=== PATIENT | male | born 1945 | race Caucasian/White ===

== ENCOUNTER → 2016-04-05 | Outpatient (CLI) | payer OTHER ==
[2016-04-05 09:52] LABS: ALT/SGPT 31 U/L (12-78); AST/SGOT 12 U/L (15-37); BLOOD UREA NITROGEN 19 mg/dl (7-18); BUN/CREATININE RATIO 15.5 (10-20); CALCIUM 9.6 mg/dl (8.5-10.1); CARBON DIOXIDE 26 mmol/L (21-32); CHLORIDE 104 mmol/L (98-107); GLUCOSE 168 mg/dl (70-99); POTASSIUM 4.2 mmol/L (3.5-5.1); SODIUM 140 mmol/L (136-145)
[2016-04-05 10:03] LABS: ESTIMATED AVERAGE GLUCOSE 140 mg/dl; HA1C FLAG Normal (Normal)
== END | disposition home or self-care (01) ==
LOC: C.LAB 08:06
PROVIDERS: ATTEND Family Medicine
DX: J45.909 Unspecified asthma, uncomplicated (principal); E11.9 Type 2 diabetes mellitus without complications; E78.00 Pure hypercholesterolemia, unspecified

== ENCOUNTER → 2016-08-16 | Outpatient (CLI) | payer OTHER ==
[2016-08-16 09:46] LABS: BLOOD UREA NITROGEN 19 mg/dl (7-18); CARBON DIOXIDE 28 mmol/L (21-32); CHLORIDE 108 mmol/L (98-107); GLUCOSE 139 mg/dl (70-99); POTASSIUM 4.2 mmol/L (3.5-5.1); SODIUM 142 mmol/L (136-145)
[2016-08-16 10:01] LABS: CALCIUM 10.3 mg/dl (8.5-10.1)
[2016-08-16 10:03] LABS: ALB/GLOB RATIO 1.1 (0.9-2); ALKALINE PHOSPHATASE 67 U/L (45-117); ALT/SGPT 30 U/L (12-78); AST/SGOT 17 U/L (15-37); BUN/CREATININE RATIO 16.1 (10-20); CHOLESTEROL 152 mg/dl (0-200); CHOLESTEROL/HDL RATIO 2.8; HDL CHOLESTEROL 54 mg/dl; LDL CHOLESTEROL CALCULATED 74 mg/dl; TRIGLYCERIDES 118 mg/dl (0-150); VERY LOW DENSITY LIPOPROT CALC 24 mg/dl
[2016-08-16 10:23] LABS: ESTIMATED AVERAGE GLUCOSE 151 mg/dl; HA1C FLAG Normal (Normal)
== END | disposition home or self-care (01) ==
LOC: C.LAB 07:28
PROVIDERS: ATTEND Family Medicine
DX: E11.9 Type 2 diabetes mellitus without complications (principal); E78.00 Pure hypercholesterolemia, unspecified; I48.91 Unspecified atrial fibrillation; I10 Essential (primary) hypertension

== ENCOUNTER → 2016-12-20 | Outpatient (CLI) | payer OTHER ==
[2016-12-20 09:51] LABS: BLOOD UREA NITROGEN 17 mg/dl (7-18); BUN/CREATININE RATIO 14.1 (10-20); CALCIUM 9.5 mg/dl (8.5-10.1); CARBON DIOXIDE 28 mmol/L (21-32); CHLORIDE 109 mmol/L (98-107); GLUCOSE 133 mg/dl (70-99); POTASSIUM 4.1 mmol/L (3.5-5.1); SODIUM 142 mmol/L (136-145)
[2016-12-20 09:55] LABS: ALB/GLOB RATIO 1.2 (0.9-2); ALKALINE PHOSPHATASE 66 U/L (45-117); ALT/SGPT 30 U/L (12-78); AST/SGOT 13 U/L (15-37); CHOLESTEROL 147 mg/dl (0-200); CHOLESTEROL/HDL RATIO 2.5; HDL CHOLESTEROL 58 mg/dl; LDL CHOLESTEROL CALCULATED 64 mg/dl; TRIGLYCERIDES 124 mg/dl (0-150); VERY LOW DENSITY LIPOPROT CALC 25 mg/dl
[2016-12-20 10:04] LABS: ESTIMATED AVERAGE GLUCOSE 157 mg/dl; HA1C FLAG Normal (Normal)
== END | disposition home or self-care (01) ==
LOC: C.LAB 07:17
PROVIDERS: ATTEND Family Medicine
DX: E11.9 Type 2 diabetes mellitus without complications (principal); E78.00 Pure hypercholesterolemia, unspecified; I10 Essential (primary) hypertension

== ENCOUNTER → 2016-12-27 | Outpatient (CLI) | payer OTHER | END | disposition home or self-care (01) | LOC: C.PATHSPEC 14:18 | PROVIDERS: ATTEND Family Medicine | DX: B07.9 Viral wart, unspecified (principal) ==

== ENCOUNTER → 2017-04-21 | Outpatient (CLI) | payer OTHER ==
[2017-04-21 09:51] LABS: HEMOGLOBIN A1C 7.2 % (4.5-5.6)
[2017-04-21 10:07] LABS: ALBUMIN 3.8 gm/dl (3.4-5.0); ALT/SGPT 37 U/L (12-78); AST/SGOT 21 U/L (15-37); BLOOD UREA NITROGEN 15 mg/dl (7-18); CALCIUM 9.2 mg/dl (8.5-10.1); CARBON DIOXIDE 28 mmol/L (21-32); CHOLESTEROL 137 mg/dl (0-200); CREATININE 1.12 mg/dl (0.60-1.40); GLUCOSE 124 mg/dl (70-99); POTASSIUM 3.8 mmol/L (3.5-5.1); SODIUM 139 mmol/L (136-145)
[2017-04-21 10:10] LABS: ALKALINE PHOSPHATASE 64 U/L (45-117); LDL CHOLESTEROL CALCULATED 50 mg/dl; TOTAL PROTEIN 7.2 gm/dl (6.4-8.2)
== END | disposition home or self-care (01) ==
LOC: C.LAB 08:40
PROVIDERS: ATTEND Family Medicine
DX: E11.9 Type 2 diabetes mellitus without complications (principal); I48.91 Unspecified atrial fibrillation; I10 Essential (primary) hypertension

== ENCOUNTER 2017-10-18 02:40 | Inpatient (IN) | payer OTHER ==
[~2017-10-18] VITALS: Ht 180.3 cm; Wt 74.6 kg
[2017-10-18] VITALS (8 sets, daily range): BP systolic 101–163; BP diastolic 60–89; PULSE 68–95; TEMP 36.6; O2SAT 89–97; Ht 180.3 cm; Wt 74.6 kg
[2017-10-18] MEDS ORDERED: SODIUM CHLORIDE 0.9% 1000ML 1,000 ML IV STA (02:59)
[2017-10-18] MEDS ORDERED: OPTIRAY 320 IV PRN (03:15)
[2017-10-18 03:30] LABS: BASO % 0.3 %; BASO ABS # 0.03 K/uL (0-0.2); EOS % 4.2 %; EOS ABS # 0.49 K/uL (0-0.5); HEMATOCRIT 47.6 % (42-52); HEMOGLOBIN 17.1 g/dL (14.0-18.0); IG# 0.02 K/uL (0.00-0.02); LYMPH % 22.9 %; LYMPH ABS # 2.68 K/uL (1.2-3.4); MEAN CELL VOLUME 94.4 fL (80-100); MEAN CORPUSCULAR HEMOGLOBIN 33.9 pg (25-34); MEAN CORPUSCULAR HGB CONC 35.9 g/dl (32-36); MEAN PLATELET VOLUME 11.7 fL (7.4-10.4); MONO % 6.4 %; MONO ABS # 0.75 K/uL (0.11-0.59); NEUT ABS # 7.72 K/uL (1.4-6.5); PLATELET COUNT 147 K/uL (130-400); RED CELL DISTRIBUTION WIDTH CV 12.4 % (11.5-14.5); RED CELL DISTRIBUTION WIDTH SD 42.8 fL (36.4-46.3); WHITE BLOOD COUNT 11.69 K/uL (4.8-10.8)
--- NOTE | 2017-10-18 03:42 | EMERGENCY ROOM VISIT NOTE ---
History First contact with patient: 02:51 Chief Complaint: ABDOMINAL PAIN Stated Complaint: SEVERE PAIN IN STOMACH Nursing Triage Summary: PT presents with abd pain, to center of abd and pain to left shoulder, PT states the pain is a squeezing pain, denies N/V, denies urinary symptoms and denies diarrhea or constipation. History of Present Illness The patient is a 72 year old male who presents to the Emergency Room with complaints of pain to the epigastric region and left side of the abdomen. Patient's states this has been an ongoing issue for the last several weeks but tonight he could not lay comfortably. The pain radiates to the left shoulder. Patient admits that with a deep breath, the pain is somewhat worsened. He denies any difficulty with shortness of breath or chest pain. Patient states he ate dinner without any difficulty. He has been having bowel movements normally and has had no vomiting. He denies any blood in his bowels. The patient has not discussed the findings with his PCP. He denies any aggravating or relieving factors. His states they have attempted to use [id number] Tums and Pepcid without any relief. Review of Systems See HPI for pertinent positives & negatives. A total of 10 systems reviewed and were otherwise negative. Past Medical/Surgical History Left bundle branch block Diabetes Social History Smoking Status: Never Smoker Marital Status: Housing Status: lives with family Occupation Status: retired Current/Historical Medications Scheduled Aspirin (Aspirin 81 Low Dose), 81 MG PO 3XWK Cetirizine (Zyrtec), 10 MG PO QPM Empagliflozin (Jardiance), 25 MG PO DAILY Fexofenadine Hcl (Mirella), 180 MG PO DAILY Glimepiride (Glimepiride), 1 TAB PO BID Insulin Human NPH (Novolin N), 46 UNITS SQ HS Ipratropium [place] (Nasal) (Ipratropium [place]), 1 DROP DAILY Lisinopril (Zestril), 20 MG PO DAILY Metoprolol Tartrate (Lopressor) (Lopressor), 25 MG PO BID Mometasone Furoate-Formoterol (Dulera 200/5 Mcg), 2 PUFFS INH BID Multiple Vitamins W/ Minerals (Centrum Silver 50+Men), 1 TAB PO DAILY Nortriptyline Hcl (Pamelor), 75 MG PO QPM Omeprazole (Omeprazole), 20 MG PO DAILY Oxymetazoline Hcl (Nasal Relief), 2 SPRAYS CORBY BID Simvastatin (Zocor), 40 MG PO QPM Sitagliptin Phosphate (Januvia), 100 MG PO DAILY Scheduled PRN Albuterol Hfa (Ventolin Hfa), 2 PUFFS INH Q6H PRN for SOB/Wheezing Physical Exam Vital Signs Date Time Temp Pulse Resp B/P (MAP) Pulse Ox O2 Delivery O2 Flow Rate FiO2 10/18/17 05:47 63 17 154/89 98 Room Air 10/18/17 05:01 59 19 150/87 98 10/18/17 04:39 62 18 139/81 99 Room Air 10/18/17 04:16 69 18 153/91 96 Room Air 10/18/17 03:34 63 10/18/17 02:45 36.3 61 18 141/73 97 Room Air Physical Exam Vital signs reviewed. General: Well-appearing 72-year-old male, in no significant distress. HEENT: No scleral icterus, PERRLA, neck supple. Atraumatic. Hard of hearing Cardiovascular: Regular rate and rhythm, no extra sounds. Pulmonary: Clear to auscultation bilaterally, normal work of breathing. Abdomen: Soft, tender to palpation over the left upper and lower quadrants. Mild distention without tympany, positive bowel sounds. Musculoskeletal: Atraumatic, no peripheral edema. Neurologic: Patient awake alert and oriented x 3 Skin: Warm, dry, no rash Medical Decision & Procedures ER Provider Diagnostic Interpretation: CTA chest: Findings: No pulmonary embolus is identified. The aorta is within normal limits , no aneurysm or dissection. The cardiomediastinal structures are normal. No adenopathy or effusions. The lungs are clear. The osseous structures are unremarkable. Impression: No acute abnormality of the chest Radiologist: Kamran Pickett MD Laboratory Results 10/18/17 03:16 Red Blood Count 5.04, Mean Corpuscular Volume 94.4, Mean Corpuscular Hemoglobin 33.9, Mean Corpuscular Hemoglobin Concent 35.9, Mean Platelet Volume 11.7, Neutrophils (%) (Auto) 66.0, Lymphocytes (%) (Auto) 22.9, Monocytes (%) (Auto) 6.4, Eosinophils (%) (Auto) 4.2, Basophils (%) (Auto) 0.3, Neutrophils # (Auto) 7.72, Lymphocytes # (Auto) 2.68, Monocytes # (Auto) 0.75, Eosinophils # (Auto) 0.49, Basophils # (Auto) 0.03 10/18/17 03:16 Test 10/18/17 03:16 White Blood Count 11.69 K/uL (4.8-10.8) Red Blood Count 5.04 M/uL (4.7-6.1) Hemoglobin 17.1 g/dL (14.0-18.0) Hematocrit 47.6 % (42-52) Mean Corpuscular Volume 94.4 fL (80-100) Mean Corpuscular Hemoglobin 33.9 pg (25-34) Mean Corpuscular Hemoglobin Concent 35.9 g/dl (32-36) Platelet Count 147 K/uL (130-400) Mean Platelet Volume 11.7 fL (7.4-10.4) Neutrophils (%) (Auto) 66.0 % Lymphocytes (%) (Auto) 22.9 % Monocytes (%) (Auto) 6.4 % Eosinophils (%) (Auto) 4.2 % Basophils (%) (Auto) 0.3 % Neutrophils # (Auto) 7.72 K/uL (1.4-6.5) Lymphocytes # (Auto) 2.68 K/uL (1.2-3.4) Monocytes # (Auto) 0.75 K/uL (0.11-0.59) Eosinophils # (Auto) 0.49 K/uL (0-0.5) Basophils # (Auto) 0.03 K/uL (0-0.2) RDW Standard Deviation 42.8 fL (36.4-46.3) RDW Coefficient of Variation 12.4 % (11.5-14.5) Immature Granulocyte % (Auto) 0.2 % Immature Granulocyte # (Auto) 0.02 K/uL (0.00-0.02) Prothrombin Time 10.4 SECONDS (9.0-12.0) Prothromb Time International Ratio 1.0 (0.9-1.1) Activated Partial Thromboplast Time 27.8 SECONDS (21.0-31.0) Partial Thromboplastin Ratio 1.1 Urine Color YELLOW Urine Appearance CLEAR (CLEAR) Urine pH 6.5 (4.5-7.5) Urine Specific [place] 1.036 (1.000-1.030) Urine Protein NEG (NEG) Urine Glucose (UA) 3+ (NEG) Urine Ketones NEG (NEG) Urine Occult Blood NEG (NEG) Urine Nitrite NEG (NEG) Urine Bilirubin NEG (NEG) Urine Urobilinogen NEG (NEG) Urine Leukocyte Esterase NEG (NEG) Anion Gap 7.0 mmol/L (3-11) Est Creatinine Clear Calc Drug Dose 45.0 ml/min Estimated GFR () 66.4 Estimated GFR (Non- 57.3 BUN/Creatinine Ratio 11.0 (10-20) Calcium Level 9.2 mg/dl (8.5-10.1) Total Bilirubin 0.4 mg/dl (0.2-1) Direct Bilirubin 0.1 mg/dl (0-0.2) Aspartate Amino Transf (AST/SGOT) 81 U/L (15-37) Alanine Aminotransferase (ALT/SGPT) 33 U/L (12-78) Alkaline Phosphatase 75 U/L (45-117) Troponin I 7.550 ng/ml (0-0.045) Total Protein 7.4 gm/dl (6.4-8.2) Albumin 3.7 gm/dl (3.4-5.0) Lipase 158 U/L (73-393) Medications Administered Medications (Trade) Dose Ordered Sig/Robert Route Start Time Stop Time Status Last Admin Dose Admin Sodium Chloride 1,000 ml @ 125 mls/hr Q8H STAT IV 10/18/17 02:59 10/18/17 10:58 10/18/17 03:16 125 MLS/HR Aspirin (Aspirin Chew) 324 mg NOW STAT PO 10/18/17 03:59 10/18/17 04:00 DC 10/18/17 04:15 324 MG Morphine Sulfate (MoRPHine SULFATE INJ) 4 mg NOW STAT IV 10/18/17 04:13 10/18/17 04:15 DC 10/18/17 04:29 4 MG Ondansetron HCl (Zofran Inj) 4 mg NOW STAT IV 10/18/17 04:13 10/18/17 04:15 DC 10/18/17 04:29 4 MG Nitroglycerin (Nitroglycerin 2% Oint) 0.5 inch NOW STAT EXT 10/18/17 04:24 10/18/17 04:25 DC 10/18/17 04:32 0.5 INCH Medical Decision The differential diagnosis of this patient's presentation includes peptic ulcer , pancreatitis, diverticulitis, bowel obstruction, kidney stone, UTI/ pyelonephritis, colitis, SBO, cholecystitis, appendicitis, aortic etiology This patient was evaluated and appeared to be in no significant distress. IV access was obtained and laboratory work was drawn. Patient was placed on the surveillance system monitor and found to be in a sinus rhythm with a left bundle branch block. CT scan of the abdomen and pelvis was initially ordered due to the location of the patient's discomfort. Laboratory work however indicates a troponin of 7.5. EKG from 2014 were compared to today's and are unchanged. Patient continues to complain of an epigastric discomfort. He was given aspirin 324 mg, 1/2 inch of nitroglycerin paste and started on a heparin drip. Patient was given morphine 4 mg IV and Zofran 4 mg IV for discomfort. CT scan of the chest was performed to rule out dissection, the study is negative, CT scan abdomen pelvis was canceled. I did discuss the case with Dr. Cruz of cardiology who has recommended n.p.o. status for catheterization in several hours. Dr. Fallon of the hospitalist service. Patient was informed of the findings and plan and agrees. Medication Reconcilliation Current Medication List: was personally reviewed by me Blood Pressure Screening Patient's blood pressure: Elevated blood pressure Blood pressure disposition: Elevated BP felt to be situational, Did not require urgent referral Impression Primary Impression: ACS (acute coronary syndrome) Critical Care I have personally spent greater than 35 minutes of critical care time in the direct management of this patient. This includes bedside care, interpretation of diagnostic studies, and testing, discussion with consultants, patient, and family members, and other required patient management activities. This 35 minutes is in excess of all separately billable procedures. Departure Information Referrals Valentino Dunlap M.D. (PCP) Patient Instructions [facility]
[2017-10-18 03:55] LABS: ALBUMIN 3.7 gm/dl (3.4-5.0); CALCIUM 9.2 mg/dl (8.5-10.1); CREATININE 1.24 mg/dl (0.60-1.40); POTASSIUM 3.8 mmol/L (3.5-5.1); TOTAL PROTEIN 7.4 gm/dl (6.4-8.2)
[2017-10-18] MEDS ORDERED: ASPIRIN 81 MG CHEW PO STA (03:59)
[2017-10-18] MEDS ORDERED: OMEP20TA PO (04:00)
[2017-10-18] MEDS ORDERED: ASPI1CHW12 PO (04:01)
[2017-10-18] MEDS ORDERED: METO25TA56 PO (04:02)
[2017-10-18] MEDS ORDERED: FEXO1TAB46 PO (04:02)
[2017-10-18] MEDS ORDERED: LISI-725 PO (04:02)
[2017-10-18] MEDS ORDERED: GLIM4TAB2 PO (04:02)
[2017-10-18] MEDS ORDERED: MULT-1093 PO (04:03)
[2017-10-18] MEDS ORDERED: VNTHFA/IN INH (04:04)
[2017-10-18] MEDS ORDERED: IPRA0.06 (04:04)
[2017-10-18] MEDS ORDERED: MOME200A INH (04:04)
[2017-10-18] MEDS ORDERED: EMPA1TAB3 PO (04:05)
[2017-10-18] MEDS ORDERED: SITA100T3 PO (04:05)
[2017-10-18] MEDS ORDERED: [UNRECOGNIZED DRUG - CODE] NAE (04:05)
[2017-10-18] MEDS ORDERED: NORT75CA2 PO (04:07)
[2017-10-18] MEDS ORDERED: CETI10TA84 PO (04:07)
[2017-10-18] MEDS ORDERED: NVLNI SQ (04:07)
[2017-10-18] MEDS ORDERED: SIMV40TA2 PO (04:07)
[2017-10-18] MEDS ORDERED: MoRPHine SULFATE 4 MG/ML 1 ML CARP\\VIAL IV STA (04:13)
[2017-10-18] MEDS ORDERED: ONDANSETRON INJ 2 MG/ML 2 ML VIAL IV STA (04:13)
[2017-10-18] MEDS ORDERED: NITROGLYCERIN 2% OINTMENT 30GM TUBE EXT STA (04:24)
[2017-10-18 04:31] LABS: PTT PATIENT 27.8 SECONDS (21.0-31.0)
[2017-10-18] MEDS ORDERED: HEPARIN 25000 UNIT/500 ML D5W ONE (04:36)
[2017-10-18] MEDS ORDERED: HEPARIN SOD 5000 UNIT/0.5 ML CARP ONE (04:36)
--- NOTE | 2017-10-18 05:10 | History and Physical ---
History & Physical Date & Time of Service: Oct 18, 2017 at 05:09 Chief Complaint: Severe Pain In Stomach Primary Care Physician: Valentino Dunlap M.D. History of Present Illness Source: patient, hospital records 72 yo M with PMhx of T2DM, HLD, HTN, GERD, Asthma presenting with intermittent epigastric pain x a few weeks. Pain has been intermittent but worsening the last few days. He tried Tums, which he feels helped several days ago but later provided little relief. He denies meal association .He does report associated diaphoresis. He denies Chest pain, Sob, calf tenderness.No fevers, chills, n/v, constipation, diarrhea, sob, cough, palpitation, light headedness, or dizziness, Patient denies of Heart disease. He has a known LBBB. His brother had MD before age 50. He does have history of well controlled T2DM on insulin, He also has history of Hyperlipidemia, HTN. Primary Care doctor is Dr. Valentino Dunlap. In the ED, patient was found to be afebrile, VSS. mild leukocytosis ( WBC Ct 11.69) ,, UA unremarkable, EKG with LBBB similar to previous, no acute ST changes, Troponin of 7.55 Past Medical/Surgical History PastMedHx: T2DM HLD HTN GERD Asthma Seasonal Allergy Family History FH: CAD (coronary artery disease) Social History Smoking Status: Never Smoker Alcohol Use: none Drug Use: none Marital Status: Housing status: lives with family Occupational Status: retired Immunizations History of Influenza Vaccine: Unknown History of Tetanus Vaccine?: Unknown History of Pneumococcal: Unknown History of Hepatitis B Vaccine: Unknown Allergies Coded Allergies: Cat Dander (Verified Allergy, Unknown, congestion, 10/18/17) Dog Dander (Verified Allergy, Unknown, congestion, 10/18/17) Home Medications Scheduled Aspirin (Aspirin 81 Low Dose), 81 MG PO 3XWK Cetirizine (Zyrtec), 10 MG PO QPM Empagliflozin (Jardiance), 25 MG PO DAILY Fexofenadine Hcl (Mirella), 180 MG PO DAILY Glimepiride (Glimepiride), 1 TAB PO BID Insulin Human NPH (Novolin N), 46 UNITS SQ HS Ipratropium [place] (Nasal) (Ipratropium [place]), 1 DROP DAILY Lisinopril (Zestril), 20 MG PO DAILY Metoprolol Tartrate (Lopressor) (Lopressor), 25 MG PO BID Mometasone Furoate-Formoterol (Dulera 200/5 Mcg), 2 PUFFS INH BID Multiple Vitamins W/ Minerals (Centrum Silver 50+Men), 1 TAB PO DAILY Nortriptyline Hcl (Pamelor), 75 MG PO QPM Omeprazole (Omeprazole), 20 MG PO DAILY Oxymetazoline Hcl (Nasal Relief), 2 SPRAYS [place] BID Simvastatin (Zocor), 40 MG PO QPM Sitagliptin Phosphate (Januvia), 100 MG PO DAILY Scheduled PRN Albuterol Hfa (Ventolin Hfa), 2 PUFFS INH Q6H PRN for SOB/Wheezing Review of Systems Constitutional: No fever, No chills Respiratory: No cough, No sputum, No shortness of breath Cardiovascular: No chest pain, No edema, No palpitations Abdomen: + pain (Epigastric ), No vomiting, No diarrhea, No constipation, No GI bleeding Genitourinary - Male: No hematuria, No dysuria, No urinary frequency, No urinary urgency Integumentary: No rash, No itch Physical Exam Vital Signs Date Time Temp Pulse Resp B/P (MAP) Pulse Ox O2 Delivery O2 Flow Rate FiO2 10/18/17 04:39 62 18 139/81 99 Room Air 10/18/17 04:16 69 18 153/91 96 Room Air 10/18/17 03:34 63 10/18/17 02:45 36.3 61 18 141/73 97 Room Air GENERAL: alert, mild distress EYE EXAM: normal conjunctiva, PERRL and EOM's grossly intact OROPHARYNX: no exudate, no erythema, lips, buccal mucosa, and tongue normal and mucous membranes are moist NECK: supple, no nuchal rigidity, no adenopathy, non-tender LUNGS: Clear to auscultation. Normal chest wall mechanics HEART: no murmurs, S1 normal and S2 normal ABDOMEN: abdomen distended, non-specific tenderness worst in the epigastrium normo-active bowel sounds, no masses, no rebound or guarding. BACK: Back is symmetrical on inspection and there is no deformity SKIN: no rashes and no bruising UPPER EXTREMITIES: upper extremities are grossly normal. LOWER EXTREMITIES: No pitting edema. NEURO EXAM: Normal sensorium, cranial nerves II-XII grossly intact, normal speech, no gross weakness of arms, no gross weakness of legs. Diagnostics Laboratory Results Results Past 24 Hours Test 10/18/17 03:16 Range/Units White Blood Count 11.69 4.8-10.8 K/uL Red Blood Count 5.04 4.7-6.1 M/uL Hemoglobin 17.1 14.0-18.0 g/dL Hematocrit 47.6 42-52 % Mean Corpuscular Volume 94.4 80-100 fL Mean Corpuscular Hemoglobin 33.9 25-34 pg Mean Corpuscular Hemoglobin Concent 35.9 32-36 g/dl Platelet Count 147 130-400 K/uL Mean Platelet Volume 11.7 7.4-10.4 fL Neutrophils (%) (Auto) 66.0 % Lymphocytes (%) (Auto) 22.9 % Monocytes (%) (Auto) 6.4 % Eosinophils (%) (Auto) 4.2 % Basophils (%) (Auto) 0.3 % Neutrophils # (Auto) 7.72 1.4-6.5 K/uL Lymphocytes # (Auto) 2.68 1.2-3.4 K/uL Monocytes # (Auto) 0.75 0.11-0.59 K/uL Eosinophils # (Auto) 0.49 0-0.5 K/uL Basophils # (Auto) 0.03 0-0.2 K/uL RDW Standard Deviation 42.8 36.4-46.3 fL RDW Coefficient of Variation 12.4 11.5-14.5 % Immature Granulocyte % (Auto) 0.2 % Immature Granulocyte # (Auto) 0.02 0.00-0.02 K/uL Prothrombin Time 10.4 9.0-12.0 SECONDS Prothromb Time International Ratio 1.0 0.9-1.1 Activated Partial Thromboplast Time 27.8 21.0-31.0 SECONDS Partial Thromboplastin Ratio 1.1 Urine Color YELLOW Urine Appearance CLEAR CLEAR Urine pH 6.5 4.5-7.5 Urine Specific [place] 1.036 1.000-1.030 Urine Protein NEG NEG Urine Glucose (UA) 3+ NEG Urine Ketones NEG NEG Urine Occult Blood NEG NEG Urine Nitrite NEG NEG Urine Bilirubin NEG NEG Urine Urobilinogen NEG NEG Urine Leukocyte Esterase NEG NEG Sodium Level 140 136-145 mmol/L Potassium Level 3.8 3.5-5.1 mmol/L Chloride Level 106 98-107 mmol/L Carbon Dioxide Level 27 21-32 mmol/L Anion Gap 7.0 3-11 mmol/L Blood Urea Nitrogen 14 7-18 mg/dl Creatinine 1.24 0.60-1.40 mg/dl Est Creatinine Clear Calc Drug Dose 45.0 ml/min Estimated GFR () 66.4 Estimated GFR (Non- 57.3 BUN/Creatinine Ratio 11.0 10-20 Random Glucose 163 70-99 mg/dl Calcium Level 9.2 8.5-10.1 mg/dl Total Bilirubin 0.4 0.2-1 mg/dl Direct Bilirubin 0.1 0-0.2 mg/dl Aspartate Amino Transf (AST/SGOT) 81 15-37 U/L Alanine Aminotransferase (ALT/SGPT) 33 12-78 U/L Alkaline Phosphatase 75 45-117 U/L Troponin I 7.550 0-0.045 ng/ml Total Protein 7.4 6.4-8.2 gm/dl Albumin 3.7 3.4-5.0 gm/dl Lipase 158 73-393 U/L Diagnostic Radiology CHEST ONE VIEW PORTABLE CLINICAL HISTORY: Left-sided abdominal pain radiating to left shoulder. COMPARISON STUDY: Chest radiograph February 25, 2015. FINDINGS: Mild elevation of the left hemidiaphragm is unchanged. There is no consolidation to suggest pneumonia. Linear left lower lung opacity reflects atelectasis or scarring. Pulmonary vascularity is normal. Cardiomediastinal silhouette is normal. Appearance of the chest is unchanged. Old right seventh rib fracture is noted. IMPRESSION: No acute cardiopulmonary findings. Electronically signed by: Farhat Vidal M.D. 10/18/2017 6:31 AM Dictated Date/Time: 10/18/2017 6:29 AM CHEST CTA for AORTIC DISSECTION CT DOSE: 667.12 mGy.cm HISTORY: Left-sided chest pain. Epigastric pain. TECHNIQUE: Multiaxial CT images of the chest were performed both before and after the intravenous administration of contrast to evaluate the aorta. Maximal intensity projection images were also obtained. A dose lowering technique was utilized adhering to the principles of ALARA. COMPARISON STUDY: None. FINDINGS: Normal caliber thoracic aorta with no evidence for dissection. The main pulmonary arteries are patent. There is 1.4 cm nodule either within or posterior to the right thyroid lobe. No mediastinal or hilar lymphadenopathy. Calcified mediastinal and left hilar lymph nodes are noted. The heart is normal in size. No pleural or pericardial effusions. Multiple calcified splenic granulomas. Mild elevation of the left hemidiaphragm. No fractures within the visualized osseous structures. The central airways are patent. Small scarlike densities at the lung apices. No pneumothorax. Left basilar linear densities likely represent subsegmental atelectasis. Otherwise, no focal lung consolidations to suggest pneumonia. IMPRESSION: 1. No evidence for an aortic dissection. 2. No evidence for central pulmonary embolus. 3. Left basilar subsegmental atelectasis. No focal lung consolidations to suggest ammonia. 4. A 1.4 cm nodule either within or posterior to the right thyroid lobe. Follow-up thyroid ultrasound can be performed for further evaluation. This finding was called/faxed to the referring physician's office following dictation. Electronically signed by: Juan Nunes M.D. 10/18/2017 7:06 AM Dictated Date/Time: 10/18/2017 7:00 AM Impression Assessment and Plan 72 yo M with PMhx of T2DM, HLD, HTN, GERD, Asthma presenting with worsening epigastric pain found to have a elevated Troponin (7.55 on arrival) NSTEMI - Troponin elevated at 7.55, no notable acute ischemic EKG changes, - ACS risk factors included HTN, HLD, FHx of Early MD - CT ruled out Aortic Dissection - Trend troponin - IV Heparin started - ASA, Restart home Metoprolol - Cardiology consulted ( [facility]) - Echo ordered - NPO Abdominal pain - unclear etiology, generalized tenderness , distension on exam - possibly related to NSTEMI - no other gastrointestinal symptoms. patient does have history of GERD which may be related - CT Abdomen/pelvis no acute abnormalities, Lipase, LFT wnl - Pain control - PPI T2DM - ISS, - BSG AC HS HLD - Zocor HTN - Lisinopril, Metoprolol at home dose Asthma - stable - prn albuterol, Ipratropium Code status: Full Resuscitation Disposition: Admit to Telemetry DVT PPX; on Heparin drip Attending addendum: I have physically seen this patient, have supervised the medical residents activities, and agree with the H&P unless as otherwise noted. Assessment and Plan: NSTEMI/hypertension-- The patient will be admitted to telemetry for serial cardiac enzymes, serial EKG's, cardiac rhythm monitoring and a 2-D echocardiogram with Dopplers. Standard concentration heparin IV without bolus per protocol. Continue lisinopril and metoprolol. Consult cardiology. N.p.o. after midnight. Diabetes mellitus-- Placed on Accu-Cheks before meals and at bedtime with NovoLog coverage per scale. Check hemoglobin A1c. Hyperlipidemia-- Continue simvastatin 40 mg in evening. Check a fasting lipid panel. Remainder of orders and notes as above. Advanced Directives Existing Advance Directive: No Existing Living Will: No Existing Power of County Demonstrator: No Resuscitation Status VTE Prophylaxis Will order VTE Prophylaxis: Yes Note Total Time: Critical Care 30 - 74 minutes Resident Tracking Resident Involvement: Resident Care Provided Care Provided: Adult Hospital Medicine
[2017-10-18] MEDS ORDERED: DEXTROSE 50% 50 ML SYR IV PRN (05:15)
[2017-10-18] MEDS ORDERED: GLUCOSE 10 TABS/TUBE PO PRN (05:15)
[2017-10-18] MEDS ORDERED: POLYETHYLENE (MIRALAX) 17 GM PACK PO PRN (05:15)
[2017-10-18] MEDS ORDERED: GLUCAGON FOR INJ 1 MG VIAL SQ PRN (05:15)
[2017-10-18] MEDS ORDERED: NITROGLYCERIN 0.4 MG SL PER TAB CHARGE SL PRN (05:15)
[2017-10-18] MEDS ORDERED: ACETAMINOPHEN 325 MG TAB PO PRN ×2 (05:15→11:45)
[2017-10-18] MEDS ORDERED: CARBOHYDRATES FOR HYPOGLYCEMIA PO PRN (05:15)
[2017-10-18] MEDS ORDERED: MAGNESIUM HYDROXIDE SUSP 30 ML UDC PO PRN (05:15)
[2017-10-18] MEDS ORDERED: ALUMINUM/MAGNESIUM/SIMETH (MAALOX MAX) 30 ML UDC PO PRN (05:15)
[2017-10-18] MEDS ORDERED: MoRPHine SULFATE 2 MG/ML CARP IV PRN (05:15)
[2017-10-18] MEDS ORDERED: ONDANSETRON INJ 2 MG/ML 2 ML VIAL IV PRN ×2 (05:15→11:45)
[2017-10-18] MEDS ORDERED: GLUCOSE 40% GEL 15 GM TUBE PO PRN (05:15)
[2017-10-18] MEDS ORDERED: HEPARIN IV LOW DOSE NO BOLUS SCH (06:30)
--- NOTE | 2017-10-18 06:32 | DIAGNOSTIC IMAGING REPORT ---
CHEST ONE VIEW PORTABLE CLINICAL HISTORY: Left-sided abdominal pain radiating to left shoulder. COMPARISON STUDY: Chest radiograph February 25, 2015. FINDINGS: Mild elevation of the left hemidiaphragm is unchanged. There is no consolidation to suggest pneumonia. Linear left lower lung opacity reflects atelectasis or scarring. Pulmonary vascularity is normal. Cardiomediastinal silhouette is normal. Appearance of the chest is unchanged. Old right seventh rib fracture is noted. IMPRESSION: No acute cardiopulmonary findings. Electronically signed by: Farhat Vidal M.D. 10/18/2017 6:31 AM Dictated Date/Time: 10/18/2017 6:29 AM
[2017-10-18] MEDS ORDERED: HEPARIN SOD (PORCINE) 1000 UNIT/ML 10 ML VIAL ONE ×2 (06:43→10:20)
--- NOTE | 2017-10-18 07:07 | DIAGNOSTIC IMAGING REPORT ---
CHEST CTA for AORTIC DISSECTION CT DOSE: 667.12 mGy.cm HISTORY: Left-sided chest pain. Epigastric pain. TECHNIQUE: Multiaxial CT images of the chest were performed both before and after the intravenous administration of contrast to evaluate the aorta. Maximal intensity projection images were also obtained. A dose lowering technique was utilized adhering to the principles of ALARA. COMPARISON STUDY: None. FINDINGS: Normal caliber thoracic aorta with no evidence for dissection. The main pulmonary arteries are patent. There is 1.4 cm nodule either within or posterior to the right thyroid lobe. No mediastinal or hilar lymphadenopathy. Calcified mediastinal and left hilar lymph nodes are noted. The heart is normal in size. No pleural or pericardial effusions. Multiple calcified splenic granulomas. Mild elevation of the left hemidiaphragm. No fractures within the visualized osseous structures. The central airways are patent. Small scarlike densities at the lung apices. No pneumothorax. Left basilar linear densities likely represent subsegmental atelectasis. Otherwise, no focal lung consolidations to suggest pneumonia. IMPRESSION: 1. No evidence for an aortic dissection. 2. No evidence for central pulmonary embolus. 3. Left basilar subsegmental atelectasis. No focal lung consolidations to suggest ammonia. 4. A 1.4 cm nodule either within or posterior to the right thyroid lobe. Follow-up thyroid ultrasound can be performed for further evaluation. This finding was called/faxed to the referring physician's office following dictation. Electronically signed by: Juan Nunes M.D. 10/18/2017 7:06 AM Dictated Date/Time: 10/18/2017 7:00 AM
--- NOTE | 2017-10-18 07:26 | DIAGNOSTIC IMAGING REPORT ---
ADDENDUM There is trace fluid adjacent to the posterior inferior spleen best seen on image 138. This is indeterminate but could represent trace perisplenic hemorrhage. If the patient's left upper quadrant pain continues to persist then consider repeat examination to exclude the possibility of perisplenic hemorrhage or splenic injury. However, trace complex fluid could also have a similar appearance. These findings were discussed with Dr. Gonzalez at 7:55 AM on 10/18/2017. Electronically signed by: Juan Nunes M.D. 10/18/2017 7:55 AM Dictated Date/Time: 10/18/2017 7:50 AM ORIGINAL REPORT ABDOMEN AND PELVIS CT WITHOUT CONTRAST CT DOSE: 572.68 mGy.cm HISTORY: Left upper quadrant pain. tender abdomen TECHNIQUE: Multiaxial CT images of the abdomen and pelvis were performed without contrast. A dose lowering technique was utilized adhering to the principles of ALARA. COMPARISON STUDY: Abdomen and pelvis CT 07/06/2013. FINDINGS: There is mild elevation the left hemidiaphragm with left basilar subsegmental atelectasis. No pneumoperitoneum. No pneumatosis. Contrast within the urinary system from the recent chest CTA. No fractures within the visualized osseous structures. A 2.5 cm diverticulum at the duodenum. Small fat-containing left inguinal hernia. The unenhanced liver, gallbladder, adrenal glands, and pancreas are unremarkable. Calcified granulomas within the spleen. No hydronephrosis. A few small bladder diverticula. No bowel wall thickening or obstruction. Colonic diverticulosis. Normal appendix. A 2.5 cm left renal cyst. No hydronephrosis. IMPRESSION: 1. Mild elevation of the left hemidiaphragm. 2. No bowel wall thickening or obstruction. 3. Normal appendix. 4. Colonic diverticulosis. Electronically signed by: Juan Nunes M.D. 10/18/2017 7:25 AM Dictated Date/Time: 10/18/2017 7:18 AM
[2017-10-18] MEDS ORDERED: LISINOPRIL 20 MG TAB PO SCH (09:00)
[2017-10-18] MEDS ORDERED: FEXOFENADINE HCL 180 MG TAB PO SCH (09:00)
[2017-10-18] MEDS ORDERED: PANTOprazole SOD 40 MG TAB PO SCH (09:00)
[2017-10-18] MEDS ORDERED: METOPROLOL TARTRATE 25 MG TAB PO SCH (09:00)
--- NOTE | 2017-10-18 09:12 | Medical Consult ---
Consultation Date of Consultation: Oct 18, 2017. Attending Physician: Sergey Almonte M.D. History of Present Illness 72 y/o male with 2 days increasing mid to epigastric abdominal pain. Been having intermittently for a month but usually resolves quickly or improves with TUMS. Troponin is 7, plan was to take him to the [facility] abdomen questioned a small amount of perisplenic fluid. No previous abdominal surgery. No injury or falls in the past 2 days or past 2-3 weeks. Not on any anticoagulants other than 81 mg aspirin. Past Medical/Surgical History Medical Problems: T2DM HLD HTN GERD Asthma Seasonal Allergy Surgical history: inguinal hernia repair colonoscopy Family History FH: CAD (coronary artery disease) Social History Smoking Status: Never Smoker Alcohol Use: none Drug Use: none Marital Status: Housing Status: lives with family Occupation Status: retired Allergies Coded Allergies: Cat Dander (Verified Allergy, Unknown, congestion, 10/18/17) Dog Dander (Verified Allergy, Unknown, congestion, 10/18/17) Current Inpatient Medications Current Inpatient Medications Medications (Trade) Dose Ordered Sig/Robert Route Start Time Stop Time Status Last Admin Dose Admin Sodium Chloride 1,000 ml @ 125 mls/hr Q8H STAT IV 10/18/17 02:59 10/18/17 10:58 10/18/17 03:16 125 MLS/HR Ioversol (Optiray 320) 100 ml UD PRN IV 10/18/17 03:15 10/22/17 03:14 Acetaminophen (Tylenol Tab) 650 mg Q4H PRN PO 10/18/17 05:15 11/17/17 05:14 Al Hydrox/Mg Hydrox/Simethicone (Maalox Max Susp) 15 ml Q4H PRN PO 10/18/17 05:15 11/17/17 05:14 Magnesium Hydroxide (Milk Of Magnesia Susp) 30 ml Q12H PRN PO 10/18/17 05:15 11/17/17 05:14 Ondansetron HCl (Zofran Inj) 4 mg Q6H PRN IV 10/18/17 05:15 11/17/17 05:14 Nitroglycerin (Nitrostat Tab) 0.4 mg UD PRN SL 10/18/17 05:15 11/17/17 05:14 Morphine Sulfate (MoRPHine SULFATE INJ) 2 mg Q30M PRN IV 10/18/17 05:15 8 05:14 10/18/17 08:21 2 MG Polyethylene (Miralax Powder Packet) 17 gm DAILY PRN PO 10/18/17 05:15 11/17/17 05:14 Aspirin (Aspirin Chew) 81 mg DAILYBB PO 10/18/17 07:00 11/17/17 06:59 UNV Lisinopril (Zestril Tab) 20 mg DAILY PO 10/18/17 09:00 11/17/17 08:59 UNV Metoprolol Tartrate (Lopressor Tab) 25 mg BID PO 10/18/17 09:00 11/17/17 08:59 UNV Nortriptyline HCl (Pamelor Cap) 75 mg QPM PO 10/18/17 21:00 11/17/17 20:59 UNV Simvastatin (Zocor Tab) 40 mg QPM PO 10/18/17 21:00 11/17/17 20:59 UNV Insulin Aspart (novoLOG ASPART) SLIDING SCALE If C... ACHS SC 10/18/17 07:00 11/17/17 06:59 UNV Glucose (Glucose 40% Gel) 15-30 GRAMS 15 GRAMS... UD PRN PO 10/18/17 05:15 11/17/17 05:14 Glucose (Glucose Chew Tab) 4-8 Tablets 4 Tabl... UD PRN PO 10/18/17 05:15 11/17/17 05:14 Dextrose (Dextrose 50% 50ML Syringe) 25-50ML 25ML FOR ... UD PRN IV 10/18/17 05:15 11/17/17 05:14 Glucagon (Glucagon Inj) 1 mg UD PRN SQ 10/18/17 05:15 11/17/17 05:14 Carbohydrates (Carbohydrates For Hypoglycemia) 15-30 GRAMS 15 grams if BSG 54-69... UD PRN PO 10/18/17 05:15 11/17/17 05:14 Heparin Sodium/ Dextrose 1 ea Q15M N/A 10/18/17 06:30 11/17/17 06:29 Future Hold Cetirizine HCl (zyrTEC TAB) 10 mg QPM PO 10/18/17 21:00 11/17/17 20:59 UNV Fexofenadine HCl (Mirella Tab) 180 mg DAILY PO 10/18/17 09:00 11/17/17 08:59 UNV Non-Formulary Medication (Ipratropium [place] (Nasal) (Ipratropium [place])) 1 drop DAILY .ROUTE 10/18/17 09:00 11/17/17 08:59 UNV Non-Formulary Medication (Mometasone Furoate-Formoterol (Dulera 200/5 Mcg)) 2 puffs BID INH 10/18/17 09:00 11/17/17 08:59 UNV Pantoprazole Sodium (Protonix Tab) 40 mg QAM PO 10/18/17 09:00 11/17/17 08:59 UNV Review of Systems Abdomen: + pain, No nausea, No vomiting, No diarrhea, No constipation, No GI bleeding Physical Exam Date Time Temp Pulse Resp B/P (MAP) Pulse Ox O2 Delivery O2 Flow Rate FiO2 10/18/17 08:08 69 18 135/62 98 Room Air 10/18/17 07:18 55 10/18/17 07:00 52 18 139/79 96 Room Air 10/18/17 05:47 63 17 154/89 98 Room Air 10/18/17 05:01 59 19 150/87 98 10/18/17 04:39 62 18 139/81 99 Room Air 10/18/17 04:16 69 18 153/91 96 Room Air 10/18/17 03:34 63 10/18/17 02:45 36.3 61 18 141/73 97 Room Air General Appearance: WD/WN, no apparent distress Respiratory/Chest: lungs clear, normal breath sounds Cardiovascular: regular rate, rhythm, no edema Abdomen/GI: soft, no organomegaly, + tenderness (minimal) Laboratory Results Last 24 Hours Test 10/18/17 03:16 10/18/17 08:29 10/18/17 08:44 White Blood Count 11.69 K/uL Red Blood Count 5.04 M/uL Hemoglobin 17.1 g/dL Hematocrit 47.6 % Mean Corpuscular Volume 94.4 fL Mean Corpuscular Hemoglobin 33.9 pg Mean Corpuscular Hemoglobin Concent 35.9 g/dl Platelet Count 147 K/uL Mean Platelet Volume 11.7 fL Neutrophils (%) (Auto) 66.0 % Lymphocytes (%) (Auto) 22.9 % Monocytes (%) (Auto) 6.4 % Eosinophils (%) (Auto) 4.2 % Basophils (%) (Auto) 0.3 % Neutrophils # (Auto) 7.72 K/uL Lymphocytes # (Auto) 2.68 K/uL Monocytes # (Auto) 0.75 K/uL Eosinophils # (Auto) 0.49 K/uL Basophils # (Auto) 0.03 K/uL RDW Standard Deviation 42.8 fL RDW Coefficient of Variation 12.4 % Immature Granulocyte % (Auto) 0.2 % Immature Granulocyte # (Auto) 0.02 K/uL Prothrombin Time 10.4 SECONDS Prothromb Time International Ratio 1.0 Activated Partial Thromboplast Time 27.8 SECONDS Partial Thromboplastin Ratio 1.1 Urine Color YELLOW Urine Appearance CLEAR Urine pH 6.5 Urine Specific [place] 1.036 Urine Protein NEG Urine Glucose (UA) 3+ Urine Ketones NEG Urine Occult Blood NEG Urine Nitrite NEG Urine Bilirubin NEG Urine Urobilinogen NEG Urine Leukocyte Esterase NEG Sodium Level 140 mmol/L Potassium Level 3.8 mmol/L Chloride Level 106 mmol/L Carbon Dioxide Level 27 mmol/L Anion Gap 7.0 mmol/L Blood Urea Nitrogen 14 mg/dl Creatinine 1.24 mg/dl Est Creatinine Clear Calc Drug Dose 45.0 ml/min Estimated GFR () 66.4 Estimated GFR (Non- 57.3 BUN/Creatinine Ratio 11.0 Random Glucose 163 mg/dl Calcium Level 9.2 mg/dl Total Bilirubin 0.4 mg/dl Direct Bilirubin 0.1 mg/dl Aspartate Amino Transf (AST/SGOT) 81 U/L Alanine Aminotransferase (ALT/SGPT) 33 U/L Alkaline Phosphatase 75 U/L Troponin I 7.550 ng/ml Total Protein 7.4 gm/dl Albumin 3.7 gm/dl Lipase 158 U/L ADDENDUM There is trace fluid adjacent to the posterior inferior spleen best seen on image 138. This is indeterminate but could represent trace perisplenic hemorrhage. If the patient's left upper quadrant pain continues to persist then consider repeat examination to exclude the possibility of perisplenic hemorrhage or splenic injury. However, trace complex fluid could also have a similar appearance. These findings were discussed with Dr. Lisa at 7:55 AM on 10/18/2017. Electronically signed by: Juan Nunes M.D. 10/18/2017 7:55 AM Dictated Date/Time: 10/18/2017 7:50 AM ORIGINAL REPORT ABDOMEN AND PELVIS CT WITHOUT CONTRAST CT DOSE: 572.68 mGy.cm HISTORY: Left upper quadrant pain. tender abdomen TECHNIQUE: Multiaxial CT images of the abdomen and pelvis were performed without contrast. A dose lowering technique was utilized adhering to the principles of ALARA. COMPARISON STUDY: Abdomen and pelvis CT 07/06/2013. FINDINGS: There is mild elevation the left hemidiaphragm with left basilar subsegmental atelectasis. No pneumoperitoneum. No pneumatosis. Contrast within the urinary system from the recent chest CTA. No fractures within the visualized osseous structures. A 2.5 cm diverticulum at the duodenum. Small fat-containing left inguinal hernia. The unenhanced liver, gallbladder, adrenal glands, and pancreas are unremarkable. Calcified granulomas within the spleen. No hydronephrosis. A few small bladder diverticula. No bowel wall thickening or obstruction. Colonic diverticulosis. Normal appendix. A 2.5 cm left renal cyst. No hydronephrosis. IMPRESSION: 1. Mild elevation of the left hemidiaphragm. 2. No bowel wall thickening or obstruction. 3. Normal appendix. 4. Colonic diverticulosis. Electronically signed by: Juan Nunes M.D. 10/18/2017 7:25 AM Dictated Date/Time: 10/18/2017 7:18 AM Assessment & Plan 72 y/o diabetic male with ACS and likely incidental finding of perisplenic fluid on CT Imaging reviewed with radiology and by Dr. Crain Discussed with Dr. Cruz, would proceed with catheterization and we will continue to monitor
[2017-10-18 09:13] LABS: HEMATOCRIT 43.5 % (42-52); HEMOGLOBIN 15.2 g/dL (14.0-18.0); MEAN CELL VOLUME 93.1 fL (80-100); MEAN CORPUSCULAR HEMOGLOBIN 32.5 pg (25-34); MEAN PLATELET VOLUME 12.4 fL (7.4-10.4); PLATELET COUNT 136 K/uL (130-400); RED CELL DISTRIBUTION WIDTH CV 12.5 % (11.5-14.5); RED CELL DISTRIBUTION WIDTH SD 42.2 fL (36.4-46.3); WHITE BLOOD COUNT 10.83 K/uL (4.8-10.8)
--- NOTE | 2017-10-18 09:17 | Cardiology Consultation ---
Cardiology Consultation Date of Consultation: Oct 18, 2017 History of Present Illness Sarita Hatfield is a 72 year old male seen in cardiology consultation per the request of Dr Perez and Dr Raya for the evaluation of left upper quadrant abdominal discomfort and elevation of troponin consistent with myocardial infarction. The patient's primary care provider is Dr. Dunlap. His primary power distributor is Dr. Zach Lance of our practice whom the patient had recently seen on 09/22/17. At that time the patient describes stable cardiac signs and symptoms and no medication changes were made. The patient has a long- standing history of left bundle branch block that is been present since 2010 with associated mild left ventricular systolic dysfunction. Prior echocardiogram performed as an outpatient at [facility] in 2014 revealed a septal and apical wall motion abnormality consistent with underlying left bundle branch block and a qualitative ejection fraction in the range of 40- 45% at that time. More recently he underwent a pharmacologic nuclear stress test in October 2016 that revealed a fixed perfusion defect and ejection fraction 47%. His other history is notable for long-standing type 2 diabetes mellitus requiring insulin, hypertension and dyslipidemia. The patient presented to the emergency room overnight last night having described several weeks of waxing and waning abdominal discomfort. He states that this is not associated with meals or with exertion and it seems to come and go without warning. He had the discomfort for 2 days prior to presentation. He ultimately came to the hospital with first set of vital signs recorded 2:45 AM on 10/18/17 due to abdominal discomfort that had increased to a 10 out of 10 intensity. During my assessment of the patient in the emergency department his discomfort was graded as a 6 out of 10 intensity while on a heparin infusion and having received a dose of morphine at 8:21 AM. Patient has no past history of cardiac catheterization. He denies any recent blood with bowel movements. He denies any recent trauma to his abdomen. He denies any keny chest discomfort. He has no upcoming planned elective surgeries. History Past Medical History: 1. Chronic left bundle branch block 2. Hypertension 3. Dyslipidemia 4. Type 2 diabetes mellitus requiring insulin Past Surgical History: He describes a remote hernia surgery in approximately 1979 Social History: He is accompanied by his spouse at the bedside. He is a non-smoker. 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 Family History: The patient has a sister who he believes has had a cardiac stent. He has a brother who is alive in his mid 70s having had coronary artery bypass grafting 4 in his 50s. Review Of Systems A 10 point review systems is reviewed and is negative with exception of that noted above. Allergies Coded Allergies: Cat Dander (Verified Allergy, Unknown, congestion, 10/18/17) Dog Dander (Verified Allergy, Unknown, congestion, 10/18/17) Medications Reported Home Medications Medications Dose Route/Sig Max Daily Dose Days Date Category Dose Instructions Novolin N (Insulin Human NPH) 100 Units/Ml Susp 46 Units SQ HS 10/18/17 Reported Pamelor (Nortriptyline HCl) 75 Mg Cap 75 Mg PO QPM 10/18/17 Reported Zyrtec (Cetirizine HCl) 10 Mg Tab 10 Mg PO QPM 10/18/17 Reported Zocor (Simvastatin) 40 Mg Tab 40 Mg PO QPM 10/18/17 Reported Jardiance (Empagliflozin) 25 Mg Tab 25 Mg PO DAILY 10/18/17 Reported Januvia (Sitagliptin Phosphate) 100 Mg Tab 100 Mg PO DAILY 10/18/17 Reported Nasal Relief (Oxymetazoline Hcl) 0.05 % Spr 2 Sprays CORBY BID 10/18/17 Reported Ipratropium [place] (Ipratropium [place] (Nasal)) 0.06 % Spr 1 Drop DAILY 10/18/17 Reported Ventolin Hfa (Albuterol) 200 Puffs/64095 Mcg Aers 2 Puffs INH Q6H PRN 10/18/17 Reported Dulera 200/5 Mcg (Mometasone Furoate-Formoterol) 1 Aer Aer 2 Puffs INH BID 10/18/17 Reported Centrum Silver 50+Men (Multiple Vitamins W/ Minerals) 1 Tab Tab 1 Tab PO DAILY 10/18/17 Reported Lopressor (Metoprolol Tartrate) 25 Mg Tab 25 Mg PO BID 10/18/17 Reported Zestril (Lisinopril) 20 Mg Tab 20 Mg PO DAILY 10/18/17 Reported Glimepiride 4 Mg Tab 1 Tab PO BID 10/18/17 Reported Mirella (Fexofenadine Hcl) 180 Mg Tab 180 Mg PO DAILY 10/18/17 Reported Aspirin 81 Low Dose (Aspirin) 81 Mg Chw 81 Mg PO 3XWK 10/18/17 Reported mon/tue/tue Omeprazole 20 Mg Tab 20 Mg PO DAILY 10/18/17 Reported Physical Exam Vital Signs (Last 8hrs): Last 8 Hrs Date Time Temp Pulse Resp B/P (MAP) Pulse Ox O2 Delivery O2 Flow Rate FiO2 10/18/17 07:18 55 10/18/17 07:00 52 18 139/79 96 Room Air 10/18/17 05:47 63 17 154/89 98 Room Air 10/18/17 05:01 59 19 150/87 98 10/18/17 04:39 62 18 139/81 99 Room Air 10/18/17 04:16 69 18 153/91 96 Room Air 10/18/17 03:34 63 10/18/17 02:45 36.3 61 18 141/73 97 Room Air General Appearance: Alert and Oriented x3. NAD. Head: Normocephalic Atraumatic. Eyes: PERRLA, EOMI, conjunctiva and sclera clear Neck: Supple. No carotid bruits noted. No JVD. No HJD. Respiratory: Breath sounds clear to auscultation bilaterally. No w/r/r. Cardiovascular: Reg rate and rhythm. S1 and S2 noted. No murmurs, rubs, gallops. PMI non displace. Abdomen: Normal bowel sounds, soft nontender. no abdominal bruits. Extremities: No edema, no clubbing or cyanosis. distal pulses 2/4 bilaterally. Neuro: No focal deficits. Psychiatric: Normal affect. Data Last Resulted 10/18/17 03:16 Red Blood Count 5.04, Mean Corpuscular Volume 94.4, Mean Corpuscular Hemoglobin 33.9, Mean Corpuscular Hemoglobin Concent 35.9, Mean Platelet Volume 11.7, Neutrophils (%) (Auto) 66.0, Lymphocytes (%) (Auto) 22.9, Monocytes (%) (Auto) 6.4, Eosinophils (%) (Auto) 4.2, Basophils (%) (Auto) 0.3, Neutrophils # (Auto) 7.72, Lymphocytes # (Auto) 2.68, Monocytes # (Auto) 0.75, Eosinophils # (Auto) 0.49, Basophils # (Auto) 0.03 Last Resulted 10/18/17 03:16 Past 24 Hours Test 10/18/17 03:16 Range/Units Prothromb Time International Ratio 1.0 0.9-1.1 Prothrombin Time 10.4 9.0-12.0 SECONDS Troponin I 7.550 *H 0-0.045 ng/ml EKG performed on arrival to the emergency room revealed sinus rhythm at 67 bpm with left bundle branch block, QRS duration 160 ms. Compared to the prior EKG performed as an outpatient on 09/22/17 there is a mild change in the axis limited to lead III, otherwise it is unchanged with repolarization abnormalities consistent with left bundle branch block. Summary of transthoracic echocardiogram performed 10/18/17 at the bedside in the emergency room and reviewed independently by the undersigned: The study was technically adequate for the referral indication. There is a large sized apical, septal, anteroseptal, inferior, and posterior wall motion abnormality with hypokinesis to akinesis of the segments. The anterior wall , and anterolateral wall motion are normal. Left ventricular systolic function is mildly reduced. The calculated left ventricualar ejection fraction =47% There is mild mitral regurgitation. Aortic valve sclerosis mild, without significant aortic valvular stenosis. Grade I diastolic dysfunction, (abnormal relaxation pattern). Images of the present study were reviewed in direct comparison to the images performed as an outpatient at [facility] on 09/04/2014. The septal and anteroseptal wall motion abnormality present on the current study is unchanged compared to 2015 and is consistent with underlying history of left bundle branch block. There is a new wall motion abnormality encompassing the inferior and inferolateral (posterior) myocardial humphries not present in 2015 and consistent with ischemia / infarction in this territory. Summary of radiology report of CTA, dissection study: 1. No evidence for an aortic dissection. 2. No evidence for central pulmonary embolus. 3. Left basilar subsegmental atelectasis. No focal lung consolidations to suggest ammonia. 4. A 1.4 cm nodule either within or posterior to the right thyroid lobe. Follow-up thyroid ultrasound can be performed for further evaluation. This finding was called/faxed to the referring physician's office following dictation. CT abd and pelvis: -summary of radiology report: COMPARISON STUDY: Abdomen and pelvis CT 07/06/2013. FINDINGS: There is mild elevation the left hemidiaphragm with left basilar subsegmental atelectasis. No pneumoperitoneum. No pneumatosis. Contrast within the urinary system from the recent chest CTA. No fractures within the visualized osseous structures. A 2.5 cm diverticulum at the duodenum. Small fat-containing left inguinal hernia. The unenhanced liver, gallbladder, adrenal glands, and pancreas are unremarkable. Calcified granulomas within the spleen. No hydronephrosis. A few small bladder diverticula. No bowel wall thickening or obstruction. Colonic diverticulosis. Normal appendix. A 2.5 cm left renal cyst. No hydronephrosis. IMPRESSION: 1. Mild elevation of the left hemidiaphragm. 2. No bowel wall thickening or obstruction. 3. Normal appendix. 4. Colonic diverticulosis. Addendum: There is trace fluid adjacent to the posterior inferior spleen best seen on image 138. This is indeterminate but could represent trace perisplenic hemorrhage. If the patient's left upper quadrant pain continues to persist then consider repeat examination to exclude the possibility of perisplenic hemorrhage or splenic injury. However, trace complex fluid could also have a similar appearance. These findings were discussed with Dr. Gonzalez at 7:55 AM on 10/18/2017. Assessment & Plan Impression: 72-year-old male 1. Left upper quadrant discomfort, in setting of chronic left bundle branch block, and elevated troponin I of 7.5 NG per mL, consistent with non-ST segment elevation myocardial infarction. 2. Perhaps incidental finding of trace fluid adjacent to the posterior inferior aspect of the spleen noted on CT of the abdomen and pelvis without contrast. Discussion/recommendations: The patient still describes residual abdominal pain of a 6 out of 10 intensity although he is very comfortable. His EKG is somewhat unhelpful. It does not have changes suggestive of ST elevation, and it has findings consistent with left bundle branch block with a mild change in the axis limited to lead III only. The patient had initially had a CT angiogram with contrast performed to exclude thoracic and abdominal aortic dissection and this was negative for dissection. He then returned to the CT scanner and had a repeat CT of the abdomen and pelvis performed without contrast due to the nature of his abdominal discomfort which is partially reproducible on deep palpation. The study initially was negative with the exception of a finding of colon diverticulosis and a small fat -containing left inguinal hernia. Radiology however had placed an addendum on the chart early this morning with concerns of a fluid collection adjacent to the spleen. After the patient was seen by the undersigned in consultation in the emergency room he was therefore seen in consultation by surgery and I have had a discussion with the general surgery team who had reviewed his CT scan. The patient has no history of any trauma to his abdomen. Given the patient's clinical presentation and cardiac risk factors and findings of his echocardiogram with new inferior, inferolateral wall motion abnormality, this sounds as though the patient's presentation is due to ischemia perhaps in the right coronary artery territory, and that the splenic findings are incidental and unrelated, and perhaps not pathologic or suggestive of bleeding. The patient's heparin infusion and transiently placed on hold but we have reinitiated it at this point. A stat CBC will be reassessed his lungs hemoglobin is stable, we plan to proceed with diagnostic cardiac catheterization later this morning. The case was discussed with multiple providers, initially Dr. Perez in the emergency room and then Dr. Gonzalez. Case was also discussed with Dr. Pickett of critical care and John Paul RUBI of general surgery. The patient has received aspirin, metoprolol is to be initiated as well as his home dose of lisinopril and simvastatin. Further recommendations be forthcoming.
--- NOTE | 2017-10-18 09:22 | ECHOCARDIOGRAM REPORT ---
*NOTICE TO RECEIVING LIBERTARIAN AGENCY This information is strictly Confidential and protected under [place] law. [place] law prohibits you from making any further disclosure of this information unless further disclosure is expressly permitted by the written consent of the person to whom it pertains or is authorized by law. A general authorization for the release of medical or other information is not sufficient for this purpose. Hospital accepts no responsibility if the information is made available to any other person, INCLUDING THE PATIENT. Interpretation Summary * Name: ARIEL THOMAS Study Date: 10/18/2017 07:40 AM BP: 135/60 mmHg * Patient Location: [facility] HR: 68 * : 1945 (M/d/yyyy) Gender: Male Height: 71 in * Age: 72 yrs Ethnicity: CA Weight: 132 lb * Ordering Physician: Gautam Cruz * Referring Physician: Self, Referred * Performed By: Alana Bean RCS * * Reason For Study: [place] * BSA: 1.8 m2 * -- Conclusions -- * The study was technically adequate for the referral indication. * There is a large sized apical, septal, anteroseptal, inferior, and posterior wall motion abnormality with hypokinesis to akinesis of the segments. * The anterior wall, and anterolateral wall motion are normal. * Left ventricular systolic function is mildly reduced. * The calculated left ventricular ejection fraction =47% * There is mild mitral regurgitation. * Aortic valve sclerosis mild, without significant aortic valvular stenosis. * Grade I diastolic dysfunction, (abnormal relaxation pattern). * Images of the present study were reviewed in direct comparison to the images performed as an outpatient at [facility] on 09/04/2014. * The septal and anteroseptal wall motion abnormality present on the current study is unchanged compared to 2015 and is consistent with underlying history of left bundle branch block. * There is a new wall motion abnormality encompassing the inferior and inferolateral (posterior) myocardial humphries not present in 2015 and consistent with ischemia / infarction in this territory. Procedure Details * A complete two-dimensional transthoracic echocardiogram was performed (2D, M-mode, Doppler and color flow Doppler). Left Ventricle * The left ventricle is normal in size. * There is normal left ventricular wall thickness. * Left ventricular systolic function is mildly reduced. * The calculated left ventricualar ejection fraction =47% * There is a large sized apical, septal, anteroseptal, inferior, and posterior wall motion abnormality with hypokinesis to akinesis of the segments. The anterior wall , and anterolateral wall motion are normal. Right Ventricle * The right ventricle is normal size. * The right ventricular systolic function is normal as assessed by tricuspid annular plane systolic excursion (TAPSE) (normal >1.5 cm). Atria * The left atrial size is normal. * Right atrial size is normal. * There is no evidence of atrial septal defect, but resolution does not allow assessment for a patent foramen ovale. Mitral Valve * The mitral valve is normal. * There is no mitral valve stenosis. * There is mild mitral regurgitation. Tricuspid Valve * The tricuspid valve is normal. * There is no tricuspid stenosis. * Significant tricuspid regurgitation is absent. * Doppler findings do not suggest pulmonary hypertension. Aortic Valve * The aortic valve is trileaflet. * Aortic valve sclerosis mild, without significant aortic valvular stenosis. * Aortic stenosis is absent. * There is no significant aortic regurgitation. Pulmonic Valve * The pulmonary valve is not well seen, but the Doppler examination is normal without significant regurgitation or stenosis. Great Vessels * The aortic root and proximal ascending aorta are normal sized. Pericardium/Pleural * There is no pericardial effusion. Great Vessels * Normal inferior vena cava diameter and respiratory variation suggests normal central venous pressure. * Normal inferior vena cava size and collapsability with sniff indicates a normal right atrial pressure of 3 mmHg Left Ventricular Diastolic Function * Grade I diastolic dysfunction, (abnormal relaxation pattern). MMode 2D Measurements and Calculations IVSd 0.87 cm IVSs 1.3 cm LVIDd 4.2 cm LVIDs 3.3 cm LVPWd 0.95 cm LVPWs 1.4 cm IVS/LVPW 0.92 FS 20.7 % EDV(Teich) 78.0 ml ESV(Teich) 44.8 ml EF(Teich) 42.6 % EDV(cubed) 73.4 ml ESV(cubed) 36.6 ml EF(cubed) 50.1 % % IVS thick 45.3 % % LVPW thick 42.6 % LV mass(C)d 119.7 grams LV mass(C)dI 67.7 grams/m\S\2 LV mass(C)s 144.2 grams LV mass(C)sI 81.6 grams/m\S\2 SV(Teich) 33.2 ml SI(Teich) 18.8 ml/m\S\2 SV(cubed) 36.8 ml SI(cubed) 20.8 ml/m\S\2 Ao root diam 3.6 cm Ao root area 10.1 cm\S\2 ACS 1.5 cm LA dimension 4.0 cm asc Aorta Diam 2.8 cm LA/Ao 1.1 EDV(MOD-sp4) 118.0 ml ESV(MOD-sp4) 62.0 ml EF(MOD-sp4) 47.5 % EDV(MOD-sp2) 124.0 ml ESV(MOD-sp2) 67.0 ml EF(MOD-sp2) 46.0 % SV(MOD-sp4) 56.0 ml SI(MOD-sp4) 31.7 ml/m\S\2 SV(MOD-sp2) 57.0 ml SI(MOD-sp2) 32.2 ml/m\S\2 Doppler Measurements and Calculations MV E max salbador 71.0 cm/sec MV A max salbador 132.3 cm/sec MV E/A 0.54 MV P1/2t max salbador 86.7 cm/sec MV P1/2t 70.2 msec MVA(P1/2t) 3.1 cm\S\2 MV dec slope 361.8 cm/sec\S\2 MV dec time 0.18 sec Ao V2 max 127.5 cm/sec Ao max PG 6.5 mmHg Ao max PG (full) 2.4 mmHg LV V1 max PG 4.1 mmHg LV V1 max 100.8 cm/sec PA V2 max 116.0 cm/sec PA max PG 5.4 mmHg TR max salbador 238.4 cm/sec
[2017-10-18] MEDS ORDERED: INSULIN ASPART 100 UNITS/ML 3 ML PEN SC SCH (09:30)
--- NOTE | 2017-10-18 09:31 | Family Medicine Progress Note ---
Progress Note Date of Service Oct 18, 2017. Subjective Pt evaluation today including: conversation w/ patient, conversation w/ family , physical exam Pain: Epigastric pain Voiding: no voiding problems, no incontinence Patient states that he has been having the epigastric pain over the last 4 months intermittently, but over the last 3 days became more constant, progressive, and severe. Yesterday the pain was 10/10, sharp, non-radiating, constant throughout the day. The patient has been also have left sided abdominal pain lateral to the umbilicus. CT abdomen revealed some possible fluid around the spleen, although the patient denies any recent trauma, fever, chills, sweats, nausea, vomiting, or bowel changes. The patient does appreciate left shoulder pain but this has been ongoing for year. Constitutional: No fever, No chills, No sweats, No fatigue Eyes: No worsening of vision, No diplopia Respiratory: No cough, No sputum, No wheezing, No shortness of breath, No dyspnea on exertion, No dyspnea at rest Cardiovascular: No chest pain, No edema, No palpitations Abdomen: + pain (Epigastric and left sided pain), No nausea, No vomiting, No diarrhea, No constipation, No GI bleeding Musculoskeletal: + muscle pain, No joint pain Male : No dysuria, No incontinence Psychiatric: No anxiety Endo: No fatigue, No excessive thirst Medications Current Inpatient Medications Medications (Trade) Dose Ordered Sig/Robert Route Start Time Stop Time Status Last Admin Dose Admin Sodium Chloride 1,000 ml @ 125 mls/hr Q8H STAT IV 10/18/17 02:59 10/18/17 10:58 10/18/17 03:16 125 MLS/HR Ioversol (Optiray 320) 100 ml UD PRN IV 10/18/17 03:15 10/22/17 03:14 Acetaminophen (Tylenol Tab) 650 mg Q4H PRN PO 10/18/17 05:15 11/17/17 05:14 Al Hydrox/Mg Hydrox/Simethicone (Maalox Max Susp) 15 ml Q4H PRN PO 10/18/17 05:15 11/17/17 05:14 Magnesium Hydroxide (Milk Of Magnesia Susp) 30 ml Q12H PRN PO 10/18/17 05:15 11/17/17 05:14 Ondansetron HCl (Zofran Inj) 4 mg Q6H PRN IV 10/18/17 05:15 11/17/17 05:14 Nitroglycerin (Nitrostat Tab) 0.4 mg UD PRN SL 10/18/17 05:15 11/17/17 05:14 Morphine Sulfate (MoRPHine SULFATE INJ) 2 mg Q30M PRN IV 10/18/17 05:15 8 05:14 10/18/17 08:21 2 MG Polyethylene (Miralax Powder Packet) 17 gm DAILY PRN PO 10/18/17 05:15 11/17/17 05:14 Aspirin (Aspirin Chew) 81 mg DAILYBB PO 10/18/17 07:00 11/17/17 06:59 UNV Lisinopril (Zestril Tab) 20 mg DAILY PO 10/18/17 09:00 11/17/17 08:59 UNV Metoprolol Tartrate (Lopressor Tab) 25 mg BID PO 10/18/17 09:00 11/17/17 08:59 UNV Nortriptyline HCl (Pamelor Cap) 75 mg QPM PO 10/18/17 21:00 11/17/17 20:59 UNV Simvastatin (Zocor Tab) 40 mg QPM PO 10/18/17 21:00 11/17/17 20:59 UNV Insulin Aspart (novoLOG ASPART) SLIDING SCALE If C... ACHS SC 10/18/17 07:00 11/17/17 06:59 UNV Glucose (Glucose 40% Gel) 15-30 GRAMS 15 GRAMS... UD PRN PO 10/18/17 05:15 11/17/17 05:14 Glucose (Glucose Chew Tab) 4-8 Tablets 4 Tabl... UD PRN PO 10/18/17 05:15 11/17/17 05:14 Dextrose (Dextrose 50% 50ML Syringe) 25-50ML 25ML FOR ... UD PRN IV 10/18/17 05:15 11/17/17 05:14 Glucagon (Glucagon Inj) 1 mg UD PRN SQ 10/18/17 05:15 11/17/17 05:14 Carbohydrates (Carbohydrates For Hypoglycemia) 15-30 GRAMS 15 grams if BSG 54-69... UD PRN PO 10/18/17 05:15 11/17/17 05:14 Heparin Sodium/ Dextrose 1 ea Q15M N/A 10/18/17 06:30 11/17/17 06:29 Future hold Cetirizine HCl (zyrTEC TAB) 10 mg QPM PO 10/18/17 21:00 11/17/17 20:59 UNV Fexofenadine HCl (Mirella Tab) 180 mg DAILY PO 10/18/17 09:00 11/17/17 08:59 UNV Non-Formulary Medication (Ipratropium [place] (Nasal) (Ipratropium [place])) 1 drop DAILY .ROUTE 10/18/17 09:00 11/17/17 08:59 UNV Non-Formulary Medication (Mometasone Furoate-Formoterol (Dulera 200/5 Mcg)) 2 puffs BID INH 10/18/17 09:00 11/17/17 08:59 UNV Pantoprazole Sodium (Protonix Tab) 40 mg QAM PO 10/18/17 09:00 11/17/17 08:59 UNV Objective Vital Signs Date Time Temp Pulse Resp B/P (MAP) Pulse Ox O2 Delivery O2 Flow Rate FiO2 10/18/17 08:48 36.6 68 24 135/60 97 Room Air 10/18/17 08:08 69 18 135/62 98 Room Air 10/18/17 07:18 55 10/18/17 07:00 52 18 139/79 96 Room Air 10/18/17 05:47 63 17 154/89 98 Room Air 10/18/17 05:01 59 19 150/87 98 10/18/17 04:39 62 18 139/81 99 Room Air 10/18/17 04:16 69 18 153/91 96 Room Air 10/18/17 03:34 63 10/18/17 02:45 36.3 61 18 141/73 97 Room Air Physical Exam General Appearance: WD/WN, no apparent distress Eyes: normal inspection, sclerae normal Neck: supple, no carotid bruits Respiratory/Chest: chest non-tender, lungs clear, normal breath sounds Cardiovascular: regular rate, rhythm, no edema, no gallop Abdomen: normal bowel sounds, soft, no pulsatile mass, + tenderness ( Epigastric and Left Sided) Extremities: no pedal edema, no calf tenderness Neurologic/Psychiatric: alert, normal mood/affect, oriented x 3 Laboratory Results Results Past 24 Hours Test 10/18/17 03:16 10/18/17 08:51 Range/Units White Blood Count 11.69 10.83 4.8-10.8 K/uL Red Blood Count 5.04 4.67 4.7-6.1 M/uL Hemoglobin 17.1 15.2 14.0-18.0 g/dL Hematocrit 47.6 43.5 42-52 % Mean Corpuscular Volume 94.4 93.1 80-100 fL Mean Corpuscular Hemoglobin 33.9 32.5 25-34 pg Mean Corpuscular Hemoglobin Concent 35.9 32-36 g/dl Platelet Count 147 136 130-400 K/uL Mean Platelet Volume 11.7 12.4 7.4-10.4 fL Neutrophils (%) (Auto) 66.0 % Lymphocytes (%) (Auto) 22.9 % Monocytes (%) (Auto) 6.4 % Eosinophils (%) (Auto) 4.2 % Basophils (%) (Auto) 0.3 % Neutrophils # (Auto) 7.72 1.4-6.5 K/uL Lymphocytes # (Auto) 2.68 1.2-3.4 K/uL Monocytes # (Auto) 0.75 0.11-0.59 K/uL Eosinophils # (Auto) 0.49 0-0.5 K/uL Basophils # (Auto) 0.03 0-0.2 K/uL RDW Standard Deviation 42.8 42.2 36.4-46.3 fL RDW Coefficient of Variation 12.4 12.5 11.5-14.5 % Immature Granulocyte % (Auto) 0.2 % Immature Granulocyte # (Auto) 0.02 0.00-0.02 K/uL Prothrombin Time 10.4 9.0-12.0 SECONDS Prothromb Time International Ratio 1.0 0.9-1.1 Activated Partial Thromboplast Time 27.8 21.0-31.0 SECONDS Partial Thromboplastin Ratio 1.1 Urine Color YELLOW Urine Appearance CLEAR CLEAR Urine pH 6.5 4.5-7.5 Urine Specific [place] 1.036 1.000-1.030 Urine Protein NEG NEG Urine Glucose (UA) 3+ NEG Urine Ketones NEG NEG Urine Occult Blood NEG NEG Urine Nitrite NEG NEG Urine Bilirubin NEG NEG Urine Urobilinogen NEG NEG Urine Leukocyte Esterase NEG NEG Sodium Level 140 136-145 mmol/L Potassium Level 3.8 3.5-5.1 mmol/L Chloride Level 106 98-107 mmol/L Carbon Dioxide Level 27 21-32 mmol/L Anion Gap 7.0 3-11 mmol/L Blood Urea Nitrogen 14 7-18 mg/dl Creatinine 1.24 0.60-1.40 mg/dl Est Creatinine Clear Calc Drug Dose 45.0 ml/min Estimated GFR () 66.4 Estimated GFR (Non- 57.3 BUN/Creatinine Ratio 11.0 10-20 Random Glucose 163 70-99 mg/dl Calcium Level 9.2 8.5-10.1 mg/dl Total Bilirubin 0.4 0.2-1 mg/dl Direct Bilirubin 0.1 0-0.2 mg/dl Aspartate Amino Transf (AST/SGOT) 81 15-37 U/L Alanine Aminotransferase (ALT/SGPT) 33 12-78 U/L Alkaline Phosphatase 75 45-117 U/L Troponin I 7.550 0-0.045 ng/ml Total Protein 7.4 6.4-8.2 gm/dl Albumin 3.7 3.4-5.0 gm/dl Lipase 158 73-393 U/L Microbiology Results 10/18/17 MRSA DNA Surveillance Screen, Received Pending Assessment and Plan The patient is a 72 year old male with past medical history of T2DM, HLD, HTN, GERD, Asthma presenting with progressive epigastric pain x 4 weeks The patient was admitted early this morning with concern over an NSTEMI due to an elevated troponin and epigastric tenderness with multiple cardiac risk factors. The patient was started on Heparin and a Cardiac ECHO was performed. CT Abdomen and Pelvis was performed without contrast due to previous CTA performed in the ED. The CT abdomen revealed fluid surrounding the spleen, therefore due to concern for bleed the patients Heparin was held and he was admitting to the ICU. Echo this morning revealed wall motion abnormalities over the RCA supplied area. Heparin was restarted and the patient will be taken for a cardiac catheterization. case d/w dr vickers, dr corona -- taken to cathead worker, then after cath determined to need CABG, arranged by dr corona, pt flown to [facility] [address] otherwise as above
[2017-10-18 09:42] LABS: MEAN CORPUSCULAR HGB CONC 34.9 g/dl (32-36)
[2017-10-18] MEDS ORDERED: HEPARIN 25,000 UNIT/500ML D5W 500 ML IV SCH (09:45)
[2017-10-18] MEDS ORDERED: NSS + 20MEQ KCL 1000ML 1,000 ML IV SCH (09:45)
[2017-10-18] MEDS ORDERED: POTASSIUM CHLORIDE 20 MEQ TABCR PO SCH (10:00)
[2017-10-18] MEDS ORDERED: MIDAZOLAM HCL 1 MG/ML 2ML VIAL ONE (10:20)
[2017-10-18] MEDS ORDERED: FENTANYL CITRATE INJ 50 MCG/1 ML 2 ML VIAL ONE (10:20)
[2017-10-18] MEDS ORDERED: NiCARDipine HCL INJ 2.5 MG/ML 10 ML AMP ONE (10:20)
[2017-10-18] MEDS ORDERED: NITROGLYCERIN/D5W 100MCG/ML 20ML SYR ONE (10:20)
[2017-10-18] MEDS ORDERED: ONDANSETRON INJ 2 MG/ML 2 ML VIAL ONE (11:40)
--- NOTE | 2017-10-18 11:43 | Critical Care Consultation ---
Critical Care Consultation Date of Consultation: Oct 18, 2017. Attending Physician: Elmer Miranda D.O. Reason for Consultation: NSTEMI. Hemodynamic monitoring while receiving heparin in the setting of suspected splenic hematoma. History of Present Illness Patient is being transferred from the ED with a NSTEMI. The patient c/o 3 weeks of epigastric pain and was found in the ED to have a troponin of 7.55. He was also found to have some fluid surrounding the spleen, suspicious for hematoma. The patient was subsequently transferred to the ICU for hemodynamic monitoring while being heparinized in the setting of suspected splenic hematoma. 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 Past Medical/Surgical History HTN, HLD, DM II, Depression, Asthma, Seasonal allergies Family History FH: CAD (coronary artery disease) Social History Smoking Status: Never Smoker Alcohol Use: none Drug Use: none Marital Status: Housing Status: lives with family Occupation Status: retired Allergies Coded Allergies: Cat Dander (Verified Allergy, Unknown, congestion, 10/18/17) Dog Dander (Verified Allergy, Unknown, congestion, 10/18/17) Home Medications Scheduled Aspirin (Aspirin 81 Low Dose), 81 MG PO 3XWK Cetirizine (Zyrtec), 10 MG PO QPM Empagliflozin (Jardiance), 25 MG PO DAILY Fexofenadine Hcl (Mirella), 180 MG PO DAILY Glimepiride (Glimepiride), 1 TAB PO BID Insulin Human NPH (Novolin N), 46 UNITS SQ HS Ipratropium [place] (Nasal) (Ipratropium [place]), 1 DROP DAILY Lisinopril (Zestril), 20 MG PO DAILY Metoprolol Tartrate (Lopressor) (Lopressor), 25 MG PO BID Mometasone Furoate-Formoterol (Dulera 200/5 Mcg), 2 PUFFS INH BID Multiple Vitamins W/ Minerals (Centrum Silver 50+Men), 1 TAB PO DAILY Nortriptyline Hcl (Pamelor), 75 MG PO QPM Omeprazole (Omeprazole), 20 MG PO DAILY Oxymetazoline Hcl (Nasal Relief), 2 SPRAYS CORBY BID Simvastatin (Zocor), 40 MG PO QPM Sitagliptin Phosphate (Januvia), 100 MG PO DAILY Scheduled PRN Albuterol Hfa (Ventolin Hfa), 2 PUFFS INH Q6H PRN for SOB/Wheezing Current Inpatient Medications Current Inpatient Medications Medications (Trade) Dose Ordered Sig/Robert Route Start Time Stop Time Status Last Admin Dose Admin Ioversol (Optiray 320) 100 ml UD PRN IV 10/18/17 03:15 10/22/17 03:14 Acetaminophen (Tylenol Tab) 650 mg Q4H PRN PO 10/18/17 05:15 11/17/17 05:14 Al Hydrox/Mg Hydrox/Simethicone (Maalox Max Susp) 15 ml Q4H PRN PO 10/18/17 05:15 11/17/17 05:14 Magnesium Hydroxide (Milk Of Magnesia Susp) 30 ml Q12H PRN PO 10/18/17 05:15 11/17/17 05:14 Ondansetron HCl (Zofran Inj) 4 mg Q6H PRN IV 10/18/17 05:15 11/17/17 05:14 Nitroglycerin (Nitrostat Tab) 0.4 mg UD PRN SL 10/18/17 05:15 11/17/17 05:14 Morphine Sulfate (MoRPHine SULFATE INJ) 2 mg Q30M PRN IV 10/18/17 05:15 11/01/17 05:14 10/18/17 08:21 2 MG Polyethylene (Miralax Powder Packet) 17 gm DAILY PRN PO 10/18/17 05:15 11/17/17 05:14 Aspirin (Aspirin Chew) 81 mg DAILYBB PO 10/19/17 06:00 11/18/17 05:59 Lisinopril (Zestril Tab) 20 mg DAILY PO 10/18/17 09:00 11/17/17 08:59 Metoprolol Tartrate (Lopressor Tab) 25 mg BID PO 10/18/17 09:00 11/17/17 08:59 Nortriptyline HCl (Pamelor Cap) 75 mg QPM PO 10/18/17 21:00 11/17/17 20:59 Simvastatin (Zocor Tab) 40 mg QPM PO 10/18/17 21:00 11/17/17 20:59 Insulin Aspart (novoLOG ASPART) SLIDING SCALE If C... ACHS SC 10/18/17 09:30 11/17/17 09:29 Glucose (Glucose 40% Gel) 15-30 GRAMS 15 GRAMS... UD PRN PO 10/18/17 05:15 11/17/17 05:14 Glucose (Glucose Chew Tab) 4-8 Tablets 4 Tabl... UD PRN PO 10/18/17 05:15 11/17/17 05:14 Dextrose (Dextrose 50% 50ML Syringe) 25-50ML 25ML FOR ... UD PRN IV 10/18/17 05:15 11/17/17 05:14 Glucagon (Glucagon Inj) 1 mg UD PRN SQ 10/18/17 05:15 11/17/17 05:14 Carbohydrates (Carbohydrates For Hypoglycemia) 15-30 GRAMS 15 grams if BSG 54-69... UD PRN PO 10/18/17 05:15 11/17/17 05:14 Cetirizine HCl (zyrTEC TAB) 10 mg QPM PO 10/18/17 21:00 11/17/17 20:59 Fexofenadine HCl (Mirella Tab) 180 mg DAILY PO 10/18/17 09:00 11/17/17 08:59 Miscellaneous Information (Order Awaiting Action) 1 ea QS N/A 10/18/17 16:00 11/17/17 15:59 Miscellaneous Information (Order Awaiting Action) 1 ea QS N/A 10/18/17 16:00 11/17/17 15:59 Pantoprazole Sodium (Protonix Tab) 40 mg QAM PO 10/18/17 09:00 11/17/17 08:59 Potassium Chloride/Sodium Chloride 1,000 ml @ 100 mls/hr Q10H IV 10/18/17 09:45 11/17/17 09:44 Potassium Chloride (Klor-Con Tab) 40 meq TODAY@1000 PO 10/18/17 10:00 10/18/17 23:59 Heparin Sodium/ Dextrose 500 ml @ 14 mls/hr Q24H IV 10/18/17 09:45 11/17/17 09:44 10/18/17 09:55 14 MLS/HR Review of Systems Unable to obtain ROS, 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, will check back in the afternoon Physical Exam Date Time Temp Pulse Resp B/P (MAP) Pulse Ox O2 Delivery O2 Flow Rate FiO2 10/18/17 10:02 71 19 101/64 (76) 96 Room Air 10/18/17 08:48 36.6 68 24 135/60 97 Room Air 10/18/17 08:08 69 18 135/62 98 Room Air 10/18/17 07:18 55 10/18/17 07:00 52 18 139/79 96 Room Air 10/18/17 05:47 63 17 154/89 98 Room Air 10/18/17 05:01 59 19 150/87 98 10/18/17 04:39 62 18 139/81 99 Room Air 10/18/17 04:16 69 18 153/91 96 Room Air 10/18/17 03:34 63 10/18/17 02:45 36.3 61 18 141/73 97 Room Air Unable to obtain physical exam, 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 nontoxic. Skin: Warm, dry, Head: Atraumatic Ears, nose, mouth and throat: airway patent Cardiovascular: Normal peripheral perfusion Respiratory: no respiratory distress Gastrointestinal: Non distended Musculoskeletal: No deformity, right radial TR band remains in place Laboratory Results Last 24 Hours Test 10/18/17 03:16 10/18/17 08:51 10/18/17 09:08 10/18/17 10:01 White Blood Count 11.69 K/uL 10.83 K/uL Red Blood Count 5.04 M/uL 4.67 M/uL Hemoglobin 17.1 g/dL 15.2 g/dL Hematocrit 47.6 % 43.5 % Mean Corpuscular Volume 94.4 fL 93.1 fL Mean Corpuscular Hemoglobin 33.9 pg 32.5 pg Mean Corpuscular Hemoglobin Concent 35.9 g/dl 34.9 g/dl Platelet Count 147 K/uL 136 K/uL Mean Platelet Volume 11.7 fL 12.4 fL Neutrophils (%) (Auto) 66.0 % Lymphocytes (%) (Auto) 22.9 % Monocytes (%) (Auto) 6.4 % Eosinophils (%) (Auto) 4.2 % Basophils (%) (Auto) 0.3 % Neutrophils # (Auto) 7.72 K/uL Lymphocytes # (Auto) 2.68 K/uL Monocytes # (Auto) 0.75 K/uL Eosinophils # (Auto) 0.49 K/uL Basophils # (Auto) 0.03 K/uL RDW Standard Deviation 42.8 fL 42.2 fL RDW Coefficient of Variation 12.4 % 12.5 % Immature Granulocyte % (Auto) 0.2 % Immature Granulocyte # (Auto) 0.02 K/uL Prothrombin Time 10.4 SECONDS Prothromb Time International Ratio 1.0 Activated Partial Thromboplast Time 27.8 SECONDS Partial Thromboplastin Ratio 1.1 Urine Color YELLOW Urine Appearance CLEAR Urine pH 6.5 Urine Specific [place] 1.036 Urine Protein NEG Urine Glucose (UA) 3+ Urine Ketones NEG Urine Occult Blood NEG Urine Nitrite NEG Urine Bilirubin NEG Urine Urobilinogen NEG Urine Leukocyte Esterase NEG Sodium Level 140 mmol/L Potassium Level 3.8 mmol/L Chloride Level 106 mmol/L Carbon Dioxide Level 27 mmol/L Anion Gap 7.0 mmol/L Blood Urea Nitrogen 14 mg/dl Creatinine 1.24 mg/dl Est Creatinine Clear Calc Drug Dose 45.0 ml/min Estimated GFR () 66.4 Estimated GFR (Non- 57.3 BUN/Creatinine Ratio 11.0 Random Glucose 163 mg/dl Calcium Level 9.2 mg/dl Total Bilirubin 0.4 mg/dl Direct Bilirubin 0.1 mg/dl Aspartate Amino Transf (AST/SGOT) 81 U/L Alanine Aminotransferase (ALT/SGPT) 33 U/L Alkaline Phosphatase 75 U/L Troponin I 7.550 ng/ml 14.700 ng/ml Total Protein 7.4 gm/dl Albumin 3.7 gm/dl Lipase 158 U/L Bedside Glucose 88 mg/dl Monoscreen NEG Assessment & Plan 72 yo male present to [facility] and found to have a NSTEMI and was subsequently transferred to the ICU for hemodynamic monitoring while receiving heparin in the setting of suspected splenic hematoma. Neuro - Depression-- continue Nortriptyline 75mg Cardiology - History of HTN, HLD, LBBB. Significant family history of IN - NSTEMI in the setting of LBBB- found to have a trop of 7.55, increased to 14.70 - ECHO was evaluated this am and showed wall motion abnormalities - IV heparin initiated and the patient was taken to the labourers for PCI - Continue ASA 81 mg, Zocor 40 mg, Lisinopril 20 mg, Metoprolol 25mg BID Respiratory - Asthma, seasonal allergies - Continue home inhalers, albuterol, ipratropium - Continue home allergy meds; Zyrtec, Mirella GI - GERD - Concern for splenic hematoma - Monospot, reflex EBV - UA negative - No concern for infection ENDO - History of diabetes mellitus - BSG AC/HS, insulin per sliding scale Renal - K 3.8, replete in the setting of cardiovascular disease Heme - On therapeutic heparin, concern for splenic hematoma - H/H q 6 hours for the next 24 hours - Type and screen patient - Check Monospot with reflex EBV ID - No signs or concerns for infections DVT - IV heparin Code - Full Resident Physician Supervision Note: Dr. Kent was resident physician during care of patient. I separately evaluated patient and did history and exam. I discussed the case with the resident and generally agree with the findings and plan. Patient's case was discussed with radiology as well as Dr. Gallardo of cardiology. A independently reviewed the CT scan images. Patient was placed on heparin given new echocardiogram findings and wall motion abnormalities, there is concern for possible fluid around the spleen, there is no obvious rupture, we will trend his H&H serially. 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 Patient critically ill due to active myocardial ischemia and possible intra- abdominal hemorrhage I have personally spent 35 minutes of critical care time in the direct management of this patient. This is a life/limb threatening event. This includes time spent evaluating patient, direct bedside care, chart review, placing orders, interpretation of diagnostic studies, discussion with consultants, patient, and/or family members regarding treatment decisions, as well as other required patient management activities. This time is exclusive of all separately billable procedures, and teaching time and separate from and in addition to any other critical care service time. Documented By: Todd Terry DO
[2017-10-18] MEDS ORDERED: ATROPINE SULFATE 0.1 MG/ML 5ML SYR IV PRN (11:45)
[2017-10-18] MEDS ORDERED: SODIUM CHLORIDE 0.9% 1000ML 250 ML IV PRN (11:45)
[2017-10-18] MEDS ORDERED: SODIUM CHLORIDE 0.9% 1000ML 1,000 ML IV SCH (11:45)
--- NOTE | 2017-10-18 11:57 | Procedure Note ---
Cardiac Cath Report Procedure: 1. Coronary angiography History: This is a 72-year-old male patient who was admitted with a non-STEMI. Procedure summary: After informed consent was obtained patient was taken to the cardiac catheterization lab where he was prepped and draped in the usual manner for right transradial approach. Preformed 5 Urdu diagnostic catheters were utilized for the coronary angiograms. Following the procedure the patient was returned to his room in stable condition.. Coronary angiography: Selective injections of the left coronary artery revealed the left main trunk to be patent. There is a large first septal evaporator repairer from the LAD small first diagonal and then a large second diagonal at the bifurcation of the second diagonal there is a hazy high-grade stenosis of the LAD as well as the proximal portion of the diagonal. 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 The right coronary artery is occluded proximally. There is also haziness at the proximal circumflex artery which may indicate a stenosis. There are rich collaterals from the left coronary system to the distal right coronary artery. 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 The right coronary artery appears to be chronically occluded in its proximal segment with rich collaterals from the left coronary system. The LAD has a large first septal evaporator repairer, a small diagonal and then bifurcates into 2 equally large diagonal and LAD arteries. At this bifurcation there is a high- grade stenosis of the LAD as well as proximal diagonal branch. The left circumflex also has mid stenosis as well as a distal stenosis which are of concern. Recommendations: The patient is a diabetic with three-vessel coronary artery disease. Will have the case as well as the catheterization films reviewed by cardiothoracic surgery.
--- NOTE | 2017-10-18 12:00 | Cardiac Catheterization ---
Procedure Note Procedure Date Oct 18, 2017. Pre-Procedure Diagnosis Non STEMI AUC Score 9 Post-Procedure Diagnosis Severe CAD Procedure(s) Performed Coronary Angiography Rn Hematology Dr. Diop Wax Ball Molder(s) None Estimated Blood Loss None Medication(s) Versed, Lidocaine 1% Summary of Findings See dictated report Hemodynamics Rest Ao: 127/73 Final Ao: 133/75 LV: Valve not crossed Recommendations CABG Specimens None Radiation Exposure (mGy) 1083 Contrast (mls) 63 Procedural Complication(s) None Disposition PCU ACC Data Cardiac Status Clinical evaluation leading to the procedure CAD Presntation: Non STEMI Anginal Classification: CCS III Heart Failure: No Cardiogenic Shock w/in 24Hrs: No Cardiac Arrest w/in 24Hrs: No Imaging studies past 6 months: Yes Stress studies past 6 months: No Coronary Anatomy Dominant: Right (Anomalous circumflex from the right coronary artery) Left Main (% Stenosis): Normal LAD (% Stenosis): Mid (80%) D1 (% Stenosis): Proximal (80%) Circumflex (% Stenosis): Mid (60%), Distal (80%) RCA (% Stenosis): Proximal (100%) Diagnostic Status: Urgent Closure Device Percutaneous Entry Location: Radial Closure Device: Radial Band Recommendations: CABG
--- NOTE | 2017-10-18 12:40 | Cardiology Progress Note ---
Cardiology Progress Note Date of Service Oct 18, 2017. Cardiology Progress Note Cardiac catheterization films reviewed with Dr Diop and Dr Freeman in the control room. Pt with chronic total RCA occlusion with collaterals. Has high grade bifurcating lesion of the LAD / diagonal2 , and high grade OM stenosis. LAD appears to be the acute culprit. Treatment options discussed, given DM, CABG of LAD, diag, and OM likely offers most long lasting durable and complete revascularization. I discussed case with Dr Gerber of cardiology at [facility] who accepts pt in transfer. Planning to transfer by air if available, at present with current weather conditions air support available , bed availability is pending. Pt's heparin is on hold given right radial artery access, recommend holding heparin until radial band removed. Reassess 4 hours post Radial access was discontinued and if hemostasis present can start heparin infusion without bolus at 16:10 on 10/18/17. Keep pt NPO except medications. Spouse updated.
[2017-10-18] MEDS ORDERED: NORTRIPTYLINE HCL 25 MG CAP PO SCH (21:00)
[2017-10-18] MEDS ORDERED: CETIRIZINE HCL 10 MG TAB PO SCH (21:00)
[2017-10-18] MEDS ORDERED: SIMVASTATIN 40 MG TAB PO SCH (21:00)
[2017-10-19] MEDS ORDERED: ASPIRIN 81 MG CHEW PO SCH (06:00)
[2017-10-19 12:42] LABS: EBV EARLY ANTIGEN AB < 9.00 U/ML
--- NOTE | 2017-10-19 14:52 | Discharge Summary ---
Discharge Summary Date of Service Oct 19, 2017. Discharge Summary Admission Date: Oct 18, 2017 at 06:47 Discharge Date: Oct 18, 2017 Discharge Disposition: Acute care facility Principal Diagnosis: Myocardial Infraction Discharge Exam ROS Constitutional: No fever, No chills, No sweats, No fatigue Eyes: No worsening of vision, No diplopia Respiratory: No cough, No sputum, No wheezing, No shortness of breath, No dyspnea on exertion, No dyspnea at rest Cardiovascular: No chest pain, No edema, No palpitations Abdomen: + pain (Epigastric and left sided pain), No nausea, No vomiting, No diarrhea, No constipation, No GI bleeding Musculoskeletal: + muscle pain, No joint pain Male : No dysuria, No incontinence Psychiatric: No anxiety Endo: No fatigue, No excessive thirst Physical Exam General Appearance: WD/WN, no apparent distress Eyes: normal inspection, sclerae normal Neck: supple, no carotid bruits Respiratory/Chest: chest non-tender, lungs clear, normal breath sounds Cardiovascular: regular rate, rhythm, no edema, no gallop Abdomen: normal bowel sounds, soft, no pulsatile mass, + tenderness ( Epigastric and Left Sided) Extremities: no pedal edema, no calf tenderness Neurologic/Psychiatric: alert, normal mood/affect, oriented x 3 Hospital Course The patient is a 72 year old male with past medical history of T2DM, HLD, HTN, GERD, Asthma presenting with progressive epigastric pain x 4 weeks The patient was admitted early this morning with concern over an NSTEMI due to an elevated troponin and epigastric tenderness with multiple cardiac risk factors. The patient was started on Heparin and a Cardiac ECHO was performed. CT Abdomen and Pelvis was performed without contrast due to previous CTA performed in the ED. The CT abdomen revealed fluid surrounding the spleen, therefore due to concern for bleed the patients Heparin was held and he was admitting to the ICU. Echo this morning revealed wall motion abnormalities over the RCA supplied area. Heparin was restarted and the patient will be taken for a cardiac catheterization. Cardiac Evaluation After Cath: Found to have chronic total RCA occlusion with collaterals. Cath revealed high grade bifurcating lesion of the LAD / diagonal , and high grade OM stenosis. Patient subsequently transferred to [facility] for CAGB Total Time Spent: Greater than 30 minutes This includes examination of the patient, discharge planning, medication reconciliation, and communication with other providers. Discharge Instructions Please refer to the electronic Patient Visit Report (Discharge Instructions) for additional information. Additional Copies To Zach Lance M.D.
== END 2017-10-18 13:15 | disposition short-term general hospital (02) | DRG 281 ==
LOC: C.EDB 02:42 → C.MSICU 06:47 → ENRESERV 07:50
PROVIDERS: ADMIT Hospitalist; ATTEND Family Medicine
PROC: B2111ZZ Fluoroscopy of Multiple Coronary Arteries using Low Osmolar Contrast (ICD-10-PCS; principal; 2017-10-18 11:17)
DX: I21.4 Non-ST elevation (NSTEMI) myocardial infarction (principal); Q24.5 Malformation of coronary vessels; I25.10 Atherosclerotic heart disease of native coronary artery without angina pectoris; E11.9 Type 2 diabetes mellitus without complications; Z79.4 Long term (current) use of insulin; K27.9 Peptic ulcer, site unspecified, unspecified as acute or chronic, without hemorrhage or perforation; Z87.442 Personal history of urinary calculi; J45.909 Unspecified asthma, uncomplicated; I44.7 Left bundle-branch block, unspecified; Z79.82 Long term (current) use of aspirin; E78.5 Hyperlipidemia, unspecified; K21.9 Gastro-esophageal reflux disease without esophagitis; J30.2 Other seasonal allergic rhinitis

== ENCOUNTER → 2017-11-04 | Outpatient (CLI) | payer OTHER ==
[~2017-11-04] MED LIST: ASPI1CHW12 PO; CETI10TA84 PO; EMPA1TAB3 PO; FEXO1TAB46 PO; GLIM4TAB2 PO; IPRA0.06; LISI-725 PO; METO25TA56 PO; MOME200A INH; MULT-1093 PO; NORT75CA2 PO; NVLNI SQ; OMEP20TA PO; SIMV40TA2 PO; SITA100T3 PO; VNTHFA/IN INH; [UNRECOGNIZED DRUG - CODE] NAE
[2017-11-04 17:55] LABS: BASO % 0.4 %; BASO ABS # 0.05 K/uL (0-0.2); EOS % 5.3 %; HEMATOCRIT 37.5 % (42-52); HEMOGLOBIN 12.6 g/dL (14.0-18.0); IG# 0.18 K/uL (0.00-0.02); LYMPH ABS # 3.28 K/uL (1.2-3.4); MEAN CELL VOLUME 95.9 fL (80-100); MEAN CORPUSCULAR HEMOGLOBIN 32.2 pg (25-34); MEAN CORPUSCULAR HGB CONC 33.6 g/dl (32-36); MEAN PLATELET VOLUME 10.5 fL (7.4-10.4); MONO % 7.3 %; MONO ABS # 0.96 K/uL (0.11-0.59); NEUT % 60.6 %; NEUT ABS # 7.94 K/uL (1.4-6.5); PLATELET COUNT 477 K/uL (130-400); RED CELL DISTRIBUTION WIDTH CV 14.2 % (11.5-14.5); WHITE BLOOD COUNT 13.11 K/uL (4.8-10.8)
[2017-11-04 18:21] LABS: BLOOD UREA NITROGEN 18 mg/dl (7-18); CALCIUM 9.3 mg/dl (8.5-10.1); CARBON DIOXIDE 25 mmol/L (21-32); CREATININE 1.17 mg/dl (0.60-1.40); GLUCOSE 147 mg/dl (70-99); POTASSIUM 4.1 mmol/L (3.5-5.1); SODIUM 134 mmol/L (136-145)
== END | disposition home or self-care (01) ==
LOC: C.LABMFLN 16:32
PROVIDERS: ATTEND Family Medicine
DX: I48.91 Unspecified atrial fibrillation (principal); I25.10 Atherosclerotic heart disease of native coronary artery without angina pectoris

== ENCOUNTER 2019-04-24 12:13 | Observation (INO) ==
[2019-04-24] MEDS ORDERED: ONDANSETRON INJ 2 MG/ML 2 ML VIAL IV STA ×2 (12:58→13:54)
[2019-04-24] MEDS ORDERED: SODIUM CHLORIDE 0.9% 500 ML IV STA (12:58)
[2019-04-24 13:40] LABS: Albumin Level 3.7 gm/dl (3.4-5.0); BUN Creatinine Ratio 14.8 (10-20); Bilirubin,Total 1.8 mg/dl (0.2-1); Calcium 9.6 mg/dl (8.5-10.1); Creatinine Clr Calc Pharmacy 69.4 ml/min; Est GFR (African American) 87.1; Est GFR (Non-African American) 75.1; Globulin 3.7 gm/dl (2.5-4.0); Total Protein 7.4 gm/dl (6.4-8.2)
[2019-04-24 13:50] LABS: Basophils # (auto) 0.01 K/uL (0-0.2); Basophils % (auto) 0.1 %; Eosinophils # (auto) 0.29 K/uL (0-0.5); Eosinophils % (auto) 2.4 %; Giant Platelets 1+; Hematocrit (blood only) 46.9 % (42-52); Hemoglobin 16.7 g/dL (14.0-18.0); Immature Granulocytes # (auto) 0.02 K/uL (0.00-0.02); Immature Granulocytes % (auto) 0.2 %; Lymphocytes # (auto) 0.45 K/uL (1.2-3.4); Lymphocytes % (auto) 3.8 %; Mean Corpuscular Hemoglobin 32.7 pg (25-34); Mean Corpuscular Hgb Conc 35.6 g/dL (32-36); Mean Corpuscular Volume 91.8 fL (80-100); Mean Platelet Volume 12.7 fL (7.4-10.4); Monocytes # (auto) 0.61 K/uL (0.11-0.59); Monocytes % (auto) 5.1 %; Neutrophils # (auto) 10.57 K/uL (1.4-6.5); Neutrophils % (auto) 88.4 %; Platelet Count 121 K/uL (130-400); Platelet Estimate Decreased (Normal); RDW Coefficient of Variation 12.6 % (11.5-14.5); Red Blood Count 5.11 M/uL (4.7-6.1); White Blood Count 11.95 K/uL (4.8-10.8)
[2019-04-24] MEDS ORDERED: ONDANSETRON INJ 2 MG/ML 2 ML VIAL IV PRN (13:57)
[2019-04-24] MEDS ORDERED: SODIUM CHLORIDE 0.9% 500 ML IV SCH (14:00)
[2019-04-24] MEDS ORDERED: SODIUM CHLORIDE 0.9% 1000ML 1,000 ML IV SCH (14:00)
[2019-04-24 14:17] LABS: Potassium 4.1 mmol/L (3.5-5.1)
--- NOTE | 2019-04-24 14:22 | XRay Report ---
XR chest 2V PA/lateral HISTORY: 74 years-old Male shortness of breath acute shortness of breath COMPARISON: Chest radiograph 04/16/2019 TECHNIQUE: PA and lateral views of the chest FINDINGS: Cardiac silhouette is enlarged, unchanged. Prior median sternotomy. Linear left basilar opacities sug gest atelectasis/scarring. There is no pneumothorax, pleural effusion, overt pulmonary edema or airsp jer consolidation typical for pneumonia. Degenerative changes of the shoulders and spine. IMPRESSION: 1. Cardiomegaly without acute process. 2. Mild linear scarring/atelectasis of the left lung base. ACT 112: Negative or not required by law. The above report was generated using voice recognition software. It may contain grammatical, syntax o r spelling errors. Electronically signed by: David Gonzalez M.D. 04/24/2019 2:21 PM
[2019-04-24 14:27] LABS: Aspartate Aminotransferase 19 U/L (15-37); Magnesium 1.7 mg/dl (1.8-2.4); Troponin I < 0.015 ng/ml (0-0.045)
[2019-04-24 14:31] LABS: Appearance Urine Clear (Clear); Bilirubin Urine Negative (Negative); Blood Urine Negative (Negative); Color Urine Yellow; Glucose Urine UA 3+ (Negative); Leukocyte Esterase Urine Negative (Negative); Nitrite Urine Negative (Negative); Protein Urine Negative (Negative); Specific Gravity Urine 1.023 (1.000-1.030); Urobilinogen Urine Negative (Negative)
[2019-04-24 14:36] LABS: Ketones Urine 3+ (Negative)
[2019-04-24] MEDS ORDERED: IOVERSOL 100ml IV PRN (15:59)
[2019-04-24 16:05] LABS: Influenza A virus by PCR Neg for Influ A (Neg); Influenza B virus by PCR Neg for Influ B (Neg)
--- NOTE | 2019-04-24 16:15 | CT Scan Report ---
CT abd pelvis IV con only CLINICAL HISTORY: Generalized abdominal pain COMPARISON STUDY: 06/20/2018 TECHNIQUE: The patient was scanned in a dynamic helical fashion during intravenous administration of 92 cc of Optiray 320. A dose lowering technique was utilized adhering to the principles of ALARA. CT DOSE: 438.90 mGy.cm FINDINGS: Lower chest: There are coronary artery calcifications. There are dependent atelectatic changes. There are no pleural effusions. Liver: The contrast-enhanced liver is normal in size, contour, and attenuation. There is no intrahepa tic biliary ductal dilatation. The hepatic veins and portal veins are patent. Gallbladder: Unremarkable. Spleen: Normal in size and attenuation. Pancreas: Unremarkable. Adrenal glands: Unremarkable. Kidneys: There is a 3 cm left renal cyst. There is no hydronephrosis. Additional subcentimeter renal hypodensities likely represent additional cysts. Bowel: There are no transition zones indicate bowel obstruction. There are fluid-filled loops of larg e and small bowel. This a nonspecific finding but could be related to an enteritis. There is no evide nce of acute diverticulitis. The appendix appears normal. Peritoneum: There is no intraperitoneal free air or abdominal ascites. There is a tiny fat-containing left inguinal hernia. There is a tiny fat-containing umbilical hernia. Vasculature: The abdominal aorta is normal in course and caliber. Adenopathy: None. Pelvic viscera: There is a tiny right posterior bladder diverticulum. Skeletal structures: No destructive osseous lesions are seen. IMPRESSION: 1. No evidence of bowel obstruction. No evidence of free air 2. Normal appendix. No evidence of acute diverticulitis 3. Fluid-filled small bowel and colonic bowel loops. This is a nonspecific finding which can be seen in an enteritis. ACT 112: Negative or not required by law. Electronically signed by: Gonsalo Adorno M.D. 04/24/2019 4:14 PM
--- NOTE | 2019-04-24 16:47 | Emergency Department Note ---
ED Visit Note I saw and examined this patient and discussed with Dr. Bedolla who evaluated him separately. Please see her note for all medical decision making. . Resident Activity Tracking Resident Involvement: Resident Care Provided Care Provided: Adult ED
[2019-04-24] MEDS ORDERED: MAGNESIUM SULFATE / D5W 1 GM/100 ML BAG IV ONE ×2 (17:01→20:56)
[2019-04-24] MEDS ORDERED: METOCLOPRAMIDE HCL INJ 5 MG/ML 2 ML VIAL IV STA (18:28)
[2019-04-24] MEDS ORDERED: GLUCOSE 40% GEL 15 GM TUBE PO PRN (20:56)
[2019-04-24] MEDS ORDERED: LORazepam 0.5 MG/1 ML VIAL IV PRN (20:56)
[2019-04-24] MEDS ORDERED: GLUCOSE 10 TABS/TUBE PO PRN (20:56)
[2019-04-24] MEDS ORDERED: DEXTROSE 50% 50 ML SYRINGE IV PRN (20:56)
[2019-04-24] MEDS ORDERED: GLUCAGON FOR INJ 1 MG VIAL SQ PRN (20:56)
[2019-04-24] MEDS ORDERED: ACETAMINOPHEN 325 MG TAB PO PRN (20:56)
[2019-04-24] MEDS ORDERED: CARBOHYDRATES FOR HYPOGLYCEMIA PO PRN (20:56)
[2019-04-24] MEDS ORDERED: ALBUT/IPRATROP 3MG/0.5MG NEB 3 ML VIAL NEB PRN (20:56)
[2019-04-24] MEDS ORDERED: TAMSULOSIN HCL 0.4 MG CAP PO SCH (21:00)
[2019-04-24] MEDS ORDERED: FINASTERIDE 5 MG TAB PO SCH (21:00)
[2019-04-24] MEDS ORDERED: CETIRIZINE HCL 10 MG TABLET PO SCH (21:00)
[2019-04-24] MEDS ORDERED: HydrALAZINE HCL 20 MG/ML VIAL IV PRN (21:29)
--- NOTE | 2019-04-24 21:41 | History & Physical Report ---
Date of Service April 24, 2019 Assessment & Plan (1) Nausea & vomiting: Viral gastroenteritis Obs tele PRN IV Zofran IVF. (2) Hypomagnesemia: Replace with 1gram IV re-check in am (3) Allergic rhinitis: Continue cetirizine (4) Coronary artery disease: Continue carvedilol, Plavix and aspirin. (5) GERD (gastroesophageal reflux disease): Continue Omeprazole. I added Pepcid IV in event patient cannot keep po down for now. (6) Hypercholesterolemia: Continue atorvastatin. (7) Moderate persistent asthma without complication: Prn duo nebs. Continue Symbicort. (8) Diabetes mellitus, type 2: Accu checks Continue Onglyza, glimepiride, and NPH Sliding scale coverage if needed for highs. (9) Hypertension: I held Lasix due to fluid losses from viral gastroenteritis. History of Present Illness 74 y/o male presented to the ED with persistent N/V since 0600. No F/C, cough, SOB, chest pain. His was admitted to the hospital the previous night with the same symptoms. He had diarrheal stool x2 since being in the ED. Patient is insulin requiring Type II diabetic. Primary Care Provider: Valentino Dunlap MD Allergies Allergy/AdvReac Type Severity Reaction Status Date / Time cat dander Allergy U congestion Verified 04/24/19 14:00 dog dander Allergy U congestion Verified 04/24/19 14:00 No Known Drug Allergies Allergy Verified 04/24/19 14:00 Home Medications Home Medications Medication Instructions Recorded Confirmed Type blood sugar diagnostic See Rx Instructions .ROUTE 09/17/18 04/18/19 Rx .COMPLEX #150 strip albuterol sulfate 90 mcg/actuation 2 puff INHALATION Q6H PRN #18 gm 10/24/18 04/24/19 Rx aerosol inhaler blood-glucose meter #1 ea 10/24/18 04/18/19 Rx cetirizine 10 mg capsule 10 mg PO HS #90 cap 10/24/18 04/24/19 Rx clopidogrel 75 mg tablet 75 mg PO QAM #90 tab 10/24/18 04/24/19 Rx fexofenadine 180 mg tablet 180 mg PO QAM #90 tab 10/24/18 04/24/19 Rx finasteride 5 mg tablet 5 mg PO .COMPLEX #90 tab 10/24/18 04/24/19 Rx furosemide 20 mg tablet 20 mg PO .COMPLEX #36 tab 10/24/18 04/24/19 Rx ipratropium bromide 42 mcg (0.06 1 spray INTRANASAL QAM #15 ml 10/24/18 04/24/19 Rx %) nasal spray njcnfmkg-gjc-zkjnh acid 300 1 tab PO QAM #90 tab 10/24/18 04/24/19 Rx mcg-lycopene 600 mcg-lutein 300 mcg tablet sildenafil (pulm.hypertension) 20 20 mg PO .COMPLEX #30 tab 10/24/18 04/24/19 Rx mg tablet tamsulosin 0.4 mg capsule 0.4 mg PO HS #90 cap 10/24/18 04/24/19 Rx carvedilol 3.125 mg tablet 3.125 mg PO BIDM #180 tab 01/09/19 04/24/19 Rx lancets #200 ea 02/21/19 04/18/19 Rx mometasone-formoterol HFA 200 2 puff INHALATION QAM #1 ea 04/03/19 04/24/19 Rx mcg-5 mcg/actuation aerosol inhaler aspirin 81 mg PO MOWEFR@0800 04/16/19 04/24/19 History atorvastatin 80 mg PO QDD 04/16/19 04/24/19 History glimepiride 4 mg PO BIDM 04/16/19 04/24/19 History lisinopril 10 mg PO QAM 04/16/19 04/24/19 History omeprazole 40 mg PO QAM 04/16/19 04/24/19 History potassium chloride 10 meq PO QAM 04/16/19 04/24/19 History saxagliptin [Onglyza] 5 mg PO QDD 04/16/19 04/24/19 History trazodone See Rx Instructions PO HS 04/16/19 04/24/19 History insulin NPH isoph U-100 human 40 units SUBCUT HS 04/24/19 04/24/19 History [Novolin N NPH U-100 Insulin] Past Med/Surg History Medical History Asthma Concussion without loss of consciousness Diabetes mellitus, type 2 GERD (gastroesophageal reflux disease) Hyperlipidemia Hypertension Surgical History History of cataract surgery History of colonoscopy History of hernia repair Hx of CABG Family History Mother Colorectal cancer Sister Breast cancer Brother Hx of CABG Diabetes Son Legg-Perthes disease Other Myocardial infarction Social History Preferred Language: Macanese Communication Ability: Effective Visual Impairment: Limited Hearing Ability: Normal Mounter Flutes And Piccolos Required: No Beliefs That Will Affect Care: None marital status: Current Living Situation: Spouse current occupational status: retired Other Information That Helps Us Care for You: No Feels Safe at Home: Yes Safety Concerns: Feels Safe At This Time Smoking Status: Never smoker Second Hand Exposure: No ; Hx Alcohol Use: No Hx Substance Use: No Childhood Exposure to Second-Hand Smoke: No Diet Comment: heart healthy caffeine: Yes Dental Care, Regularly: Yes Physical Activity Frequency: Daily Seatbelt Use: always Sunscreen Use: No (Does wear hat and long sleeves) Do you think of yourself as: straight/heterosexual Review of Systems Review of Systems: Constitutional- no fever; no weight loss Eyes- no acute visual changes ENT- no sinus drainage; no pharyngitis Pulmonary- no cough, no wheezing, no shortness of breath Cardiac- no chest pain, no palpitations, no orthopnea, no dependent edema GI- As in HPI - no dysuria, no hematuria Musculoskeletal- no arthralgias, no myalgias Derm- no rashes, no new skin lesions. Hematologic- no unusual bruising, no unusual bleeding Lymphatics- no adenopathy Endocrine- no polyuria or polydipsia; no heat or cold intolerance Neuro- + Mild headache. no focal neurologic symptoms Psych- no anxiety, no depression Physical Exam Physical Exam: General- adult male, NAD. Head- atraumatic Eyes- PERRL, EOMI, anicteric ENT- oropharynx clear Neck- supple, no JVD, no adenopathy, no thyromegaly. Lungs- CTA b/l no R/R/W. Heart- regular rhythm; no murmur, no gallop, no rub appreciated Abdomen- normal bowel sounds, soft, nontender. 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 Skin- warm & dry Results & Data Vital Signs (Past 12 Hours) Vital Signs Temp Pulse Pulse Resp BP BP BP 04/24/19 21:04 36.5 C 89 20 165/76 H 04/24/19 20:14 87 21 146/84 H 04/24/19 18:00 98 H 18 171/80 H 04/24/19 16:00 92 H 15 163/86 H 04/24/19 14:15 103 H 20 167/88 H 04/24/19 13:37 04/24/19 12:15 36.5 C 101 H 22 177/96 H Pulse Ox 04/24/19 21:04 97 04/24/19 20:14 96 04/24/19 18:00 98 04/24/19 16:00 98 04/24/19 14:15 99 04/24/19 13:37 97 04/24/19 12:15 99 Laboratory Results Laboratory Results WBC 11.95 K/uL (4.8-10.8) H 04/24/19 12:39 RBC 5.11 M/uL (4.7-6.1) 04/24/19 12:39 Hgb 16.7 g/dL (14.0-18.0) 04/24/19 12:39 Hct 46.9 % (42-52) 04/24/19 12:39 MCV 91.8 fL (80-100) 04/24/19 12:39 MCH 32.7 pg (25-34) 04/24/19 12:39 MCHC 35.6 g/dL (32-36) 04/24/19 12:39 RDW Std Deviation 42.0 fL (36.4-46.3) 04/24/19 12:39 RDW Coeff of Emir 12.6 % (11.5-14.5) 04/24/19 12:39 Plt Count 121 K/uL (130-400) L 04/24/19 12:39 MPV 12.7 fL (7.4-10.4) H 04/24/19 12:39 Immature Gran % (Auto) 0.2 % 04/24/19 12:39 Neut % (Auto) 88.4 % 04/24/19 12:39 Lymph % (Auto) 3.8 % 04/24/19 12:39 [place] % (Auto) 5.1 % 04/24/19 12:39 Eos % (Auto) 2.4 % 04/24/19 12:39 Baso % (Auto) 0.1 % 04/24/19 12:39 Immature Gran # (Auto) 0.02 K/uL (0.00-0.02) 04/24/19 12:39 Neut # (Auto) 10.57 K/uL (1.4-6.5) H 04/24/19 12:39 Lymph # (Auto) 0.45 K/uL (1.2-3.4) L 04/24/19 12:39 [place] # (Auto) 0.61 K/uL (0.11-0.59) H 04/24/19 12:39 Eos # (Auto) 0.29 K/uL (0-0.5) 04/24/19 12:39 Baso # (Auto) 0.01 K/uL (0-0.2) 04/24/19 12:39 Platelet Estimate Decreased (Normal) L 04/24/19 12:39 Giant Platelets 1+ 04/24/19 12:39 Sodium 137 mmol/L (136-145) 04/24/19 12:39 Potassium 4.1 mmol/L (3.5-5.1) 04/24/19 13:46 Chloride 110 mmol/L (98-107) H 04/24/19 12:39 Carbon Dioxide 18 mmol/L (21-32) L 04/24/19 12:39 Anion Gap 9.0 (3-11) 04/24/19 12:39 BUN 15 mg/dl (7-18) 04/24/19 12:39 Creatinine 0.98 mg/dl (0.6-1.4) 04/24/19 12:39 Est Cr Clr Drug Dosing 69.4 ml/min 04/24/19 12:39 Est GFR ( Amer) 87.1 04/24/19 12:39 Est GFR (Non-Af Amer) 75.1 04/24/19 12:39 BUN/Creatinine Ratio 14.8 (10-20) 04/24/19 12:39 Glucose 215 mg/dl (70-99) H 04/24/19 12:39 POC Glucose 152 mg/dl (70-99) H 04/24/19 21:03 Lactate 1.9 mmol/L (0.4-2.0) 04/24/19 17:19 Calcium 9.6 mg/dl (8.5-10.1) 04/24/19 12:39 Magnesium 1.7 mg/dl (1.8-2.4) L 04/24/19 13:46 Total Bilirubin 1.8 mg/dl (0.2-1) H 04/24/19 12:39 AST 19 U/L (15-37) 04/24/19 13:46 ALT 36 U/L (12-78) 04/24/19 12:39 Alkaline Phosphatase 77 U/L (45-117) 04/24/19 12:39 Troponin I < 0.015 ng/ml (0-0.045) 04/24/19 13:46 Total Protein 7.4 gm/dl (6.4-8.2) 04/24/19 12:39 Albumin 3.7 gm/dl (3.4-5.0) 04/24/19 12:39 Globulin 3.7 gm/dl (2.5-4.0) 04/24/19 12:39 Albumin/Globulin Ratio 1.0 (0.9-2) 04/24/19 12:39 Lipase 84 U/L (73-393) 04/24/19 12:39 Procalcitonin 0.19 ng/ml (0-0.5) 04/24/19 13:49 Urine Color Yellow 04/24/19 13:58 Urine Appearance Clear (Clear) 04/24/19 13:58 Urine pH 5.0 (4.5-7.5) 04/24/19 13:58 Ur Specific [place] 1.023 (1.000-1.030) 04/24/19 13:58 Urine Protein Negative (Negative) 04/24/19 13:58 Urine Glucose (UA) 3+ (Negative) H 04/24/19 13:58 Urine Ketones 3+ (Negative) H 04/24/19 13:58 Urine Blood Negative (Negative) 04/24/19 13:58 Urine Nitrite Negative (Negative) 04/24/19 13:58 Urine Bilirubin Negative (Negative) 04/24/19 13:58 Urine Urobilinogen Negative (Negative) 04/24/19 13:58 Ur Leukocyte Esterase Negative (Negative) 04/24/19 13:58 Influenza Type A (PCR) Neg for Influ A (Neg) 04/24/19 15:20 Influenza Type B (PCR) Neg for Influ B (Neg) 04/24/19 15:20 Diagnostic Findings [place], [place] [phone] CT Scan Report Patient: ARIEL THOMAS Date: 04/24/19 MR#: [id number]: [address] Acct ID:[id number]: [facility] [place] [place] [address] Age: 74Location: ED Sex: M Room/Bed: Att Phy:Diagnosis: nausea/vomit Cyndi Phy: Valentino Dunlap MDService Date: 04/24/19 Fam Phy:Interpreting Phy: Gonsalo Adorno MD Admit Phy: Ordering Phy: Mariajose Robles DO cc: ~ CT abd pelvis IV con only CLINICAL HISTORY: Generalized abdominal pain COMPARISON STUDY: 06/20/2018 TECHNIQUE: The patient was scanned in a dynamic helical fashion during intravenous administration of 92 cc of Optiray 320. A dose lowering technique was utilized adhering to the principles of ALARA. CT DOSE: 438.90 mGy.cm FINDINGS: Lower chest: There are coronary artery calcifications. There are dependent atelectatic changes. There are no pleural effusions. Liver: The contrast-enhanced liver is normal in size, contour, and attenuation. There is no intrahepatic biliary ductal dilatation. The hepatic veins and portal veins are patent. Gallbladder: Unremarkable. Spleen: Normal in size and attenuation. Pancreas: Unremarkable. Adrenal glands: Unremarkable. Kidneys: There is a 3 cm left renal cyst. There is no hydronephrosis. Additional subcentimeter renal hypodensities likely represent additional cysts. Bowel: There are no transition zones indicate bowel obstruction. There are fluid-filled loops of large and small bowel. This a nonspecific finding but could be related to an enteritis. There is no evidence of acute diverticulitis. The appendix appears normal. Peritoneum: There is no intraperitoneal free air or abdominal ascites. There is a tiny fat-containing left inguinal hernia. There is a tiny fat-containing umbilical hernia. Vasculature: The abdominal aorta is normal in course and caliber. Adenopathy: None. Pelvic viscera: There is a tiny right posterior bladder diverticulum. Skeletal structures: No destructive osseous lesions are seen. IMPRESSION: 1. No evidence of bowel obstruction. No evidence of free air 2. Normal appendix. No evidence of acute diverticulitis 3. Fluid-filled small bowel and colonic bowel loops. This is a nonspecific finding which can be seen in an enteritis. ACT 112: Negative or not required by law. Electronically signed by: Gonsalo Adorno M.D. 04/24/2019 4:14 PM Dictated: 04/24/19 1607 Transcribed: 04/24/19 1613 [place], [place] [phone] XRay Report Patient: ARIEL THOMAS Date: 04/24/19 MR#: [id number]: [address] Acct ID:[id number]: [facility] Zip[facility] [place] [address] Age: 74Location: ED Sex: M Room/Bed: Att Phy:Diagnosis: nausea/vomit Cyndi Phy: Valentino Dunlap MDService Date: 04/24/19 Fam Phy:Interpreting Phy: Gavin Gonzalez Admit Phy: Ordering Phy: Mariajose Robles DO cc: ~ XR chest 2V PA/lateral HISTORY: 74 years-old Male shortness of breath acute shortness of breath COMPARISON: Chest radiograph 04/16/2019 TECHNIQUE: PA and lateral views of the chest FINDINGS: Cardiac silhouette is enlarged, unchanged. Prior median sternotomy. Linear left basilar opacities suggest atelectasis/scarring. There is no pneumothorax, pleural effusion, overt pulmonary edema or airspace consolidation typical for pneumonia. Degenerative changes of the shoulders and spine. IMPRESSION: 1. Cardiomegaly without acute process. 2. Mild linear scarring/atelectasis of the left lung base. ACT 112: Negative or not required by law. The above report was generated using voice recognition software. It may contain grammatical, syntax or spelling errors. Electronically signed by: David Gonzalez M.D. 04/24/2019 2:21 PM Dictated: 04/24/19 1420 Transcribed: 04/24/19 142 Code Status & VTE Plan VTE Prophylaxis Plan VTE Prophylaxis will be ordered: Yes PG Care Time/CCT Total # of Minutes Spent Total Time Spent: 55 Total Time Spent with Patient: Total time spent is greater than 50% in coordination of care (as documented) at patient's floor/unit and/or counseling patient: Coding Level of Care Code 12960 OBS Care - Level 3 Diagnoses Nausea & vomiting R11.2 Vomiting Intractability: unspecified Vomiting type: unspecified Hypomagnesemia E83.42 Allergic rhinitis J30.9 Coronary artery disease I25.10 GERD (gastroesophageal reflux disease) K21.9 Hypercholesterolemia E78.00 Moderate persistent asthma without complication J45.40 Diabetes mellitus, type 2 E11.9 Hypertension I10 (1) Nausea & vomiting Vomiting Intractability: unspecified Vomiting type: unspecified Qualified Code(s): R11.2 - Nausea with vomiting, unspecified
[2019-04-24] MEDS: FAMOTIDINE 20 MG in SYRINGE 3 ML IV SCH (21:57)
[2019-04-24] MEDS ORDERED: INSULIN HUMAN NPH SQ SCH (22:30)
[2019-04-24] MEDS: LACTATED RINGER'S 1,000 ML IV SCH (22:49)
[2019-04-24] MEDS ORDERED: ENOXAPARIN INJ 40 MG/0.4 ML SYR SQ SCH (23:00)
[2019-04-24] MEDS: INSULIN ASPART 100 UNITS/ML 3 ML PEN SC SCH (23:28)
[2019-04-25 06:24] LABS: Hematocrit (blood only) 43.2 % (42-52); Hemoglobin 15.1 g/dL (14.0-18.0); Mean Corpuscular Hemoglobin 32.5 pg (25-34); Mean Corpuscular Volume 92.9 fL (80-100); Mean Platelet Volume 11.8 fL (7.4-10.4); Platelet Count 116 K/uL (130-400); RDW Coefficient of Variation 12.9 % (11.5-14.5); RDW Standard Deviation 43.6 fL (36.4-46.3); Red Blood Count 4.65 M/uL (4.7-6.1); White Blood Count 7.48 K/uL (4.8-10.8)
[2019-04-25] MEDS: LACTATED RINGER'S 1,000 ML IV SCH ×2 (06:29→12:48)
[2019-04-25 06:55] LABS: BUN Creatinine Ratio 10.5 (10-20); Calcium 9.1 mg/dl (8.5-10.1); Creatinine Clr Calc Pharmacy 70.3 ml/min; Est GFR (African American) 90.4; Magnesium 2.1 mg/dl (1.8-2.4); Potassium 3.7 mmol/L (3.5-5.1)
[2019-04-25] MEDS ORDERED: ASPIRIN 81 MG ECTAB PO SCH (08:00)
[2019-04-25] MEDS ORDERED: carvediloL 3.125 MG TAB PO SCH (08:00)
[2019-04-25] MEDS ORDERED: GLIMEPIRIDE 2 MG TAB PO SCH (08:00)
[2019-04-25] MEDS: INSULIN ASPART 100 UNITS/ML 3 ML PEN SC SCH ×2 (08:21→12:49)
[2019-04-25] MEDS: FAMOTIDINE 20 MG in SYRINGE 3 ML IV SCH (08:23)
[2019-04-25 08:42] LABS: Bilirubin Direct 0.2 mg/dl (0-0.2); Bilirubin,Total 1.3 mg/dl (0.2-1); Total Protein 6.3 gm/dl (6.4-8.2)
[2019-04-25] MEDS ORDERED: PANTOprazole 40 MG TAB PO SCH (09:00)
[2019-04-25] MEDS ORDERED: FEXOFENADINE HCL 180 MG TAB PO SCH (09:00)
[2019-04-25] MEDS ORDERED: CLOPIDOGREL BISULFATE 75 MG TAB PO SCH (09:00)
[2019-04-25] MEDS ORDERED: lisinopriL 10 MG TAB PO SCH (09:00)
[2019-04-25] MEDS ORDERED: CEROVITE ADV FORMULA TAB PO SCH (09:00)
--- NOTE | 2019-04-25 10:41 | Emergency Department Note ---
Entered by Alessia Harrington acting as a scribe for Vivian Bedolla DO History of Present Illness General Chief complaint: Vomiting Stated complaint: nausea/vomit Time Seen by Provider: 04/24/19 13:26 Source: patient History of Present Illness Provider complaint: Vomiting Onset (ago): hour(s) 8 Location: abdomen Maximum Pain Intensity: 5 Relieved By: + none Exacerbated By: + none Associated symptoms: + chest pain, + shortness of breath and + other (Abdominal pain) The patient is a 74 year old male who presents to the Emergency Room with complaints of vomiting that began this morning around 6am. The patient states that his symptoms are not relieved nor exacerbated by anything specific. The patient reports experiencing chest tightness, shortness of breath, and abdominal pain. The patient notes that his only sick contact is his who is in our ICU or possible similar symptoms and he denies any recent travel. The patient also mentioned that he got his flu shot and does have a history of asthma. Denies any recent dietary changes or medication changes. Home Medications Home Medications Medication Instructions Recorded Confirmed Type blood sugar diagnostic See Rx Instructions .ROUTE 09/17/18 04/18/19 Rx .COMPLEX #150 strip albuterol sulfate 90 mcg/actuation 2 puff INHALATION Q6H PRN #18 gm 10/24/18 04/24/19 Rx aerosol inhaler blood-glucose meter #1 ea 10/24/18 04/18/19 Rx cetirizine 10 mg capsule 10 mg PO HS #90 cap 10/24/18 04/24/19 Rx clopidogrel 75 mg tablet 75 mg PO QAM #90 tab 10/24/18 04/24/19 Rx fexofenadine 180 mg tablet 180 mg PO QAM #90 tab 10/24/18 04/24/19 Rx finasteride 5 mg tablet 5 mg PO .COMPLEX #90 tab 10/24/18 04/24/19 Rx furosemide 20 mg tablet 20 mg PO .COMPLEX #36 tab 10/24/18 04/24/19 Rx ipratropium bromide 42 mcg (0.06 1 spray INTRANASAL QAM #15 ml 10/24/18 04/24/19 Rx %) nasal spray [id number]-[id number] acid 300 1 tab PO QAM #90 tab 10/24/18 04/24/19 Rx mcg-lycopene 600 mcg-lutein 300 mcg tablet sildenafil (pulm.hypertension) 20 20 mg PO .COMPLEX #30 tab 10/24/18 04/24/19 Rx mg tablet tamsulosin 0.4 mg capsule 0.4 mg PO HS #90 cap 10/24/18 04/24/19 Rx carvedilol 3.125 mg tablet 3.125 mg PO BIDM #180 tab 01/09/19 04/24/19 Rx lancets #200 ea 02/21/19 04/18/19 Rx mometasone-formoterol HFA 200 2 puff INHALATION QAM #1 ea 04/03/19 04/24/19 Rx mcg-5 mcg/actuation aerosol inhaler aspirin 81 mg PO MOWEFR@0800 04/16/19 04/24/19 History atorvastatin 80 mg PO QDD 04/16/19 04/24/19 History glimepiride 4 mg PO BIDM 04/16/19 04/24/19 History lisinopril 10 mg PO QAM 04/16/19 04/24/19 History omeprazole 40 mg PO QAM 04/16/19 04/24/19 History potassium chloride 10 meq PO QAM 04/16/19 04/24/19 History saxagliptin [Onglyza] 5 mg PO QDD 04/16/19 04/24/19 History trazodone See Rx Instructions PO HS 04/16/19 04/24/19 History insulin NPH isoph U-100 human 40 units SUBCUT HS 04/24/19 04/24/19 History [Novolin N NPH U-100 Insulin] Allergies Allergy/AdvReac Type Severity Reaction Status Date / Time cat dander Allergy U congestion Verified 04/24/19 14:00 dog dander Allergy U congestion Verified 04/24/19 14:00 No Known Drug Allergies Allergy Verified 04/24/19 14:00 Past Med/Surg History Medical History Asthma Concussion without loss of consciousness Diabetes mellitus, type 2 GERD (gastroesophageal reflux disease) Hyperlipidemia Hypertension Surgical History History of cataract surgery History of colonoscopy History of hernia repair Hx of CABG Family History Mother Colorectal cancer Sister Breast cancer Brother Hx of CABG Diabetes Son Legg-Perthes disease Other Myocardial infarction Social History Preferred Language: Japanese Communication Ability: Effective Visual Impairment: Limited Hearing Ability: Normal Business Info Consultant Required: No Beliefs That Will Affect Care: None marital status: Current Living Situation: Spouse current occupational status: retired Other Information That Helps Us Care for You: No Feels Safe at Home: Yes Safety Concerns: Feels Safe At This Time Smoking Status: Never smoker Second Hand Exposure: No ; Hx Alcohol Use: No Hx Substance Use: No Childhood Exposure to Second-Hand Smoke: No Diet Comment: heart healthy caffeine: Yes Dental Care, Regularly: Yes Physical Activity Frequency: Daily Seatbelt Use: always Sunscreen Use: No (Does wear hat and long sleeves) Do you think of yourself as: straight/heterosexual Review of Systems See HPI for pertinent positives & negatives. and A total of 10 systems reviewed and were otherwise negative Physical Exam Vital Signs Vital Signs - 24 hr 04/24/19 12:15 04/24/19 13:37 04/24/19 14:15 Temperature 36.5 C Temperature Source Oral Pulse Rate 101 H Pulse Rate [Apical] 103 H Pulse Rhythm Regular Pulse Rhythm [Apical] Pulse Strength Normal Pulse Strength [Apical] Respiratory Rate 22 20 Respiratory Effort / Characteristics Non-Labored Spontaneous Non-Labored Spontaneous Respiratory Depth Normal Normal Respiratory Pattern Regular Regular Blood Pressure 177/96 H Blood Pressure [Right Arm] 167/88 H Blood Pressure Mean 123 Blood Pressure Mean [Right Arm] 114 Blood Pressure Position Lying Blood Pressure Position [Right Arm] Pulse Oximetry 99 97 99 Oxygen Delivery Method Room Air Room Air Room Air Sepsis Recent Fever Within 48 Hours No Sepsis New/Unexplained Change in Mental Status No Sepsis Action Taken by Nursing No Action Required 04/24/19 16:00 04/24/19 18:00 Temperature Temperature Source Pulse Rate Pulse Rate [Apical] 92 H 98 H Pulse Rhythm Pulse Rhythm [Apical] Regular Regular Pulse Strength Pulse Strength [Apical] Normal Normal Respiratory Rate 15 18 Respiratory Effort / Characteristics Non-Labored Spontaneous Non-Labored Spontaneous Respiratory Depth Normal Normal Respiratory Pattern Regular Regular Blood Pressure Blood Pressure [Right Arm] 163/86 H 171/80 H Blood Pressure Mean Blood Pressure Mean [Right Arm] 111 110 Blood Pressure Position Blood Pressure Position [Right Arm] Lying Pulse Oximetry 98 98 Oxygen Delivery Method Room Air Room Air Sepsis Recent Fever Within 48 Hours Sepsis New/Unexplained Change in Mental Status Sepsis Action Taken by Nursing GENERAL: alert, ill-appearing, well nourished, no distress, non-toxic EYE EXAM: normal conjunctiva, PERRL and EOM's grossly intact OROPHARYNX: no exudate, no erythema, lips, buccal mucosa, and tongue normal and mucous membranes are moist NECK: supple, no nuchal rigidity, no adenopathy, non-tender LUNGS: Clear to auscultation. Normal chest wall mechanics, no w/r/r HEART: no murmurs, S1 normal and S2 normal ABDOMEN: abdomen soft, non-tender, normo-active bowel sounds, no masses, no rebound or guarding. Mild abdominal distension. Generalized abdominal discomfort. Dull to percussion. BACK: Back is symmetrical on inspection and there is no deformity, no midline tenderness, no CVA tenderness. SKIN: no rashes and no bruising UPPER EXTREMITIES: upper extremities are grossly normal. FROM, nml pulses b/l. LOWER EXTREMITIES: No pitting edema. FROM, nml pulses b/l. NEURO EXAM: Normal sensorium, cranial nerves II-XII grossly intact, normal speech, no gross weakness of arms, no gross weakness of legs. Course Course 1331: Past medical records reviewed. The patient was seen and evaluated by the Resident Physician in room C07 at this time. History and physical were discussed with me. 1710: Physical exam performed by me. Pt states zofran helped for a short time but then nausea returns. 1903: I spoke with Dr. Lilibeth Cartwright- Hospitalist about the patient's case and she will accept the patient for further evaluation. Administered Medications Aspirin (Ecotrin Ectab) 81 mg PO MOWEFR@0800 [facility] Stop: 05/25/19 07:59 Last Admin: 04/25/19 08:19 Dose: 81 mg Documented by: [id number] Carvedilol (Coreg) 3.125 mg PO BIDM [facility] Stop: 05/25/19 07:59 Last Admin: 04/25/19 08:18 Dose: 3.125 mg Documented by: [id number] Cetirizine HCl (Zyrtec) 10 mg PO HS [facility] Stop: 05/24/19 20:59 Last Admin: 04/24/19 21:58 Dose: 10 mg Documented by: [id number] Clopidogrel Bisulfate (Plavix) 75 mg PO QAM [facility] Stop: 05/25/19 08:59 Last Admin: 04/25/19 08:19 Dose: 75 mg Documented by: [id number] Enoxaparin Sodium (Lovenox) 40 mg SQ Q24H [facility] Stop: 05/24/19 22:59 Last Admin: 04/24/19 23:29 Dose: 40 mg Documented by: [id number] Fexofenadine HCl (Mirella) 180 mg PO QAM [facility] Stop: 05/25/19 08:59 Last Admin: 04/25/19 08:18 Dose: 180 mg Documented by: [id number] Finasteride (Proscar) 5 mg PO [facility] Stop: 05/24/19 20:59 Last Admin: 04/24/19 21:58 Dose: 5 mg Documented by: [id number] Famotidine 20 mg/ Syringe 5 mls @ 2.5 mls/min IV BID [facility] Stop: 05/24/19 20:59 Last Admin: 04/25/19 08:23 Dose: 2.5 mls/min Documented by: [id number] Admin: 04/24/19 21:57 Dose: 2.5 mls/min Documented by: [id number] Lactated Ringer's (Lr) 1,000 mls @ 125 mls/hr IV .Q8H [facility] Stop: 05/24/19 21:59 Last Admin: 04/25/19 06:29 Dose: 125 mls/hr Documented by: [id number] Infusion: 04/25/19 06:29 Dose: 125 mls/hr Documented by: [id number] Admin: 04/24/19 22:49 Dose: 125 mls/hr Documented by: [id number] Insulin Aspart (Novolog Flexpen) 0 units SC ACHS [facility] Stop: 05/24/19 20:59 Last Admin: 04/25/19 08:21 Dose: Not Given Documented by: [id number] Cosigned by: [id number] Admin: 04/24/19 23:28 Dose: 3 units Documented by: [id number] Cosigned by: [id number] Insulin Human NPH (Novolin N Nph) 40 units SQ HS [facility] Stop: 05/24/19 22:29 Last Admin: 04/24/19 23:31 Dose: 40 units Documented by: [id number] Cosigned by: [id number] [facility] Stop: 05/25/19 08:59 Last Admin: 04/25/19 08:18 Dose: 10 mg Documented by: [id number] Miscellaneous (Order Awaiting Action) 1 ea N/A QS [facility] Stop: 05/25/19 07:59 Last Admin: 04/25/19 08:19 Dose: Not Given Documented by: [id number] Multivitamins/Minerals (Multivitamin W/ Minerals Tab) [facility] Stop: 05/25/19 08:59 Last Admin: 04/25/19 08:18 Dose: 1 tab Documented by: [id number] Ondansetron HCl (Zofran) 4 mg IV Q4H PRN PRN Reason: Nausea And Vomiting Stop: 05/24/19 13:56 Last Admin: 04/24/19 17:15 Dose: 4 mg Documented by: [id number] Pantoprazole Sodium (Protonix) 40 mg PO [facility] Stop: 05/25/19 08:59 Last Admin: 04/25/19 08:18 Dose: 40 mg Documented by: [id number] Tamsulosin HCl (Flomax) 0.4 mg PO [facility] Stop: 05/24/19 20:59 Last Admin: 04/24/19 23:30 Dose: 0.4 mg Documented by: [id number] Discontinued Medications Sodium Chloride (Nss) 500 mls @ 999 mls/hr IV .Q31M [facility] Stop: 04/24/19 13:28 Last Infusion: 04/24/19 13:46 Dose: 0 mls/hr Documented by: [id number] Admin: 04/24/19 13:00 Dose: 999 mls/hr Documented by: [id number] Sodium Chloride (Nss 1000ml) 1,000 mls @ 150 mls/hr IV .Q6H40M [facility] Stop: 04/24/19 20:39 Last Infusion: 04/24/19 18:20 Dose: 0 mls/hr Documented by: [id number] Admin: 04/24/19 14:05 Dose: 150 mls/hr Documented by: [id number] Magnesium Sulfate/Dextrose (Magnesium Sulfate / D5w) 1 gm in 100 mls @ 100 mls/hr IV ONE ONE Stop: 04/24/19 18:00 Last Infusion: 04/24/19 18:20 Dose: 0 mls/hr Documented by: [id number] Admin: 04/24/19 17:15 Dose: 100 mls/hr Documented by: [id number] Magnesium Sulfate/Dextrose (Magnesium Sulfate / D5w) 1 gm in 100 mls @ 100 mls/hr IV ONE ONE Stop: 04/24/19 21:55 Last Infusion: 04/24/19 23:09 Dose: 0 mls/hr Documented by: [id number] Admin: 04/24/19 21:57 Dose: 100 mls/hr Documented by: [id number] Metoclopramide HCl (Reglan) 5 mg IV NOW STA Stop: 04/24/19 18:29 Last Admin: 04/24/19 18:51 Dose: 5 mg Documented by: [id number] Ondansetron HCl (Zofran) 4 mg IV NOW STA Stop: 04/24/19 12:59 Last Admin: 04/24/19 13:02 Dose: 4 mg Documented by: [id number] Ondansetron HCl (Zofran) 4 mg IV NOW STA Stop: 04/24/19 13:55 Last Admin: 04/24/19 14:04 Dose: Not Given Documented by: [id number] Medical Decision Making Differential Diagnosis Differential diagnosis: Etiologies such as gastroenteritis, food borne illness, infections, appendicitis, diverticulitis, inflammatory bowel disease, obstruction, GI bleed, biliary pathology, cardiac process, intracranial process, as well as others were entertained. Medical Records Attestation: I reviewed the patient's medical records. Home Medications Current Medication List: was personally reviewed by me Laboratory Data Attestation: I reviewed the patient's lab results. Result diagrams: 04/25/19 06:06 04/25/19 06:06 Lab Results 04/24/19 04/24/19 04/24/19 Range/Units 12:39 12:39 13:46 WBC 11.95 H (4.8-10.8) K/uL RBC 5.11 (4.7-6.1) M/uL Hgb 16.7 (14.0-18.0) g/dL Hct 46.9 (42-52) % MCV 91.8 (80-100) fL MCH 32.7 (25-34) pg MCHC 35.6 (32-36) g/dL RDW Std Deviation 42.0 (36.4-46.3) fL RDW Coeff of Emir 12.6 (11.5-14.5) % Plt Count 121 L (130-400) K/uL MPV 12.7 H (7.4-10.4) fL Immature Gran % (Auto) 0.2 % Neut % (Auto) 88.4 % Lymph % (Auto) 3.8 % [place] % (Auto) 5.1 % Eos % (Auto) 2.4 % Baso % (Auto) 0.1 % Immature Gran # (Auto) 0.02 (0.00-0.02) K/uL Neut # (Auto) 10.57 H (1.4-6.5) K/uL Lymph # (Auto) 0.45 L (1.2-3.4) K/uL [place] # (Auto) 0.61 H (0.11-0.59) K/uL Eos # (Auto) 0.29 (0-0.5) K/uL Baso # (Auto) 0.01 (0-0.2) K/uL Platelet Estimate Decreased L (Normal) Giant Platelets 1+ Sodium 137 (136-145) mmol/L Potassium 4.1 (3.5-5.1) mmol/L Chloride 110 H (98-107) mmol/L Carbon Dioxide 18 L (21-32) mmol/L Anion Gap 9.0 (3-11) BUN 15 (7-18) mg/dl Creatinine 0.98 (0.6-1.4) mg/dl Est Cr Clr Drug Dosing 69.4 ml/min Est GFR ( Amer) 87.1 Est GFR (Non-Af Amer) 75.1 BUN/Creatinine Ratio 14.8 (10-20) Glucose 215 H (70-99) mg/dl Lactate (0.4-2.0) mmol/L Calcium 9.6 (8.5-10.1) mg/dl Magnesium 1.7 L (1.8-2.4) mg/dl Total Bilirubin 1.8 H (0.2-1) mg/dl AST 19 (15-37) U/L ALT 36 (12-78) U/L Alkaline Phosphatase 77 (45-117) U/L Troponin I < 0.015 (0-0.045) ng/ml Total Protein 7.4 (6.4-8.2) gm/dl Albumin 3.7 (3.4-5.0) gm/dl Globulin 3.7 (2.5-4.0) gm/dl Albumin/Globulin Ratio 1.0 (0.9-2) Lipase 84 (73-393) U/L Procalcitonin (0-0.5) ng/ml Urine Color Urine Appearance (Clear) Urine pH (4.5-7.5) Ur Specific [place] (1.000-1.030) Urine Protein (Negative) Urine Glucose (UA) (Negative) Urine Ketones (Negative) Urine Blood (Negative) Urine Nitrite (Negative) Urine Bilirubin (Negative) Urine Urobilinogen (Negative) Ur Leukocyte Esterase (Negative) Influenza Type A (PCR) (Neg) Influenza Type B (PCR) (Neg) 04/24/19 04/24/19 04/24/19 Range/Units 13:49 13:58 14:45 WBC (4.8-10.8) K/uL RBC (4.7-6.1) M/uL Hgb (14.0-18.0) g/dL Hct (42-52) % MCV (80-100) fL MCH (25-34) pg MCHC (32-36) g/dL RDW Std Deviation (36.4-46.3) fL RDW Coeff of Emir (11.5-14.5) % Plt Count (130-400) K/uL MPV (7.4-10.4) fL Immature Gran % (Auto) % Neut % (Auto) % Lymph % (Auto) % [place] % (Auto) % Eos % (Auto) % Baso % (Auto) % Immature Gran # (Auto) (0.00-0.02) K/uL Neut # (Auto) (1.4-6.5) K/uL Lymph # (Auto) (1.2-3.4) K/uL [place]ades # (Auto) (0.11-0.59) K/uL Eos # (Auto) (0-0.5) K/uL Baso # (Auto) (0-0.2) K/uL Platelet Estimate (Normal) Giant Platelets Sodium (136-145) mmol/L Potassium (3.5-5.1) mmol/L Chloride (98-107) mmol/L Carbon Dioxide (21-32) mmol/L Anion Gap (3-11) BUN (7-18) mg/dl Creatinine (0.6-1.4) mg/dl Est Cr Clr Drug Dosing ml/min Est GFR ( Amer) Est GFR (Non-Af Amer) BUN/Creatinine Ratio (10-20) Glucose (70-99) mg/dl Lactate 2.2 H* (0.4-2.0) mmol/L Calcium (8.5-10.1) mg/dl Magnesium (1.8-2.4) mg/dl Total Bilirubin (0.2-1) mg/dl AST (15-37) U/L ALT (12-78) U/L Alkaline Phosphatase (45-117) U/L Troponin I (0-0.045) ng/ml Total Protein (6.4-8.2) gm/dl Albumin (3.4-5.0) gm/dl Globulin (2.5-4.0) gm/dl Albumin/Globulin Ratio (0.9-2) Lipase (73-393) U/L Procalcitonin 0.19 (0-0.5) ng/ml Urine Color Yellow Urine Appearance Clear (Clear) Urine pH 5.0 (4.5-7.5) Ur Specific [place] 1.023 (1.000-1.030) Urine Protein Negative (Negative) Urine Glucose (UA) 3+ H (Negative) Urine Ketones 3+ H (Negative) Urine Blood Negative (Negative) Urine Nitrite Negative (Negative) Urine Bilirubin Negative (Negative) Urine Urobilinogen Negative (Negative) Ur Leukocyte Esterase Negative (Negative) Influenza Type A (PCR) (Neg) Influenza Type B (PCR) (Neg) 04/24/19 04/24/19 Range/Units 15:20 17:19 WBC (4.8-10.8) K/uL RBC (4.7-6.1) M/uL Hgb (14.0-18.0) g/dL Hct (42-52) % MCV (80-100) fL MCH (25-34) pg MCHC (32-36) g/dL RDW Std Deviation (36.4-46.3) fL RDW Coeff of Emir (11.5-14.5) % Plt Count (130-400) K/uL MPV (7.4-10.4) fL Immature Gran % (Auto) % Neut % (Auto) % Lymph % (Auto) % [place] % (Auto) % Eos % (Auto) % Baso % (Auto) % Immature Gran # (Auto) (0.00-0.02) K/uL Neut # (Auto) (1.4-6.5) K/uL Lymph # (Auto) (1.2-3.4) K/uL [place] # (Auto) (0.11-0.59) K/uL Eos # (Auto) (0-0.5) K/uL Baso # (Auto) (0-0.2) K/uL Platelet Estimate (Normal) Giant Platelets Sodium (136-145) mmol/L Potassium (3.5-5.1) mmol/L Chloride (98-107) mmol/L Carbon Dioxide (21-32) mmol/L Anion Gap (3-11) BUN (7-18) mg/dl Creatinine (0.6-1.4) mg/dl Est Cr Clr Drug Dosing ml/min Est GFR ( Amer) Est GFR (Non-Af Amer) BUN/Creatinine Ratio (10-20) Glucose (70-99) mg/dl Lactate 1.9 (0.4-2.0) mmol/L Calcium (8.5-10.1) mg/dl Magnesium (1.8-2.4) mg/dl Total Bilirubin (0.2-1) mg/dl AST (15-37) U/L ALT (12-78) U/L Alkaline Phosphatase (45-117) U/L Troponin I (0-0.045) ng/ml Total Protein (6.4-8.2) gm/dl Albumin (3.4-5.0) gm/dl Globulin (2.5-4.0) gm/dl Albumin/Globulin Ratio (0.9-2) Lipase (73-393) U/L Procalcitonin (0-0.5) ng/ml Urine Color Urine Appearance (Clear) Urine pH (4.5-7.5) Ur Specific [place] (1.000-1.030) Urine Protein (Negative) Urine Glucose (UA) (Negative) Urine Ketones (Negative) Urine Blood (Negative) Urine Nitrite (Negative) Urine Bilirubin (Negative) Urine Urobilinogen (Negative) Ur Leukocyte Esterase (Negative) Influenza Type A (PCR) Neg for Influ A (Neg) Influenza Type B (PCR) Neg for Influ B (Neg) Imaging Data Radiologist's Impression: Radiology results as stated below per my review and the radiologist's interpretation: XR chest 2V PA/lateral HISTORY: 74 years-old Male shortness of breath acute shortness of breath COMPARISON: Chest radiograph 04/16/2019 TECHNIQUE: PA and lateral views of the chest FINDINGS: Cardiac silhouette is enlarged, unchanged. Prior median sternotomy. Linear left basilar opacities suggest atelectasis/scarring. There is no pneumothorax, pleural effusion, overt pulmonary edema or airspace consolidation typical for pneumonia. Degenerative changes of the shoulders and spine. IMPRESSION: 1. Cardiomegaly without acute process. 2. Mild linear scarring/atelectasis of the left lung base. ACT 112: Negative or not required by law. The above report was generated using voice recognition software. It may contain grammatical, syntax or spelling errors. Electronically signed by: David Gonzalez M.D. 04/24/2019 2:[address] abd pelvis IV con only CLINICAL HISTORY: Generalized abdominal pain COMPARISON STUDY: 06/20/2018 TECHNIQUE: The patient was scanned in a dynamic helical fashion during intravenous administration of 92 cc of Optiray 320. A dose lowering technique was utilized adhering to the principles of ALARA. CT DOSE: 438.90 mGy.cm FINDINGS: Lower chest: There are coronary artery calcifications. There are dependent atelectatic changes. There are no pleural effusions. Liver: The contrast-enhanced liver is normal in size, contour, and attenuation. There is no intrahepatic biliary ductal dilatation. The hepatic veins and portal veins are patent. Gallbladder: Unremarkable. Spleen: Normal in size and attenuation. Pancreas: Unremarkable. Adrenal glands: Unremarkable. Kidneys: There is a 3 cm left renal cyst. There is no hydronephrosis. Additional subcentimeter renal hypodensities likely represent additional cysts. Bowel: There are no transition zones indicate bowel obstruction. There are fluid-filled loops of large and small bowel. This a nonspecific finding but could be related to an enteritis. There is no evidence of acute diverticulitis. The appendix appears normal. Peritoneum: There is no intraperitoneal free air or abdominal ascites. There is a tiny fat-containing left inguinal hernia. There is a tiny fat-containing umbil ical hernia. Vasculature: The abdominal aorta is normal in course and caliber. Adenopathy: None. Pelvic viscera: There is a tiny right posterior bladder diverticulum. Skeletal structures: No destructive osseous lesions are seen. IMPRESSION: 1. No evidence of bowel obstruction. No evidence of free air 2. Normal appendix. No evidence of acute diverticulitis 3. Fluid-filled small bowel and colonic bowel loops. This is a nonspecific finding which can be seen in an enteritis. ACT 112: Negative or not required by law. Electronically signed by: Gonsalo Adorno M.D. 04/24/2019 4:14 PM ECG Data Indication: + vomiting Rate (beats per minute): 100 Rhythm: + sinus rhythm ECG Intervals/blocks: + Left bundle branch block ECG Findings: + Other (Normal axis, no ischemia); no PACs and no PVCs Blood Pressure Blood Pressure Findings: Elevated blood pressure Blood Pressure Disposition: further management by hospitalist MDM Narrative Pt here with predominantly GI symptoms and recent ill with similar symptoms. Ct suggestive of enteritis. No other acute pathology. Labs reassuring. Mild dehydration, IVF cautiously given due to age and cardiac hx. Pt given several doses of zofran and then reglan. Pt still with nausea on po challenge and uncomfortable going home. Case discussed with hospitalist for additional mgmt and treatment. Impression & Plan Abdominal pain, Nausea & vomiting, Acute dehydration, Hypomagnesemia Discharge Plan Visit Data *Final* Discharge Date/Time: 04/24/19 20:14 Chief Complaint: Vomiting Stated Complaint: nausea/vomit ED Provider: Vivian Bedolla ED Midlevel Provider: Mariajose Robles Discharge Problem: Abdominal pain, Nausea & vomiting, Acute dehydration, Hypomagnesemia Patient Disposition: Admitted As Inpatient Discharge Instructions Interventions: ED Discharge Assessment Last Done: 04/24/19 20:14 Discharge Problem: Abdominal pain Qualifiers: Abdominal location: unspecified location Qualified Code(s): R10.9 - Unspecified abdominal pain Nausea & vomiting Qualifiers: Vomiting type: unspecified Vomiting Intractability: unspecified Qualified Code(s): R11.2 - Nausea with vomiting, unspecified The scribe's documentation has been prepared under my direction and personally reviewed by me in its entirety. I confirm that the note above accurately reflects all work, treatment, procedures, and medical decision making performed by me.
--- NOTE | 2019-04-25 12:57 | Discharge Summary ---
Date of Service April 25, 2019 Admission HPI Per Admitting Provider 74 y/o male presented to the ED with persistent N/V since 0600. No F/C, cough, SOB, chest pain. His was admitted to the hospital the previous night with the same symptoms. He had diarrheal stool x2 since being in the ED. Patient is insulin requiring Type II diabetic. Primary Care Provider: Valentino Dunlap MD Admission Exam Per Admitting Provider General- adult male, NAD. Head- atraumatic Eyes- PERRL, EOMI, anicteric ENT- oropharynx clear Neck- supple, no JVD, no adenopathy, no thyromegaly. Lungs- CTA b/l no R/R/W. Heart- regular rhythm; no murmur, no gallop, no rub appreciated Abdomen- normal bowel sounds, soft, nontender. 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 Skin- warm & dry Principal Diagnosis Viral Gastroenteritis Discharge Exam Constitutional WD/WN, vitals as above no acute distress Eyes + anicteric sclerae and PERRL ENMT Ears: no hearing impairment Nose: no external nose abnormality Neck trachea midline, no thyromegaly Respiratory normal respiratory effort, lungs clear to auscultation Cardiovascular RRR, no murmur, no edema Gastrointestinal (Abdomen) normal bowel sounds, soft, nontender, no hepatosplenomegaly Musculoskeletal no cyanosis or clubbing, extremities motor strength 5/5 Skin no rashes, warm and dry Neurologic PERRL, EOMI, accommodation nl, no face palsy, no dysarthria Psychiatric A+Ox3, euthymic affect Lymphatic no cervical or axillary lymphadenopathy Discharge Data Allergies Allergy/AdvReac Type Severity Reaction Status Date / Time cat dander Allergy U congestion Verified 04/30/19 14:45 dog dander Allergy U congestion Verified 04/30/19 14:45 No Known Drug Allergies Allergy Verified 04/30/19 14:45 Consultations 04/24/19 19:03 ED Decision to Admit Stat Ordered Studies 04/24/19 13:56 CT abd pelvis IV con only Stat CXR Hospital Course (1) Nausea & vomiting: * Viral gastroenteritis. Supportive treatment with IVF, prn zofran. IV mag given for mag 1.7 with improvement to 2.1 on repeat. Negative for flu. * Diarrhea decreased in frequency. No n/v. No fever, white count. Elevation in WBC on admission likely secondary to acute illness/dehydration. * Telemetry without abnormality * completely resolved and tolerating po on day of discharge (2) Hypomagnesemia: * Replaced with 1gram IV for mag 1.7. 2.1 on recheck (3) Allergic rhinitis: * Continued cetirizine (4) Coronary artery disease: * No acute issues while here * Continued carvedilol, Plavix and aspirin. (5) GERD (gastroesophageal reflux disease): * Continued Omeprazole. (6) Hypercholesterolemia: * Continued atorvastatin (7) Moderate persistent asthma without complication: * Prn duo nebs. * Continued Symbicort. (8) Diabetes mellitus, type 2: * Accu checks, SSI while inpatient * Continued Onglyza, glimepiride, and NPH upon discharge (9) Hypertension: * Held Lasix due to fluid losses from viral gastroenteritis -- resumed at discharge (10) Inguinal hernia: * on left side, small, fat containing, seen on CT abd/pel, not incarcerated * monitor as outpt (11) Umbilical hernia: * small, fat-containing, noted on CT abd/pel, not incarcerated, asymptomatic * monitor clinically as outpt (12) Thrombocytopenia: * Seems to occur when patient acutely ill. Last drop when patient hospitalized for pyelonephritis and then rebounds when patient better. * ?underlying ITP. Platelets 116 -- given order slip for repeat CBC within the next week * Follow up with PCP as outpatient * Of note, patient with elevated tbili to 1.8 which had trended down, 1.3 prior to d/c. Likely secondary to acute illness/dehydration. Patient denied abdominal pain. No RUQ tenderness to palpation. CT A/p with unremarkable GB Discharged home with Total Time Total Time Spent Total Time Spent (In Minutes): 45 Discharge Plan Discharge Items Patient Disposition: Home - Self-Care Reason For Visit: INTRACTABLE VOMITING,HYPOMAG Discharge Diagnosis: Intractable Vomiting, Viral Gastroenteritis Condition on Discharge: Good Goals: You have been hospitalized for an acute medical problem. During your stay at [facility], we have made an effort to correct the problem that brought you to the hospital while keeping you as comfortable as possible. Medications were used to bring your condition under control and your discharge instructions will include directions for any medications you should take after leaving the hospital. Please make sure you see your Primary Care Provider as part of your follow up plan. Activity: Resume your previous activity Non-emergency contact: Primary Care Provider Call non-emergency contact if: you have any medication questions and your symptoms worsen Follow-up/Referrals: Valentino Dunlap MD [Primary Care Provider] - 04/30/19 2:30 pm (Please, follow up with Dr. Dunlap on TuesdayApril 30 at 2:30 pm. *If you need to change this appointment, call the office at [phone].) Diet: Carb Consistent or DM2 and Heart Healthy Ambulatory Orders: Complete Blood Count with Diff (Timed) Timeframe: 1 Week Location: Determined by Patient Ordered By: Kailyn Hart Attending Provider Instructions: You have been hospitalized for uncontrolled vomiting and diarrhea. You were rehydrated and your electrolytes were replaced. It is determined that you have a viral GI bug. During this time, antibiotics are not warranted, as it is likely viral in nature. Over the next several days it will be important to stay well hydrated and drink plenty of water. You may want to stick to a bland diet over the next several days and increase as tolerated. You have also been sent a short prescription of ondesetron (zofran) for nausea. These are disintegrating tablets that dissolve under your tongue. You may take these as needed. You have been given an order to get repeat blood count within the next week. Your platelets were found to be low. Follow up with your primary care provider. If you develop worsening/more frequent diarrhea, bloody diarrhea, or inability to keep fluids/food down, please return to the emergency department. Please follow up with your primary care provider in the next 3-5 days. It has been a pleasure being a part of the care team providing for you while you have been hospitalized. Take care! Pending Studies at Discharge: No Stand-Alone Forms: My [facility] Medications and DC Order Prescriptions: New ondansetron 4 mg tablet,disintegrating 4 mg PO DAILY Qty: 7 RF: 0 Continued blood sugar diagnostic [OneTouch Ultra Blue Test Strip] strip See Rx Instructions .ROUTE .COMPLEX Qty: 150 RF: 3 carvedilol [Coreg] 3.125 mg tablet 3.125 mg PO BIDM Qty: 180 RF: 3 (DME) lancets [OneTouch UltraSoft Lancets] mis See Dose Instructions .ROUTE .MEDSUPPLY Qty: 200 RF: 3 Dulera 200-5 mcg/actuation HFA aerosol inhaler 2 puff INHALATION QAM Qty: 1 RF: 5 albuterol sulfate [Ventolin HFA] 90 mcg/actuation HFA aerosol inhaler 2 puff INHALATION Q6H PRN (Reason: Shortness Of Breath Or Wheezing) Qty: 18 RF: 3 (DME) blood-glucose meter [HiptypeTouch Ultra2 Meter] [facility] [place] See Dose Instructions .ROUTE .MEDSUPPLY Qty: 1 RF: 3 cetirizine 10 mg capsule 10 mg PO HS Qty: 90 RF: 3 clopidogrel [Plavix] 75 mg tablet 75 mg PO QAM Qty: 90 RF: 3 fexofenadine 180 mg tablet 180 mg PO QAM Qty: 90 RF: 3 finasteride 5 mg tablet 5 mg PO .COMPLEX Qty: 90 RF: 3 furosemide 20 mg tablet 20 mg PO .COMPLEX Qty: 36 RF: 3 ipratropium bromide 42 mcg (0.06 %) spray,non-aerosol 1 spray INTRANASAL QAM Qty: 15 RF: 3 Centrum Silver Men 300-600-300 mcg tablet 1 tab PO QAM Qty: 90 RF: 3 sildenafil (pulm.hypertension) 20 mg tablet 20 mg PO .COMPLEX Qty: 30 RF: 0 tamsulosin [Flomax] 0.4 mg capsule 0.4 mg PO HS Qty: 90 RF: 3 Novolin N NPH U-100 Insulin 100 unit/mL suspension 40 units SUBCUT HS RF: 0 potassium chloride 10 mEq tablet extended release 10 meq PO QAM RF: 0 omeprazole 40 mg capsule,delayed release(DR/EC) 40 mg PO QAM RF: 0 aspirin 81 mg tablet,delayed release (DR/EC) 81 mg PO MOWEFR@0800 RF: 0 lisinopril 10 mg tablet 10 mg PO QAM RF: 0 glimepiride 4 mg tablet 4 mg PO BIDM RF: 0 Onglyza 5 mg tablet 5 mg PO QDD RF: 0 No Action atorvastatin 80 mg tablet 80 mg PO QDD Qty: 90 RF: 3 trazodone 50 mg tablet See Rx Instructions PO HS Qty: 90 RF: 5 Discharge Orders: Discharge Order (Routine); Ordered 04/25/19 Ordered By: Luann Hernandez Admission Data Admit Date/Time: 04/24/19 19:42 Attending Provider: Luann Hernandez Admit Provider: August Phelps Primary Care Provider: Valentino Dunlap Other Providers: Michaela Cartwright Other Interventions: Discharge Summary Assessment (RN) Last Done: 04/25/19 17:11 DC Date/Time DO NOT enter until pt leaves facility: 04/25/19 17:54 Supervising Physician Co-Signing Physician Notes PA Supervision Note: I personally saw and examined the patient. I verified all abarca points and agree with LAW Kent with the following exceptions and/or additions: Pt feeling very well, eating regular food, no further N/V/D. No abd pain, no CP or SOB. Ready to go home VSS NAD, AAOx3 RRR no mgr CTAB no wcr Abd +BS soft NT ND Ext no edema, no calf tenderness 74 yo male here with acute VGE, dehydration, now resolved with supportive care Stable for dc to home Coding Level of Care Code D/C Day Management >30 mins Diagnoses Nausea & vomiting R11.2 Vomiting Intractability: unspecified Vomiting type: unspecified Hypomagnesemia E83.42 Allergic rhinitis J30.9 Coronary artery disease I25.10 GERD (gastroesophageal reflux disease) K21.9 Hypercholesterolemia E78.00 Moderate persistent asthma without complication J45.40 Diabetes mellitus, type 2 E11.9 Hypertension I10 Inguinal hernia K40.90 Umbilical hernia K42.9 Thrombocytopenia D69.6
[2019-04-25] MEDS ORDERED: ATORVASTATIN 40 MG TAB PO SCH (16:30)
[2019-04-25] MEDS ORDERED: SAXAGLIPTIN 5 MG PO SCH (16:30)
--- NOTE | 2019-04-25 17:38 | Electrocardiogram Report ---
Test Reason : Blood Pressure : / mmHG Vent. Rate : 100 BPM Atrial Rate : 100 BPM P-R Int : 174 ms QRS Dur : 138 ms QT Int : 378 ms P-R-T Axes : 019 035 221 degrees QTc Int : 487 ms Normal sinus rhythm Left bundle branch block Abnormal ECG When compared with ECG of 16-APR-2019 11:20, Vent. rate has increased BY 33 BPM Confirmed by Isiah Dixon ([id number]) on 04/25/2019 5:37:39 PM Referred By: REFERRED SELF Confirmed By:Larry Dixon
== END 2019-04-25 17:54 | disposition home or self-care (01) ==
LOC: 2W 12:13 → ED 12:13 → SUATTDRO 19:42 → 2W 20:14

== ENCOUNTER 2020-02-21 23:04 | Inpatient (IN) ==
[2020-02-21] MEDS ORDERED: DEXTROSE 10% 1,000 ML BAG IV ONE (23:11)
[2020-02-21] MEDS ORDERED: ONDANSETRON INJ 2 MG/ML 2 ML VIAL ONE (23:17)
[2020-02-21 23:47] LABS: Basophils # (auto) 0.03 K/uL (0-0.2); Basophils % (auto) 0.3 %; Eosinophils # (auto) 0.42 K/uL (0-0.5); Eosinophils % (auto) 4.4 %; Hematocrit (blood only) 44.4 % (42-52); Hemoglobin 15.5 g/dL (14.0-18.0); Immature Granulocytes # (auto) 0.02 K/uL (0.00-0.02); Immature Granulocytes % (auto) 0.2 %; Lymphocytes # (auto) 2.91 K/uL (1.2-3.4); Lymphocytes % (auto) 30.3 %; Mean Corpuscular Hgb Conc 34.9 g/dL (32-36); Mean Corpuscular Volume 91.7 fL (80-100); Monocytes # (auto) 1.24 K/uL (0.11-0.59); Monocytes % (auto) 12.9 %; Neutrophils # (auto) 4.97 K/uL (1.4-6.5); Neutrophils % (auto) 51.9 %; Platelet Count 152 K/uL (130-400); RDW Coefficient of Variation 12.4 % (11.5-14.5); Red Blood Count 4.84 M/uL (4.7-6.1); White Blood Count 9.59 K/uL (4.8-10.8)
[2020-02-21] MEDS ORDERED: ONDANSETRON INJ 2 MG/ML 2 ML VIAL IV STA (23:55)
[2020-02-21 23:58] LABS: INR 1.1 (0.9-1.1); Partial Thromboplastin Ratio 0.9; Partial Thromboplastin Time 24.9 Seconds (21.0-31.0); Prothrombin Time 11.1 Seconds (9.0-12.0)
[2020-02-22] LABS: Alanine Aminotransferase 36 U/L (12-78); Albumin Level 3.5 gm/dl (3.4-5.0); Alkaline Phosphatase 89 U/L (45-117); Aspartate Aminotransferase 24 U/L (15-37); BUN Creatinine Ratio 12.7 (10-20); Bilirubin,Total 0.9 mg/dl (0.2-1); Blood Urea Nitrogen 13 mg/dl (7-18); Calcium 9.2 mg/dl (8.5-10.1); Carbon Dioxide 25 mmol/L (21-32); Chloride 112 mmol/L (98-107); Creatinine Clr Calc Pharmacy 66.6 ml/min; Est GFR (Non-African American) 74.2; Globulin 3.5 gm/dl (2.5-4.0); Glucose 27 mg/dl (70-99); Lipase 211 U/L (73-393); Potassium 3.1 mmol/L (3.5-5.1); Sodium 141 mmol/L (136-145)
[2020-02-22 00:01] LABS: Troponin I < 0.015 ng/ml (0-0.045)
[2020-02-22] MEDS ORDERED: POTASSIUM CHLORIDE CRTAB 20 MEQ TABCR PO STA (01:12)
[2020-02-22 01:30] LABS: Magnesium 1.9 mg/dl (1.8-2.4)
--- NOTE | 2020-02-22 01:40 | History & Physical Report ---
Date of Service February 22, 2020 Assessment & Plan (1) Hypoglycemia associated with type 2 diabetes mellitus: Hold glimepiride 4 mg p.o. twice daily, insulin NPH 40 units subcu at bedtime, and saxagliptin [address] on Accu-Cheks with NovoLog coverage per scale, allowing range 150-200. Continue D5 normal saline with KCl 20 mEq 150 mils per hour for now. May need to continue D10 boluses of as given in the ED if persistent hypoglycemia. No signs of infection. Patient and report that his medications were taken as directed. Present on Admission?: Yes (2) Hypokalemia: Potassium 3.1 upon admission, was likely was exacerbated further by the necessary addition of glucose IV. Give KCl 40 mEq p.o. x1 now, then 210 mEq K riders. Placed on maintenance potassium 20 mEq p.o. twice daily, and check serially in the a.m. Present on Admission?: Yes (3) Coronary artery disease: CAD/hypertension continue aspirin 81 mg daily, carvedilol 3.125 mg p.o. twice daily, clopidogrel 75 mg p.o. daily. Hold lisinopril and furosemide Present on Admission?: Yes (4) Hypertension: See above Present on Admission?: Yes (5) Hypercholesterolemia: Continue atorvastatin 80 mg daily Present on Admission?: Yes (6) BPH (benign prostatic hyperplasia): Continue tamsulosin 0.4 mg p.o. at bedtime and finasteride 5 mg p.o. at bedtime. Present on Admission?: Yes History of Present Illness Chief Complaint: The patient presented to the emergency department with an episode of hypoglycemia Primary Care Provider: Valentino Dunlap MD The patient is a 74-year-old male with a past medical history including diabetes mellitus, thrombocytopenia, hypertension, diabetes mellitus type 2, hypomagnes emia, concussion without loss of consciousness, CAD, depression, diabetic peripheral neuropathy, GERD, generalized anxiety disorder, hypercholesterolemia, asthma, BPH, pyelonephritis, sepsis and non-STEMI. Upon arrival to the emergency department his glucose was found to be 27. He did receive several treatments of D10, and glucose continued to remain in the mid 60s to low 70s. Patient reports his taking his medications with no different than usual, and that he did have a normal sized Thanksgiving meal today. In general he otherwise has not had any symptoms of illness or infection. He did complain of leg muscle cramps while in the ED, which was thought secondary to his hypokalemia Allergies Allergy/AdvReac Type Severity Reaction Status Date / Time cat dander Allergy Mild congestion Verified 02/22/20 00:38 dog dander Allergy Mild congestion Verified 02/22/20 00:38 Home Medications Medication Instructions Recorded Confirmed Type blood-glucose meter #1 ea 10/24/18 10/24/19 Rx cetirizine 10 mg capsule 10 mg PO HS #90 cap 10/24/18 02/22/20 Rx clopidogrel 75 mg tablet 75 mg PO QAM #90 tab 10/24/18 02/22/20 Rx fexofenadine 180 mg tablet 180 mg PO QAM #90 tab 10/24/18 02/22/20 Rx vduwpydu-gym-xvkrn acid 300 1 tab PO QAM #90 tab 10/24/18 02/22/20 Rx mcg-lycopene 600 mcg-lutein 300 mcg tablet lancets #200 ea 02/21/19 10/24/19 Rx aspirin 81 mg PO 3XWK 04/16/19 02/22/20 History lisinopril 10 mg PO QAM 04/16/19 02/22/20 History atorvastatin 80 mg tablet 80 mg PO QDD #90 tab 04/30/19 02/22/20 Rx albuterol sulfate 90 mcg/actuation 2 puff INHALATION Q6H PRN #18 gm 08/06/19 02/22/20 Rx aerosol inhaler potassium chloride 10 mEq 10 meq PO QAM #90 tab 10/22/19 02/22/20 Rx tablet,extended release glimepiride 4 mg tablet 4 mg PO BIDM #180 tab 10/29/19 02/22/20 Rx mometasone-formoterol HFA 200 2 puff INHALATION QAM #1 ea 12/24/19 02/22/20 Rx mcg-5 mcg/actuation aerosol inhaler carvedilol 3.125 mg tablet 3.125 mg PO BIDM #180 tab 12/31/19 02/22/20 Rx tamsulosin 0.4 mg capsule 0.4 mg PO HS #90 cap 01/16/20 02/22/20 Rx finasteride 5 mg PO HS 02/22/20 02/22/20 History furosemide 20 mg PO 3XWK 02/22/20 02/22/20 History insulin NPH isoph U-100 human 40 unit SUBCUT HS 02/22/20 02/22/20 History [Novolin N NPH U-100 Insulin] ipratropium bromide 1 spray INTRANASAL AMHS 02/22/20 02/22/20 History omeprazole 40 mg PO DAILYBB 02/22/20 02/22/20 History saxagliptin [Onglyza] 5 mg PO QDD 02/22/20 02/22/20 History trazodone 50 mg PO HS 02/22/20 02/22/20 History triamcinolone acetonide [Nasacort] 1 spray INTRANASAL QAM 02/22/20 02/22/20 History Past Med/Surg History Medical History (Updated 02/22/20 @ 03:29 by Sergey Almonte MD) Asthma Concussion without loss of consciousness Diabetes mellitus, type 2 GERD (gastroesophageal reflux disease) Hyperlipidemia Hypertension Inguinal hernia Thrombocytopenia Thrombocytopenia Trigger finger (acquired) Umbilical hernia Surgical History History of cataract surgery History of colonoscopy History of hernia repair Hx of CABG Family History Mother Colorectal cancer Sister Breast cancer Brother Hx of CABG Diabetes Son Legg-Perthes disease Other Myocardial infarction Denies family history of Ovarian cancer Prostate cancer Social History Smoking Status: Never smoker Second Hand Exposure: No; Hx Alcohol Use: No Hx Substance Use: No Preferred Language: Khmer Communication Ability: Effective Visual Impairment: Limited Hearing Ability: Normal Physics Tutor Required: No Beliefs That Will Affect Care: None marital status: Current Living Situation: Spouse current occupational status: retired Feels Safe at Home: Yes Childhood Exposure to Second-Hand Smoke: No Diet Comment: heart healthy caffeine: Yes Dental Care, Regularly: Yes Physical Activity Frequency: Daily Seatbelt Use: always Sunscreen Use: No (Does wear hat and long sleeves) Do you think of yourself as: straight/heterosexual Assistive Devices: Glasses and Hearing Aid - Bilateral Review of Systems Review of Systems: The patient denies chest pain, palpitations, shortness of breath, dyspnea on exertion, cough, lower extremity swelling, sore throat, fevers, chills, sweats, weight change, fatigue, vomiting, diarrhea , constipation, abdominal pain, pelvic pain, blood in urine or stool, dysuria, urinary frequency or urgency, lightheadedness, dizziness, headache, memory loss, loss of consciousness, rash, abnormal bruising or bleeding, imbalance, focal or generalized weakness, numbness or tingling in arms or legs, generalized arthralgias or myalgias, back or neck pain, or night sweats. The review of systems is otherwise negative other than for that already noted above, and at least 10 systems have been reviewed. Physical Exam Physical Exam: The patient is awake, alert and oriented 3, well developed and well nourished, normocephalic and atraumatic, lying in bed and in no acute distress. HEENT--PERRL, EOMI, mucous membranes and oropharynx dry. Neck--supple. No JVD. No bruits. Thyroid normal, trachea midline, no adenopathy. Heart--normal S1 and S2. No murmurs, rubs or gallops. Lungs--clear bilaterally, no respiratory distress, no accessory muscle use. Abdomen--normal bowel sounds and soft. Nontender. Nondistended, no hernias or masses, no organomegaly. Extremities--no cyanosis or clubbing. No edema. There are good distal pulses b/l. Dermatologic--normal skin turgor, normal color, no abnormal lymph nodes, no rash. Neurologic--cranial nerves II through XII grossly intact. Rheumatologic--normal range of motion. Psychiatric--normal affect. Results & Data Results & Data ([facility]) Vital Signs (Past 12 Hours) Vital Signs Temp Pulse Resp BP Pulse Ox 02/21/20 23:14 97.0 F L 56 L 18 186/77 H 98 Laboratory Results Laboratory Results WBC 9.59 K/uL (4.8-10.8) 02/21/20 23:16 RBC 4.84 M/uL (4.7-6.1) 02/21/20 23:16 Hgb 15.5 g/dL (14.0-18.0) 02/21/20 23:16 Hct 44.4 % (42-52) 02/21/20 23:16 MCV 91.7 fL (80-100) 02/21/20 23:16 MCH 32.0 pg (25-34) 02/21/20 23:16 MCHC 34.9 g/dL (32-36) 02/21/20 23:16 RDW Std Deviation 42.0 fL (36.4-46.3) 02/21/20 23:16 RDW Coeff of Emir 12.4 % (11.5-14.5) 02/21/20 23:16 Plt Count 152 K/uL (130-400) 02/21/20 23:16 MPV 12.0 fL (7.4-10.4) H 02/21/20 23:16 Immature Gran % (Auto) 0.2 % 02/21/20 23:16 Neut % (Auto) 51.9 % 02/21/20 23:16 Lymph % (Auto) 30.3 % 02/21/20 23:16 [place] % (Auto) 12.9 % 02/21/20 23:16 Eos % (Auto) 4.4 % 02/21/20 23:16 Baso % (Auto) 0.3 % 02/21/20 23:16 Neut # (Auto) 4.97 K/uL (1.4-6.5) 02/21/20 23:16 Lymph # (Auto) 2.91 K/uL (1.2-3.4) 02/21/20 23:16 [place] # (Auto) 1.24 K/uL (0.11-0.59) H 02/21/20 23:16 Eos # (Auto) 0.42 K/uL (0-0.5) 02/21/20 23:16 Baso # (Auto) 0.03 K/uL (0-0.2) 02/21/20 23:16 Immature Gran # (Auto) 0.02 K/uL (0.00-0.02) 02/21/20 23:16 PT 11.1 Seconds (9.0-12.0) 02/21/20 23:16 INR 1.1 (0.9-1.1) 02/21/20 23:16 APTT 24.9 Seconds (21.0-31.0) 02/21/20 23:16 PTT Ratio 0.9 02/21/20 23:16 Sodium 141 mmol/L (136-145) 02/21/20 23:16 Potassium 3.1 mmol/L (3.5-5.1) L 02/21/20 23:16 Chloride 112 mmol/L (98-107) H 02/21/20 23:16 Carbon Dioxide 25 mmol/L (21-32) 02/21/20 23:16 Anion Gap 4.0 (3-11) 02/21/20 23:16 BUN 13 mg/dl (7-18) 02/21/20 23:16 Creatinine 0.99 mg/dl (0.6-1.4) 02/21/20 23:16 Est Cr Clr Drug Dosing 66.6 ml/min 02/21/20 23:16 Est GFR ( Amer) 86.0 02/21/20 23:16 Est GFR (Non-Af Amer) 74.2 02/21/20 23:16 BUN/Creatinine Ratio 12.7 (10-20) 02/21/20 23:16 Glucose 27 mg/dl (70-99) L* 02/21/20 23:16 POC Glucose 115 mg/dl (70-99) H 02/22/20 03:07 Calcium 9.2 mg/dl (8.5-10.1) 02/21/20 23:16 Magnesium 1.9 mg/dl (1.8-2.4) 02/21/20 23:16 Total Bilirubin 0.9 mg/dl (0.2-1) 02/21/20 23:16 AST 24 U/L (15-37) 02/21/20 23:16 ALT 36 U/L (12-78) 02/21/20 23:16 Alkaline Phosphatase 89 U/L (45-117) 02/21/20 23:16 Troponin I < 0.015 ng/ml (0-0.045) 02/21/20 23:16 Total Protein 7.0 gm/dl (6.4-8.2) 02/21/20 23:16 Albumin 3.5 gm/dl (3.4-5.0) 02/21/20 23:16 Globulin 3.5 gm/dl (2.5-4.0) 02/21/20 23:16 Albumin/Globulin Ratio 1.0 (0.9-2) 02/21/20 23:16 Lipase 211 U/L (73-393) 02/21/20 23:16 Code Status & VTE Plan Code Status Full code VTE Prophylaxis Plan VTE Prophylaxis will be ordered: Yes PG Care Time/CCT Total # of Minutes Spent Total Time Spent with Patient: Total time spent is greater than 50% in coordination of care (as documented) at patient's floor/unit and/or counseling patient: Coding Level of Care Code 35948 Initial Inpt Care Lvl 3 Diagnoses Hypoglycemia associated with type 2 diabetes mellitus E11.649 Hypokalemia E87.6 Coronary artery disease I25.10 Hypertension I10 Hypercholesterolemia E78.00 BPH (benign prostatic hyperplasia) N40.0
[2020-02-22] MEDS: POTASSIUM CHLORIDE / WTR 10 MEQ/100 ML PLCT IV SCH ×2 (02:02→03:10)
[2020-02-22] MEDS ORDERED: D5NSS + 20MEQ KCL 20 MEQ/1,000 ML BAG IV SCH (03:49)
[2020-02-22] MEDS ORDERED: DEXTROSE 50% 50 ML SYRINGE IV PRN (03:49)
[2020-02-22] MEDS ORDERED: ACETAMINOPHEN 325 MG TAB PO PRN (03:49)
[2020-02-22] MEDS ORDERED: GLUCOSE 10 TABS/TUBE PO PRN (03:49)
[2020-02-22] MEDS ORDERED: CARBOHYDRATES FOR HYPOGLYCEMIA PO PRN (03:49)
[2020-02-22] MEDS ORDERED: ONDANSETRON INJ 2 MG/ML 2 ML VIAL IV PRN (03:49)
[2020-02-22] MEDS ORDERED: GLUCOSE 40% GEL 15 GM TUBE PO PRN (03:49)
[2020-02-22] MEDS ORDERED: GLUCAGON FOR INJ 1 MG VIAL SQ PRN (03:49)
--- NOTE | 2020-02-22 05:47 | Emergency Department Note ---
Impression & Plan Hypoglycemia associated with diabetes ED Provider Note NAME: ARIEL THOMAS AGE: 74 SEX: M ARRIVES VIA: Ambulance INFORMANT: Patient EMS ED PROVIDER(S): Phyllis Casas DO CHIEF COMPLAINT: Hypoglycemia PLAN: Disposition: Admitted to the [facility] Condition: Fair MEDICAL DECISION MAKING: This is a 74-year-old male patient who presents to the emergency department with recurrent hypoglycemia. According to the patient's who told EMS that the patient ate a fairly large amount of food today secondary to Thanksgiving and took his oral diabetic medications and insulin as usual because she administers it to him. Patient was noted to have an altered mental status and found to have a blood sugar of 60 when EMS arrived. Triage Nursing notes reviewed and agree them. Additional history obtained from EMS Prior medical records reviewed Vital Signs: reviewed and unremarkable Differential diagnosis: Medication mistake; medication noncompliance; dehydration, electrolyte abnormality ER treatment provided: IV D10 Diagnostics interpreted by me: ECG: Sinus bradycardia at a rate of 56 with a first-degree AV block and a left bundle branch block. This is unchanged from an EKG of March 2019. Cardiac Monitoring: Normal sinus rhythm at a rate of 70 Laboratory studies: See below HPI: 74/M arrives for evaluation of hypoglycemia. The patient's notes that the patient had received his usual doses of oral antihyperglycemic's, insulin and ate a large amount of food today. However, she found the patient wi th an altered mental status and the low blood sugar. EMS arrived on scene to find the patient unresponsive and a blood sugar of 60. They administered approximately 225 cc of D10 and a repeat blood sugar was 283. In route to the hospital, the patient's mental status started to decline again and they rechecked the BSG and found to be 88. Upon arrival here in the emergency department, the patient was somewhat lethargic and complaining was specifically of epigastric abdominal pain and back pain. ROS: See above HPI for pertinent positives & negatives. A total of 10 systems reviewed and were otherwise negative. PAST MEDICAL HISTORY:See Below PAST SURGICAL HISTORY:See Below FAMILY HISTORY:See Below SOCIAL HISTORY:See Below HOME MEDICATIONS:See list ALLERGIES:See list VITALS:See Below PHYSICAL EXAMINATION: HEENT: Head - normocephalic and atraumatic. Pupils are equal, round, and reactive to light. Extraocular eye muscles are intact, and sclera are anic teric. Nose - moist nasal mucosa without discharge. Mouth - moist buccal mucosa. Oropharynx is nonerythematous and there is no tonsillar exudate or edema noted. Neck: Supple; no JVD, nuchal rigidity, cervical lymphadenopathy, or auscultated bruits. Heart: Bradycardic rate and rhythm. There is a normal S1 and S2 with no murmurs, clicks, or gallops appreciated. Lungs: Clear to auscultation bilaterally with no wheezes, rales, or rhonchi. Abdomen: Soft, mild tenderness to palpation in the epigastrium, nondistended, with good bowel sounds. There are no palpable pulsatile masses or hepatosplen omegaly. There is no guarding, rigidity, or rebound noted. Extremities: No evidence of cyanosis, clubbing, or edema. There are easily palpable peripheral pulses. Skin: warm, pale and diaphoretic with good turgor and no rashes. ED COURSE: Times/Reassessments: The patient was evaluated in room C3. A complete history and physical was performed. Previous electronic medical records were reviewed. I discussed the case with EMS at the bedside. An order was placed for continuous cardiac monitoring. The patient was in a sinus bradycardia at a rate of 56. The patient's blood sugar was back down to 82. I ordered a bolus of D10-250 cc. A twelve-lead EKG was obtained. It was compared to previous EKG. The patient is now resting comfortably. Nursing staff is checking BSG's every 30 minutes. Despite receiving another bolus of D10, his blood sugar dropped again. He received a third 250 cc bolus of D10. Patient's abdominal pain has subsided at this time and he is feeling much more lucid and awake and has no complaints. I have discussed the case with the [facility] hospitalist and they will evaluate for further management. Phyllis Casas DO Past Med/Surg History Medical History (Updated 02/23/20 @ 06:22 by Phyllis Casas DO) Asthma Concussion without loss of consciousness Diabetes mellitus, type 2 GERD (gastroesophageal reflux disease) Hyperlipidemia Hypertension Inguinal hernia Thrombocytopenia Thrombocytopenia Trigger finger (acquired) Umbilical hernia Surgical History History of cataract surgery History of colonoscopy History of hernia repair Hx of CABG Family History Mother Colorectal cancer Sister Breast cancer Brother Hx of CABG Diabetes Son Legg-Perthes disease Other Myocardial infarction Denies family history of Ovarian cancer Prostate cancer Social History Smoking Status: Never smoker Second Hand Exposure: No; Hx Alcohol Use: No Hx Substance Use: No Preferred Language: [place] Communication Ability: Effective Visual Impairment: Limited Hearing Ability: Normal Carbonizer Tester Required: No Beliefs That Will Affect Care: None marital status: Current Living Situation: Spouse current occupational status: retired Feels Safe at Home: Yes Childhood Exposure to Second-Hand Smoke: No Diet Comment: heart healthy caffeine: Yes Dental Care, Regularly: Yes Physical Activity Frequency: Daily Seatbelt Use: always Sunscreen Use: No (Does wear hat and long sleeves) Do you think of yourself as: straight/heterosexual Assistive Devices: Glasses Allergies Allergies Allergy/AdvReac Type Severity Reaction Status Date / Time cat dander Allergy Mild congestion Verified 02/22/20 00:38 dog dander Allergy Mild congestion Verified 02/22/20 00:38 Home Meds Home Medications Medication Instructions Recorded Confirmed aspirin 81 mg PO 3XWK 04/16/19 02/22/20 lisinopril 10 mg PO QAM 04/16/19 02/22/20 Novolin N NPH U-100 Insulin 40 unit SUBCUT HS 02/22/20 02/22/20 Onglyza 5 mg PO QDD 02/22/20 02/22/20 finasteride 5 mg PO HS 02/22/20 02/22/20 furosemide 20 mg PO 3XWK 02/22/20 02/22/20 ipratropium bromide 1 spray INTRANASAL AMHS 02/22/20 02/22/20 omeprazole 40 mg PO DAILYBB 02/22/20 02/22/20 trazodone 50 mg PO HS 02/22/20 02/22/20 triamcinolone acetonide [Nasacort] 1 spray INTRANASAL QAM 02/22/20 02/22/20 Previous Rx's Medication Instructions Recorded blood-glucose meter #1 ea 10/24/18 cetirizine 10 mg capsule 10 mg PO HS #90 cap 10/24/18 clopidogrel 75 mg tablet 75 mg PO QAM #90 tab 10/24/18 fexofenadine 180 mg tablet 180 mg PO QAM #90 tab 10/24/18 tpcoqzhb-yvt-kxtbn acid 300 1 tab PO QAM #90 tab 10/24/18 mcg-lycopene 600 mcg-lutein 300 mcg tablet lancets #200 ea 02/21/19 atorvastatin 80 mg tablet 80 mg PO QDD #90 tab 04/30/19 albuterol sulfate 90 mcg/actuation 2 puff INHALATION Q6H PRN #18 gm 08/06/19 aerosol inhaler potassium chloride 10 mEq 10 meq PO QAM #90 tab 10/22/19 tablet,extended release glimepiride 4 mg tablet 4 mg PO BIDM #180 tab 10/29/19 mometasone-formoterol HFA 200 2 puff INHALATION QAM #1 ea 12/24/19 mcg-5 mcg/actuation aerosol inhaler carvedilol 3.125 mg tablet 3.125 mg PO BIDM #180 tab 12/31/19 tamsulosin 0.4 mg capsule 0.4 mg PO HS #90 cap 01/16/20 Results & Data (ED) Vital Signs Vital Signs - 24 hr 02/21/20 23:09 02/21/20 23:11 02/21/20 23:14 Temperature 36.1 C L Temperature Source Oral Pulse Rate 64 56 L 56 L Pulse Rate from SpO2 Sensor Pulse Rhythm Regular Pulse Strength Normal Respiratory Rate 15 16 18 Respiratory Effort / Characteristics Non-Labored Respiratory Depth Normal Respiratory Pattern Regular Blood Pressure 186/77 H 186/77 H Blood Pressure Mean 126 113 Blood Pressure Position Lying Pulse Oximetry 98 Oxygen Delivery Method Room Air Sepsis Recent Fever Within 48 Hours No Sepsis New/Unexplained Change in Mental Status Yes Sepsis Action Taken by Nursing No Action Required 02/21/20 23:30 02/21/20 23:31 02/21/20 23:43 Temperature Temperature Source Pulse Rate 61 59 L Pulse Rate from SpO2 Sensor 60 57 L Pulse Rhythm Pulse Strength Respiratory Rate 17 9 L Respiratory Effort / Characteristics Respiratory Depth Respiratory Pattern Blood Pressure 147/68 H Blood Pressure Mean 106 Blood Pressure Position Pulse Oximetry 97 96 Oxygen Delivery Method Room Air Sepsis Recent Fever Within 48 Hours Sepsis New/Unexplained Change in Mental Status Sepsis Action Taken by Nursing 02/21/20 23:45 02/22/20 00:00 02/22/20 00:01 Temperature Temperature Source Pulse Rate 56 L 56 L 55 L Pulse Rate from SpO2 Sensor 55 L 57 L 55 L Pulse Rhythm Pulse Strength Respiratory Rate 22 20 19 Respiratory Effort / Characteristics Respiratory Depth Respiratory Pattern Blood Pressure 162/70 H 143/67 H Blood Pressure Mean 93 83 Blood Pressure Position Pulse Oximetry 92 92 92 Oxygen Delivery Method Sepsis Recent Fever Within 48 Hours Sepsis New/Unexplained Change in Mental Status Sepsis Action Taken by Nursing 02/22/20 00:15 02/22/20 00:30 02/22/20 00:31 Temperature Temperature Source Pulse Rate 59 L 59 L 53 L Pulse Rate from SpO2 Sensor 58 L 56 L 56 L Pulse Rhythm Pulse Strength Respiratory Rate 19 19 21 Respiratory Effort / Characteristics Respiratory Depth Respiratory Pattern Blood Pressure 150/67 H 156/74 H Blood Pressure Mean 91 92 Blood Pressure Position Pulse Oximetry 94 97 98 Oxygen Delivery Method Sepsis Recent Fever Within 48 Hours Sepsis New/Unexplained Change in Mental Status Sepsis Action Taken by Nursing 02/22/20 00:45 02/22/20 01:00 02/22/20 01:01 Temperature Temperature Source Pulse Rate 56 L 64 65 Pulse Rate from SpO2 Sensor 56 L 65 62 Pulse Rhythm Pulse Strength Respiratory Rate 19 18 23 Respiratory Effort / Characteristics Respiratory Depth Respiratory Pattern Blood Pressure 155/72 H 151/86 H Blood Pressure Mean 95 128 Blood Pressure Position Pulse Oximetry 96 95 98 Oxygen Delivery Method Sepsis Recent Fever Within 48 Hours Sepsis New/Unexplained Change in Mental Status Sepsis Action Taken by Nursing 02/22/20 01:15 02/22/20 01:30 02/22/20 01:31 Temperature Temperature Source Pulse Rate 64 65 66 Pulse Rate from SpO2 Sensor 64 64 65 Pulse Rhythm Pulse Strength Respiratory Rate 20 19 19 Respiratory Effort / Characteristics Respiratory Depth Respiratory Pattern Blood Pressure 155/74 H 143/65 H Blood Pressure Mean 109 88 Blood Pressure Position Pulse Oximetry 97 94 94 Oxygen Delivery Method Sepsis Recent Fever Within 48 Hours Sepsis New/Unexplained Change in Mental Status Sepsis Action Taken by Nursing Laboratory Data Result diagrams: 02/21/20 23:16 02/22/20 08:34 Lab Results 02/21/20 02/21/20 02/21/20 Range/Units 23:08 23:14 23:16 WBC 9.59 (4.8-10.8) K/uL RBC 4.84 (4.7-6.1) M/uL Hgb 15.5 (14.0-18.0) g/dL Hct 44.4 (42-52) % MCV 91.7 (80-100) fL MCH 32.0 (25-34) pg MCHC 34.9 (32-36) g/dL RDW Std Deviation 42.0 (36.4-46.3) fL RDW Coeff of Emir 12.4 (11.5-14.5) % Plt Count 152 (130-400) K/uL MPV 12.0 H (7.4-10.4) fL Immature Gran % (Auto) 0.2 % Neut % (Auto) 51.9 % Lymph % (Auto) 30.3 % Calvert % (Auto) 12.9 % Eos % (Auto) 4.4 % Baso % (Auto) 0.3 % Neut # (Auto) 4.97 (1.4-6.5) K/uL Lymph # (Auto) 2.91 (1.2-3.4) K/uL Calvert # (Auto) 1.24 H (0.11-0.59) K/uL Eos # (Auto) 0.42 (0-0.5) K/uL Baso # (Auto) 0.03 (0-0.2) K/uL Immature Gran # (Auto) 0.02 (0.00-0.02) K/uL PT (9.0-12.0) Seconds INR (0.9-1.1) APTT (21.0-31.0) Seconds PTT Ratio Sodium (136-145) mmol/L Potassium (3.5-5.1) mmol/L Chloride (98-107) mmol/L Carbon Dioxide (21-32) mmol/L Anion Gap (3-11) BUN (7-18) mg/dl Creatinine (0.6-1.4) mg/dl Est Cr Clr Drug Dosing ml/min Est GFR ( Amer) Est GFR (Non-Af Amer) BUN/Creatinine Ratio (10-20) Glucose (70-99) mg/dl POC Glucose 37 L* 122 H (70-99) mg/dl Calcium (8.5-10.1) mg/dl Magnesium (1.8-2.4) mg/dl Total Bilirubin (0.2-1) mg/dl AST (15-37) U/L ALT (12-78) U/L Alkaline Phosphatase (45-117) U/L Troponin I (0-0.045) ng/ml Total Protein (6.4-8.2) gm/dl Albumin (3.4-5.0) gm/dl Globulin (2.5-4.0) gm/dl Albumin/Globulin Ratio (0.9-2) Lipase (73-393) U/L 02/21/20 02/21/20 02/21/20 Range/Units 23:16 23:16 23:52 WBC (4.8-10.8) K/uL RBC (4.7-6.1) M/uL Hgb (14.0-18.0) g/dL Hct (42-52) % MCV (80-100) fL MCH (25-34) pg MCHC (32-36) g/dL RDW Std Deviation (36.4-46.3) fL RDW Coeff of Emir (11.5-14.5) % Plt Count (130-400) K/uL MPV (7.4-10.4) fL Immature Gran % (Auto) % Neut % (Auto) % Lymph % (Auto) % Calvert % (Auto) % Eos % (Auto) % Baso % (Auto) % Neut # (Auto) (1.4-6.5) K/uL Lymph # (Auto) (1.2-3.4) K/uL Calvert # (Auto) (0.11-0.59) K/uL Eos # (Auto) (0-0.5) K/uL Baso # (Auto) (0-0.2) K/uL Immature Gran # (Auto) (0.00-0.02) K/uL PT 11.1 (9.0-12.0) Seconds INR 1.1 (0.9-1.1) APTT 24.9 (21.0-31.0) Seconds PTT Ratio 0.9 Sodium 141 (136-145) mmol/L Potassium 3.1 L (3.5-5.1) mmol/L Chloride 112 H (98-107) mmol/L Carbon Dioxide 25 (21-32) mmol/L Anion Gap 4.0 (3-11) BUN 13 (7-18) mg/dl Creatinine 0.99 (0.6-1.4) mg/dl Est Cr Clr Drug Dosing 66.6 ml/min Est GFR ( Amer) 86.0 Est GFR (Non-Af Amer) 74.2 BUN/Creatinine Ratio 12.7 (10-20) Glucose 27 L* (70-99) mg/dl POC Glucose 94 (70-99) mg/dl Calcium 9.2 (8.5-10.1) mg/dl Magnesium 1.9 (1.8-2.4) mg/dl Total Bilirubin 0.9 (0.2-1) mg/dl AST 24 (15-37) U/L ALT 36 (12-78) U/L Alkaline Phosphatase 89 (45-117) U/L Troponin I < 0.015 (0-0.045) ng/ml Total Protein 7.0 (6.4-8.2) gm/dl Albumin 3.5 (3.4-5.0) gm/dl Globulin 3.5 (2.5-4.0) gm/dl Albumin/Globulin Ratio 1.0 (0.9-2) Lipase 211 (73-393) U/L 02/22/20 02/22/20 Range/Units 00:37 00:38 WBC (4.8-10.8) K/uL RBC (4.7-6.1) M/uL Hgb (14.0-18.0) g/dL Hct (42-52) % MCV (80-100) fL MCH (25-34) pg MCHC (32-36) g/dL RDW Std Deviation (36.4-46.3) fL RDW Coeff of Emir (11.5-14.5) % Plt Count (130-400) K/uL MPV (7.4-10.4) fL Immature Gran % (Auto) % Neut % (Auto) % Lymph % (Auto) % Calvert % (Auto) % Eos % (Auto) % Baso % (Auto) % Neut # (Auto) (1.4-6.5) K/uL Lymph # (Auto) (1.2-3.4) K/uL Calvert # (Auto) (0.11-0.59) K/uL Eos # (Auto) (0-0.5) K/uL Baso # (Auto) (0-0.2) K/uL Immature Gran # (Auto) (0.00-0.02) K/uL PT (9.0-12.0) Seconds INR (0.9-1.1) APTT (21.0-31.0) Seconds PTT Ratio Sodium (136-145) mmol/L Potassium (3.5-5.1) mmol/L Chloride (98-107) mmol/L Carbon Dioxide (21-32) mmol/L Anion Gap (3-11) BUN (7-18) mg/dl Creatinine (0.6-1.4) mg/dl Est Cr Clr Drug Dosing ml/min Est GFR ( Amer) Est GFR (Non-Af Amer) BUN/Creatinine Ratio (10-20) Glucose (70-99) mg/dl POC Glucose 68 L* 66 L* (70-99) mg/dl Calcium (8.5-10.1) mg/dl Magnesium (1.8-2.4) mg/dl Total Bilirubin (0.2-1) mg/dl AST (15-37) U/L ALT (12-78) U/L Alkaline Phosphatase (45-117) U/L Troponin I (0-0.045) ng/ml Total Protein (6.4-8.2) gm/dl Albumin (3.4-5.0) gm/dl Globulin (2.5-4.0) gm/dl Albumin/Globulin Ratio (0.9-2) Lipase (73-393) U/L Administered Medications Discontinued Medications Acetaminophen (Acetaminophen 325 Mg Tab) 650 mg PO Q4H PRN PRN Reason: Pain or Fever Stop: 03/23/20 03:48 Last Admin: 02/22/20 04:12 Dose: 650 mg Documented by: [id number] Aspirin (Aspirin 81 Mg Ectab) 81 mg PO [id number] [facility] Stop: 03/23/20 08:59 Last Admin: 02/22/20 08:15 Dose: 81 mg Documented by: [id number] Carvedilol (Carvedilol 3.125 Mg Tab) 3.125 mg PO BIDM [facility] Stop: 03/23/20 07:59 Last Admin: 02/22/20 08:15 Dose: 3.125 mg Documented by: [id number] Clopidogrel Bisulfate (Clopidogrel Bisulfate 75 Mg Tab) 75 mg PO QAM [facility] Stop: 03/23/20 08:59 Last Admin: 02/22/20 08:15 Dose: 75 mg Documented by: [id number] Dextrose (Dextrose 10% 1,000 Ml Bag) Confirm Administered Dose 1,000 ml IV .STK- MED ONE Stop: 02/21/20 23:12 Last Admin: 02/21/20 23:20 Dose: 250 ml Documented by: [id number] Enoxaparin Sodium (Enoxaparin Inj 40 Mg/0.4 Ml Syr) 40 mg SQ Q24H [facility] Stop: 03/23/20 08:59 Last Admin: 02/22/20 08:15 Dose: 40 mg Documented by: [id number] Fexofenadine HCl (Fexofenadine Hcl 180 Mg Tab) 180 mg PO QAM [facility] Stop: 03/23/20 08:59 Last Admin: 02/22/20 08:15 Dose: 180 mg Documented by: [id number] Fluticasone/Vilanterol (Fluticasone/Vilanterol 100/25mcg 14 Puffs/Inhaler) 1 puffs INH DAILY [facility] Stop: 03/23/20 08:59 Last Admin: 02/22/20 08:16 Dose: 1 puffs Documented by: [id number] Potassium Chloride (K Brandon / Wtr) 10 meq in 100 mls @ 100 mls/hr IV Q1H [facility] Stop: 02/22/20 03:11 Last Infusion: 02/22/20 04:20 Dose: 0 mls/hr Documented by: [id number] Admin: 02/22/20 03:10 Dose: 100 mls/hr Documented by: [id number] Infusion: 02/22/20 03:02 Dose: 100 mls/hr Documented by: [id number] Admin: 02/22/20 02:02 Dose: 100 mls/hr Documented by: [id number] Potassium Chloride/Dextrose/Sod Cl (D5nss + 20meq Kcl) 20 meq in 1,000 mls @ 150 mls/hr IV .[id number] [facility] Stop: 03/23/20 03:48 Last Infusion: 02/22/20 08:55 Dose: 0 mls/hr Documented by: [id number] Admin: 02/22/20 04:05 Dose: 150 mls/hr Documented by: [id number] Insulin Aspart (Insulin Aspart 100 Units/Ml 3 Ml Pen) 0 units SC ACHS [facility] Stop: 03/23/20 07:29 Last Admin: 02/22/20 08:16 Dose: 5 units Documented by: [id number] Cosigned by: [id number] Multivitamins/Minerals (Cerovite Adv Formula Tab) 1 tab PO QAM [facility] Stop: 03/23/20 08:59 Last Admin: 02/22/20 08:15 Dose: 1 tab Documented by: [id number] Ondansetron HCl (Ondansetron Inj 2 Mg/Ml 2 Ml Vial) Confirm Administered Dose 4 mg .ROUTE .STK-MED ONE Stop: 02/21/20 23:18 Last Admin: 02/22/20 00:08 Dose: Not Given Documented by: [id number] Ondansetron HCl (Ondansetron Inj 2 Mg/Ml 2 Ml Vial) 4 mg IV NOW STA Stop: 02/21/20 23:56 Last Admin: 02/21/20 23:23 Dose: 4 mg Documented by: [id number] Pantoprazole Sodium (Pantoprazole 40 Mg Tab) 40 mg PO DAILYBB [facility] Stop: 03/23/20 06:29 Last Admin: 02/22/20 05:45 Dose: 40 mg Documented by: [id number] Potassium Chloride (Potassium Chloride Crtab 20 Meq Tabcr) 40 meq PO NOW STA Stop: 02/22/20 01:13 Last Admin: 02/22/20 02:02 Dose: 40 meq Documented by: [id number] Potassium Chloride (Potassium Chloride Crtab 20 Meq Tabcr) 20 meq PO BID [facility] Stop: 03/23/20 08:59 Last Admin: 02/22/20 08:15 Dose: 20 meq Documented by: [id number] Discharge Plan Visit Data Chief Complaint: Hypoglycemia Stated Complaint: DIABETIC ED Provider: Phyllis Casas Discharge Problem: Hypoglycemia associated with diabetes Patient Disposition: Admitted As Inpatient Discharge Instructions Interventions: ED Discharge Assessment Last Done: 02/22/20 03:14
[2020-02-22] MEDS ORDERED: PANTOprazole 40 MG TAB PO SCH (06:30)
[2020-02-22] MEDS ORDERED: INSULIN ASPART 100 UNITS/ML 3 ML PEN SC SCH (07:30)
[2020-02-22] MEDS ORDERED: carvediloL 3.125 MG TAB PO SCH (08:00)
--- NOTE | 2020-02-22 08:43 | XRay Report ---
XR chest 1V portable HISTORY: Atypical Chest Pain COMPARISON: Chest 04/24/2019. FINDINGS: Mild right apical pleural thickening, unchanged. No pneumothorax. No pleural effusions. Mil d elevation left hemidiaphragm with left basilar linear densities suggesting subsegmental atelectasis . The heart remains mildly enlarged. Old, healed right-sided rib fractures. No evidence for pulmonary edema. There are poststernotomy changes. IMPRESSION: No significant change compared to the prior study. No acute process. ACT 112: Negative or not required by law. Electronically signed by: Juan Nunes M.D. 02/22/2020 8:42 AM
[2020-02-22] MEDS ORDERED: ASPIRIN 81 MG ECTAB PO SCH (09:00)
[2020-02-22] MEDS ORDERED: POTASSIUM CHLORIDE CRTAB 20 MEQ TABCR PO SCH (09:00)
[2020-02-22] MEDS ORDERED: CLOPIDOGREL BISULFATE 75 MG TAB PO SCH (09:00)
[2020-02-22] MEDS ORDERED: FLUTICASONE/VILANTEROL 100/25MCG 14 PUFFS/INHALER INH SCH (09:00)
[2020-02-22] MEDS ORDERED: ENOXAPARIN INJ 40 MG/0.4 ML SYR SQ SCH (09:00)
[2020-02-22] MEDS ORDERED: FEXOFENADINE HCL 180 MG TAB PO SCH (09:00)
[2020-02-22] MEDS ORDERED: CEROVITE ADV FORMULA TAB PO SCH (09:00)
[2020-02-22 09:07] LABS: INR 1.1 (0.9-1.1); Prothrombin Time 11.3 Seconds (9.0-12.0)
[2020-02-22 09:24] LABS: Estimated Average Glucose 151 mg/dl; Hemoglobin A1C 6.9 % (4.5-5.6)
[2020-02-22 10:00] LABS: Albumin Level 3.1 gm/dl (3.4-5.0); BUN Creatinine Ratio 8.5 (10-20); Bilirubin,Total 0.9 mg/dl (0.2-1); Calcium 8.6 mg/dl (8.5-10.1); Creatinine Clr Calc Pharmacy 66.6 ml/min; Est GFR (Non-African American) 74.2; Globulin 3.2 gm/dl (2.5-4.0); Phosphorus 1.6 mg/dl (2.5-4.9); Potassium 4.8 mmol/L (3.5-5.1); Total Protein 6.3 gm/dl (6.4-8.2)
--- NOTE | 2020-02-22 13:52 | Discharge Summary ---
Date of Service February 22, 2020 Admission HPI Per Admitting Provider The patient is a 74-year-old male with a past medical history including diabetes mellitus, thrombocytopenia, hypertension, diabetes mellitus type 2, hypomagnesemia, concussion without loss of consciousness, CAD, depression, diabetic peripheral neuropathy, GERD, generalized anxiety disorder, hypercholesterolemia, asthma, BPH, pyelonephritis, sepsis and non-STEMI. Upon arrival to the emergency department his glucose was found to be 27. He did receive several treatments of D10, and glucose continued to remain in the mid 60s to low 70s. Patient reports his taking his medications with no different than usual, and that he did have a normal sized Thanksgiving meal today. In general he otherwise has not had any symptoms of illness or infection. He did complain of leg muscle cramps while in the ED, which was thought secondary to his hypokalemia Principal Diagnosis Pt is feeling quite well. No further muscle cramping. Denies lightheadedness, dizziness, vision changes. He has been tolerating PO without issue. Pt denies fever, SOB, chest pain, abd pain, n/v/c/d, LE pain or swelling. Pt states he took his medications closer together than usual due to holiday changes in schedule yesterday. He does not generally have low BS, he generally runs around 115 in the AM pre-PO/meds. He has not lost weight recently or changed his diet or medications. Discharge Exam Constitutional WD/WN, vitals as above Eyes normal visual gambino by confrontation and + anicteric sclerae Neck normal visual inspection and trachea midline Respiratory normal respiratory effort, lungs clear to auscultation Cardiovascular Rate/Rhythm: regular rate and regular rhythm Gastrointestinal (Abdomen) Inspection/Auscultation: abdomen not distended Percussion/Palpation: abdomen soft; abdomen nontender Musculoskeletal Head/Neck/Chest: normocephalic and head atraumatic Skin no rashes, warm and dry Neurologic awake; not confused Speech / Cognition: normal speech Psychiatric A+Ox3, euthymic affect Discharge Data Allergies Allergy/AdvReac Type Severity Reaction Status Date / Time cat dander Allergy Mild congestion Verified 02/22/20 00:38 dog dander Allergy Mild congestion Verified 02/22/20 00:38 Consultations 02/22/20 00:43 ED Decision to Admit Stat 02/22/20 03:49 Consult Case Management - Discharge Planning Routine Hospital Course (1) Hypoglycemia associated with type 2 diabetes mellitus: Hold glimepiride 4 mg p.o. twice daily, insulin NPH 40 units subcu at bedtime, and saxagliptin 5 mg p.o. daily on admission Placed on Accu-Cheks with NovoLog coverage per scale, allowing range 150-200. BS was quite elevated this AM with ongoing dextrose IVF Maintaining BS with d/c IVF A1c 6.9 Advised meds as noted below in d/c instructions (2) Hypokalemia: Potassium 3.1 upon admission, was likely was exacerbated further by the necessary addition of glucose IV. Replaced and now 4.8 (3) Coronary artery disease: CAD/hypertension continue aspirin 81 mg daily, carvedilol 3.125 mg p.o. twice daily, clopidogrel 75 mg p.o. daily. Resume all other home meds on d/c (4) Hypertension: See above (5) Hypercholesterolemia: Continue atorvastatin 80 mg daily (6) BPH (benign prostatic hyperplasia): Continue tamsulosin 0.4 mg p.o. at bedtime and finasteride 5 mg p.o. at bedtime. Total Time Total Time Spent Total Time Spent (In Minutes): >30 Total Time Includes: Examination of the Patient, Discharge Planning, Medication Reconciliation, Communication With Other Providers and Other Discharge Plan Discharge Items Patient Disposition: Home - Self-Care Reason For Visit: HYPOGLYCEMIA Discharge Diagnosis: hypoglycemia Activity: Resume your previous activity Non-emergency contact: Primary Care Provider Call non-emergency contact if: you have any medication questions and your symptoms worsen Follow-up/Referrals: Valentino Dunlap MD [Primary Care Provider] - 02/28/20 11:30 am (A hospital follow up appt. has been made for you on Feb.27 at 11:30am.) Diet: Carb Consistent or DM2 Addtl Attending Provider Instructions: You can hold your glimepiride and saxagliptin dosing tonight. You should check your blood sugar before bed tonight. If it is under 100, you should not take your NPH insulin. If it is 120-160, you should take 23 units, which is half of your usual dose. If it is over 160, then take your usual 46 units NPH. If your morning blood sugar is in your usual range of 115 or higher, you can resume taking your medications as you were prior. If it is less than 90, you should hold your morning diabetic medicines and then recheck before you take your evening medicines/insulin. Use the same plan as above if this is the case. You should monitor your blood sugars closely for the next few days. If you continue to have lower than usual blood sugars, you might want to discuss changing your diabetic regimen with your PCP. You should take your readings with your to your next appts. You should be seen by your PCP early next week. Pending Studies at Discharge: No Stand-Alone Forms: [facility] Sm[facility] Cess[facility] Medications and DC Order Prescriptions: Continued (DME) lancets [OneTouch UltraSoft Lancets] [facility] [place] See Dose Instructions .ROUTE .MEDSUPPLY Qty: 200 RF: 3 atorvastatin 80 mg tablet 80 mg PO QDD Qty: 90 RF: 3 albuterol sulfate [Ventolin HFA] 90 mcg/actuation HFA aerosol inhaler 2 puff INHALATION Q6H PRN (Reason: Shortness Of Breath Or Wheezing) Qty: 18 RF: 3 potassium chloride 10 mEq tablet extended release 10 meq PO QAM Qty: 90 RF: 3 glimepiride 4 mg tablet 4 mg PO BIDM Qty: 180 RF: 1 Dulera 200-5 mcg/actuation HFA aerosol inhaler 2 puff INHALATION QAM Qty: 1 RF: 5 carvedilol [Coreg] 3.125 mg tablet 3.125 mg PO BIDM Qty: 180 RF: 3 tamsulosin [Flomax] 0.4 mg capsule 0.4 mg PO HS Qty: 90 RF: 3 (DME) blood-glucose meter [OneTouch Ultra2 Meter] [facility] [place] See Dose Instructions .ROUTE .MEDSUPPLY Qty: 1 RF: 3 cetirizine 10 mg capsule 10 mg PO HS Qty: 90 RF: 3 clopidogrel [Plavix] 75 mg tablet 75 mg PO QAM Qty: 90 RF: 3 fexofenadine 180 mg tablet 180 mg PO QAM Qty: 90 RF: 3 Centrum Silver Men 300-600-300 mcg tablet 1 tab PO QAM Qty: 90 RF: 3 aspirin 81 mg tablet,delayed release (DR/EC) 81 mg PO 3XWK RF: 0 lisinopril 10 mg tablet 10 mg PO QAM RF: 0 triamcinolone acetonide [Nasacort] 55 mcg Aerosol,[place] 1 spray INTRANASAL QAM RF: 0 trazodone 50 mg tablet 50 mg PO HS RF: 0 omeprazole 40 mg capsule,delayed release(DR/EC) 40 mg PO DAILYBB RF: 0 Novolin N NPH U-100 Insulin 100 unit/mL suspension 40 unit SUBCUT HS RF: 0 furosemide 20 mg tablet 20 mg PO 3XWK RF: 0 ipratropium bromide 42 mcg (0.06 %) spray,non-aerosol 1 spray INTRANASAL AMHS RF: 0 finasteride 5 mg tablet 5 mg PO HS RF: 0 Onglyza 5 mg tablet 5 mg PO QDD RF: 0 Discharge Orders: Discharge Order (Routine); Ordered 02/22/20 Ordered By: Roro Lebron Admission Data Admit Date/Time: 02/22/20 01:40 Attending Provider: Roro Lebron Admit Provider: Sergey Almonte Primary Care Provider: Valentino Dunlap Other Providers: Sergey Almonte Coding Level of Care Code D/C Day Management >30 mins Diagnoses Hypoglycemia associated with type 2 diabetes mellitus E11.649 Hypokalemia E87.6 Coronary artery disease I25.10 Hypertension I10 Hypercholesterolemia E78.00 BPH (benign prostatic hyperplasia) N40.0
[2020-02-22] MEDS ORDERED: ATORVASTATIN 40 MG TAB PO SCH (16:30)
[2020-02-22] MEDS ORDERED: CETIRIZINE HCL 10 MG TABLET PO SCH (21:00)
[2020-02-22] MEDS ORDERED: traZODone HCL 50 MG TAB PO SCH (21:00)
[2020-02-22] MEDS ORDERED: TAMSULOSIN HCL 0.4 MG CAP PO SCH (21:00)
[2020-02-22] MEDS ORDERED: FINASTERIDE 5 MG TAB PO SCH (21:00)
--- NOTE | 2020-02-22 22:59 | Electrocardiogram Report ---
Test Reason : Blood Pressure : / mmHG Vent. Rate : 056 BPM Atrial Rate : 056 BPM P-R Int : 226 ms QRS Dur : 166 ms QT Int : 492 ms P-R-T Axes : 051 057 249 degrees QTc Int : 474 ms Sinus bradycardia with 1st degree A-V block Possible Left atrial enlargement Left bundle branch block Abnormal ECG When compared with ECG of 24-APR-2019 12:20, CO interval has increased Vent. rate has decreased BY 44 BPM QRS duration has increased T wave inversion no longer evident in Lateral leads Confirmed by Dale Doyle ([id number]) on 02/22/2020 10:59:02 PM Referred By: REFERRED SELF Confirmed By:Dale Doyle
== END 2020-02-22 16:27 | disposition home or self-care (01) | DRG 639 ==
LOC: ED 23:04 → SUATTDRO 02-22 01:40 → 2N 02-22 01:40

== ENCOUNTER 2022-07-11 00:15 | Inpatient (IN) ==
[2022-07-11] MEDS ORDERED: ONDANSETRON INJ 2 MG/ML 2 ML VIAL IV STA (00:48)
[2022-07-11] MEDS ORDERED: MoRPHine SULFATE 4 MG/ML 1 ML CARP\\VIAL IV STA (00:48)
[2022-07-11] MEDS ORDERED: SODIUM CHLORIDE 0.9% 1000ML 1,000 ML IV STA (00:49)
[2022-07-11 00:58] LABS: Basophils # (auto) 0.04 K/uL (0-0.2); Basophils % (auto) 0.4 %; Eosinophils # (auto) 0.44 K/uL (0-0.50); Eosinophils % (auto) 4.6 %; Hematocrit (blood only) 45.7 % (42.0-52.0); Hemoglobin 16.2 g/dl (14.0-18.0); Immature Granulocytes # (auto) 0.02 K/uL (0.01-0.20); Immature Granulocytes % (auto) 0.2 %; Lymphocytes # (auto) 3.17 K/uL (1.2-3.4); Mean Corpuscular Hgb Conc 35.4 g/dL (32.0-36.0); Mean Corpuscular Volume 90.1 fL (80.0-100.0); Mean Platelet Volume 12.4 fL (9.4-12.4); Monocytes # (auto) 0.78 K/uL (0.11-0.59); Monocytes % (auto) 8.1 %; Neutrophils # (auto) 5.16 K/uL (1.40-6.50); Neutrophils % (auto) 53.7 %; Platelet Count 144 K/uL (130-400); RDW Coefficient of Variation 12.2 % (11.5-14.5); RDW Standard Deviation 39.8 fL (36.4-46.3); Red Blood Count 5.07 M/uL (4.70-6.10); White Blood Count 9.61 K/ul (4.8-10.8)
[2022-07-11 01:13] LABS: Albumin Globulin Ratio 1.4 (0.9-2); BUN Creatinine Ratio 14.4 (10-20); Bilirubin,Total 0.8 mg/dl (0.2-1.0); Calcium 9.8 mg/dl (8.6-10.3); Creatinine Clr Calc Pharmacy 64.3 ml/min; Est GFR (African American) 79.3 ml/min; Est GFR (Non-African American) 68.4 ml/min; Globulin 2.9 gm/dl (2.5-4.0); Potassium 3.8 mmol/L (3.5-5.1); Total Protein 6.9 gm/dl (6.0-8.3)
[2022-07-11 01:20] LABS: Troponin I High Sensitivity 12.3 pg/ml (0-20)
--- NOTE | 2022-07-11 03:54 | Ultrasound Report ---
Exam(s): US GALLBLADDER EXAM: US Abdomen Limited, Gallbladder CLINICAL HISTORY: RUQ abd pain. TECHNIQUE: Real-time ultrasound of the right upper quadrant with image documentation. COMPARISON: No relevant prior studies available. FINDINGS: Liver: The liver is hyperechoic measuring 13.1 cm. Gallbladder: Gallstones are noted posteriorly near the neck of the gallbladder which are nonmobile with decubitus position. The gallbladder wall measures only 1.7 mm. No pericholecystic fluid. The sonographic Agudelo sign is indeterminate secondary to medication status. Common bile duct: The common bile duct measures 5 mm. No stones. No dilation. Pancreas: Visualized portions of the pancreas are unremarkable. Right kidney: The right kidney measures 10.3 cm. No nephrolithiasis or hydronephrosis. Free fluid: No free fluid. IMPRESSION: 1. Gallstones are noted posteriorly near the neck of the gallbladder which are nonmobile with decubitus position. No gallbladder wall thickening or pericholecystic fluid identified. The sonographic Agudelo sign is indeterminate secondary to medication status. 2. The common bile duct is within normal limits. 3. The liver is hyperechoic suggesting hepatic steatosis or intrinsic liver disease. Electronically signed by: Eliud Hernandez MD 07/11/22 03:53 AM
--- NOTE | 2022-07-11 04:23 | Emergency Department Note ---
Impression & Plan Symptomatic cholelithiasis, Acute epigastric pain ED Provider Note CHIEF COMPLAINT: Epigastric pain/chest pain HISTORY OF PRESENT ILLNESS: This 77-year-old male patient with a history of coronary artery disease, myocardial infarction, GERD, hypertension, diabetes type 2 presents to the emergency department with sudden onset epigastric abdominal pain that reminds him of his prior heart attack. Patient states the pain does wrap around to the right side. He was dry heaving but did not vomit. He admits to eating a hotdog before bed tonight. He denies any history of gallbladder difficulties. REVIEW OF SYSTEMS: A review of systems was performed with positives and pertinent negatives listed in the history of present illness. 10 systems were reviewed and are otherwise negative. ALLERGIES: see below MEDICATIONS: see below PMH: see below SOCIAL HISTORY: see below DDx: Biliary etiology, GERD, gastritis, esophageal spasm, food intolerance, esophageal obstruction, ACS as well as other pathologies. PHYSICAL EXAM: Vital signs reviewed. General: Well-appearing 77-year-old male, in no significant distress. HEENT: No scleral icterus, PERRLA, neck supple. Atraumatic. Cardiovascular: Regular rate and rhythm, no extra sounds. Pulmonary: Clear to auscultation bilaterally, normal work of breathing. Abdomen: Soft, nontender, nondistended, positive bowel sounds. Musculoskeletal: Atraumatic, no peripheral edema. Neurologic: Patient awake alert and oriented x 3, speech is clear Skin: Warm, dry, no rash EMERGENCY DEPARTMENT COURSE/MDM: This patient was evaluated and appeared to be in no significant distress. IV access was obtained and laboratory work was drawn. The patient was placed on the property assessment monitor noted to be in a sinus bradycardia with a left bundle branch block. Laboratory work reveals a negative troponin and normal LFTs. A second troponin is within normal limits but slightly trending upward. Ultrasound the right upper quadrant reveals evidence of a nonmobile stone in the gallbladder neck. There is no gallbladder wall thickening or fluid identified. Patient did receive IV morphine prior to the images. He was hydrated with normal saline solution. Patient's case was discussed with general surgery and the hospitalist service who will evaluate the patient for further management. MONITORING: An order for cardiac monitoring was placed and the patient is noted to be in a normal sinus rhythm at 64 beats per minute. RADIOLOGY: Chest x-ray to my interpretation reveals postsurgical change, no focal lung consolidation or failure. Ultrasound the right upper quadrant per radiology IMPRESSION: 1. Gallstones are noted posteriorly near the neck of the gallbladder which are nonmobile with decubitus position. No gallbladder wall thickening or pericholecystic fluid identified. The sonographic Agudelo sign is indeterminate secondary to medication status. 2. The common bile duct is within normal limits. 3. The liver is hyperechoic suggesting hepatic steatosis or intrinsic liver disease. Electronically signed by: Eliud Hernandez MD 07/11/22 03:53 AM EKG: To my interpretation sinus bradycardia at 54 bpm. Left bundle branch block, QTc of 451. No PVC, no PAC. When compared to previous dated February 21, 2020, nonspecific T wave abnormality has replaced T wave inversion in the inferior leads. DISPOSITION: Admission Past Med/Surg History Medical History Asthma LAST USED RESCUE INHALER>LAST MONTH Bruising Chronic reflux esophagitis Cough Early satiety GERD (gastroesophageal reflux disease) Hearing deficit History of anxiety History of COVID-19 02/28/20>TERRIBLE COUGH/FATIGUE *RESOLVED History of Mohs micrographic surgery for skin cancer RT/LEFT SIDE OF FACE/CHEEK AREA History of skin cancer Hyperlipidemia Medicare annual wellness visit, subsequent Myocardial Infarction 2018 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 HUGHES S/P trigger finger release Family History Mother Colorectal cancer Sister Diabetes Breast cancer Brother Diabetes Hx of CABG Son Legg-Perthes disease Father Colorectal cancer Other Myocardial infarction No family history of adverse response to anesthesia Denies family history of Ovarian cancer Prostate cancer Social History Smoking Status: Never smoker Second Hand Exposure: Yes (IN THE PAST); Hx Alcohol Use: No Hx Substance Use: No Preferred Language: Luxembourgish Communication Ability: Effective Visual Impairment: Limited Hearing Ability: Normal Floor Specialist Required: No Beliefs That Will Affect Care: None marital status: Current Living Situation: Spouse current occupational status: retired Other Information That Helps Us Care for You: No Feels Safe at Home: Yes Childhood Exposure to Second-Hand Smoke: No Diet Comment: heart healthy caffeine: Yes Dental Care, Regularly: Yes Physical Activity Frequency: Daily Seatbelt Use: always Sunscreen Use: No (Does wear hat and long sleeves) Do you think of yourself as: straight/heterosexual Assistive Devices: Glasses Allergies Allergies Allergy/AdvReac Type Severity Reaction Status Date / Time pollen extracts Allergy Intermediate ITCHY Verified 07/11/22 01:44 EYES, SNEEZING, CONGESTION cat dander Allergy Mild congestion Verified 07/11/22 01:44 dog dander Allergy Mild congestion Verified 07/11/22 01:44 Home Meds Home Medications Medication Instructions Recorded Confirmed aspirin 81 mg tablet,delayed 81 mg PO 3XWK 04/16/19 07/11/22 release lisinopril 10 mg tablet 10 mg PO QAM 04/16/19 07/11/22 furosemide 20 mg tablet 20 mg PO 3XWK 02/22/20 07/11/22 ipratropium bromide 42 mcg (0.06 1 spray intranasal AMHS 02/22/20 07/11/22 %) nasal spray triamcinolone acetonide 55 mcg 1 spray intranasal QA 02/22/20 07/11/22 nasal spray aerosol (Nasacort) insulin NPH isoph U-100 human 100 42 unit subcut HS 07/11/22 07/11/22 unit/mL subcutaneous suspension (Novolin N NPH U-100 Insulin isophane) tamsulosin 0.4 mg capsule (Flomax) 0.4 mg PO HS 07/11/22 07/11/22 Previous Rx's Medication Instructions Recorded blood-glucose meter (OneTouch #1 ea 10/24/18 Ultra2 Meter) cetirizine 10 mg capsule 10 mg PO HS #90 caps 10/24/18 clopidogrel 75 mg tablet (Plavix) 75 mg PO QAM #90 tabs 10/24/18 fexofenadine 180 mg tablet 180 mg PO QAM #90 tabs 10/24/18 njrkrufu-czc-dchyh acid 300 1 tab PO QAM #90 tabs 10/24/18 mcg-lycopene 600 mcg-lutein 300 mcg tablet (Centrum Silver Men) glucagon 1 mg/0.2 mL subcutaneous 1 mg (0.2 mL) subcut ONCE PRN 02/28/20 auto-injector severe low sugar #0.2 mL lancets (OneTouch UltraSoft #200 ea 06/04/21 Lancets) potassium chloride 10 mEq 10 meq PO QAM #90 tabs 10/05/21 tablet,extended release pantoprazole 40 mg tablet,delayed 40 mg PO BID #180 tabs 10/13/21 release isosorbide mononitrate 30 mg 30 mg PO QAM #90 tabs 10/14/21 tablet,extended release 24 hr carvedilol 3.125 mg tablet (Coreg) 3.125 mg PO BIDM #180 tabs 12/07/21 saxagliptin 5 mg tablet (Onglyza) 5 mg PO QPM #90 tabs 12/14/21 albuterol sulfate 90 mcg/actuation 2 puff inhalation Q6H PRN 01/26/22 aerosol inhaler (Ventolin HFA) Shortness Of Breath Or Wheezing #18 grams fluticasone fur. 200 mcg-umeclid 1 inh inhalation DAILY #60 ea 02/22/22 62.5 mcg-vilant 25 mcg inhalat.powder (Trelegy Ellipta) glimepiride 1 mg tablet See Rx Instructions PO BID #450 02/22/22 tabs atorvastatin 80 mg tablet 80 mg PO QDD #90 tabs 05/17/22 Results & Data (ED) Vital Signs Vital Signs - 24 hr 07/11/22 00:26 07/11/22 00:23 07/11/22 01:57 Temperature 36.6 C Temperature Source Oral Pulse Rate 54 L 52 L 59 L Pulse Rate [Apical] Pulse Rhythm Regular Pulse Rhythm [Apical] Pulse Strength [Apical] Respiratory Rate 16 18 Respiratory Effort / Characteristics Non-Labored Spontaneous Respiratory Depth Normal Respiratory Pattern Regular Blood Pressure 193/83 H Blood Pressure [Right Arm] Blood Pressure Mean 119 Blood Pressure Mean [Right Arm] Blood Pressure Position [Right Arm] Pulse Oximetry 96 97 Oxygen Delivery Method Room Air Room Air Sepsis Recent Fever Within 48 Hours No Sepsis New/Unexplained Change in Mental Status N/A Sepsis Action Taken by Nursing No Action Required 07/11/22 03:42 Temperature Temperature Source Pulse Rate Pulse Rate [Apical] 76 Pulse Rhythm Pulse Rhythm [Apical] Regular Pulse Strength [Apical] Normal Respiratory Rate 18 Respiratory Effort / Characteristics Non-Labored Spontaneous Respiratory Depth Normal Respiratory Pattern Regular Blood Pressure Blood Pressure [Right Arm] 148/67 H Blood Pressure Mean Blood Pressure Mean [Right Arm] 94 Blood Pressure Position [Right Arm] Semi-fowlers Pulse Oximetry 95 Oxygen Delivery Method Room Air Sepsis Recent Fever Within 48 Hours Sepsis New/Unexplained Change in Mental Status Sepsis Action Taken by Custodial Medications Current Medication List: was personally reviewed by me Laboratory Data Attestation: I reviewed the patient's lab results. 07/11/22 00:24 07/11/22 00:24 Lab Results 07/11/22 07/11/22 07/11/22 Range/Units 00:24 00:24 00:24 WBC 9.61 (4.8-10.8) K/ul RBC 5.07 (4.70-6.10) M/uL Hgb 16.2 (14.0-18.0) g/dl Hct 45.7 (42.0-52.0) % MCV 90.1 (80.0-100.0) fL MCH 32.0 (25.0-34.0) pg MCHC 35.4 (32.0-36.0) g/dL RDW Std Deviation 39.8 (36.4-46.3) fL RDW Coeff of Emir 12.2 (11.5-14.5) % Plt Count 144 (130-400) K/uL MPV 12.4 (9.4-12.4) fL Immature Gran % (Auto) 0.2 % Neut % (Auto) 53.7 % Lymph % (Auto) 33.0 % [place] % (Auto) 8.1 % Eos % (Auto) 4.6 % Baso % (Auto) 0.4 % Neut # (Auto) 5.16 (1.40-6.50) K/uL Lymph # (Auto) 3.17 (1.2-3.4) K/uL [place] # (Auto) 0.78 H (0.11-0.59) K/uL Eos # (Auto) 0.44 (0-0.50) K/uL Baso # (Auto) 0.04 (0-0.2) K/uL Immature Gran # (Auto) 0.02 (0.01-0.20) K/uL Sodium 136 (136-145) mmol/L Potassium 3.8 (3.5-5.1) mmol/L Chloride 108 H (98-107) mmol/L Carbon Dioxide 21 (21-32) mmol/L Anion Gap 7 (3-11) BUN 15 (6-23) mg/dl Creatinine 1.04 (0.6-1.4) mg/dl Est Cr Clr Drug Dosing 64.3 ml/min Est GFR ( Amer) 79.3 ml/min Est GFR (Non-Af Amer) 68.4 ml/min BUN/Creatinine Ratio 14.4 (10-20) Glucose 183 H (70-99(Fasting)) mg/dl Calcium 9.8 (8.6-10.3) mg/dl Total Bilirubin 0.8 (0.2-1.0) mg/dl AST 27 (13-39) U/L ALT 29 (7-52) U/L Alkaline Phosphatase 85 (34-104) U/L Troponin I High Sens 12.3 (0-20) pg/ml Total Protein 6.9 (6.0-8.3) gm/dl Albumin 4.0 (3.4-5.0) gm/dl Globulin 2.9 (2.5-4.0) gm/dl Albumin/Globulin Ratio 1.4 (0.9-2) Lipase 63 (11-82) U/L SARS-CoV-2, RNA, NAAT NEGATIVE (NEGATIVE) 07/11/22 Range/Units 02:48 WBC (4.8-10.8) K/ul RBC (4.70-6.10) M/uL Hgb (14.0-18.0) g/dl Hct (42.0-52.0) % MCV (80.0-100.0) fL MCH (25.0-34.0) pg MCHC (32.0-36.0) g/dL RDW Std Deviation (36.4-46.3) fL RDW Coeff of Emir (11.5-14.5) % Plt Count (130-400) K/uL MPV (9.4-12.4) fL Immature Gran % (Auto) % Neut % (Auto) % Lymph % (Auto) % [place] % (Auto) % Eos % (Auto) % Baso % (Auto) % Neut # (Auto) (1.40-6.50) K/uL Lymph # (Auto) (1.2-3.4) K/uL [place] # (Auto) (0.11-0.59) K/uL Eos # (Auto) (0-0.50) K/uL Baso # (Auto) (0-0.2) K/uL Immature Gran # (Auto) (0.01-0.20) K/uL Sodium (136-145) mmol/L Potassium (3.5-5.1) mmol/L Chloride (98-107) mmol/L Carbon Dioxide (21-32) mmol/L Anion Gap (3-11) BUN (6-23) mg/dl Creatinine (0.6-1.4) mg/dl Est Cr Clr Drug Dosing ml/min Est GFR ( Amer) ml/min Est GFR (Non-Af Amer) ml/min BUN/Creatinine Ratio (10-20) Glucose (70-99(Fasting)) mg/dl Calcium (8.6-10.3) mg/dl Total Bilirubin (0.2-1.0) mg/dl AST (13-39) U/L ALT (7-52) U/L Alkaline Phosphatase (34-104) U/L Troponin I High Sens 17.0 D (0-20) pg/ml Total Protein (6.0-8.3) gm/dl Albumin (3.4-5.0) gm/dl Globulin (2.5-4.0) gm/dl Albumin/Globulin Ratio (0.9-2) Lipase (11-82) U/L SARS-CoV-2, RNA, NAAT (NEGATIVE) Administered Medications Aspirin (Aspirin 81 Mg Ectab) 81 mg PO [facility] Stop: 08/10/22 15:59 Last Admin: 07/14/22 08:34 Dose: 81 mg Documented By: Admin: 07/13/22 07:47 Dose: 81 mg Documented By: Admin: 07/12/22 09:40 Dose: 81 mg Documented By: Admin: 07/11/22 17:25 Dose: 81 mg Documented By: BALTAZAR Atorvastatin Calcium (Atorvastatin 40 Mg Tab) 80 mg PO QAM [facility] Stop: 08/10/22 15:59 Last Admin: 07/14/22 08:34 Dose: 80 mg Documented By: Admin: 07/13/22 07:47 Dose: 80 mg Documented By: Admin: 07/12/22 09:40 Dose: 80 mg Documented By: Admin: 07/11/22 17:25 Dose: 80 mg Documented By: BALTAZAR Benzonatate (Benzonatate 100 Mg Capsule) 100 mg PO TID PRN PRN Reason: Cough Stop: 08/11/22 16:21 Last Admin: 07/13/22 20:11 Dose: 100 mg Documented By: Admin: 07/12/22 21:04 Dose: 100 mg Documented By: Admin: 07/12/22 17:16 Dose: 100 mg Documented By: BALTAZAR Carvedilol (Carvedilol 3.125 Mg Tab) 3.125 mg PO BIDM [facility] Stop: 08/10/22 08:19 Last Admin: 07/14/22 08:33 Dose: 3.125 mg Documented By: Admin: 07/13/22 17:19 Dose: 3.125 mg Documented By: Admin: 07/13/22 07:47 Dose: 3.125 mg Documented By: Admin: 07/12/22 17:16 Dose: 3.125 mg Documented By: Admin: 07/12/22 09:40 Dose: 3.125 mg Documented By: Admin: 07/11/22 17:26 Dose: Not Given Documented By: Admin: 07/11/22 09:02 Dose: 3.125 mg Documented By: BALTAZAR Fluticasone/Vilanterol (Fluticasone/Vilanterol 200/25mcg 14 Puffs/Inhaler) 1 p uffs INH DAILY [facility] Stop: 08/10/22 08:59 Last Admin: 07/14/22 08:34 Dose: 1 puffs Documented By: Admin: 07/13/22 07:50 Dose: 1 puffs Documented By: Admin: 07/12/22 09:42 Dose: 1 puffs Documented By: Admin: 07/11/22 11:42 Dose: 1 puffs Documented By: BALTAZAR Pantoprazole Sodium 40 mg/ (Syringe) 10 mls @ 5 mls/min IV DAILY@1100 [facility] Stop: 08/10/22 10:59 Last Admin: 07/14/22 10:41 Dose: 5 mls/min Documented By: Admin: 07/14/22 07:11 Dose: Not Given Documented By: Admin: 07/12/22 09:40 Dose: 5 mls/min Documented By: Admin: 07/11/22 11:46 Dose: 5 mls/min Documented By: BALTAZAR Ceftriaxone Sodium 2,000 mg/ (Dextrose) 50 mls @ 100 mls/hr IV Q24H [facility]; Protocol Stop: 07/21/22 09:29 Last Infusion: 07/14/22 10:24 Dose: 0 mls/hr Documented By: Admin: 07/14/22 08:34 Dose: 100 mls/hr Documented By: Infusion: 07/13/22 08:45 Dose: 0 mls/hr Documented By: Admin: 07/13/22 07:54 Dose: 100 mls/hr Documented By: BALTAZAR Metronidazole (Flagyl) 500 mg in 100 mls @ 100 mls/hr IV Q8H [facility] Stop: 07/22/22 07:59 Last Admin: 07/14/22 10:40 Dose: 100 mls/hr Documented By: Infusion: 07/14/22 02:24 Dose: 0 mls/hr Documented By: Admin: 07/14/22 01:28 Dose: 100 mls/hr Documented By: Infusion: 07/13/22 18:11 Dose: 0 mls/hr Documented By: Admin: 07/13/22 17:20 Dose: 100 mls/hr Documented By: Infusion: 07/13/22 11:12 Dose: 100 mls/hr Documented By: Admin: 07/13/22 10:12 Dose: 100 mls/hr Documented By: [id number] Infusion: 07/13/22 02:39 Dose: 0 mls/hr Documented By: Admin: 07/13/22 01:32 Dose: 100 mls/hr Documented By: Infusion: 07/12/22 19:10 Dose: 0 mls/hr Documented By: Admin: 07/12/22 17:48 Dose: 100 mls/hr Documented By: Infusion: 07/12/22 10:34 Dose: 0 mls/hr Documented By: Admin: 07/12/22 09:41 Dose: 100 mls/hr Documented By: BALTAZAR Insulin Aspart (Insulin Aspart Per Unit Charge) 0 units SC ACHS [facility] Stop: 08/10/22 08:19 Last Admin: 07/14/22 08:41 Dose: 5 units Documented By: TYREE Co-signed By: JESSIE Admin: 07/13/22 20:21 Dose: 3 units Documented By: LUCINDA Co-signed By: JESSY Admin: 07/13/22 17:20 Dose: 7 units Documented By: BALTAZAR Co-signed By: NEMESIO Admin: 07/13/22 17:20 Dose: Not Given Documented By: Admin: 07/13/22 07:46 Dose: Not Given Documented By: Admin: 07/12/22 20:56 Dose: Not Given Documented By: Admin: 07/12/22 17:16 Dose: 5 units Documented By: BALTAZAR Co-signed By: ALEXANDRIA Admin: 07/12/22 12:17 Dose: Not Given Documented By: Admin: 07/12/22 07:40 Dose: 1 units Documented By: BALTAZAR Co-signed By: NEMESIO Admin: 07/11/22 22:31 Dose: 1 units Documented By: NAREN Co-signed By: JUANI Admin: 07/11/22 17:25 Dose: 3 units Documented By: BALTAZAR Co-signed By: MELVINA Admin: 07/11/22 12:12 Dose: Not Given Documented By: Admin: 07/11/22 09:03 Dose: 1 units Documented By: BALTAZAR Co-signed By: BRENDA Insulin Glargine (Lantus Per Unit Charge) 10 units SQ BID [facility] Stop: 08/13/22 08:59 Last Admin: 07/14/22 08:43 Dose: 10 units Documented By: TYREE Co-signed By: JESSIE Ipratropium [place] (Ipratropium [place] Nasal [place] 0.06% 15ml) 1 sprays CORBY AMHS [facility] Stop: 08/10/22 08:59 Last Admin: 07/14/22 08:35 Dose: 1 sprays Documented By: Admin: 07/13/22 20:11 Dose: 1 sprays Documented By: Admin: 07/13/22 07:50 Dose: 1 sprays Documented By: Admin: 07/12/22 21:05 Dose: 1 sprays Documented By: Admin: 07/12/22 09:42 Dose: 1 sprays Documented By: Admin: 07/11/22 20:49 Dose: 1 sprays Documented By: Admin: 07/11/22 09:03 Dose: 1 sprays Documented By: BALTAZAR Isosorbide Mononitrate (Isosorbide [place] Extended Rel 30 Mg Tabcr) 30 mg PO QAM [facility] Stop: 08/10/22 08:59 Last Admin: 07/14/22 08:36 Dose: 30 mg Documented By: Admin: 07/13/22 07:47 Dose: 30 mg Documented By: Admin: 07/12/22 09:39 Dose: 30 mg Documented By: Admin: 07/11/22 09:02 Dose: 30 mg Documented By: BALTAZAR Menthol (Cough Drop (Sugar Free) Alexsander 24 Alexsander/1 Box) 1 alexsander BUCCAL QID PRN PRN Reason: Sore Throat Stop: 08/12/22 18:37 Last Admin: 07/13/22 20:10 Dose: 1 alexsander Documented By: LUCINDA Morphine Sulfate (Morphine Sulfate 4 Mg/Ml 1 Ml Carp\Vial) 4 mg IV Q2H PRN PRN Reason: severe Pain Stop: 07/27/22 12:50 Last Admin: 07/14/22 03:48 Dose: 4 mg Documented By: Admin: 07/13/22 20:11 Dose: 4 mg Documented By: Admin: 07/13/22 17:19 Dose: 4 mg Documented By: Admin: 07/13/22 14:21 Dose: 4 mg Documented By: BALTAZAR Ondansetron HCl (Ondansetron Inj 2 Mg/Ml 2 Ml Vial) 4 mg IV Q6H PRN PRN Reason: Nausea Stop: 08/10/22 08:19 Last Admin: 07/13/22 14:21 Dose: 4 mg Documented By: Admin: 07/13/22 06:39 Dose: 4 mg Documented By: Admin: 07/12/22 07:40 Dose: 4 mg Documented By: BALTAZAR Umeclidinium [place] (Umeclidinium [place] 62.5mcg/Blister 7 Puffs/Inhaler) 1 puffs INH DAILY [facility] Stop: 08/10/22 08:59 Last Admin: 07/14/22 08:36 Dose: 1 puffs Documented By: Admin: 07/13/22 07:50 Dose: 1 puffs Documented By: Admin: 07/12/22 09:41 Dose: 1 puffs Documented By: Admin: 07/11/22 11:42 Dose: 1 puffs Documented By: BALTAZAR Discontinued Medications Bupivacaine HCl/Epinephrine Bitart (Bupivacaine/Epinephrine 0.25% 1:200,000 30 Ml Vial) Confirm Administered Dose 30 ml .ROUTE .STK-MED ONE Stop: 07/13/22 09:50 Last Admin: 07/13/22 11:09 Dose: 30 ml Documented By: [id number] Enoxaparin Sodium (Enoxaparin Inj 40 Mg/0.4 Ml Syr) 40 mg SQ QAM [facility] Stop: 08/11/22 08:59 Last Admin: 07/13/22 07:51 Dose: Not Given Documented By: Admin: 07/12/22 09:43 Dose: 40 mg Documented By: BALTAZAR Fentanyl Citrate (Fentanyl Citrate Pf 100 Mcg/2 Ml Vial) 50 mcg IV Q5M PRN PRN Reason: PACU Use Only-Pain Stop: 07/13/22 17:39 Last Admin: 07/13/22 12:03 Dose: 50 mcg Documented By: Admin: 07/13/22 11:57 Dose: 50 mcg Documented By: BOYD Sodium Chloride (Nss 1000ml) 1,000 mls @ 125 mls/hr IV .Q8H STA Stop: 07/11/22 08:48 Last Infusion: 07/11/22 14:23 Dose: 0 mls/hr Documented By: Admin: 07/11/22 00:55 Dose: 125 mls/hr Documented By: CASSIUS Ceftriaxone Sodium 1,000 mg/ (Dextrose) 50 mls @ 100 mls/hr IV Q24H [facility]; Protocol Stop: 07/21/22 05:59 Last Infusion: 07/12/22 06:11 Dose: 0 mls/hr Documented By: Admin: 07/12/22 05:41 Dose: 100 mls/hr Documented By: Infusion: 07/11/22 07:06 Dose: 0 mls/hr Documented By: Admin: 07/11/22 06:36 Dose: 100 mls/hr Documented By: KULDIP Potassium Chloride/Sodium Chloride (Normal Saline W/20 Meq Kcl) 20 meq in 1,000 mls @ 80 mls/hr IV .[id number] [facility] Stop: 08/10/22 08:19 Last Admin: 07/14/22 10:40 Dose: Not Given Documented By: Infusion: 07/14/22 02:24 Dose: 80 mls/hr Documented By: Infusion: 07/14/22 01:53 Dose: 0 mls/hr Documented By: Admin: 07/13/22 20:11 Dose: 80 mls/hr Documented By: Infusion: 07/13/22 17:00 Dose: 80 mls/hr Documented By: Admin: 07/13/22 04:30 Dose: 80 mls/hr Documented By: Infusion: 07/13/22 04:30 Dose: 80 mls/hr Documented By: Admin: 07/12/22 17:16 Dose: 80 mls/hr Documented By: Infusion: 07/12/22 16:26 Dose: 80 mls/hr Documented By: Admin: 07/12/22 03:56 Dose: 80 mls/hr Documented By: Infusion: 07/12/22 00:10 Dose: 80 mls/hr Documented By: Admin: 07/11/22 11:40 Dose: 80 mls/hr Documented By: BALTAZAR Ceftriaxone Sodium 1,000 mg/ (Dextrose) 50 mls @ 100 mls/hr IV NOW ONE Stop: 07/12/22 08:59 Last Infusion: 07/12/22 10:34 Dose: 0 mls/hr Documented By: Admin: 07/12/22 09:41 Dose: 100 mls/hr Documented By: BALTAZAR Sincalide 1.6 mcg/ Sodium (Chloride) 101.6 mls @ 200 mls/hr IV TODAY@0900 [facility] Stop: 07/12/22 23:59 Last Admin: 07/14/22 07:10 Dose: Not Given Documented By: RRR Insulin Glargine (Lantus Per Unit Charge) 5 units SQ BID [facility] Stop: 08/12/22 20:59 Last Admin: 07/13/22 20:21 Dose: 5 units Documented By: LUCINDA Co-signed By: JESSY Metoprolol Tartrate (Metoprolol Tartrate 1 Mg/Ml Vial) 5 mg IV Q4 [facility] Stop: 08/10/22 07:59 Last Admin: 07/11/22 11:01 Dose: Not Given Documented By: MELVINA Miscellaneous ( Floseal Hemostatic Matrix 10ml) 10 ml TOP ONCE ONE Stop: 07/13/22 10:56 Last Admin: 07/13/22 11:10 Dose: 10 ml Documented By: [id number] Morphine Sulfate (Morphine Sulfate 4 Mg/Ml 1 Ml Carp\Vial) 4 mg IV NOW STA Stop: 07/11/22 00:49 Last Admin: 07/11/22 00:58 Dose: 4 mg Documented By: CASSIUS Morphine Sulfate (Morphine Sulfate 4 Mg/Ml 1 Ml Carp\Vial) 4 mg IV Q3H PRN PRN Reason: Mod-Sev Pain (Scale 4-10) Stop: 07/25/22 08:19 Last Admin: 07/12/22 07:40 Dose: 4 mg Documented By: BALTAZAR Ondansetron HCl (Ondansetron Inj 2 Mg/Ml 2 Ml Vial) 4 mg IV NOW STA Stop: 07/11/22 00:49 Last Admin: 07/11/22 00:57 Dose: 4 mg Documented By: CASSIUS Imaging Data Radiologist's Impression: Gallbladder Ultrasound 07/11/22 00:48 Exam(s): US GALLBLADDER EXAM: US Abdomen Limited, Gallbladder CLINICAL HISTORY: RUQ abd pain. TECHNIQUE: Real-time ultrasound of the right upper quadrant with image documentation. COMPARISON: No relevant prior studies available. FINDINGS: Liver: The liver is hyperechoic measuring 13.1 cm. Gallbladder: Gallstones are noted posteriorly near the neck of the gallbladder which are nonmobile with decubitus position. The gallbladder wall measures only 1.7 mm. No pericholecystic fluid. The sonographic Agudelo sign is indeterminate secondary to medication status. Common bile duct: The common bile duct measures 5 mm. No stones. No dilation. Pancreas: Visualized portions of the pancreas are unremarkable. Right kidney: The right kidney measures 10.3 cm. No nephrolithiasis or hydronephrosis. Free fluid: No free fluid. IMPRESSION: 1. Gallstones are noted posteriorly near the neck of the gallbladder which are nonmobile with decubitus position. No gallbladder wall thickening or pericholecystic fluid identified. The sonographic Agudelo sign is indeterminate secondary to medication status. 2. The common bile duct is within normal limits. 3. The liver is hyperechoic suggesting hepatic steatosis or intrinsic liver disease. Electronically signed by: Eliud Hernandez MD 07/11/22 03:53 AM Discharge Plan Visit Data Chief Complaint: Abdominal Pain Stated Complaint: ABDOMINAL PAIN/BREATHING DIFFICULTY ED Provider: Lucy Perez Discharge Problem: Symptomatic cholelithiasis, Acute epigastric pain Patient Disposition: Admitted As Inpatient Discharge Instructions Interventions: ED Discharge Assessment Last Done: 07/11/22 07:41
--- NOTE | 2022-07-11 05:26 | History & Physical Report ---
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 Ultrasound shows gallstones posteriorly near the neck neck of the gallbladder Order MRCP Order HIDA scan NPO Ceftriaxone 1 g IV every 24 hours Zofran 4 mg IV every 6 hours as needed Pantoprazole 40 mg IV daily Acetaminophen 1 g IV every 8 hours as needed mild pain or fever Morphine sulfate 4 mg IV every 3 hours as needed moderate to severe pain NSS + KCl 20 mEq at 80 mils per hour Consult general surgery Consult gastroenterology if ERCP is needed prior to surgery and after the above testing is performed CAD/hypertension/history of [place]/status post CABG on 10/26/2017/ischemic cardiomyopathy- Examination and laboratories not consistent with cardiac issues We will admit to [facility] telemetry so that IV Lopressor can be used to control blood pressure and heart rate Hold aspirin, clopidogrel and lisinopril Continue isosorbide mononitrate If no procedures performed on patient today, would place on Lovenox subcu and stop 12 hours before any potential surgery Diabetes mellitus- Hold glimepiride, Novolin and and saxagliptin Placed on Accu-Cheks with NovoLog SSI Asthma- Continue Trelegy Ellipta Continue albuterol HFA as needed BPH- Hold tamsulosin for now, monitor urine output Hyperlipidemia- Hold atorvastatin Allergy symptoms- Hold fexofenadine and cetirizine History of Present Illness Chief Complaint: The patient presents to the emergency department with complaint of acute severe epigastric pain that began as he went to bed and had just eaten a hot dog. The symptoms are accompanied by nausea without vomiting Primary Care Provider: Valentino Dunlap MD The patient is a 77-year-old male with a past medical history including CAD, hypertension, NSTEMI, pyelonephritis, BPH, asthma, hypercholesterolemia, general ized anxiety disorder, GERD, depression, chronic reflux esophagitis, chronic left bundle branch block, ischemic cardiomyopathy with ejection fraction of 40%, peripheral neuropathy, and status post CABG x4 on 10/26/2017. The patient presents to the emergency department with a cute onset of severe epigastric and periumbilical pain after having had a hot dog right before going to bed. The symptoms were accompanied by nausea without vomiting. Due to the severity of the pain, and his concern regarding possible heart issues with his previous history of heart disease, he came to the emergency department for assessment. Allergies Allergy/AdvReac Type Severity Reaction Status Date / Time pollen extracts Allergy Intermediate ITCHY Verified 07/11/22 01:44 EYES, SNEEZING, CONGESTION cat dander Allergy Mild congestion Verified 07/11/22 01:44 dog dander Allergy Mild congestion Verified 07/11/22 01:44 Home Medications Medication Instructions Recorded Confirmed Type blood-glucose meter (OneTouch #1 ea 10/24/18 04/26/22 Rx Ultra2 Meter) cetirizine 10 mg capsule 10 mg PO HS #90 caps 10/24/18 07/11/22 Rx clopidogrel 75 mg tablet (Plavix) 75 mg PO QAM #90 tabs 10/24/18 07/11/22 Rx fexofenadine 180 mg tablet 180 mg PO QAM #90 tabs 10/24/18 07/11/22 Rx eyaepkgr-iyr-bhpca acid 300 1 tab PO QAM #90 tabs 10/24/18 07/11/22 Rx mcg-lycopene 600 mcg-lutein 300 mcg tablet (Centrum Silver Men) aspirin 81 mg tablet,delayed 81 mg PO 3XWK 04/16/19 07/11/22 History release lisinopril 10 mg tablet 10 mg PO QAM 04/16/19 07/11/22 History furosemide 20 mg tablet 20 mg PO 3XWK 02/22/20 07/11/22 History ipratropium bromide 42 mcg (0.06 1 spray intranasal AMHS 02/22/20 07/11/22 History %) nasal spray triamcinolone acetonide 55 mcg 1 spray intranasal QAM 02/22/20 07/11/22 History nasal spray aerosol (Nasacort) glucagon 1 mg/0.2 mL subcutaneous 1 mg (0.2 mL) subcut ONCE PRN 02/28/20 07/11/22 Rx auto-injector severe low sugar #0.2 mL lancets (OneTouch UltraSoft #200 ea 06/04/21 05/12/22 Rx Lancets) potassium chloride 10 mEq 10 meq PO QAM #90 tabs 10/05/21 07/11/22 Rx tablet,extended release pantoprazole 40 mg tablet,delayed 40 mg PO BID #180 tabs 10/13/21 07/11/22 Rx release isosorbide mononitrate 30 mg 30 mg PO QAM #90 tabs 10/14/21 07/11/22 Rx tablet,extended release 24 hr carvedilol 3.125 mg tablet (Coreg) 3.125 mg PO BIDM #180 tabs 12/07/21 07/11/22 Rx saxagliptin 5 mg tablet (Onglyza) 5 mg PO QPM #90 tabs 12/14/21 07/11/22 Rx albuterol sulfate 90 mcg/actuation 2 puff inhalation Q6H PRN 01/26/22 07/11/22 Rx aerosol inhaler (Ventolin HFA) Shortness Of Breath Or Wheezing #18 grams fluticasone fur. 200 mcg-umeclid 1 inh inhalation DAILY #60 ea 02/22/22 07/11/22 Rx 62.5 mcg-vilant 25 mcg inhalat.powder (Trelegy Ellipta) glimepiride 1 mg tablet See Rx Instructions PO BID #450 02/22/22 07/11/22 Rx tabs atorvastatin 80 mg tablet 80 mg PO QDD #90 tabs 05/17/22 07/11/22 Rx insulin NPH isoph U-100 human 100 42 unit subcut HS 07/11/22 07/11/22 History unit/mL subcutaneous suspension (Novolin N NPH U-100 Insulin isophane) tamsulosin 0.4 mg capsule (Flomax) 0.4 mg PO HS 07/11/22 07/11/22 History Past Med/Surg History Medical History Asthma LAST USED RESCUE INHALER>LAST MONTH Bruising Chronic reflux esophagitis Cough Early satiety GERD (gastroesophageal reflux disease) Hearing deficit History of anxiety History of COVID-19 02/28/20>TERRIBLE COUGH/FATIGUE *RESOLVED History of Mohs micrographic surgery for skin cancer RT/LEFT SIDE OF FACE/CHEEK AREA History of skin cancer Hyperlipidemia Medicare annual wellness visit, subsequent Myocardial Infarction 2018 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 Haney 06/25/2020 History of cardiac cath NO STENTS History of cataract surgery RT/LEFT History of colonoscopy History of hernia repair ABDOMINAL HERNIA REPAIR History of tooth extraction Hx of CABG 4 [facility]>2018 AT [facility] *FOLLOWED BY DR. HUGHES S/P trigger finger release Family History Mother Colorectal cancer Sister Diabetes Breast cancer Brother Diabetes Hx of CABG Son Legg-Perthes disease Father Colorectal cancer Other Myocardial infarction No family history of adverse response to anesthesia Denies family history of Ovarian cancer Prostate cancer Social History Smoking Status: Never smoker Second Hand Exposure: Yes (IN THE PAST); Hx Alcohol Use: No Hx Substance Use: No Preferred Language: Welsh Communication Ability: Effective Visual Impairment: Limited Hearing Ability: Normal Civil Drafter Required: No Beliefs That Will Affect Care: None marital status: Current Living Situation: Spouse current occupational status: retired Feels Safe at Home: Yes Childhood Exposure to Second-Hand Smoke: No Diet Comment: heart healthy caffeine: Yes Dental Care, Regularly: Yes Physical Activity Frequency: Daily Seatbelt Use: always Sunscreen Use: No (Does wear hat and long sleeves) Do you think of yourself as: straight/heterosexual Assistive Devices: Glasses and Hearing Aid - Bilateral Review of Systems Review of Systems: The patient denies chest pain, palpitations, shortness of breath, dyspnea on exertion, cough, lower extremity swelling, sore throat, fevers, chills, sweats, vomiting, diarrhea , constipation, pelvic pain, blood in urine or stool, dysuria, urinary frequency or urgency, lightheadedness, dizziness, headache, memory loss, loss of consciousness, rash, abnormal bruising or bleeding, imbalance, focal or generalized weakness, numbness or tingling in arms or legs, generalized arthralgias or myalgias, back or neck pain, or night sweats. The review of systems is otherwise negative other than for that already noted above, and at least 10 systems have been reviewed. Physical Exam Physical Exam: The patient is awake, alert and oriented 3, well developed and well nourished, normocephalic and atraumatic, lying in bed and in no acute distress. HEENT--PERRL, EOMI, mucous membranes and oropharynx dry. Neck--supple. No JVD. No bruits. Thyroid normal, trachea midline, no adenopathy. Heart--normal S1 and S2. No murmurs, rubs or gallops. Lungs--clear bilaterally, no respiratory distress, no accessory muscle use. Abdomen--normal bowel sounds and soft. Significant tenderness in epigastric area and right upper quadrant, mild tenderness and fullness right side of abdomen Extremities--no cyanosis or clubbing. No edema. Dermatologic--normal skin turgor, normal color, no abnormal lymph nodes, no rash. Neurologic--cranial nerves II through XII grossly intact. Rheumatologic--normal range of motion. Psychiatric--normal affect. Results & Data Results & Data Vital Signs (Past 12 Hours) Vital Signs Temp Pulse Pulse Resp BP BP Pulse Ox 07/11/22 05:00 67 17 142/63 H 98 07/11/22 04:24 72 07/11/22 03:42 76 18 148/67 H 95 07/11/22 01:57 59 L 18 97 07/11/22 00:23 52 L 07/11/22 00:26 36.6 C 54 L 16 193/83 H 96 O2 Del Method 07/11/22 05:00 Room Air 07/11/22 04:24 07/11/22 03:42 Room Air 07/11/22 01:57 Room Air 07/11/22 00:23 07/11/22 00:26 Room Air Laboratory Results Laboratory Results WBC 9.61 K/ul (4.8-10.8) 07/11/22 00:24 RBC 5.07 M/uL (4.70-6.10) 07/11/22 00:24 Hgb 16.2 g/dl (14.0-18.0) 07/11/22 00:24 Hct 45.7 % (42.0-52.0) 07/11/22 00:24 MCV 90.1 fL (80.0-100.0) 07/11/22 00:24 MCH 32.0 pg (25.0-34.0) 07/11/22: MCHC 35.4 g/dL (32.0-36.0) 07/11/22: RDW Std Deviation 39.8 fL (36.4-46.3) 07/11/22: RDW Coeff of Emir 12.2 % (11.5-14.5) 07/11/22: Plt Count 144 K/uL (130-400) 07/11/22: MPV 12.4 fL (9.4-12.4) 07/11/22: Immature Gran % (Auto) 0.2 % 07/11/22: Neut % (Auto) 53.7 % 07/11/22: Lymph % (Auto) 33.0 % 07/11/22: [place] % (Auto) 8.1 % 07/11/22: Eos % (Auto) 4.6 % 07/11/22: Baso % (Auto) 0.4 % 07/11/22:24 Neut # (Auto) 5.16 K/uL (1.40-6.50) 07/11/22:24 Lymph # (Auto) 3.17 K/uL (1.2-3.4) 07/11/22 00:24 [place] # (Auto) 0.78 K/uL (0.11-0.59) H 07/11/22:24 Eos # (Auto) 0.44 K/uL (0-0.50) 07/11/22 00:24 Baso # (Auto) 0.04 K/uL (0-0.2) 07/11/22 00:24 Immature Gran # (Auto) 0.02 K/uL (0.01-0.20) 07/11/22:24 Sodium 136 mmol/L (136-145) 07/11/22:24 Potassium 3.8 mmol/L (3.5-5.1) 07/11/22:24 Chloride 108 mmol/L (98-107) H 07/11/22 00:24 Carbon Dioxide 21 mmol/L (21-32) 07/11/22 00:24 Anion Gap 7 (3-11) 07/11/22 00:24 BUN 15 mg/dl (6-23) 07/11/22 00:24 Creatinine 1.04 mg/dl (0.6-1.4) 07/11/22 00:24 Est Cr Clr Drug Dosing 64.3 ml/min 07/11/22 00:24 Est GFR ( Amer) 79.3 ml/min 07/11/22 00:24 Est GFR (Non-Af Amer) 68.4 ml/min 07/11/22 00:24 BUN/Creatinine Ratio 14.4 (10-20) 07/11/22 00:24 Glucose 183 mg/dl (70-99(Fasting)) H 07/11/22 00:24 Calcium 9.8 mg/dl (8.6-10.3) 07/11/22 00:24 Total Bilirubin 0.8 mg/dl (0.2-1.0) 07/11/22 00:24 AST 27 U/L (13-39) 07/11/22 00:24 ALT 29 U/L (7-52) 07/11/22 00:24 Alkaline Phosphatase 85 U/L (34-104) 07/11/22 00:24 Troponin I High Sens 17.0 pg/ml (0-20) D 07/11/22 02:48 Total Protein 6.9 gm/dl (6.0-8.3) 07/11/22 00:24 Albumin 4.0 gm/dl (3.4-5.0) 07/11/22 00:24 Globulin 2.9 gm/dl (2.5-4.0) 07/11/22 00:24 Albumin/Globulin Ratio 1.4 (0.9-2) 07/11/22 00:24 Lipase 63 U/L (11-82) 07/11/22 00:24 SARS-CoV-2, RNA, NAAT NEGATIVE (NEGATIVE) 07/11/22 00:24 Impressions Gallbladder Ultrasound 07/11/22 00:48 Exam(s): US GALLBLADDER EXAM: US Abdomen Limited, Gallbladder CLINICAL HISTORY: RUQ abd pain. TECHNIQUE: Real-time ultrasound of the right upper quadrant with image documentation. COMPARISON: No relevant prior studies available. FINDINGS: Liver: The liver is hyperechoic measuring 13.1 cm. Gallbladder: Gallstones are noted posteriorly near the neck of the gallbladder which are nonmobile with decubitus position. The gallbladder wall measures only 1.7 mm. No pericholecystic fluid. The sonographic Agudelo sign is indeterminate secondary to medication status. Common bile duct: The common bile duct measures 5 mm. No stones. No dilation. Pancreas: Visualized portions of the pancreas are unremarkable. Right kidney: The right kidney measures 10.3 cm. No nephrolithiasis or hydronephrosis. Free fluid: No free fluid. IMPRESSION: 1. Gallstones are noted posteriorly near the neck of the gallbladder which are nonmobile with decubitus position. No gallbladder wall thickening or pericholecystic fluid identified. The sonographic Agudelo sign is indeterminate secondary to medication status. 2. The common bile duct is within normal limits. 3. The liver is hyperechoic suggesting hepatic steatosis or intrinsic liver disease. 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
--- NOTE | 2022-07-11 05:42 | Surgery Consultation ---
Date of Consultation July 11, 2022 Assessment & Plan (1) Cholelithiasis: The patient is being admitted on the hospitalist service. I was contacted by the service regarding the patient's symptomatology. We recommend the following: Provide analgesics Provide antiemetics The treating hospitalist notes that he is concerned that patient's underlying gallstones may be causing his presenting symptoms. As there is no evidence of cholecystitis on gallbladder ultrasound he is ordering a HIDA scan as well as an MRCP to help ascertain if his symptoms are definitively biliary in nature. We will follow along for the results of these tests with recommendations to follow If the patient would require surgery it may be beneficial to obtain cardiology clearance as patient does take Plavix secondary to his underlying history of coronary disease and I will be preferable to hold this medication for several days prior to surgery. Additional recommendations to be forthcoming based on his clinical course as it unfolds and pending tests as noted above Supervising Physician Co-Signing Physician Notes I personally saw and evaluated the patient with Anjel Toribio PA-C and agree with the assessment and plan. 77-year-old male with likely acute cholecystitis versus cholelithiasis, symptomatic Ultrasound images and results were personally viewed by myself, he does have cholelithiasis and tenderness on exam He does take Plavix which ideally would like to be held prior any discussion about cholecystectomy Cardiology clearance would also be prudent due to his CAD He does have a HIDA scan ordered which I think is reasonable to get an order to ensure that cholecystectomy in this high risk patient would be necessary No plans for surgical intervention today Continue IV antibiotics We will follow History of Present Illness Reason for Consultation: Cholelithiasis History of Present Illness This is a 77-year-old male who presented to the emergency department secondary to abdominal pain that began approximate 10:00 PM on 07/10/2022. He notes that the pain occurred approximately 10:00 PM. He is unsure if it is related to meals but notes that he did eat a hot dog several hours prior to eating this. Over the past several weeks to months he denies any postprandial abdominal pain. He notes his only abdominal surgery was an inguinal hernia in the . With his current episode of pain he did have some nausea and vomiting but denied any fevers, shakes, or chills. He does note that the pain was located primarily in the epigastric area without radiation. He did not note any palliative or provocative factors and notes that the pain resolved on its own. Since arrival to the emergency department the patient has had labs and imaging which I independently reviewed a chest x-ray did not show any evidence of pneumonia or pleural effusions. A gallbladder ultrasound showed the patient had gallstones noted near the neck of the gallbladder. There is no gallbladder wall thickening or pericholecystic fluid. There is no dilatation of the common bile duct. Labs include a CBC were white blood cell count, hemoglobin, hematocrit, and platelet count were normal. Chemistry profile showed sodium, potassium, BUN, and creatinine are normal. There is no significant elevation of patient's LFTs or lipase. Cardiac enzymes were checked and a troponin was nonelevated. A COVID test is negative. An EKG showed normal sinus rhythm with a left bundle branch block. It is noteworthy to mention that the patient reports he had a history of CABG in 2018. He follows locally with Dr. Zach Lance of [facility] cardiology. Patient notes that prior to his heart surgery he was experiencing dyspnea on exertion and he notes that this is markedly improved since his surgery. Since his surgery he notes that he does not get chest pain or shortness of breath with activity. 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 He notes he has not had a stress test since his heart surgery. Most recent cardiology note available for my review was from March 2021 and noted that patient's most recent documented ejection fraction was 35%. This notation also revealed the patient has a chronic left bundle branch block. At the time of my interview the patient was resting comfortably in bed he was in no distress. Allergies Allergy/AdvReac Type Severity Reaction Status Date / Time pollen extracts Allergy Intermediate ITCHY Verified 07/11/22 01:44 EYES, SNEEZING, CONGESTION cat dander Allergy Mild congestion Verified 07/11/22 01:44 dog dander Allergy Mild congestion Verified 07/11/22 01:44 Home Medications Medication Instructions Recorded Confirmed Type blood-glucose meter (OneTouch #1 ea 10/24/18 04/26/22 Rx Ultra2 Meter) cetirizine 10 mg capsule 10 mg PO HS #90 caps 10/24/18 07/11/22 Rx clopidogrel 75 mg tablet (Plavix) 75 mg PO QAM #90 tabs 10/24/18 07/11/22 Rx fexofenadine 180 mg tablet 180 mg PO QAM #90 tabs 10/24/18 07/11/22 Rx rifulzgl-viz-bjmeq acid 300 1 tab PO QAM #90 tabs 10/24/18 07/11/22 Rx mcg-lycopene 600 mcg-lutein 300 mcg tablet (Centrum Silver Men) aspirin 81 mg tablet,delayed 81 mg PO 3XWK 04/16/19 07/11/22 History release lisinopril 10 mg tablet 10 mg PO QAM 04/16/19 07/11/22 History furosemide 20 mg tablet 20 mg PO 3XWK 02/22/20 07/11/22 History ipratropium bromide 42 mcg (0.06 1 spray intranasal AMHS 02/22/20 07/11/22 History %) nasal spray triamcinolone acetonide 55 mcg 1 spray intranasal QAM 02/22/20 07/11/22 History nasal spray aerosol (Nasacort) glucagon 1 mg/0.2 mL subcutaneous 1 mg (0.2 mL) subcut ONCE PRN 02/28/20 07/11/22 Rx auto-injector severe low sugar #0.2 mL lancets (OneTouch UltraSoft #200 ea 06/04/21 05/12/22 Rx Lancets) potassium chloride 10 mEq 10 meq PO QAM #90 tabs 10/05/21 07/11/22 Rx tablet,extended release pantoprazole 40 mg tablet,delayed 40 mg PO BID #180 tabs 10/13/21 07/11/22 Rx release isosorbide mononitrate 30 mg 30 mg PO QAM #90 tabs 10/14/21 07/11/22 Rx tablet,extended release 24 hr carvedilol 3.125 mg tablet (Coreg) 3.125 mg PO BIDM #180 tabs 12/07/21 07/11/22 Rx saxagliptin 5 mg tablet (Onglyza) 5 mg PO QPM #90 tabs 12/14/21 07/11/22 Rx albuterol sulfate 90 mcg/actuation 2 puff inhalation Q6H PRN 01/26/22 07/11/22 Rx aerosol inhaler (Ventolin HFA) Shortness Of Breath Or Wheezing #18 grams fluticasone fur. 200 mcg-umeclid 1 inh inhalation DAILY #60 ea 02/22/22 07/11/22 Rx 62.5 mcg-vilant 25 mcg inhalat.powder (Trelegy Ellipta) glimepiride 1 mg tablet See Rx Instructions PO BID #450 02/22/22 07/11/22 Rx tabs atorvastatin 80 mg tablet 80 mg PO QDD #90 tabs 05/17/22 07/11/22 Rx insulin NPH isoph U-100 human 100 42 unit subcut HS 07/11/22 07/11/22 History unit/mL subcutaneous suspension (Novolin N NPH U-100 Insulin isophane) tamsulosin 0.4 mg capsule (Flomax) 0.4 mg PO HS 07/11/22 07/11/22 History Patient History Medical History Asthma LAST USED RESCUE INHALER>LAST MONTH Bruising Chronic reflux esophagitis Cough Early satiety GERD (gastroesophageal reflux disease) Hearing deficit History of anxiety History of COVID-19 02/28/20>TERRIBLE COUGH/FATIGUE *RESOLVED History of Mohs micrographic surgery for skin cancer RT/LEFT SIDE OF FACE/CHEEK AREA History of skin cancer Hyperlipidemia Medicare annual wellness visit, subsequent Myocardial Infarction 2018 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 Haney 06/25/2020 History of cardiac cath NO STENTS History of cataract surgery RT/LEFT History of colonoscopy History of hernia repair ABDOMINAL HERNIA REPAIR History of tooth extraction Hx of CABG 4 VESSELS>2018 AT [facility] *FOLLOWED BY DR. 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 Beliefs That Will Affect Care: None marital status: Current Living Situation: Spouse current occupational status: retired Feels Safe at Home: Yes Childhood Exposure to Second-Hand Smoke: No Diet Comment: heart healthy caffeine: Yes Dental Care, Regularly: Yes Physical Activity Frequency: Daily Seatbelt Use: always Sunscreen Use: No (Does wear hat and long sleeves) Do you think of yourself as: straight/heterosexual Assistive Devices: Glasses and Hearing Aid - Bilateral Review of Systems Constitutional: no fever and no chills Eyes: + corrective lenses Ear, Nose, Mouth, Throat: no ear pain Respiratory: no cough and no dyspnea Cardiovascular: no chest pain Gastrointestinal: as per Subjective / HPI Genitourinary: no dysuria Musculoskeletal: no back pain Integumentary: no rash Neurologic: no localized weakness Physical Exam Constitutional: WD/WN, vitals as above Eyes: + anicteric sclerae ENMT: Ears: no hearing impairment and no external ear abnormality Mouth: no oropharynx abnormality Neck: trachea midline Respiratory: normal respiratory effort, lungs clear to auscultation Cardiovascular: Rate/Rhythm: regular rate and regular rhythm Gastrointestinal (Abdomen): Abdomen is soft with minimal distention. There is no rebound tenderness or guarding. Bowel sounds are hypoactive. Pain was elicited with palpation in the epigastric area and to a lesser degree the right upper quadrant. Musculoskeletal: No calf tenderness Skin: no rashes and no jaundice Neurologic: moves all extremities Psychiatric: A+Ox3, euthymic affect Results & Data Vital Signs (Past 12 Hours) Vital Signs Temp Pulse Pulse Resp BP BP Pulse Ox 07/11/22 05:00 67 17 142/63 H 98 07/11/22 04:24 72 07/11/22 03:42 76 18 148/67 H 95 07/11/22 01:57 59 L 18 97 07/11/22 00:23 52 L 07/11/22 00:26 36.6 C 54 L 16 193/83 H 96 O2 Del Method 07/11/22 05:00 Room Air 07/11/22 04:24 07/11/22 03:42 Room Air 07/11/22 01:57 Room Air 07/11/22 00:23 07/11/22 00:26 Room Air PG Care Time/CCT Total # of Minutes Spent Total Time Spent with Patient: Total time spent is greater than 50% in coordination of care (as documented) at patient's floor/unit and/or counseling patient: Coding Level of Care Code 55760 INT INP/OBS CARE Diagnoses Cholelithiasis K80.20
[2022-07-11] MEDS: cefTRIAXone SODIUM 1,000 MG in DEXTROSE 5% AD-VAN 50 ML IV SCH (06:36)
--- NOTE | 2022-07-11 06:58 | XRay Report ---
SINGLE VIEW CHEST CLINICAL HISTORY: Atypical chest pain. FINDINGS: An AP, portable, upright chest radiograph is compared to study dated 09/30/2021. The patient is status post midline sternotomy. The heart is enlarged. The pulmonary vasculature is noncongested. Chronic interstitial thickening is similar to previous. There is mild elevation of the left hemidiaph ragm with bibasilar scarring/atelectasis. No airspace consolidation or large pleural effusion is iden tified. No pneumothorax is seen. The skeletal structures are osteopenic. There is a chronic/healed ri ght posterior rib fracture. IMPRESSION: Cardiomegaly with no acute cardiopulmonary abnormality. ACT 112: Negative or not required by law. Electronically signed by: Valentino Gamez M.D. 07/11/2022 6:57 AM
--- NOTE | 2022-07-11 07:19 | Electrocardiogram Report ---
Test Reason : Blood Pressure : / mmHG Vent. Rate : 054 BPM Atrial Rate : 054 BPM P-R Int : 174 ms QRS Dur : 156 ms QT Int : 476 ms P-R-T Axes : 026 021 188 degrees QTc Int : 451 ms Sinus bradycardia Left bundle branch block Abnormal ECG When compared with ECG of 21-FEB-2020 23:14, OK interval has decreased Nonspecific T wave abnormality has replaced inverted T waves in Inferior leads Confirmed by Isiah Dixon ([id number]) on 07/11/2022 7:18:44 AM Referred By: REFERRED SELF Confirmed By:Larry Dixon
[2022-07-11] MEDS ORDERED: METOPROLOL TARTRATE 1 MG/ML VIAL IV SCH (08:00)
[2022-07-11] MEDS ORDERED: ALBUTEROL HFA 8 GM INHALER INH PRN (08:20)
[2022-07-11] MEDS ORDERED: ACETAMINOPHEN 1,000 MG/100 ML VIAL IV PRN (08:20)
[2022-07-11] MEDS ORDERED: GLUCOSE 10 TAB/TUBE PO PRN (08:20)
[2022-07-11] MEDS ORDERED: CARBOHYDRATES FOR HYPOGLYCEMIA PO PRN (08:20)
[2022-07-11] MEDS ORDERED: GLUCOSE 40% GEL 15 GM TUBE PO PRN (08:20)
[2022-07-11] MEDS ORDERED: MoRPHine SULFATE 4 MG/ML 1 ML CARP\\VIAL IV PRN (08:20)
[2022-07-11] MEDS ORDERED: DEXTROSE 50% 50 ML SYRINGE IV PRN (08:20)
[2022-07-11] MEDS ORDERED: GLUCAGON FOR INJ 1 MG VIAL SQ PRN (08:20)
[2022-07-11] MEDS ORDERED: NON-FORMULARY MEDICATION (Fluticasone-Umeclidin-Vilanter [Trelegy Ellipta] 200-62.5-25 mcg INH SCH (09:00)
[2022-07-11] MEDS ORDERED: TRIAMCINOLONE ACET NASAL SPRAY 10.8ML BTL NAE SCH (09:00)
[2022-07-11] MEDS: ISOSORBIDE MONO EXTENDED REL 30 MG TABCR PO SCH (09:02)
[2022-07-11] MEDS: carvediloL 3.125 MG TAB PO SCH ×2 (09:02→17:26)
[2022-07-11] MEDS: INSULIN ASPART PER UNIT CHARGE SC SCH ×4 (09:03→22:31)
[2022-07-11] MEDS: IPRATROPIUM BROMIDE NASAL SPRAY 0.06% 15ML NAE SCH ×2 (09:03→20:49)
--- NOTE | 2022-07-11 09:04 | Hospitalist Progress Note ---
Date of Service July 11, 2022 Assessment & Plan (1) Cholelithiasis: Plan: 77 year old who presented with acute upper abdominal pain and U/S revealed gallstones posteriorly near the neck neck of the gallbladder CBD was normal at 5mm LFTs are normal MRCP with no ductal dilation, no evidence of any choledocholithiasis. Noted cholelithiasis with cholecystitis Ceftriaxone 1 g IV every 24 hours Zofran 4 mg IV every 6 hours as needed Pantoprazole 40 mg IV daily Acetaminophen 1 g IV every 8 hours as needed mild pain or fever Morphine sulfate 4 mg IV every 3 hours as needed moderate to severe pain Diet - clear liquids (carb consistent) NPO after midnight for HIDA in AM Lovenox 40mg started along with SCDs while in bed No need for GI consult Placed a cardiology consult with [facility] cardiology for cardiac clearance (patient follows with Dr Lance) for possible CCY Tuesday (2) Acute epigastric pain: Plan: Acute and currently improved See above (3) Coronary artery disease: Plan: Chronic/stable CAD/hypertension/history of LA/status post CABG on 10/26/2017/ischemic cardiomyopathy Examination and laboratories not consistent with cardiac issues Patient was admitted to med/surg Tele Heart rate 60-70 Held clopidogrel and lisinopril Continue isosorbide mononitrate 30mg and Carvedilol 3.125 BID Plavix on hold Started SCDs while in bed, Lovenox 40mg SQ Consult placed for cardiac clearance for possible CCY Tuesday - pending HIDA results Cardiology recommended to restart ASA, and Atorvastatin (normal LFTS), ok to hold Plavix and also ordered an echo (4) 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: Plan: Chronic/stable Hold glimepiride, Novolin and and saxagliptin On Accu-Cheks with NovoLog SSI Last HgbA1C was 8.3 04/20/22 (5) Asthma: Plan: Chronic/stable Continue Trelegy Ellipta, prn Ventolin Saturating 94% on RA (6) Benign essential hypertension: Plan: Chronic/stable Lisinopril held Continue Coreg and Imdur (7) Hypercholesterolemia: Plan: Chronic/stable - Atorvastatin 80mg at home Will resume if no surgery planned (8) GERD (gastroesophageal reflux disease): Plan: Chronic/stable Continue Protonix 40mg daily (currently IV, if no surgery and advance diet will change to PO ) Plan clr liquid diet and NPO at midnight Await HIDA results Surgery following (possible Tuesday pending HIDA) Continue to monitor closely on tele Repeat AM labs [facility] cardiology consulted for surgical clearance Admission and Anticipated Discharge Date Admission Date: July 11, 2022 Subjective Patient was seen this afternoon. He was awake laying in bed visiting with family. He denies any further abdominal pain. Review of Systems Review of Systems: The patient admits to some nausea and dry heaves last evening but none since. The patient denies chest pain, palpitations, shortness of breath, dyspnea, lower extremity swelling, cough, fevers, chills, sweats, diarrhea , constipation, pelvic pain, blood in urine or stool, dysuria, urinary frequency or urgency, lightheadedness, dizziness, headache, memory loss, loss of consciousness, rash, abnormal bruising or bleeding, imbalance, focal or generalized weakness, numbness or tingling in arms or legs, generalized arthralgias or myalgias, back or neck pain, or night sweats. The review of systems is otherwise negative other than for that already noted above, and at least 10 systems have been reviewed. Physical Exam Constitutional: WD/WN, vitals as above Neck: trachea midline, no thyromegaly Respiratory: normal respiratory effort, lungs clear to auscultation Cardiovascular: RRR, no murmur, no edema Gastrointestinal (Abdomen): normal bowel sounds, soft, nontender, no hepatosplenomegaly Psychiatric: A+Ox3, euthymic affect Results & Data Results & Data Vital Signs (Past 12 Hours) Vital Signs Temp Pulse Pulse Resp BP BP Pulse Ox 07/11/22 07:30 69 15 07/11/22 07:30 117/96 07/11/22 07:00 69 19 07/11/22 07:00 151/60 H 07/11/22 06:30 75 21 07/11/22 06:30 131/64 07/11/22 06:00 71 23 07/11/22 06:00 156/68 H 07/11/22 05:30 63 15 07/11/22 05:30 140/77 07/11/22 05:00 64 12 94 07/11/22 05:00 140/61 07/11/22 04:30 81 25 H 96 07/11/22 04:30 145/72 H 07/11/22 04:00 76 19 92 07/11/22 04:00 147/62 H 07/11/22 03:30 83 19 92 07/11/22 03:30 148/67 H 07/11/22 03:00 66 15 95 07/11/22 03:00 161/79 H 07/11/22 02:30 62 20 96 07/11/22 02:30 151/77 H 07/11/22 02:00 54 L 13 96 07/11/22 02:00 171/75 H 07/11/22 01:52 97 07/11/22 01:52 150/103 H 07/11/22 01:00 58 L 24 98 07/11/22 01:00 193/93 H 07/11/22 00:30 54 L 25 H 98 07/11/22 00:30 177/73 H 07/11/22 00:25 49 L 20 98 07/11/22 05:00 67 17 142/63 H 98 07/11/22 04:24 72 07/11/22 03:42 76 18 148/67 H 95 07/11/22 01:57 59 L 18 97 07/11/22 00:23 52 L 07/11/22 00:26 36.6 C 54 L 16 193/83 H 96 O2 Del Method 07/11/22 07:30 07/11/22 07:30 07/11/22 07:00 07/11/22 07:00 07/11/22 06:30 07/11/22 06:30 07/11/22 06:00 07/11/22 06:00 07/11/22 05:30 07/11/22 05:30 07/11/22 05:00 07/11/22 05:00 07/11/22 04:30 07/11/22 04:30 07/11/22 04:00 07/11/22 04:00 07/11/22 03:30 07/11/22 03:30 07/11/22 03:00 07/11/22 03:00 07/11/22 02:30 07/11/22 02:30 07/11/22 02:00 07/11/22 02:00 07/11/22 01:52 07/11/22 01:52 07/11/22 01:00 07/11/22 01:00 07/11/22 00:30 07/11/22 00:30 07/11/22 00:25 07/11/22 05:00 Room Air 07/11/22 04:24 07/11/22 03:42 Room Air 07/11/22 01:57 Room Air 07/11/22 00:23 07/11/22 00:26 Room Air Laboratory Results Abnormal lab results 07/11/22 07/11/22 07/11/22 Range/Units 00:24 00:24 08:57 [place] # (Auto) 0.78 H (0.11-0.59) K/uL Chloride 108 H (98-107) mmol/L Glucose 183 H (70-99(Fasting)) mg/dl POC Glucose 155 H (70-99) mg/dl 07/11/22 Range/Units 11:57 [place] # (Auto) (0.11-0.59) K/uL Chloride (98-107) mmol/L Glucose (70-99(Fasting)) mg/dl POC Glucose 128 H (70-99) mg/dl PG Care Time/CCT Total # of Minutes Spent Total Time Spent with Patient: Total time spent is greater than 50% in coordination of care (as documented) at patient's floor/unit and/or counseling patient: Coding Level of Care Code None Diagnoses Cholelithiasis K80.20 Acute epigastric pain R10.13 Coronary artery disease I25.10 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 E11.42 Asthma J45.909 Benign essential hypertension I10 Hypercholesterolemia E78.00 GERD (gastroesophageal reflux disease) K21.9
--- NOTE | 2022-07-11 10:53 | Magnetic Resonance Report ---
MRCP CLINICAL HISTORY: Right upper quadrant abdominal pain. Cholelithiasis. COMPARISON STUDY: Abdominal ultrasound dated 07/11/2022. TECHNIQUE: Abdominal MRCP is performed utilizing various T2-weighted sequences in the axial and coron al planes. IV contrast was not administered for this examination. 3-D reformats are created and asses sed. FINDINGS: The gallbladder is distended, with gallstones in the region of the gallbladder neck. The gallbladder wall is thickened and edematous with surrounding inflammation and fluid. Findings are consistent with acute cholecystitis. There is no intra or extrahepatic biliary ductal dilatation. The common bile du ct measures up to 5.5 mm in diameter. No intraluminal filling defects are seen to indicate choledocho lithiasis. The pancreatic duct is normal in caliber. The unenhanced liver, spleen, adrenal glands, and pancreas are grossly unremarkable. The kidneys are normal in size and without hydronephrosis. A 3.8 cm cyst is noted on the left. The abdominal aorta is normal in caliber. There is trace perihepatic ascites. Trace pleural effusions are noted. Midline st ernotomy wires are in place. Imaged portions of the bowel show no evidence of obstruction. There is a large duodenal diverticulum. There is no evidence of destructive bony lesion. IMPRESSION: 1. Cholelithiasis with acute cholecystitis. Surgical assessment is advised. 2. There is no intra or extrahepatic biliary ductal dilatation. No choledocholithiasis is seen. 3. Trace perihepatic ascites. 4. Trace pleural effusions. Electronically signed by: Valentino Gamez M.D. 07/11/2022 10:51 AM
[2022-07-11] MEDS: NSS + 20MEQ KCL 20 MEQ/1,000 ML BAG IV SCH (11:40)
[2022-07-11] MEDS: UMECLIDINIUM BROMIDE 62.5MCG/BLISTER 7 PUFFS/INHALER INH SCH (11:42)
[2022-07-11] MEDS: FLUTICASONE/VILANTEROL 200/25MCG 14 PUFFS/INHALER INH SCH (11:42)
[2022-07-11] MEDS: PANTOprazole 40 MG in SYRINGE 0 ML IV SCH (11:46)
--- NOTE | 2022-07-11 15:47 | Cardiology Consultation ---
Date of Consultation July 11, 2022 Assessment & Plan (1) Acute epigastric pain: (2) Coronary artery disease: (3) Preoperative cardiovascular examination: Mr Del Real is a 77-year-old britney who presents with epigastric and right upper quadrant abdominal discomfort onset last evening 10 PM. He has a l ongstanding history of left bundle branch block which dates back to at least 2010. In 2018, he presented with acute abdominal discomfort, and was seen by the undersigned in consultation, and diagnosed with a non-ST segment elevation myocardial infarction at that time and cardiac catheterization revealed multivessel coronary heart disease for which he underwent subsequent CABG x4. Most recent ejection fraction as measured by echocardiogram a year ago April, was stable at 41%. Although some of the characteristics of the patient's discomfort reminiscent of his angina, he states he feels like it is different, and there is definitely reproducible portion of discomfort on palpation of his right upper quadrant. Laboratory studies including liver function tests within normal limits and HS troponin negative x2. For completeness sake, I recommend obtaining a third troponin level based on the MRCP and the patient's clinical presentation, I think this likely is related to acute cholecystitis. Cardiology consulted for preoperative evaluation showed surgery be indicated. He is on aspirin plus clopidogrel on a chronic basis. Recommend ongoing aspirin without interruption, and holding his clopidogrel. Remaining cardiac medications including carvedilol, isosorbide mononitrate, and atorvastatin will be continued with sips of water. I have requested an echocardiogram which will be performed tomorrow, for reassessment of his ejection fraction, which will provide helpful information with regards to perioperative management. At present, his volume status is stable, telemetry is stable findings of sinus rhythm in the 50s to 60s with occasional PVCs. Questions answered to the patient/spouse's satisfaction. Case reviewed with Tessy Jacinto PA-C. History of Present Illness Attending Physician: Jose Cunningham MD History of Present Illness Mr Del Real is a 77-year-old male seen in cardiology consultation per the request of Gisella Jacinto PA-C of the general surgery service for preoperative assessment prior to consideration of cholecystectomy. Patient is accompanied by his spouse at the bedside. He notes that last night at 10 PM he had onset of generalized epigastric and right upper quadrant abdominal discomfort. He states that he had abdominal discomfort at the time of his myocardial infarction in 2018, but that this pain was actually worse and had persisted for several hours prompting him to come to the emergency department. High-sensitivity troponin levels were drawn at 12:24 AM and 2:48 AM with measurements of 2.3 and 17 PG per mL respectively. EKG revealed sinus bradycardia 54 bpm with left bundle branch block, QRS duration 156 ms. Compared to the previous tracing dating back to 2019, the left bundle branch block is a chronic finding. Patient has been kept n.p.o. in the meantime, and is on IV antibiotics. At present he is comfortable, but has reproducible abdominal discomfort on palpation. He is not in distress at present. Cardiology History: 1. Presentation with non-ST segment elevation myocardial infarction 10/14/2017 with subsequent cardiac catheterization demonstrating multivessel coronary heart disease including 80% mid LAD, 80% diagonal 1, 60% mid circumflex, 60% distal circumflex, 100% proximal RCA. Patient underwent CABG x4 on 10/26/2017 at [facility] receiving VELEZ to LAD, SVG to diagonal 2, SVG to OM1, SVG to the PDA. 2. Chronic left bundle branch block 3. Ischemic cardiomyopathy, most recent echocardiogram performed 05/11/2021 at [facility], revealing abnormal septal motion consistent with left bundle branch block, the inferior and inferoseptal humphries were hypokinetic with normal contractility otherwise, calculated left ventricular ejection fraction 41% by three-dimensional volume method (mildly reduced). Mild mitral regurgitation also noted on that echocardiogram 4. Type 2 diabetes mellitus 5. Hypertension 6. Dyslipidemia 7. Persistent asthma with past suspicion of possible interstitial lung disease Allergies Allergy/AdvReac Type Severity Reaction Status Date / Time pollen extracts Allergy Intermediate ITCHY Verified 07/11/22 01:44 EYES, SNEEZING, CONGESTION cat dander Allergy Mild congestion Verified 07/11/22 01:44 dog dander Allergy Mild congestion Verified 07/11/22 01:44 Home Medications Medication Instructions Recorded Confirmed Type blood-glucose meter (AriagoraTouch #1 ea 10/24/18 04/26/22 Rx Ultra2 Meter) cetirizine 10 mg capsule 10 mg PO HS #90 caps 10/24/18 07/11/22 Rx clopidogrel 75 mg tablet (Plavix) 75 mg PO QAM #90 tabs 10/24/18 07/11/22 Rx fexofenadine 180 mg tablet 180 mg PO QAM #90 tabs 10/24/18 07/11/22 Rx vxjogwrh-gop-jdnbc acid 300 1 tab PO QAM #90 tabs 10/24/18 07/11/22 Rx mcg-lycopene 600 mcg-lutein 300 mcg tablet (Centrum Silver Men) aspirin 81 mg tablet,delayed 81 mg PO 3XWK 04/16/19 07/11/22 History release lisinopril 10 mg tablet 10 mg PO QAM 04/16/19 07/11/22 History furosemide 20 mg tablet 20 mg PO 3XWK 02/22/20 07/11/22 History ipratropium bromide 42 mcg (0.06 1 spray intranasal AMHS 02/22/20 07/11/22 History %) nasal spray triamcinolone acetonide 55 mcg 1 spray intranasal QAM 02/22/20 07/11/22 History nasal spray aerosol (Nasacort) glucagon 1 mg/0.2 mL subcutaneous 1 mg (0.2 mL) subcut ONCE PRN 02/28/20 07/11/22 Rx auto-injector severe low sugar #0.2 mL lancets (OneTouch UltraSoft #200 ea 06/04/21 05/12/22 Rx Lancets) potassium chloride 10 mEq 10 meq PO QAM #90 tabs 10/05/21 07/11/22 Rx tablet,extended release pantoprazole 40 mg tablet,delayed 40 mg PO BID #180 tabs 10/13/21 07/11/22 Rx release isosorbide mononitrate 30 mg 30 mg PO QAM #90 tabs 10/14/21 07/11/22 Rx tablet,extended release 24 hr carvedilol 3.125 mg tablet (Coreg) 3.125 mg PO BIDM #180 tabs 12/07/21 07/11/22 Rx saxagliptin 5 mg tablet (Onglyza) 5 mg PO QPM #90 tabs 12/14/21 07/11/22 Rx albuterol sulfate 90 mcg/actuation 2 puff inhalation Q6H PRN 01/26/22 07/11/22 Rx aerosol inhaler (Ventolin HFA) Shortness Of Breath Or Wheezing #18 grams fluticasone fur. 200 mcg-umeclid 1 inh inhalation DAILY #60 ea 02/22/22 07/11/22 Rx 62.5 mcg-vilant 25 mcg inhalat.powder (Trelegy Ellipta) glimepiride 1 mg tablet See Rx Instructions PO BID #450 02/22/22 07/11/22 Rx tabs atorvastatin 80 mg tablet 80 mg PO QDD #90 tabs 05/17/22 07/11/22 Rx insulin NPH isoph U-100 human 100 42 unit subcut HS 07/11/22 07/11/22 History unit/mL subcutaneous suspension (Novolin N NPH U-100 Insulin isophane) tamsulosin 0.4 mg capsule (Flomax) 0.4 mg PO HS 07/11/22 07/11/22 History Patient History Medical History Asthma LAST USED RESCUE INHALER>LAST MONTH Bruising Chronic reflux esophagitis Cough Early satiety GERD (gastroesophageal reflux disease) Hearing deficit History of anxiety History of COVID-19 02/28/20>TERRIBLE COUGH/FATIGUE *RESOLVED History of Mohs micrographic surgery for skin cancer RT/LEFT SIDE OF FACE/CHEEK AREA History of skin cancer Hyperlipidemia Medicare annual wellness visit, subsequent Myocardial Infarction 2018 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 Haney 06/25/2020 History of cardiac cath NO STENTS History of cataract surgery RT/LEFT History of colonoscopy History of hernia repair ABDOMINAL HERNIA REPAIR History of tooth extraction Hx of CABG 4 VESSELS>2018 AT [facility] *FOLLOWED BY DR. HUGHES S/P trigger finger release Family History Mother Colorectal cancer Sister Diabetes Breast cancer Brother Diabetes Hx of CABG Son Legg-Perthes disease Father Colorectal cancer Other Myocardial infarction No family history of adverse response to anesthesia Denies family history of Ovarian cancer Prostate cancer Social History Smoking Status: Never smoker Second Hand Exposure: Yes (IN THE PAST); Hx Alcohol Use: No Hx Substance Use: No Preferred Language: Uzbek Communication Ability: Effective Visual Impairment: Limited Hearing Ability: Normal Time Cycle Operator Required: No Beliefs That Will Affect Care: None marital status: Current Living Situation: Spouse current occupational status: retired Feels Safe at Home: Yes Childhood Exposure to Second-Hand Smoke: No Diet Comment: heart healthy caffeine: Yes Dental Care, Regularly: Yes Physical Activity Frequency: Daily Seatbelt Use: always Sunscreen Use: No (Does wear hat and long sleeves) Do you think of yourself as: straight/heterosexual Assistive Devices: Glasses and Hearing Aid - Bilateral Review of Systems Review of Systems: All systems reviewed & are unremarkable except as noted in HPI & below Physical Exam Physical Exam: Temp Pulse Resp BP Pulse Ox O2 Del Method 36.6 C 66 18 152/76 H 96 Room Air 07/11/22 15:04 07/11/22 15:04 07/11/22 15:04 07/11/22 15:04 07/11/22 15:04 07/11/22 15:04 Constitutional: WD/WN, vitals as above Respiratory: normal respiratory effort, lungs clear to auscultation Cardiovascular: RRR, no murmur, no edema Rate/Rhythm: regular rate and regular rhythm Heart Sounds: no murmur Vessels: no JVD Extremities: no edema Gastrointestinal (Abdomen): Inspection/Auscultation: abdomen normal to inspection Percussion/Palpation: + abdomen tender (Right upper quadrant tenderness) and abdomen soft; no pulsatile mass Neurologic: PERRL, EOMI, accommodation nl, no face palsy, no dysarthria Results & Data Laboratory Results Cardiac Enzymes 07/11/22 07/11/22 Range/Units 00:24 02:48 AST 27 (13-39) U/L Troponin I High Sens 12.3 17.0 D (0-20) pg/ml CBC 07/11/22 Range/Units 00:24 WBC 9.61 (4.8-10.8) K/ul RBC 5.07 (4.70-6.10) M/uL Hgb 16.2 (14.0-18.0) g/dl Hct 45.7 (42.0-52.0) % Plt Count 144 (130-400) K/uL Neut # (Auto) 5.16 (1.40-6.50) K/uL Lymph # (Auto) 3.17 (1.2-3.4) K/uL [place] # (Auto) 0.78 H (0.11-0.59) K/uL Eos # (Auto) 0.44 (0-0.50) K/uL Baso # (Auto) 0.04 (0-0.2) K/uL Comprehensive Metabolic Panel 07/11/22 Range/Units 00:24 Sodium 136 (136-145) mmol/L Potassium 3.8 (3.5-5.1) mmol/L Chloride 108 H (98-107) mmol/L Carbon Dioxide 21 (21-32) mmol/L BUN 15 (6-23) mg/dl Creatinine 1.04 (0.6-1.4) mg/dl Glucose 183 H (70-99(Fasting)) mg/dl Calcium 9.8 (8.6-10.3) mg/dl AST 27 (13-39) U/L ALT 29 (7-52) U/L Alkaline Phosphatase 85 (34-104) U/L Total Protein 6.9 (6.0-8.3) gm/dl Albumin 4.0 (3.4-5.0) gm/dl Diagnostic Findings Radiology report of ultrasound of gallbladder reviewed: Gallstones noted posteriorly near the neck of the gallbladder the sonographic Agudelo sign is indeterminate secondary to patient having received medication. Common bile duct within normal limits. Liver is hyperechoic suggestive of hepatic steatosis. Summary of MRCP radiology report, cholelithiasis with acute cholecystitis trace perihepatic ascites, trace pleural effusions
[2022-07-11] MEDS: ASPIRIN 81 MG ECTAB PO SCH (17:25)
[2022-07-11] MEDS: ATORVASTATIN 40 MG TAB PO SCH (17:25)
--- NOTE | 2022-07-11 19:03 | Communication Note ---
Date of Service: July 11, 2022 Follow up troponin is negative .
[2022-07-12] MEDS: NSS + 20MEQ KCL 20 MEQ/1,000 ML BAG IV SCH ×2 (03:56→17:16)
[2022-07-12] MEDS ORDERED: Nursing to Pharmacy Communication SCH (05:00)
[2022-07-12] MEDS: cefTRIAXone SODIUM 1,000 MG in DEXTROSE 5% AD-VAN 50 ML IV SCH (05:41)
[2022-07-12 07:31] LABS: Basophils # (auto) 0.04 K/uL (0-0.2); Basophils % (auto) 0.4 %; Eosinophils # (auto) 0.35 K/uL (0-0.50); Eosinophils % (auto) 3.9 %; Hematocrit (blood only) 41.1 % (42.0-52.0); Hemoglobin 14.2 g/dl (14.0-18.0); Immature Granulocytes # (auto) 0.03 K/uL (0.01-0.20); Immature Granulocytes % (auto) 0.3 %; Lymphocytes # (auto) 2.17 K/uL (1.2-3.4); Lymphocytes % (auto) 24.2 %; Mean Corpuscular Hemoglobin 32.1 pg (25.0-34.0); Mean Corpuscular Hgb Conc 34.5 g/dL (32.0-36.0); Mean Corpuscular Volume 92.8 fL (80.0-100.0); Mean Platelet Volume 12.6 fL (9.4-12.4); Monocytes # (auto) 0.84 K/uL (0.11-0.59); Monocytes % (auto) 9.4 %; Neutrophils # (auto) 5.55 K/uL (1.40-6.50); Neutrophils % (auto) 61.8 %; Platelet Count 121 K/uL (130-400); RDW Coefficient of Variation 12.6 % (11.5-14.5); RDW Standard Deviation 43.2 fL (36.4-46.3); Red Blood Count 4.43 M/uL (4.70-6.10); White Blood Count 8.98 K/ul (4.8-10.8)
[2022-07-12] MEDS: ONDANSETRON INJ 2 MG/ML 2 ML VIAL IV PRN (07:40)
[2022-07-12] MEDS: INSULIN ASPART PER UNIT CHARGE SC SCH ×4 (07:40→20:56)
--- NOTE | 2022-07-12 07:48 | Hospitalist Progress Note ---
Date of Service July 12, 2022 Assessment & Plan (1) Cholelithiasis: Plan: acute cholecystitis, high risk MRCP with Noted cholelithiasis with acute cholecystitis, HIDA with normal GB EF , total bili slightly up, transaminases normal ceftriaxone and flagyl Zofran 4 mg IV every 6 hours as needed Pantoprazole 40 mg IV daily Acetaminophen 1 g IV every 8 hours as needed mild pain or fever Morphine sulfate 4 mg IV every 3 hours as needed moderate to severe pain Diet - clear liquids (carb consistent) Lovenox 40mg started along with SCDs while in bed Pre op ising cardiology consult for risk optinization, Dr Garcia recommneds hold plavix but continue asprin, pending echo continue carvedilol, isosorbide and atorvastatin (2) Coronary artery disease: Plan: Chronic/stable CAD/hypertension/history of LA/status post CABG on 10/26/2017/ischemic cardiomyopathy Examination and laboratories not consistent with cardiac issues Patient was admitted to med/surg Tele Held clopidogrel and lisinopril Continue isosorbide mononitrate 30mg and Carvedilol 3.125 BID Started SCDs while in bed, Lovenox 40mg SQ (3) 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: Plan: Chronic/stable Hold glimepiride, Novolin and and saxagliptin On Accu-Cheks with NovoLog SSI Last HgbA1C was 8.3 04/20/22 receck 8.8 (4) Asthma: Plan: Chronic/stable Continue Trelegy Ellipta, prn Ventolin Saturating 94% on RA (5) Benign essential hypertension: Plan: Chronic/stable Lisinopril held Continue Coreg and Imdur (6) GERD (gastroesophageal reflux disease): Plan: Chronic/stable Continue Protonix 40mg daily (currently IV, if no surgery and advance diet will change to PO ) Admission and Anticipated Discharge Date Admission Date: July 11, 2022 Subjective Pt is awake and alert, still with RUQ discompfort, on antibioitcs, no chest pain or shortness of breath MRCP suggest cholecystitis, HIDA shows good gall bladder function Physical Exam Physical Exam: awake and alert car is regular lungs are clear abd with hyperactive BS, soft, Ruq tender to deep palp, no organomegally Results & Data Results & Data Vital Signs (Past 12 Hours) Vital Signs Temp Pulse Pulse Resp BP BP Pulse Ox 07/12/22 07:00 97.9 F 62 14 160/71 H 96 07/12/22 03:30 98.6 F 72 18 149/66 H 94 07/12/22 00:14 98.4 F 80 20 139/61 92 07/11/22 22:01 76 07/11/22 19:47 99.7 F H 77 20 148/63 H 94 O2 Del Method 07/12/22 07:00 Room Air 07/12/22 03:30 Room Air 07/12/22 00:14 Room Air 07/11/22 22:01 07/11/22 19:47 Room Air Laboratory Results reveiwed CBC, PRP, LFT, A1C PG Care Time/CCT Total # of Minutes Spent Total Time Spent with Patient: Total time spent is greater than 50% in coordination of care (as documented) at patient's floor/unit and/or counseling patient: Coding Level of Care Code 99202 SUB INP/OBS CARE 235MIN Diagnoses Cholelithiasis K80.20 Coronary artery disease I25.10 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
[2022-07-12] MEDS ORDERED: cefTRIAXone SODIUM 1,000 MG in DEXTROSE 5% 50 ML IV ONE (08:30)
[2022-07-12 08:36] LABS: Estimated Average Glucose 206 mg/dl; Hemoglobin A1C 8.8 % (4.5-5.6)
[2022-07-12] MEDS ORDERED: SINCALIDE 1.6 MCG in 0.9 % SODIUM CHLORIDE 100 ML IV SCH (09:00)
[2022-07-12] MEDS: ISOSORBIDE MONO EXTENDED REL 30 MG TABCR PO SCH (09:39)
[2022-07-12] MEDS: ASPIRIN 81 MG ECTAB PO SCH (09:40)
[2022-07-12] MEDS: carvediloL 3.125 MG TAB PO SCH ×2 (09:40→17:16)
[2022-07-12] MEDS: PANTOprazole 40 MG in SYRINGE 0 ML IV SCH (09:40)
[2022-07-12] MEDS: ATORVASTATIN 40 MG TAB PO SCH (09:40)
[2022-07-12] MEDS: UMECLIDINIUM BROMIDE 62.5MCG/BLISTER 7 PUFFS/INHALER INH SCH (09:41)
[2022-07-12] MEDS: metroNIDAZOLE 500 MG/100 ML BAG IV SCH ×2 (09:41→17:48)
[2022-07-12] MEDS: IPRATROPIUM BROMIDE NASAL SPRAY 0.06% 15ML NAE SCH ×2 (09:42→21:05)
[2022-07-12] MEDS: FLUTICASONE/VILANTEROL 200/25MCG 14 PUFFS/INHALER INH SCH (09:42)
[2022-07-12] MEDS: ENOXAPARIN INJ 40 MG/0.4 ML SYR SQ SCH (09:43)
[2022-07-12 09:59] LABS: Albumin Globulin Ratio 1.3 (0.9-2); Albumin Level 3.2 gm/dl (3.4-5.0); BUN Creatinine Ratio 8.4 (10-20); Bilirubin Direct 0.2 mg/dl (0-0.2); Bilirubin,Total 1.4 mg/dl (0.2-1.0); Calcium 8.5 mg/dl (8.6-10.3); Creatinine Clr Calc Pharmacy 70.3 ml/min; Est GFR (African American) 88.5 ml/min; Est GFR (Non-African American) 76.4 ml/min; Globulin 2.4 gm/dl (2.5-4.0); Magnesium 1.7 mg/dl (1.7-2.4); Potassium 4.1 mmol/L (3.5-5.1); Total Protein 5.6 gm/dl (6.0-8.3)
--- NOTE | 2022-07-12 10:14 | Surgery Progress Note ---
Date of Service July 12, 2022 Assessment & Plan (1) Acute cholecystitis: Plan: His MRCP images and results were personally viewed by myself, consistent with cholecystitis without any choledocholithiasis He did already have his HIDA scan this morning, we will follow-up these results We will tentatively plan to take him to the operating room tomorrow for laparoscopic cholecystectomy, possible open Continue n.p.o. and IV fluids and IV antibiotics Admission and Anticipated Discharge Date Admission Date: July 11, 2022 Subjective Patient seen and examined. Still with some epigastric and right upper quadrant pain. Afebrile. Denies any nausea or vomiting. Review of Systems Constitutional: no fever and no chills Physical Exam Constitutional: WD/WN, vitals as above Gastrointestinal (Abdomen): Inspection/Auscultation: abdomen normal to inspection; abdomen not distended Percussion/Palpation: + abdomen tender (Right upper quadrant), + guarding and abdomen soft; abdomen not rigid and no hernia Positive Agudelo's Results & Data Vital Signs (Past 12 Hours) Vital Signs Temp Pulse Resp BP BP Pulse Ox O2 Del Method 07/12/22 07:00 36.6 C 62 14 160/71 H 96 Room Air 07/12/22 03:30 37.0 C 72 18 149/66 H 94 Room Air 07/12/22 00:14 36.9 C 80 20 139/61 92 Room Air PG Care Time/CCT Total # of Minutes Spent Total Time Spent with Patient: Total time spent is greater than 50% in coordination of care (as documented) at patient's floor/unit and/or counseling patient: Coding Level of Care Code 79374 SUB INP/OBS CARE 04/21MIN Diagnoses Acute cholecystitis K81.0
--- NOTE | 2022-07-12 10:31 | Nuclear Medicine Report ---
NM hepatobiliary CLINICAL HISTORY: cholilithiasis. TECHNIQUE: Following the intravenous injection of 4.9 mCi of Tc-99m labeled Technetium 99m mebrofeni n, multiple images of the upper abdomen were obtained in the anterior projection with uptake measurem ents of the gallbladder obtained. Comparison: Comparison is made to MRCP 07/11/2022 FINDINGS: Of note, patient received morphine at 0740 hours, exam was started at 0800 hours. Normal up take is seen in the liver, common bile duct, passing through the small bowel. The gallbladder was not opacified. IMPRESSION: No uptake is seen in the gallbladder. Of note, the patient received morphine just prior to exam, silva justino results remain suggestive of acute cholecystitis. Reference: Normal gallbladder ejection fraction is greater than 33%. Latrell Albarado., Edil Giles, Latrell Mccollum, Alana Ramirez, & Jie Myles. (2016). Morphine-mod ified hepatobiliary scanning protocol for the diagnosis of acute cholecystitis. [place] Journal of R oentgenology, 207(4), 865-870. ACT 112: Negative or not required by law. Electronically signed by: Vitaliy Calero M.D. 07/12/2022 10:30 AM
--- NOTE | 2022-07-12 11:07 | Cardiology Progress Note ---
Date of Service July 12, 2022 Assessment & Plan (1) Acute epigastric pain: (2) Coronary artery disease: (3) Preoperative cardiovascular examination: Plan: Mr Del Real is a 77-year-old [place] who presents with epigastric and right upper quadrant abdominal discomfort onset last evening 10 PM. He has a longstanding history of left bundle branch block which dates back to at least 2010. In 2018, he presented with acute abdominal discomfort, and was seen by t he undersigned in consultation, and diagnosed with a non-ST segment elevation myocardial infarction at that time and cardiac catheterization revealed multivessel coronary heart disease for which he underwent subsequent CABG x4. Most recent ejection fraction as measured by echocardiogram a year ago April, was stable at 41%. Plan 77-year-old male with known coronary disease and ischemic cardiomyopathy with compensated class I 2 functional capacity on guideline directed medical regimen. Findings consistent with cholelithiasis/cholecystitis EKG with chronic left bundle branch block no troponin or cardiac enzyme elevation. Echocardiogram not changed from prior studies ejection fraction 45% No signs of heart failure valvular heart disease or acute angina/myocardial ischemia Discussed in detail with patient. No contraindications to proceeding with surgery though with elevated risk given known coronary disease Clopidogrel on hold patient previously on dual antiplatelet therapy after shared decision making patient requested continuation. May consider stopping postsurgically Admission and Anticipated Discharge Date Admission Date: July 11, 2022 Subjective Patient seen and examined, chart, medications, telemetry reviewed. Mild epigastric and right upper quadrant discomfort otherwise no acute complaints. No dizziness or lightheadedness no specific chest pain or discomfort. Review of Systems Review of Systems: All systems reviewed & are unremarkable except as noted in Subjective Physical Exam Physical Exam: Temp Pulse Resp BP Pulse Ox O2 Del Method 36.6 C 66 18 152/76 H 96 Room Air 07/11/22 15:04 07/11/22 15:04 07/11/22 15:04 07/11/22 15:04 07/11/22 15:04 07/11/22 15:04 Constitutional: WD/WN, vitals as above no acute distress Neck: trachea midline, no thyromegaly Respiratory: normal respiratory effort, lungs clear to auscultation Cardiovascular: RRR, no murmur, no edema Rate/Rhythm: regular rate and regular rhythm Heart Sounds: no murmur Vessels: no JVD Extremities: no edema Gastrointestinal (Abdomen): Inspection/Auscultation: abdomen normal to inspection Percussion/Palpation: + abdomen tender (Right upper quadrant tenderness) and abdomen soft; no pulsatile mass Neurologic: PERRL, EOMI, accommodation nl, no face palsy, no dysarthria Results & Data Vital Signs (Past 12 Hours) Vital Signs Temp Pulse Pulse Resp BP BP Pulse Ox 07/12/22 08:00 61 07/12/22 07:00 36.6 C 62 14 160/71 H 96 07/12/22 03:30 37.0 C 72 18 149/66 H 94 07/12/22 00:14 36.9 C 80 20 139/61 92 O2 Del Method 07/12/22 08:00 07/12/22 07:00 Room Air 07/12/22 03:30 Room Air 07/12/22 00:14 Room Air Laboratory Results Laboratory Results - last 24 hr 07/11/22 07/11/22 07/11/22 11:57 16:40 16:41 WBC RBC Hgb Hct MCV MCH MCHC RDW Std Deviation RDW Coeff of Emir Plt Count MPV Immature Gran % (Auto) Neut % (Auto) Lymph % (Auto) [place] % (Auto) Eos % (Auto) Baso % (Auto) Neut # (Auto) Lymph # (Auto) [place] # (Auto) Eos # (Auto) Baso # (Auto) Immature Gran # (Auto) Sodium Potassium Chloride Carbon Dioxide Anion Gap BUN Creatinine Est Cr Clr Drug Dosing Est GFR ( Amer) Est GFR (Non-Af Amer) BUN/Creatinine Ratio Glucose POC Glucose 128 H 120 H Estimat Average Glucose Hemoglobin A1c Calcium Magnesium Total Bilirubin Direct Bilirubin AST ALT Alkaline Phosphatase Troponin I High Sens 14.8 Total Protein Albumin Globulin Albumin/Globulin Ratio 07/11/22 07/12/22 07/12/22 21:08 06:31 06:31 WBC 8.98 RBC 4.43 L Hgb 14.2 Hct 41.1 L MCV 92.8 MCH 32.1 MCHC 34.5 RDW Std Deviation 43.2 RDW Coeff of Emir 12.6 Plt Count 121 L MPV 12.6 H Immature Gran % (Auto) 0.3 Neut % (Auto) 61.8 Lymph % (Auto) 24.2 [place] % (Auto) 9.4 Eos % (Auto) 3.9 Baso % (Auto) 0.4 Neut # (Auto) 5.55 Lymph # (Auto) 2.17 [place] # (Auto) 0.84 H Eos # (Auto) 0.35 Baso # (Auto) 0.04 Immature Gran # (Auto) 0.03 Sodium 138 Potassium 4.1 Chloride 109 H Carbon Dioxide 23 Anion Gap 6 BUN 8 Creatinine 0.95 Est Cr Clr Drug Dosing 70.3 Est GFR ( Amer) 88.5 Est GFR (Non-Af Amer) 76.4 BUN/Creatinine Ratio 8.4 L Glucose 184 H POC Glucose 163 H Estimat Average Glucose Hemoglobin A1c Calcium 8.5 L Magnesium 1.7 Total Bilirubin 1.4 H D Direct Bilirubin 0.2 AST 17 ALT 21 Alkaline Phosphatase 50 Troponin I High Sens Total Protein 5.6 L Albumin 3.2 L Globulin 2.4 L Albumin/Globulin Ratio 1.3 07/12/22 07/12/22 06:31 07:28 WBC RBC Hgb Hct MCV MCH MCHC RDW Std Deviation RDW Coeff of Emir Plt Count MPV Immature Gran % (Auto) Neut % (Auto) Lymph % (Auto) [place] % (Auto) Eos % (Auto) Baso % (Auto) Neut # (Auto) Lymph # (Auto) [place] # (Auto) Eos # (Auto) Baso # (Auto) Immature Gran # (Auto) Sodium Potassium Chloride Carbon Dioxide Anion Gap BUN Creatinine Est Cr Clr Drug Dosing Est GFR ( Amer) Est GFR (Non-Af Amer) BUN/Creatinine Ratio Glucose POC Glucose 164 H Estimat Average Glucose 206 Hemoglobin A1c 8.8 H Calcium Magnesium Total Bilirubin Direct Bilirubin AST ALT Alkaline Phosphatase Troponin I High Sens Total Protein Albumin Globulin Albumin/Globulin Ratio
[2022-07-12] MEDS: BENZONATATE 100 MG CAPSULE PO PRN ×2 (17:16→21:04)
[2022-07-13] MEDS: metroNIDAZOLE 500 MG/100 ML BAG IV SCH ×3 (01:32→17:20)
[2022-07-13] MEDS: NSS + 20MEQ KCL 20 MEQ/1,000 ML BAG IV SCH ×2 (04:30→20:11)
[2022-07-13] MEDS: ONDANSETRON INJ 2 MG/ML 2 ML VIAL IV PRN ×2 (06:39→14:21)
[2022-07-13] MEDS: INSULIN ASPART PER UNIT CHARGE SC SCH ×4 (07:46→20:21)
[2022-07-13] MEDS: ISOSORBIDE MONO EXTENDED REL 30 MG TABCR PO SCH (07:47)
[2022-07-13] MEDS: ASPIRIN 81 MG ECTAB PO SCH (07:47)
[2022-07-13] MEDS: carvediloL 3.125 MG TAB PO SCH ×2 (07:47→17:19)
[2022-07-13] MEDS: ATORVASTATIN 40 MG TAB PO SCH (07:47)
[2022-07-13] MEDS: IPRATROPIUM BROMIDE NASAL SPRAY 0.06% 15ML NAE SCH ×2 (07:50→20:11)
[2022-07-13] MEDS: UMECLIDINIUM BROMIDE 62.5MCG/BLISTER 7 PUFFS/INHALER INH SCH (07:50)
[2022-07-13] MEDS: FLUTICASONE/VILANTEROL 200/25MCG 14 PUFFS/INHALER INH SCH (07:50)
[2022-07-13] MEDS: ENOXAPARIN INJ 40 MG/0.4 ML SYR SQ SCH (07:51)
[2022-07-13] MEDS: cefTRIAXone SODIUM 2,000 MG in DEXTROSE 5% AD-VAN 50 ML IV SCH (07:54)
[2022-07-13 08:29] LABS: Albumin Globulin Ratio 1.3 (0.9-2); Albumin Level 3.1 gm/dl (3.4-5.0); BUN Creatinine Ratio 8.9 (10-20); Bilirubin,Total 1.4 mg/dl (0.2-1.0); Calcium 8.2 mg/dl (8.6-10.3); Creatinine Clr Calc Pharmacy 84.6 ml/min; Est GFR (African American) 99.7 ml/min; Globulin 2.4 gm/dl (2.5-4.0); Magnesium 1.7 mg/dl (1.7-2.4); Total Protein 5.5 gm/dl (6.0-8.3)
[2022-07-13 08:32] LABS: Basophils # (auto) 0.03 K/uL (0-0.2); Basophils % (auto) 0.4 %; Eosinophils # (auto) 0.37 K/uL (0-0.50); Eosinophils % (auto) 4.8 %; Hematocrit (blood only) 40.1 % (42.0-52.0); Hemoglobin 13.8 g/dl (14.0-18.0); Immature Granulocytes # (auto) 0.02 K/uL (0.01-0.20); Immature Granulocytes % (auto) 0.3 %; Lymphocytes % (auto) 20.7 %; Mean Corpuscular Hemoglobin 31.7 pg (25.0-34.0); Mean Corpuscular Hgb Conc 34.4 g/dL (32.0-36.0); Mean Platelet Volume 12.3 fL (9.4-12.4); Monocytes # (auto) 0.62 K/uL (0.11-0.59); Neutrophils # (auto) 5.09 K/uL (1.40-6.50); Neutrophils % (auto) 65.8 %; Platelet Count 120 K/uL (130-400); RDW Coefficient of Variation 12.3 % (11.5-14.5); RDW Standard Deviation 41.6 fL (36.4-46.3); Red Blood Count 4.36 M/uL (4.70-6.10); White Blood Count 7.73 K/ul (4.8-10.8)
[2022-07-13] MEDS ORDERED: fentaNYL citrate PF 100 MCG/2 ML VIAL ONE ×2 (08:59→10:37)
[2022-07-13] MEDS ORDERED: ONDANSETRON INJ 2 MG/ML 2 ML VIAL ONE (09:00)
[2022-07-13] MEDS ORDERED: SUCCINYLCHOLINE 100MG/5ML SYR IV ONE (09:00)
[2022-07-13] MEDS ORDERED: ROCURONIUM BROMIDE 10 MG/ML 5 ML VIAL IV ONE (09:00)
[2022-07-13] MEDS ORDERED: LIDOCAINE 2% MPF LOCAL 5 ML VIAL ONE (09:00)
[2022-07-13] MEDS ORDERED: PROPOFOL IV EMULSION 10 MG/ML 20 ML VIAL IV ONE (09:00)
--- NOTE | 2022-07-13 09:20 | Cardiology Progress Note ---
Date of Service July 13, 2022 Assessment & Plan (1) Acute epigastric pain: (2) Coronary artery disease: (3) Preoperative cardiovascular examination: Plan: Mr Del Real is a 77-year-old [place]rit[place] who presents with epigastric and right upper quadrant abdominal discomfort onset last evening 10 PM. He has a longstanding history of left bundle branch block which dates back to at least 2010. In 2018, he presented with acute abdominal discomfort, and was seen by t he undersigned in consultation, and diagnosed with a non-ST segment elevation myocardial infarction at that time and cardiac catheterization revealed multivessel coronary heart disease for which he underwent subsequent CABG x4. Most recent ejection fraction as measured by echocardiogram a year ago April, was stable at 41%. Plan 77-year-old male with known coronary disease and ischemic cardiomyopathy with compensated class I 2 functional capacity on guideline directed medical regimen. Findings consistent with cholelithiasis/cholecystitis EKG with chronic left bundle branch block no troponin or cardiac enzyme elevation. Echocardiogram not changed from prior studies ejection fraction 45% No signs of heart failure valvular heart disease or acute angina/myocardial ischemia Discussed in detail with patient. No contraindications to proceeding with surgery though with elevated risk given known coronary disease Clopidogrel on hold patient previously on dual antiplatelet therapy after shared decision making patient requested continuation. May consider stopping postsurgically 07/13/2022: Exam and assessment as above unchanged. We will follow perioperative Admission and Anticipated Discharge Date Admission Date: July 11, 2022 Subjective Patient seen and examined, chart, medications, telemetry reviewed No issues overnight. Still mild abdominal discomfort but no pain. No chest pains, shortness of breath, tachypalpitations. No arrhythmias on telemetry Review of Systems Review of Systems: All systems reviewed & are unremarkable except as noted in Subjective Physical Exam Physical Exam: Temp Pulse Resp BP Pulse Ox O2 Del Method 36.6 C 66 18 152/76 H 96 Room Air 07/11/22 15:04 07/11/22 15:04 07/11/22 15:04 07/11/22 15:04 07/11/22 15:04 07/11/22 15:04 Constitutional: WD/WN, vitals as above no acute distress ENMT: external ear and nose normal, oropharynx normal Neck: trachea midline, no thyromegaly Respiratory: normal respiratory effort, lungs clear to auscultation Cardiovascular: RRR, no murmur, no edema Rate/Rhythm: regular rate and regular rhythm Heart Sounds: no murmur Vessels: no JVD Extremities: no edema Gastrointestinal (Abdomen): Percussion/Palpation: + abdomen tender (Right upper quadrant tenderness) and abdomen soft; no guarding and no pulsatile mass Neurologic: PERRL, EOMI, accommodation nl, no face palsy, no dysarthria Results & Data Vital Signs (Past 12 Hours) Vital Signs Temp Pulse Pulse Resp BP BP Pulse Ox 07/12/22 21:30 36.7 C 62 22 165/76 H 98 07/12/22 21:30 07/13/22 02:50 36.7 C 68 18 150/72 H 96 07/12/22 23:54 67 07/12/22 23:39 36.5 C 79 16 143/68 H 95 Pulse Ox O2 Del Method O2 Del Method 07/12/22 21:30 Room Air 07/12/22 21:30 98 Room Air 07/13/22 02:50 Nasal Cannula 07/12/22 23:54 07/12/22 23:39 Room Air Laboratory Results Laboratory Results - last 24 hr 07/12/22 07/12/22 07/12/22 06:31 12:03 16:45 WBC RBC Hgb Hct MCV MCH MCHC RDW Std Deviation RDW Coeff of Emir Plt Count MPV Immature Gran % (Auto) Neut % (Auto) Lymph % (Auto) [place] % (Auto) Eos % (Auto) Baso % (Auto) Neut # (Auto) Lymph # (Auto) [place] # (Auto) Eos # (Auto) Baso # (Auto) Immature Gran # (Auto) Sodium 138 Potassium 4.1 Chloride 109 H Carbon Dioxide 23 Anion Gap 6 BUN 8 Creatinine 0.95 Est Cr Clr Drug Dosing 70.3 Est GFR ( Amer) 88.5 Est GFR (Non-Af Amer) 76.4 BUN/Creatinine Ratio 8.4 L Glucose 184 H POC Glucose 146 H 173 H Calcium 8.5 L Magnesium 1.7 Total Bilirubin 1.4 H D Direct Bilirubin 0.2 AST 17 ALT 21 Alkaline Phosphatase 50 Total Protein 5.6 L Albumin 3.2 L Globulin 2.4 L Albumin/Globulin Ratio 1.3 07/12/22 07/13/22 07/13/22 20:14 07:25 07:25 WBC 7.73 RBC 4.36 L Hgb 13.8 L Hct 40.1 L MCV 92.0 MCH 31.7 MCHC 34.4 RDW Std Deviation 41.6 RDW Coeff of Emir 12.3 Plt Count 120 L MPV 12.3 Immature Gran % (Auto) 0.3 Neut % (Auto) 65.8 Lymph % (Auto) 20.7 [place] % (Auto) 8.0 Eos % (Auto) 4.8 Baso % (Auto) 0.4 Neut # (Auto) 5.09 Lymph # (Auto) 1.60 [place] # (Auto) 0.62 H Eos # (Auto) 0.37 Baso # (Auto) 0.03 Immature Gran # (Auto) 0.02 Sodium 139 Potassium 4.0 Chloride 110 H Carbon Dioxide 23 Anion Gap 6 BUN 7 Creatinine 0.79 Est Cr Clr Drug Dosing 84.6 Est GFR ( Amer) 99.7 Est GFR (Non-Af Amer) 86.0 BUN/Creatinine Ratio 8.9 L Glucose 150 H POC Glucose 114 H Calcium 8.2 L Magnesium 1.7 Total Bilirubin 1.4 H Direct Bilirubin AST 17 ALT 19 Alkaline Phosphatase 45 Total Protein 5.5 L Albumin 3.1 L Globulin 2.4 L Albumin/Globulin Ratio 1.3 07/13/22 07:31 WBC RBC Hgb Hct MCV MCH MCHC RDW Std Deviation RDW Coeff of Emir Plt Count MPV Immature Gran % (Auto) Neut % (Auto) Lymph % (Auto) [place] % (Auto) Eos % (Auto) Baso % (Auto) Neut # (Auto) Lymph # (Auto) [place] # (Auto) Eos # (Auto) Baso # (Auto) Immature Gran # (Auto) Sodium Potassium Chloride Carbon Dioxide Anion Gap BUN Creatinine Est Cr Clr Drug Dosing Est GFR ( Amer) Est GFR (Non-Af Amer) BUN/Creatinine Ratio Glucose POC Glucose 126 H Calcium Magnesium Total Bilirubin Direct Bilirubin AST ALT Alkaline Phosphatase Total Protein Albumin Globulin Albumin/Globulin Ratio
[2022-07-13] MEDS ORDERED: ePHEDrine sulfate 50 MG/ML AMP IV PRN (09:39)
[2022-07-13] MEDS ORDERED: HYDROmorphone INJ 2 MG/ML SYR/VIAL IV PRN (09:39)
[2022-07-13] MEDS ORDERED: ONDANSETRON INJ 2 MG/ML 2 ML VIAL IV PRN (09:39)
[2022-07-13] MEDS ORDERED: ATROPINE SULFATE 0.1 MG/ML 10ML SYR IV PRN (09:39)
--- NOTE | 2022-07-13 09:39 | Anesthesiology Consultation ---
Date of Service July 13, 2022 Assessment & Plan ASA ASA3 Proposed Anesthesia Anesthesia Type: General Risk / Benefits Reviewed With: PT / POA / Parent / Guardian, Accepts Plan and Informed Consent Obtained Additional Comments: cardiac note reviewed History Surgery Operation Date: 07/13/22 10:35 Proposed Procedures p Laparoscopic Cholecystectomy - [place], Height/Weight Height: 6 ft Weight: 79.4 kg Allergies Allergy/AdvReac Type Severity Reaction Status Date / Time pollen extracts Allergy Intermediate ITCHY Verified 07/11/22 01:44 EYES, SNEEZING, CONGESTION cat dander Allergy Mild congestion Verified 07/11/22 01:44 dog dander Allergy Mild congestion Verified 07/11/22 01:44 Medications Home Medications Medication Instructions Recorded Confirmed Last Taken blood-glucose meter (OneTouch #1 ea 10/24/18 04/26/22 Unknown Ultra2 Meter) cetirizine 10 mg capsule 10 mg PO HS #90 caps 10/24/18 07/11/22 07/10/22 clopidogrel 75 mg tablet (Plavix) 75 mg PO QAM #90 tabs 10/24/18 07/11/22 07/10/22 fexofenadine 180 mg tablet 180 mg PO QAM #90 tabs 10/24/18 07/11/22 07/10/22 wmsryefs-[id number] acid 300 1 tab PO QAM #90 tabs 10/24/18 07/11/22 07/10/22 mcg-lycopene 600 mcg-lutein 300 mcg tablet (Centrum Silver Men) aspirin 81 mg tablet,delayed 81 mg PO 3XWK 04/16/19 07/11/22 07/09/22 release lisinopril 10 mg tablet 10 mg PO QAM 04/16/19 07/11/22 07/10/22 furosemide 20 mg tablet 20 mg PO 3XWK 02/22/20 07/11/22 07/10/22 ipratropium bromide 42 mcg (0.06 1 spray intranasal AMHS 02/22/20 07/11/22 07/10/22 %) nasal spray triamcinolone acetonide 55 mcg 1 spray intranasal QAM 02/22/20 07/11/22 07/10/22 nasal spray aerosol (Nasacort) glucagon 1 mg/0.2 mL subcutaneous 1 mg (0.2 mL) subcut ONCE PRN 02/28/20 07/11/22 Unknown auto-injector severe low sugar #0.2 mL lancets (OneTouch UltraSoft #200 ea 06/04/21 05/12/22 Unknown Lancets) potassium chloride 10 mEq 10 meq PO QAM #90 tabs 10/05/21 07/11/22 07/10/22 tablet,extended release pantoprazole 40 mg tablet,delayed 40 mg PO BID #180 tabs 10/13/21 07/11/22 07/10/22 release isosorbide mononitrate 30 mg 30 mg PO QAM #90 tabs 10/14/21 07/11/22 07/10/22 tablet,extended release 24 hr carvedilol 3.125 mg tablet (Coreg) 3.125 mg PO BIDM #180 tabs 12/07/21 07/11/22 07/10/22 saxagliptin 5 mg tablet (Onglyza) 5 mg PO QPM #90 tabs 12/14/21 07/11/22 07/10/22 albuterol sulfate 90 mcg/actuation 2 puff inhalation Q6H PRN 01/26/22 07/11/22 Unknown aerosol inhaler (Ventolin HFA) Shortness Of Breath Or Wheezing #18 grams fluticasone fur. 200 mcg-umeclid 1 inh inhalation DAILY #60 ea 02/22/22 07/11/22 07/10/22 62.5 mcg-vilant 25 mcg inhalat.powder (Trelegy Ellipta) glimepiride 1 mg tablet See Rx Instructions PO BID #450 02/22/22 07/11/22 07/10/22 tabs atorvastatin 80 mg tablet 80 mg PO QDD #90 tabs 05/17/22 07/11/22 07/10/22 insulin NPH isoph U-100 human 100 42 unit subcut 07/11/22 07/11/22 07/10/22 unit/mL subcutaneous suspension (Novolin N NPH U-100 Insulin isophane) tamsulosin 0.4 mg capsule (Flomax) 0.4 mg PO 07/11/22 07/11/22 07/10/22 Active Medications Generic Name Dose Route Start Last Admin Trade Name Freq PRN Reason Stop Dose Admin Aspirin 81 mg 07/11/22 16:00 07/13/22 07:47 Aspirin 81 Mg Ectab PO 08/10/22 15:59 81 mg QAM CHANTELL Administration Atorvastatin Calcium 80 mg 07/11/22 16:00 07/13/22 07:47 Atorvastatin 40 Mg Tab PO 08/10/22 15:59 80 mg QAM CHANTELL Administration Benzonatate 100 mg 07/12/22 16:22 07/12/22 21:04 Benzonatate 100 Mg Capsule PO 08/11/22 16:21 100 mg TID PRN Administration Cough Carvedilol 3.125 mg 07/11/22 08:20 07/13/22 07:47 Carvedilol 3.125 Mg Tab PO 08/10/22 08:19 3.125 mg BIDM CHANTELL Administration Enoxaparin Sodium 40 mg 07/12/22 09:00 07/13/22 07:51 Enoxaparin Inj 40 Mg/0.4 Ml Syr SQ 08/11/22 08:59 Not Given QAM CHANTELL Fluticasone/Vilanterol 1 puffs 07/11/22 09:00 07/13/22 07:50 Fluticasone/Vilanterol 200/25mcg 14 Puffs/Inhaler INH 08/10/22 08:59 1 puffs DAILY CHANTELL Administration Pantoprazole Sodium 40 mg/ 10 mls @ 5 mls/min 07/11/22 11:00 07/12/22 09:40 Syringe IV 08/10/22 10:59 5 mls/min DAILY@1100 CHANTELL Administration Potassium Chloride/Sodium Chloride 20 meq in 1,000 mls @ 80 mls/hr 07/11/22 08:20 07/13/22 04:30 Normal Saline W/20 Meq Kcl IV 08/10/22 08:19 80 mls/hr .[id number] CHANTELL Administration Ceftriaxone Sodium 2,000 mg/ 50 mls @ 100 mls/hr 07/13/22 09:00 07/13/22 08:45 Dextrose IV 07/21/22 09:29 Infused Q24H CHANTELL Infusion Protocol Metronidazole 500 mg in 100 mls @ 100 mls/hr 07/12/22 10:00 07/13/22 02:39 Flagyl IV 07/22/22 07:59 Infused Q8H CHANTELL Infusion Insulin Aspart 0 units 07/11/22 08:20 07/13/22 07:46 Insulin Aspart Per Unit Charge SC 08/10/22 08:19 Not Given ACHS CHANTELL Ipratropium [place] 1 sprays 07/11/22 09:00 07/13/22 07:50 Ipratropium [place] Nasal [place] 0.06% 15ml CORBY 08/10/22 08:59 1 sprays AMHS CHANTELL Administration Isosorbide Mononitrate 30 mg 07/11/22 09:00 07/13/22 07:47 Isosorbide [place] Extended Rel 30 Mg Tabcr PO 08/10/22 08:59 30 mg QAM CHANTELL Administration Morphine Sulfate 4 mg 07/11/22 08:20 07/12/22 07:40 Morphine Sulfate 4 Mg/Ml 1 Ml Carp\Vial IV 07/25/22 08:19 4 mg Q3H PRN Administration Mod-Sev Pain (Scale 4-10) Ondansetron HCl 4 mg 07/11/22 08:20 07/13/22 06:39 Ondansetron Inj 2 Mg/Ml 2 Ml Vial IV 08/10/22 08:19 4 mg Q6H PRN Administration Nausea Umeclidinium [place] 1 puffs 07/11/22 09:00 07/13/22 07:50 Umeclidinium [place] 62.5mcg/Blister 7 Puffs/Inhaler INH 08/10/22 08:59 1 puffs DAILY CHANTELL Administration NPO Date Last Intake of Fluids: 07/12/22 Time Last Intake of Fluids: 23:00 Date Last Intake of Solids: 07/12/22 Time Last Intake of Solids: 23:00 Past Medical History Medical History Asthma LAST USED RESCUE INHALER>LAST MONTH Bruising Chronic reflux esophagitis Cough Early satiety GERD (gastroesophageal reflux disease) Hearing deficit History of anxiety History of COVID-19 02/28/20>TERRIBLE COUGH/FATIGUE *RESOLVED History of Mohs micrographic surgery for skin cancer RT/LEFT SIDE OF FACE/CHEEK AREA History of skin cancer Hyperlipidemia Medicare annual wellness visit, subsequent Myocardial Infarction 2018 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 Exercise / Class Metabolic Activity II 4-5 Yardwork/Stairs/Walk up hill Past Family History Family History Mother Colorectal cancer Sister Diabetes Breast cancer Brother Diabetes Hx of CABG Son Legg-Perthes disease Father Colorectal cancer Other Myocardial infarction No family history of adverse response to anesthesia Denies family history of Ovarian cancer Prostate cancer Past Surgical History Surgical History H/O hand surgery Left hand - Dr. Haney 06/25/2020 History of cardiac cath NO STENTS History of cataract surgery RT/LEFT History of colonoscopy History of hernia repair ABDOMINAL HERNIA REPAIR History of tooth extraction Hx of CABG 4 VESSELS>2017 AT [facility] *FOLLOWED BY DR. HUGHES S/P trigger finger release Past Anesthesia History No Hx of Anesthesia Complications and No Family Hx of Anesthesia Complications History of PONV No Hx of PONV and No Hx of Motion Sickness Social History Smoking Status: Never smoker Hx Alcohol Use: No Hx Substance Use: No Review of Systems denies fever/cough/ colds/ chest pain/ SOB/ NAJMA denies NAJMA Physical Exam Vital Signs Last Vital Signs Temp 36.5 C 07/13/22 09:13 Pulse 65 07/13/22 09:13 Resp 18 07/13/22 09:13 BP 146/83 H 07/13/22 09:13 Pulse Ox 98 07/13/22 09:13 O2 Del Method Room Air 07/13/22 09:13 ENMT Mouth: no TMJ abnormality and no dentition abnormality Thyromental Distance: > or= 3.5 Finger Breadths Mallampati Class: II Neck neck extension not limited Respiratory normal respiratory effort; no respiratory distress Auscultation: lungs clear to auscultation bilaterally Cardiovascular Rate/Rhythm: regular rate and regular rhythm Neurologic moves all extremities Psychiatric Orientation: alert and oriented x 3 Testing Laboratory Results 07/13/22 07:25 07/13/22 07:25 Hemoglobin A1c 8.8 % (4.5-5.6) H 07/12/22 06:31 07/13/22 07/13/22 09:24 07:31 POC Glucose 160 H 126 H
[2022-07-13] MEDS ORDERED: BUPIVACAINE/EPINEPHRINE 0.25% 1:200,000 30 ML VIAL ONE (09:49)
--- NOTE | 2022-07-13 09:53 | Surgery Progress Note ---
Date of Service July 13, 2022 Assessment & Plan (1) Acute cholecystitis: Plan: HIDA images and results personally viewed by myself, consistent with cholecystitis We will plan on laparoscopic cholecystectomy, possible open, possible intraoperative cholangiogram today Consent was obtained, risk discussed including bleeding, infection, bile leak, ductal injury He has held his Plavix for the last 3 days, but will certainly be at an increased risk of bleeding due to The patient is aware of this and would like to proceed with surgery Admission and Anticipated Discharge Date Admission Date: July 11, 2022 Subjective Patient seen and examined. Still with some right upper quadrant pain. Afebrile. HIDA scan was positive yesterday. Review of Systems Constitutional: no fever and no chills Physical Exam Constitutional: WD/WN, vitals as above Gastrointestinal (Abdomen): Inspection/Auscultation: abdomen normal to inspection; abdomen not distended Percussion/Palpation: + abdomen tender (Right upper quadrant), + guarding and abdomen soft; abdomen not rigid and no hernia Results & Data Vital Signs (Past 12 Hours) Vital Signs Temp Pulse Pulse Resp BP BP Pulse Ox 07/13/22 09:13 36.5 C 65 18 146/83 H 98 07/13/22 02:50 36.7 C 68 18 150/72 H 96 07/12/22 23:54 67 07/12/22 23:39 36.5 C 79 16 143/68 H 95 O2 Del Method 07/13/22 09:13 Room Air 07/13/22 02:50 Nasal Cannula 07/12/22 23:54 07/12/22 23:39 Room Air PG Care Time/CCT Total # of Minutes Spent Total Time Spent with Patient: Total time spent is greater than 50% in coordination of care (as documented) at patient's floor/unit and/or counseling patient: Coding Level of Care Code 50513 SUB INP/OBS CARE 04/21MIN Diagnoses Acute cholecystitis K81.0
[2022-07-13] MEDS ORDERED: DEXAMETHASONE SOD INJ 4 MG/ML VIAL ONE ×2 (10:23)
[2022-07-13] MEDS ORDERED: PHENYLEPHRINE 100MCG/ML 5ML SYR ONE (10:37)
[2022-07-13] MEDS ORDERED: GLYCOPYRROLATE 0.2 MG/ML VIAL ONE (10:39)
[2022-07-13] MEDS ORDERED: NEOSTIGMINE METHYLSULFATE 1 MG/ML 10ML VIAL ONE (10:39)
[2022-07-13] MEDS ORDERED: FLOSEAL HEMOSTATIC MATRIX 10ML TOP ONE (10:55)
--- NOTE | 2022-07-13 11:22 | Post Operative Brief Note ---
PG Immediate Post Op with CF Date of Surgery July 13, 2022 Pre & Post Diagnosis Operation Date: 07/13/22 10:35 Pre-Op Diagnosis: Acute cholecystitis Post-Op Diagnosis: Acute cholecystitis I identified the patient and participated in the time-out.: Yes Procedure Operation Date: 07/13/22 10:35 Actual Procedures p Laparoscopic Cholecystectomy(Not Applicable) - Nicanor Park DO Surgeon Nicanor Park DO Insulation Board Coater Operator Columba Callejas PA-C Estimated Blood Loss 25 Findings See Below Acutely inflamed, thickened gallbladder consistent with acute cholecystitis Specimens Specimen Description: A. Gallbladder and contents Anesthesia Type General Complications none Disposition Disposition: Recovery Room
--- NOTE | 2022-07-13 11:26 | Operative Report ---
PG Post Operative Report Pre & Post Diagnosis Operation Date: 07/13/22 10:35 Pre-Op Diagnosis: Acute cholecystitis Post-Op Diagnosis: Acute cholecystitis I identified the patient and participated in the time-out.: Yes Procedure Operation Date: 07/13/22 10:35 Actual Procedures p Laparoscopic Cholecystectomy(Not Applicable) - Nicanor Park DO Surgeon Nicanor Park DO Flight Information Expediter Columba Callejas PA-C Estimated Blood Loss 25 Findings See Below Acutely inflamed, thickened gallbladder consistent with acute cholecystitis Fluids see anesthesia record Specimens Gallbladder to pathology Drains None Anesthesia Type General Complications none Disposition Disposition: Recovery Room Indications 77-year-old male on Plavix for CAD with acute cholecystitis Description of Procedure The patient was brought to the operating room and placed in the supine position with both arms extended. At this time he underwent general endotracheal anesthesia without any problems. He was given appropriate pre-operative antibiotics. His abdomen prepped and draped in the usual sterile fashion. A timeout was called, the procedure was verified as Laparoscopic cholecystectomy, possible open, possible intra-operative cholangiogram. Surgical, nursing and anesthesia teams agreed and the procedure was begun. After injection of 0.25% Marcaine with epinephrine, a supraumbilical vertical incision was made and carried down to the fascia using S-retractors. The abdominal wall was then elevated with towel clamps and abdomen entered using the Veress needle confirming position using the saline drop test. Pneumoperitoneum was established. 5mm trocar was placed. Laparoscope was introduced. No injury from entry into the abdomen was visualized after inspection of the abdomen. Three further ports were placed under direct visualization. One 11mm in the subxiphoid region and two 5mm in the RUQ. At this time the abdomen was inspected and the gallbladder identified. The gallbladder fundus was grasped and retracted cephalad. The gallbladder itself was distended, had a thickened wall and inflamed consistent with acute cholecystitis. The gallbladder infundibulum was then grasped and retracted laterally. The cystic duct and cystic artery were then identified and skeletonized. The critical view of safety was obtained. They were both then clipped twice proximally and once distally and then divided using scissors. The gallbladder was then taken off of the liver bed using electrocautery and placed in an endocatch bag and removed from the subxiphoid port. The liver bed was then inspected and no bile leak or bleeding was evident. The subxiphoid port was then closed using 0-Vicryl using the suture passer. The trocars were then removed under direct visualization and no bleeding was present. Abdomen was desufflated. The skin was then closed using 4-0 Monocryl in a subcuticular fashion. Surgical glue was applied. Needle and sponge counts were correct x 2. At this time the patient was awoken from anesthesia and extubated having remained stable throughout the entire case. The patient was then transported to PACU in stable condition. The physician assistant hall director was present scrubbed for the entire case. She was essential in positioning, prepping and draping the patient, driving the laparoscope, retraction and exposure, closure of the incisions and placement of the dressings. I attest to the content of the Intraoperative Record and any orders documented therein. Any exceptions are noted below.
[2022-07-13] MEDS: fentaNYL citrate PF 100 MCG/2 ML VIAL IV PRN ×2 (11:57→12:03)
[2022-07-13] MEDS ORDERED: oxyCODONE HCL IR 5 MG TAB (IMMEDIATE RELEASE) PO PRN ×2 (12:51)
[2022-07-13] MEDS ORDERED: MoRPHine SULFATE 2 MG/ML CARP IV PRN (12:51)
--- NOTE | 2022-07-13 13:05 | Anesthesiology Progress Note ---
Date of Service July 13, 2022 Anesthesia Post Procedure Vital Signs Vital Signs: Temp Pulse Pulse Pulse Resp BP BP 07/13/22 12:51 36.7 C 77 20 163/75 H 07/13/22 12:20 36.3 C L 72 16 156/73 H 07/13/22 12:10 75 16 150/67 H 07/13/22 12:00 76 17 152/66 H 07/13/22 11:45 72 14 146/61 H 07/13/22 11:35 75 20 149/64 H 07/13/22 11:28 36.4 C L 80 20 149/77 H 07/13/22 08:00 67 07/13/22 09:13 36.5 C 65 18 146/83 H 07/12/22 21:30 36.7 C 62 22 165/76 H 07/12/22 21:30 07/13/22 02:50 36.7 C 68 18 150/72 H 07/12/22 23:54 67 07/12/22 23:39 36.5 C 79 16 143/68 H 07/12/22 19:15 36.6 C 59 L 18 156/70 H 07/12/22 16:00 76 07/12/22 15:46 36.9 C 76 16 119/53 L Pulse Ox Pulse Ox O2 Del Method O2 Del Method O2 Flow Rate 07/13/22 12:51 95 Nasal Cannula 2 07/13/22 12:20 95 Nasal Cannula 2 07/13/22 12:10 95 Nasal Cannula 2 07/13/22 12:00 93 Room Air 07/13/22 11:45 97 Oxymask 4 07/13/22 11:35 96 Oxymask 4 07/13/22 11:28 93 Oxymask 4 07/13/22 08:00 07/13/22 09:13 98 Room Air 07/12/22 21:30 98 Room Air 07/12/22 21:30 98 Room Air 07/13/22 02:50 96 Nasal Cannula 07/12/22 23:54 07/12/22 23:39 95 Room Air 07/12/22 19:15 96 Room Air 07/12/22 16:00 07/12/22 15:46 92 Room Air Pain Intensity Abdomen: Pain Intensity: 3 Transfer of Care Handoff Completed per policy Notes Mental Status: alert / awake / arousable and participated in evaluation Patient Amnestic to Procedure: Yes Nausea / Vomiting: adequately controlled Pain: adequately controlled Airway Patency, RR, SpO2: stable & adequate BP & HR: stable & adequate Hydration State: stable & adequate Anesthetic Complications: no major complications apparent and Pt Satisfied with anesthetic care
[2022-07-13] MEDS: MoRPHine SULFATE 4 MG/ML 1 ML CARP\\VIAL IV PRN ×3 (14:21→20:11)
[2022-07-13] MEDS ORDERED: COUGH DROP (SUGAR FREE) LOZ 24 LOZ/1 BOX BUCCAL PRN (18:38)
--- NOTE | 2022-07-13 18:55 | Hospitalist Progress Note ---
Date of Service July 13, 2022 Assessment & Plan (1) Cholelithiasis: Plan: acute cholecystitis, high risk MRCP with Noted cholelithiasis with acute cholecystitis, HIDA with no uptake of trace, suggestive of acute cholecystitis , total bili slightly up, transaminas es normal Or 07/13/22 ceftriaxone and flagyl Zofran 4 mg IV every 6 hours as needed Pantoprazole 40 mg IV daily Acetaminophen 1 g IV every 8 hours as needed mild pain or fever Morphine sulfate 4 mg IV every 3 hours as needed moderate to severe pain Diet - clear liquids (carb consistent) started post op Lovenox 40mg started along with SCDs while in bed Pre op [facility] consult for risk optimization, Dr Garcia recommends hold plavix but continue asprin, pending echo continue carvedilol, isosorbide and atorvastatin (2) Coronary artery disease: Plan: Chronic/stable CAD/hypertension/history of [place]/status post CABG on 10/26/2017/ischemic cardiomyopathy Examination and laboratories not consistent with cardiac issues Patient was admitted to med/surg Tele Held clopidogrel and lisinopril Continue isosorbide mononitrate 30mg and Carvedilol 3.125 BID Started SCDs while in bed, Lovenox 40mg SQ (3) 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: Plan: Chronic/stable Hold glimepiride, Novolin and and saxagliptin glucose elevated start basal as is no nph hs at home, tighten scale 07/13/22 Last HgbA1C was 8.3 04/20/22 receck 8.8 (4) Asthma: Plan: Chronic/stable Continue Trelegy Ellipta, prn Ventolin Saturating 94% on RA (5) Benign essential hypertension: Plan: Chronic/stable Lisinopril held Continue Coreg and Imdur (6) GERD (gastroesophageal reflux disease): Plan: Chronic/stable Continue Protonix 40mg daily (currently IV, if no surgery and advance diet will change to PO ) Admission and Anticipated Discharge Date Admission Date: July 11, 2022 Subjective pt was taken to laproscopic cholecystectomy, seen postoperatively Physical Exam Physical Exam: Pt is groggy post procedure, wants to sleep some mild abdominal pain Results & Data Results & Data Vital Signs (Past 12 Hours) Vital Signs Temp Pulse Pulse Pulse Pulse Resp BP 07/13/22 16:00 81 07/13/22 14:00 72 07/13/22 15:06 97.3 F L 82 16 152/74 H 07/13/22 12:51 98.1 F 77 20 163/75 H 07/13/22 12:20 97.3 F L 72 16 156/73 H 07/13/22 12:10 75 16 150/67 H 07/13/22 12:00 76 17 152/66 H 07/13/22 11:45 72 14 146/61 H 07/13/22 11:35 75 20 149/64 H 07/13/22 11:28 97.5 F L 80 20 149/77 H 07/13/22 08:00 67 07/13/22 09:13 97.7 F 65 18 146/83 H Pulse Ox O2 Del Method O2 Flow Rate 07/13/22 16:00 07/13/22 14:00 07/13/22 15:06 95 Nasal Cannula 2 07/13/22 12:51 95 Nasal Cannula 2 07/13/22 12:20 95 Nasal Cannula 2 07/13/22 12:10 95 Nasal Cannula 2 07/13/22 12:00 93 Room Air 07/13/22 11:45 97 Oxymask 4 07/13/22 11:35 96 Oxymask 4 07/13/22 11:28 93 Oxymask 4 07/13/22 08:00 07/13/22 09:13 98 Room Air PG Care Time/CCT Total # of Minutes Spent Total Time Spent with Patient: Total time spent is greater than 50% in coordination of care (as documented) at patient's floor/unit and/or counseling patient: Coding Level of Care Code 86690 SUB INP/OBS CARE MIN Diagnoses Cholelithiasis K80.20 Coronary artery disease I25.10 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
[2022-07-13] MEDS: BENZONATATE 100 MG CAPSULE PO PRN (20:11)
[2022-07-13] MEDS ORDERED: LANTUS PER UNIT CHARGE SQ SCH (21:00)
[2022-07-14] MEDS: metroNIDAZOLE 500 MG/100 ML BAG IV SCH ×3 (01:28→17:53)
[2022-07-14] MEDS: MoRPHine SULFATE 4 MG/ML 1 ML CARP\\VIAL IV PRN (03:48)
[2022-07-14 06:41] LABS: Hematocrit (blood only) 37.3 % (42.0-52.0); Hemoglobin 13.2 g/dl (14.0-18.0); Immature Granulocytes # (auto) 0.04 K/uL (0.01-0.20); Immature Granulocytes % (auto) 0.4 %; Lymphocytes # (auto) 0.99 K/uL (1.2-3.4); Mean Corpuscular Hgb Conc 35.4 g/dL (32.0-36.0); Mean Corpuscular Volume 90.5 fL (80.0-100.0); Mean Platelet Volume 12.1 fL (9.4-12.4); Monocytes # (auto) 0.48 K/uL (0.11-0.59); Monocytes % (auto) 4.4 %; Neutrophils # (auto) 9.49 K/uL (1.40-6.50); Neutrophils % (auto) 86.2 %; Platelet Count 135 K/uL (130-400); RDW Coefficient of Variation 11.9 % (11.5-14.5); RDW Standard Deviation 39.4 fL (36.4-46.3); Red Blood Count 4.12 M/uL (4.70-6.10)
[2022-07-14 07:05] LABS: Albumin Globulin Ratio 1.3 (0.9-2); Albumin Level 3.1 gm/dl (3.4-5.0); BUN Creatinine Ratio 16.3 (10-20); Bilirubin,Total 0.8 mg/dl (0.2-1.0); Calcium 7.9 mg/dl (8.6-10.3); Creatinine Clr Calc Pharmacy 82.7 ml/min; Est GFR (African American) 99.2 ml/min; Est GFR (Non-African American) 85.6 ml/min; Globulin 2.3 gm/dl (2.5-4.0); Magnesium 1.7 mg/dl (1.7-2.4); Potassium 4.3 mmol/L (3.5-5.1); Total Protein 5.4 gm/dl (6.0-8.3)
[2022-07-14] MEDS: PANTOprazole 40 MG in SYRINGE 0 ML IV SCH ×2 (07:11→10:41)
--- NOTE | 2022-07-14 07:42 | Surgery Progress Note ---
Date of Service July 14, 2022 Assessment & Plan (1) Acute cholecystitis: Plan: POD#1 laparoscopic cholecystectomy WBC 11, Hbg 13 (13). LFTs unremarkable Pain controlled. Tolerating a clear liquid diet, no n/v Will advance to regular diabetic this AM and see how he fairs Likely hold plavix for one more day, but will discuss with surgeon when timing is okay to resume Will need f/u in clinic with Dr. Park within 2 weeks time Admission and Anticipated Discharge Date Admission Date: July 11, 2022 Supervising Physician Co-Signing Physician Notes I personally saw and evaluated the patient with Columba Callejas PA-C and agree with the assessment and plan. 77-year-old male postoperative day 1 laparoscopic cholecystectomy He is doing well tolerating regular diet No need for antibiotics from a surgical standpoint As always he continues to tolerate his diet and is up and ambulating without much pain he can be discharged later today He can resume his Plavix Tuesday morning My office will reach out to him and set up follow-up for 2 weeks from now Subjective Patient reports feeling well. Pain controlled, majority of pain noted at epigastric incision. Otherwise tolerating clears, no nausea/vomiting. Physical Exam Physical Exam: awake/alert, no distress Respiratory: normal respiratory effort Gastrointestinal (Abdomen): Inspection/Auscultation: + abdominal surgical incision (surgical dressings c/d/i, some scant bloody drainage to umbilical site); abdomen not distended Percussion/Palpation: + abdomen tender (mild richard incisional discomfort to palpation) and abdomen soft Results & Data Vital Signs (Past 12 Hours) Vital Signs Temp Pulse Pulse Resp BP Pulse Ox O2 Del Method 07/14/22 07:27 69 07/14/22 07:00 36.6 C 73 20 160/71 H 95 Room Air 07/14/22 03:00 36.6 C 71 20 160/70 H 96 Nasal Cannula 07/13/22 23:26 75 07/13/22 22:00 36.8 C 72 18 145/71 H 95 Nasal Cannula O2 Flow Rate 07/14/22 07:27 07/14/22 07:00 07/14/22 03:00 2 07/13/22 23:26 07/13/22 22:00 2 PG Care Time/CCT Total # of Minutes Spent Total Time Spent with Patient: Total time spent is greater than 50% in coordination of care (as documented) at patient's floor/unit and/or counseling patient: Coding Level of Care Code 13446 Post Operative Follow-Up Diagnoses Acute cholecystitis K81.0
--- NOTE | 2022-07-14 08:21 | Hospitalist Progress Note ---
Date of Service July 14, 2022 Assessment & Plan (1) Cholelithiasis: Plan: acute cholecystitis, high risk MRCP with Noted cholelithiasis with acute cholecystitis, HIDA with normal GB EF , total bili slightly up, transaminases normal ceftriaxone and flagyl Zofran 4 mg IV every 6 hours as needed Pantoprazole 40 mg IV daily Acetaminophen 1 g IV every 8 hours as needed mild pain or fever Morphine sulfate 4 mg IV every 3 hours as needed moderate to severe pain Diet - clear liquids (carb consistent) Lovenox 40mg started along with SCDs while in bed Pre op [facility] consult for risk optinization, Dr Garcia recommneds hold plavix but continue asprin, pending echo continue carvedilol, isosorbide and atorvastatin (2) Coronary artery disease: Plan: Chronic/stable CAD/hypertension/history of [place]/status post CABG on 10/26/2017/ischemic cardiomyopathy Examination and laboratories not consistent with cardiac issues Patient was admitted to med/surg Tele Held clopidogrel and lisinopril Continue isosorbide mononitrate 30mg and Carvedilol 3.125 BID Started SCDs while in bed, Lovenox 40mg SQ (3) 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: Plan: Chronic/stable Hold glimepiride, Novolin and and saxagliptin On Accu-Cheks with NovoLog SSI, added glargine and increased dose 07/14, will eventually get back to NPH Last HgbA1C was 8.3 04/20/22 receck 8.8 (4) Asthma: Plan: Chronic/stable Continue Trelegy Ellipta, prn Ventolin Saturating 94% on RA (5) Benign essential hypertension: Plan: Chronic/stable Lisinopril held Continue Coreg and Imdur (6) GERD (gastroesophageal reflux disease): Plan: Chronic/stable Continue Protonix 40mg daily (currently IV, if no surgery and advance diet will change to PO ) Admission and Anticipated Discharge Date Admission Date: July 11, 2022 Results & Data Results & Data Vital Signs (Past 12 Hours) Vital Signs Temp Pulse Pulse Resp BP Pulse Ox O2 Del Method 07/14/22 07:27 69 07/14/22 07:00 97.9 F 73 20 160/71 H 95 Room Air 07/14/22 03:00 97.9 F 71 20 160/70 H 96 Nasal Cannula 04/18/23 23:26 75 07/13/22 22:00 98.2 F 72 18 145/71 H 95 Nasal Cannula O2 Flow Rate 07/14/22 07:27 07/14/22 07:00 07/14/22 03:00 2 07/13/22 23:26 07/13/22 22:00 2 PG Care Time/CCT Total # of Minutes Spent Total Time Spent with Patient: Total time spent is greater than 50% in coordination of care (as documented) at patient's floor/unit and/or counseling patient: Coding Diagnoses Cholelithiasis K80.20 Coronary artery disease I25.10 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
[2022-07-14] MEDS: carvediloL 3.125 MG TAB PO SCH ×2 (08:33→17:53)
[2022-07-14] MEDS: ATORVASTATIN 40 MG TAB PO SCH (08:34)
[2022-07-14] MEDS: ASPIRIN 81 MG ECTAB PO SCH (08:34)
[2022-07-14] MEDS: cefTRIAXone SODIUM 2,000 MG in DEXTROSE 5% AD-VAN 50 ML IV SCH (08:34)
[2022-07-14] MEDS: FLUTICASONE/VILANTEROL 200/25MCG 14 PUFFS/INHALER INH SCH (08:34)
[2022-07-14] MEDS: IPRATROPIUM BROMIDE NASAL SPRAY 0.06% 15ML NAE SCH (08:35)
[2022-07-14] MEDS: UMECLIDINIUM BROMIDE 62.5MCG/BLISTER 7 PUFFS/INHALER INH SCH (08:36)
[2022-07-14] MEDS: ISOSORBIDE MONO EXTENDED REL 30 MG TABCR PO SCH (08:36)
[2022-07-14] MEDS: INSULIN ASPART PER UNIT CHARGE SC SCH ×3 (08:41→17:51)
[2022-07-14] MEDS ORDERED: LANTUS PER UNIT CHARGE SQ SCH (09:00)
--- NOTE | 2022-07-14 10:26 | Cardiology Progress Note ---
Date of Service July 14, 2022 Assessment & Plan (1) Acute epigastric pain: (2) Coronary artery disease: (3) Preoperative cardiovascular examination: Plan: Mr Del Real is a 77-year-old [place] who presents with epigastric and right upper quadrant abdominal discomfort onset last evening 10 PM. He has a longstanding history of left bundle branch block which dates back to at least 2010. In 2018, he presented with acute abdominal discomfort, and was seen by t he undersigned in consultation, and diagnosed with a non-ST segment elevation myocardial infarction at that time and cardiac catheterization revealed multivessel coronary heart disease for which he underwent subsequent CABG x4. Most recent ejection fraction as measured by echocardiogram a year ago April, was stable at 41%. Plan 77-year-old male with known coronary disease and ischemic cardiomyopathy with compensated class I 2 functional capacity on guideline directed medical regimen. Findings consistent with cholelithiasis/cholecystitis EKG with chronic left bundle branch block no troponin or cardiac enzyme elevation. Echocardiogram not changed from prior studies ejection fraction 45% No signs of heart failure valvular heart disease or acute angina/myocardial ischemia Discussed in detail with patient. No contraindications to proceeding with surgery though with elevated risk given known coronary disease Clopidogrel on hold patient previously on dual antiplatelet therapy after shared decision making patient requested continuation. May consider stopping postsurgically 07/14/2021 Tolerated surgery well Recommendations: Chronic cough with mild wheezing this morning incentive spirometry will be ordered. May resume lisinopril for hypertension and cardiac effect. Continue to hold Plavix but maintain daily aspirin on discharge Admission and Anticipated Discharge Date Admission Date: July 11, 2022 Subjective Patient was seen and examined, chart, medications, telemetry reviewed. Tolerated surgery well. Minor incisional pain currently this morning but no abdominal discomfort. No chest pains or shortness of breath. No arrhythmia Blood pressure trending upward Mild chronic cough Review of Systems Review of Systems: All systems reviewed & are unremarkable except as noted in Subjective Physical Exam Physical Exam: Temp Pulse Resp BP Pulse Ox O2 Del Method 36.6 C 66 18 152/76 H 96 Room Air 07/11/22 15:04 07/11/22 15:04 07/11/22 15:04 07/11/22 15:04 07/11/22 15:04 07/11/22 15:04 Constitutional: WD/WN, vitals as above no acute distress ENMT: external ear and nose normal, oropharynx normal Neck: trachea midline, no thyromegaly Respiratory: Scattered wheezes with forced cough Cardiovascular: RRR, no murmur, no edema Rate/Rhythm: regular rate and regular rhythm Heart Sounds: no murmur Vessels: no JVD Extremities: no edema Gastrointestinal (Abdomen): Percussion/Palpation: abdomen soft; no guarding Surgical incision sites bandaged without drainage Neurologic: PERRL, EOMI, accommodation nl, no face palsy, no dysarthria Results & Data Vital Signs (Past 12 Hours) Vital Signs Temp Pulse Pulse Resp BP Pulse Ox O2 Del Method 07/14/22 07:27 69 07/14/22 07:00 36.6 C 73 20 160/71 H 95 Room Air 07/14/22 03:00 36.6 C 71 20 160/70 H 96 Nasal Cannula 07/13/22 23:26 75 O2 Flow Rate 07/14/22 07:27 07/14/22 07:00 07/14/22 03:00 2 07/13/22 23:26
[2022-07-14] MEDS: NSS + 20MEQ KCL 20 MEQ/1,000 ML BAG IV SCH (10:40)
--- NOTE | 2022-07-14 17:10 | Discharge Summary ---
Date of Service July 14, 2022 Admission HPI Per Admitting Provider The patient is a 77-year-old male with a past medical history including CAD, hypertension, NSTEMI, pyelonephritis, BPH, asthma, hypercholesterolemia, generalized anxiety disorder, GERD, depression, chronic reflux esophagitis, chronic left bundle branch block, ischemic cardiomyopathy with ejection fraction of 40%, peripheral neuropathy, and status post CABG x4 on 10/26/2017. The patient presents to the emergency department with a cute onset of severe epigastric and periumbilical pain after having had a hot dog right before going to bed. The symptoms were accompanied by nausea without vomiting. Due to the severity of the pain, and his concern regarding possible heart issues with his previous history of heart disease, he came to the emergency department for assessment. Principal Diagnosis acute cholecystitis, s/p cholecystectomy Discharge Exam awake and alert abd is non tender with NABS Discharge Data Allergies Allergy/AdvReac Type Severity Reaction Status Date / Time pollen extracts Allergy Intermediate ITCHY Verified 07/11/22 01:44 EYES, SNEEZING, CONGESTION cat dander Allergy Mild congestion Verified 07/11/22 01:44 dog dander Allergy Mild congestion Verified 07/11/22 01:44 Consultations 07/11/22 03:42 ED Decision to Admit Stat 07/11/22 05:13 Consult General Surgery Routine 07/11/22 14:48 Consult Cardiology Routine Procedures Performed Operation Date: 07/13/22 10:35 Actual Procedures p Laparoscopic Cholecystectomy(Not Applicable) - Nicanor Park, Ordered Studies 07/11/22 00:48 gallbladder Stat 07/11/22 05:12 MR MRCP Urgent Hospital Course (1) Cholelithiasis: acute cholecystitis, high risk s/p cholecystectomy MRCP with Noted cholelithiasis with acute cholecystitis, HIDA with normal GB EF , total bili slightly up, transaminases normal ceftriaxone and flagyl, stopped at discharge Pre op [facility] consult for risk optinization, Dr Garcia recommended to hold plavix but continue asprin, echo reviewed, will restart plavix 07/16/22 continue carvedilol, isosorbide and atorvastatin (2) Coronary artery disease: Chronic/stable CAD/hypertension/history of [place]/status post CABG on 10/26/2017/ischemic cardiomyopathy Held clopidogrel and lisinopril Continue lisinopril, isosorbide mononitrate 30mg and Carvedilol 3.125 BID, restart plavix 07/16/22 (3) 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: Chronic/stable glimepiride, Novolin and and saxagliptin Last HgbA1C was 8.3 04/20/22 receck 8.8 (4) Asthma: Chronic/stable Continue Trelegy Ellipta, prn Ventolin (5) Benign essential hypertension: Chronic/stable Lisinopril held Continue Coreg and Imdur (6) GERD (gastroesophageal reflux disease): Chronic/stable Continue Protonix 40mg daily Total Time Total Time Spent Total Time Spent (In Minutes): required >30 minutes to create discharge summary Discharge Plan Discharge Items Patient Disposition: Home - Self-Care Reason For Visit: EPIGASTRIC/RUQ PAIN, GALLSTONES Discharge Diagnosis: laparoscopic cholecystectomy Activity: Per Instructions section Lifting: No more than 10 pounds Bathing Comment: may shower starting 07/14/22; no soaking in tubs/pools Exercise/Sports: Wait until after follow-up appointment Driving/Machine Use: no driving while taking narcotics for pain Non-emergency contact: Primary Care Provider and Surgeon Call non-emergency contact if: you have any medication questions, your pain is not controlled, your pain is worsening, you have a fever, your temperature is above 101.5, your wound has increased redness, your wound has increased drainage and your wound pain has increased Follow-up/Referrals: Valentino Dunlap MD [Primary Care Provider] - Nicanor Park DO [Physician] - (Please call to schedule follow up in clinic within 2 weeks) Diet: Carb Consistent or DM2 Addtl Attending Provider Instructions: You may purchase Tylenol the counter if needed for pain control over the next few days. Take per manufacturers instructions You may remove your outer surgical dressings on 07/15/22 and shower. You will have small white bandages on underneath called steri strips. You may shower with these on. They will tend to fall off on their own within 7-10 days. You may resume your Plavix on Tuesday07/17/22 Pending Studies at Discharge: Yes Studies:: surgical pathology Stand-Alone Forms: My [facility], Smoking Cessation Medications and DC Order Prescriptions: Continued (DME) lancets [OneTouch UltraSoft Lancets] Misc See Dose Instructions .ROUTE .MEDSUPPLY Qty: 200 3RF Dose Instruction: As directed Rx Instructions: As directed twice a day potassium chloride 10 mEq tablet extended release 10 meq PO QAM Qty: 90 3RF carvedilol [Coreg] 3.125 mg tablet 3.125 mg PO BIDM Qty: 180 3RF Onglyza 5 mg tablet 5 mg PO QPM Qty: 90 3RF albuterol sulfate [Ventolin HFA] 90 mcg/actuation HFA aerosol inhaler 2 puff INHALATION Q6H PRN (Reason: Shortness Of Breath Or Wheezing) Qty: 18 3RF atorvastatin 80 mg tablet 80 mg PO QDD Qty: 90 3RF Hold Instructions: HOLD WHILE TAKING DIFLUCAN glucagon 1 mg/0.2 mL auto-injector 1 mg subcut ONCE PRN (Reason: severe low sugar) Qty: 0.2 2RF pantoprazole 40 mg tablet,delayed release (DR/EC) 40 mg PO BID Qty: 180 3RF isosorbide mononitrate 30 mg tablet extended release 24 hr 30 mg PO QAM Qty: 90 3RF glimepiride 1 mg tablet See Rx Instructions PO BID Qty: 450 3RF Rx Instructions: TAKES 3 MG in am and 2 MG in pm Trelegy Ellipta 200-62.5-25 mcg blister with device 1 inh inhalation DAILY Qty: 60 11RF (DME) blood-glucose meter [[employer] Ultra2 Meter] [facility] [place] See Dose Instructions .ROUTE .MEDSUPPLY Qty: 1 3RF Dose Instruction: As directed Rx Instructions: As directed cetirizine 10 mg capsule 10 mg PO HS Qty: 90 3RF fexofenadine 180 mg tablet 180 mg PO QAM Qty: 90 3RF Centrum Silver Men 300-600-300 mcg tablet 1 tab PO QAM Qty: 90 3RF aspirin 81 mg tablet,delayed release (DR/EC) 81 mg PO 3XWK Patient Comments: M// Rx Instructions: tuesday,tuesday,tuesday lisinopril 10 mg tablet 10 mg PO QAM triamcinolone acetonide [Nasacort] 55 mcg Aerosol,[place] 1 spray INTRANASAL QAM furosemide 20 mg tablet 20 mg PO 3XWK Rx Instructions: 20 mg PO , thurs, and sat in the morning; ipratropium bromide 42 mcg (0.06 %) spray,non-aerosol 1 spray INTRANASAL [facility]HS tamsulosin [Flomax] 0.4 mg capsule 0.4 mg PO HS Novolin N NPH U-100 Insulin 100 unit/mL suspension 42 unit SUBCUT HS Held clopidogrel [Plavix] 75 mg tablet 75 mg PO QAM Qty: 90 3RF Hold Instructions: Resume on 07/16/22. 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
== END 2022-07-14 19:04 | disposition home or self-care (01) | DRG 419 ==
LOC: ED 00:15 → 2N 05:25 → SUATTDRO 05:25 → 2N 07:41

== ENCOUNTER 2022-11-08 13:02 | Inpatient (IN) ==
[2022-11-08 14:19] LABS: Basophils # (auto) 0.04 K/uL (0-0.2); Basophils % (auto) 0.4 %; Eosinophils # (auto) 0.45 K/uL (0-0.50); Eosinophils % (auto) 4.7 %; Hematocrit (blood only) 46.2 % (42.0-52.0); Hemoglobin 16.1 g/dl (14.0-18.0); Immature Granulocytes # (auto) 0.02 K/uL (0.01-0.20); Immature Granulocytes % (auto) 0.2 %; Lymphocytes # (auto) 3.12 K/uL (1.2-3.4); Lymphocytes % (auto) 32.5 %; Mean Corpuscular Hemoglobin 31.8 pg (25.0-34.0); Mean Corpuscular Hgb Conc 34.8 g/dL (32.0-36.0); Mean Corpuscular Volume 91.1 fL (80.0-100.0); Mean Platelet Volume 12.2 fL (9.4-12.4); Monocytes # (auto) 0.65 K/uL (0.11-0.59); Monocytes % (auto) 6.8 %; Neutrophils # (auto) 5.32 K/uL (1.40-6.50); Neutrophils % (auto) 55.4 %; Platelet Count 153 K/uL (130-400); RDW Coefficient of Variation 12.3 % (11.5-14.5); RDW Standard Deviation 40.4 fL (36.4-46.3); Red Blood Count 5.07 M/uL (4.70-6.10)
--- NOTE | 2022-11-08 14:26 | Electrocardiogram Report ---
Test Reason : Blood Pressure : / mmHG Vent. Rate : 064 BPM Atrial Rate : 064 BPM P-R Int : 164 ms QRS Dur : 144 ms QT Int : 434 ms P-R-T Axes : 005 044 241 degrees QTc Int : 447 ms Normal sinus rhythm Left bundle branch block Abnormal ECG When compared with ECG of 11-JUL-2022 00:20, T wave inversion now evident in Inferior leads Confirmed by Nicholas Marshall ([id number]) on 11/08/2022 2:25:55 PM Referred By: Confirmed By:Nicholas Marshall
[2022-11-08 14:35] LABS: Alanine Aminotransferase 77 U/L (7-52); Albumin Globulin Ratio 1.4 (0.9-2); Albumin Level 4.1 gm/dl (3.4-5.0); Alkaline Phosphatase 87 U/L (34-104); Anion Gap 6 (3-11); Aspartate Aminotransferase 129 U/L (13-39); BUN Creatinine Ratio 17.1 (10-20); Bilirubin,Total 1.4 mg/dl (0.2-1.0); Blood Urea Nitrogen 18 mg/dl (6-23); Calcium 9.7 mg/dl (8.6-10.3); Carbon Dioxide 24 mmol/L (21-32); Chloride 108 mmol/L (98-107); Est GFR (African American) 78.4 ml/min; Est GFR (Non-African American) 67.7 ml/min; Glucose 126 mg/dl (70-99(Fasting)); Lipase 51 U/L (11-82); Potassium 4.1 mmol/L (3.5-5.1); Sodium 138 mmol/L (136-145); Total Protein 7.1 gm/dl (6.0-8.3)
[2022-11-08] MEDS ORDERED: ONDANSETRON INJ 2 MG/ML 2 ML VIAL IV STA (16:16)
[2022-11-08] MEDS ORDERED: HYDROmorphone INJ 0.5 MG/0.5 ML SYR IV PRN ×2 (16:16→22:38)
[2022-11-08] MEDS ORDERED: SODIUM CHLORIDE 0.9% 1000ML 1,000 ML IV SCH (16:30)
--- NOTE | 2022-11-08 17:06 | CT Scan Report ---
ABDOMEN AND PELVIS CT WITHOUT CONTRAST CT DOSE: 1167.30 mGy.cm HISTORY: Acute upper abdominal pain upper abd pain TECHNIQUE: Multiaxial CT images of the abdomen and pelvis were performed without contrast. A dose lo wering technique was utilized adhering to the principles of ALARA. COMPARISON STUDY: MRCP 07/11/2022 FINDINGS: Moderate cardiomegaly. Extensive coronary artery calcifications with prior median sternotom y and CABG. Mild bibasilar atelectasis versus scarring. Calcified left hilar lymph nodes. No free air . Calcified granulomata of the spleen. Mild nonspecific dilation of the pancreatic duct measures up t o 5 mm. No obstructing pancreatic stone or lesion identified. There is a 3 mm stone within the cystic duct on image 135. Cholecystectomy. No choledocholithiasis or significant biliary ductal dilation id entified. Unremarkable liver. Nonspecific bilateral perinephric stranding. Exophytic cyst of the mid inferior pole left kidney, 3.8 cm. No urolithiasis or hydronephrosis. Prostatomegaly. Urinary bladder wall thickening and trabecula tion with partial distention and diverticula. Small fat filled left inguinal hernia. Atherosclerosis of the aorta. No lymphadenopathy. 5 cm duodenal diverticulum. Colonic diverticulosis. No CT evidence of acute appendicitis. Tiny fat fi lled umbilical hernia. Subcutaneous edema anterior abdominal wall, likely medicinal injection sites. No acute fracture. IMPRESSION: 1. Cholecystectomy with subcentimeter stone within the cystic duct. 2. No choledocholithiasis identified. 3. Mild pancreatic ductal dilation. No obstructing pancreatic ductal stone or lesion identified. 4. No bowel obstruction or bowel wall thickening. 5. Colonic diverticulosis. 6. Prostamegaly with chronic bladder outlet obstruction. ACT 112: Negative or not required by law. The above report was generated using voice recognition software. It may contain grammatical, syntax o r spelling errors. Electronically signed by: Gavin Gonzalez M.D. 11/08/2022 5:04 PM
[2022-11-08 18:14] LABS: Appearance Urine Clear (Clear); Bilirubin Urine Negative (Negative); Blood Urine Negative (Negative); Color Urine Dark Yellow; Glucose Urine UA Negative (Negative); Ketones Urine Trace (Negative); Leukocyte Esterase Urine Negative (Negative); Nitrite Urine Negative (Negative); Protein Urine Negative (Negative); Specific Gravity Urine 1.027 (1.000-1.030); Urobilinogen Urine Negative (Negative); pH Urine 5.5 (4.5-7.5)
--- NOTE | 2022-11-08 19:33 | Emergency Department Note ---
Impression & Plan Abdominal pain, Elevated LFTs, Calculus of cystic duct ED Provider Note INFORMANT: Patient ED PROVIDER(S): Parviz Strickland MD CHIEF COMPLAINT: Abdominal pain PLAN: Disposition: Admitted Condition: Good Outpatient prescription management: none Referral: None MEDICAL DECISION MAKING: Patient presented because of abdominal pain. Work-up was initiated. His CBC and chemistry panel was unremarkable. Patient has an elevated liver function panel. Compared to prior laboratory testing this has changed. Patient underwent CT imaging and was found to have a stone in the cystic duct. Given his waxing and waning abdominal pain, elevated LFTs and the CT finding further management in the hospital was felt to be appropriate. Patient was treated with Dilaudid and Zofran. He was hydrated. Consultation was made with Dr. Soares of gastroenterology. He recommended MRCP and hospitalist admission. Patient may require ERCP but further work-up will be necessary. Discussed with patient and . They were comfortable with the plan. Consultation was made with Dr. Sergey Almonte of the [facility] service. Patient was evaluated in the ER for further management. Discussed with tire care manager After review of the information above and other included data, I feel the patient requires admission. Triage Nursing notes reviewed and agree them. Vital Signs: reviewed and remarkable for hypertension Prior /Outside records reviewed: none Differential diagnosis: PUD, pancreatitis, biliary pathology, Appendicitis, testicular torsion, infections, diverticulitis, UTI, obstruction, mesenteric ischemia, aortic pathology, inflammatory bowel disease, renal colic, hernia, volvulus, constipation, as well as other pathologies. Diagnostics, as interpreted by me: ECG: none Cardiac Monitoring: Cardiac monitoring ordered by me: The patient was placed on continuous cardiac monitoring and observed. It revealed a normal sinus rhythm at 69 beats per minute without ectopy or evidence of dysrhythmia. Medical decision rules: none Imaging studies: CT scan as above HPI: The patient is a 77year old male who presents to the Emergency Room with complaints of abdominal pain. This started over the last week and has been intermittent. The patient also notes the following associated symptoms, some nausea. Patient notes pain was worse after drinking coffee with cream. The patient has found no relieving factors. Current pain is rated as 7/10. Pt denies LOC, headache, fevers, chills, diaphoresis, visual changes, neck pain, chest pain, breathing difficulties, vomiting back pain, melena, hematochezia, urinary symptoms, numbness, weakness, lymphadenopathy, rash, or other co mplaints. PAST MEDICAL HISTORY: See Below, GERD, non-STEMI, diabetes PAST SURGICAL HISTORY: See Below, cholecystectomy SOCIAL HISTORY: See Below, retired HOME MEDICATIONS: See Below ALLERGIES: See Below VITALS: See Below PHYSICAL EXAMINATION: GENERAL: Awake, alert, mildly uncomfortable-appearing, in no distress HENT: Normocephalic, atraumatic. Oropharynx unremarkable. EYES: Normal conjunctiva. Sclera non-icteric. NECK: Inspection normal. Non-tender. Supple. No nuchal rigidity. FROM. No masses. RESPIRATORY: Clear to auscultation. No wheezes. No rales. Normal respiratory effort. CARDIAC: Normal rate. Normal rhythm. No murmurs. No rubs. Extremities warm and well perfused. Pulses equal. No JVD. GI: Soft, non-distended. Epigastric tenderness to palpation. No rebound or guarding. No masses. RECTAL: Deferred. MUSCULOSKELETAL: Atraumatic. Chest examination reveals no tenderness. The back is symmetrical on inspection without obvious abnormality. There is no CVA tenderness to palpation. No joint edema. LOWER EXTREMITIES: Calves are equal size bilaterally and non-tender. No edema. No discoloration. NEURO: Normal sensorium. No sensory or motor deficits noted. SKIN: No rash or jaundice noted. Past Med/Surg History Medical History Asthma Bruising Chronic reflux esophagitis Cough Early satiety GERD (gastroesophageal reflux disease) Hearing deficit History of anxiety History of COVID-19 History of Mohs micrographic surgery for skin cancer History of skin cancer Hyperlipidemia Medicare annual wellness visit, subsequent Myocardial Infarction Type 2 diabetes mellitus treated with insulin 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 Surgical History H/O hand surgery History of cardiac cath History of cataract surgery History of colonoscopy History of hernia repair History of tooth extraction Hx laparoscopic cholecystectomy (07/13/22) Hx of CABG S/P trigger finger release Family History Mother Colorectal cancer Sister Diabetes Breast cancer Brother Diabetes Hx of CABG Son Legg-Perthes disease Father Colorectal cancer Other Myocardial infarction No family history of adverse response to anesthesia Denies family history of Ovarian cancer Prostate cancer Social History Smoking Status: Never smoker Second Hand Exposure: Yes (IN THE PAST); Do You Dip or Chew Tobacco: No; Hx Alcohol Use: No Hx Substance Use: No Preferred Language: Divehi Communication Ability: Effective Visual Impairment: Limited Hearing Ability: Normal Pan Dumper Required: No Beliefs That Will Affect Care: None marital status: Current Living Situation: Spouse current occupational status: retired Feels Safe at Home: Yes Childhood Exposure to Second-Hand Smoke: No Diet Comment: heart healthy caffeine: Yes Dental Care, Regularly: Yes Physical Activity Frequency: Daily Seatbelt Use: always Sunscreen Use: No (Does wear hat and long sleeves) Do you think of yourself as: straight/heterosexual Assistive Devices: Glasses Allergies Allergies Allergy/AdvReac Type Severity Reaction Status Date / Time pollen extracts Allergy Intermediate ITCHY Verified 11/08/22 16:35 EYES, SNEEZING, CONGESTION cat dander Allergy Mild congestion Verified 11/08/22 16:35 dog dander Allergy Mild congestion Verified 11/08/22 16:35 Home Meds Home Medications Medication Instructions Recorded Confirmed aspirin 81 mg tablet,delayed 81 mg PO 3XWK 04/16/19 11/08/22 release lisinopril 10 mg tablet 10 mg PO QAM 04/16/19 11/08/22 furosemide 20 mg tablet 20 mg PO 3XWK 02/22/20 11/08/22 ipratropium bromide 42 mcg (0.06 1 spray intranasal AMHS 02/22/20 11/08/22 %) nasal spray triamcinolone acetonide 55 mcg 1 spray intranasal QAM 02/22/20 11/08/22 nasal spray aerosol (Nasacort) tamsulosin 0.4 mg capsule (Flomax) 0.4 mg PO HS 07/11/22 11/08/22 saxagliptin 5 mg tablet (Onglyza) 5 mg PO QDD 11/08/22 11/08/22 Previous Rx's Medication Instructions Recorded cetirizine 10 mg capsule 10 mg PO HS #90 caps 10/24/18 clopidogrel 75 mg tablet (Plavix) 75 mg PO QAM #90 tabs 10/24/18 fexofenadine 180 mg tablet 180 mg PO QAM #90 tabs 10/24/18 dnxssgzm-qs-yauda 300 mcg-K 60 1 tab PO QAM #90 tabs 10/24/18 mcg-lycop 600 mcg-lutein 300 mcg tablet (Centrum Silver Men) glucagon 1 mg/0.2 mL subcutaneous 1 mg (0.2 mL) subcut ONCE PRN 02/28/20 auto-injector severe low sugar #0.2 mL pantoprazole 40 mg tablet,delayed 40 mg PO BID #180 tabs 10/13/21 release carvedilol 3.125 mg tablet (Coreg) 3.125 mg PO BIDM #180 tabs 12/07/21 albuterol sulfate 90 mcg/actuation 2 puff inhalation Q6H PRN 01/26/22 aerosol inhaler (Ventolin HFA) Shortness Of Breath Or Wheezing #18 grams fluticasone fur. 200 mcg-umeclid 1 inh inhalation DAILY #60 ea 02/22/22 62.5 mcg-vilant 25 mcg inhalat.powder (Trelegy Ellipta) glimepiride 1 mg tablet See Rx Instructions PO BID #450 02/22/22 tabs atorvastatin 80 mg tablet 80 mg PO QDD #90 tabs 05/17/22 blood-glucose meter (OneTouch #1 ea 07/27/22 Ultra2 Meter) lancets 30 gauge (OneTouch #200 ea 09/17/22 UltraSoft 2 Lancet) potassium chloride 10 mEq 10 meq PO QAM #90 tabs 09/20/22 tablet,extended release isosorbide mononitrate 30 mg 30 mg PO QAM #90 tabs 10/20/22 tablet,extended release 24 hr insulin NPH isoph U-100 human 100 See Rx Instructions subcut BID #50 10/26/22 unit/mL subcutaneous suspension mL (Novolin N NPH U-100 Insulin isophane) Results & Data (ED) Vital Signs Vital Signs - 24 hr 11/08/22 13:07 11/08/22 16:18 11/08/22 16:39 Temperature 36.2 C L Temperature Source Temporal Artery Scan Pulse Rate 59 L 67 Pulse Rate [Left Brachial] 60 Pulse Rhythm Regular Pulse Rhythm [Left Brachial] Regular Pulse Strength Normal Pulse Strength [Left Brachial] Normal Respiratory Rate 20 19 Respiratory Effort / Characteristics Non-Labored Spontaneous Non-Labored Spontaneous Respiratory Depth Normal Normal Respiratory Pattern Regular Regular Blood Pressure 184/78 H Blood Pressure [Left Arm] 170/82 H Blood Pressure Mean 113 Blood Pressure Mean [Left Arm] 111 Blood Pressure Position Sitting Blood Pressure Position [Left Arm] Pulse Oximetry 99 95 Oxygen Delivery Method Room Air Room Air Sepsis Recent Fever Within 48 Hours No Sepsis New/Unexplained Change in Mental Status No Sepsis Action Taken by Nursing No Action Required 11/08/22 18:58 11/08/22 20:35 Temperature Temperature Source Pulse Rate 69 Pulse Rate [Left Brachial] 59 L Pulse Rhythm Pulse Rhythm [Left Brachial] Regular Pulse Strength Pulse Strength [Left Brachial] Normal Respiratory Rate 18 Respiratory Effort / Characteristics Non-Labored Spontaneous Respiratory Depth Normal Respiratory Pattern Regular Blood Pressure Blood Pressure [Left Arm] 154/82 H Blood Pressure Mean Blood Pressure Mean [Left Arm] 106 Blood Pressure Position Blood Pressure Position [Left Arm] Lying Pulse Oximetry 96 Oxygen Delivery Method Room Air Sepsis Recent Fever Within 48 Hours Sepsis New/Unexplained Change in Mental Status Sepsis Action Taken by Nursing Laboratory Data 11/08/22 13:35 11/08/22 13:35 Lab Results 11/08/22 11/08/22 11/08/22 Range/Units 13:35 13:35 Unknown WBC 9.60 (4.8-10.8) K/ul RBC 5.07 (4.70-6.10) M/uL Hgb 16.1 (14.0-18.0) g/dl Hct 46.2 (42.0-52.0) % MCV 91.1 (80.0-100.0) fL MCH 31.8 (25.0-34.0) pg MCHC 34.8 (32.0-36.0) g/dL RDW Std Deviation 40.4 (36.4-46.3) fL RDW Coeff of Emir 12.3 (11.5-14.5) % Plt Count 153 (130-400) K/uL MPV 12.2 (9.4-12.4) fL Immature Gran % (Auto) 0.2 % Neut % (Auto) 55.4 % Lymph % (Auto) 32.5 % Ransom % (Auto) 6.8 % Eos % (Auto) 4.7 % Baso % (Auto) 0.4 % Neut # (Auto) 5.32 (1.40-6.50) K/uL Lymph # (Auto) 3.12 (1.2-3.4) K/uL Ransom # (Auto) 0.65 H (0.11-0.59) K/uL Eos # (Auto) 0.45 (0-0.50) K/uL Baso # (Auto) 0.04 (0-0.2) K/uL Immature Gran # (Auto) 0.02 (0.01-0.20) K/uL Sodium 138 (136-145) mmol/L Potassium 4.1 (3.5-5.1) mmol/L Chloride 108 H (98-107) mmol/L Carbon Dioxide 24 (21-32) mmol/L Anion Gap 6 (3-11) BUN 18 (6-23) mg/dl Creatinine 1.05 (0.6-1.4) mg/dl Est Cr Clr Drug Dosing Not Reportable Est GFR ( Amer) 78.4 ml/min Est GFR (Non-Af Amer) 67.7 ml/min BUN/Creatinine Ratio 17.1 (10-20) Glucose 126 H (70-99(Fasting)) mg/dl Calcium 9.7 (8.6-10.3) mg/dl Total Bilirubin 1.4 H (0.2-1.0) mg/dl AST 129 H (13-39) U/L ALT 77 H (7-52) U/L Alkaline Phosphatase 87 (34-104) U/L Total Protein 7.1 (6.0-8.3) gm/dl Albumin 4.1 (3.4-5.0) gm/dl Globulin 3.0 (2.5-4.0) gm/dl Albumin/Globulin Ratio 1.4 (0.9-2) Lipase 51 (11-82) U/L Urine Color Dark Yellow Urine Appearance Clear (Clear) Urine pH 5.5 (4.5-7.5) Ur Specific [place] 1.027 (1.000-1.030) Urine Protein Negative (Negative) Urine Glucose (UA) Negative (Negative) Urine Ketones Trace H (Negative) Urine Blood Negative (Negative) Urine Nitrite Negative (Negative) Urine Bilirubin Negative (Negative) Urine Urobilinogen Negative (Negative) Ur Leukocyte Esterase Negative (Negative) SARS-CoV-2, RNA, NAAT (NEGATIVE) 08/14/23 Range/Units Unknown WBC (4.8-10.8) K/ul RBC (4.70-6.10) M/uL Hgb (14.0-18.0) g/dl Hct (42.0-52.0) % MCV (80.0-100.0) fL MCH (25.0-34.0) pg MCHC (32.0-36.0) g/dL RDW Std Deviation (36.4-46.3) fL RDW Coeff of Emir (11.5-14.5) % Plt Count (130-400) K/uL MPV (9.4-12.4) fL Immature Gran % (Auto) % Neut % (Auto) % Lymph % (Auto) % Ransom % (Auto) % Eos % (Auto) % Baso % (Auto) % Neut # (Auto) (1.40-6.50) K/uL Lymph # (Auto) (1.2-3.4) K/uL Ransom # (Auto) (0.11-0.59) K/uL Eos # (Auto) (0-0.50) K/uL Baso # (Auto) (0-0.2) K/uL Immature Gran # (Auto) (0.01-0.20) K/uL Sodium (136-145) mmol/L Potassium (3.5-5.1) mmol/L Chloride (98-107) mmol/L Carbon Dioxide (21-32) mmol/L Anion Gap (3-11) BUN (6-23) mg/dl Creatinine (0.6-1.4) mg/dl Est Cr Clr Drug Dosing Est GFR ( Amer) ml/min Est GFR (Non-Af Amer) ml/min BUN/Creatinine Ratio (10-20) Glucose (70-99(Fasting)) mg/dl Calcium (8.6-10.3) mg/dl Total Bilirubin (0.2-1.0) mg/dl AST (13-39) U/L ALT (7-52) U/L Alkaline Phosphatase (34-104) U/L Total Protein (6.0-8.3) gm/dl Albumin (3.4-5.0) gm/dl Globulin (2.5-4.0) gm/dl Albumin/Globulin Ratio (0.9-2) Lipase (11-82) U/L Urine Color Urine Appearance (Clear) Urine pH (4.5-7.5) Ur Specific [place] (1.000-1.030) Urine Protein (Negative) Urine Glucose (UA) (Negative) Urine Ketones (Negative) Urine Blood (Negative) Urine Nitrite (Negative) Urine Bilirubin (Negative) Urine Urobilinogen (Negative) Ur Leukocyte Esterase (Negative) SARS-CoV-2, RNA, NAAT NEGATIVE (NEGATIVE) Administered Medications Hydromorphone HCl (Hydromorphone Inj 0.5 Mg/0.5 Ml Syr) 0.5 mg IV Q15M PRN PRN Reason: Pain Stop: 11/22/22 16:15 Last Admin: 11/08/22 16:25 Dose: 0.5 mg Documented By: CHRISTEN Sodium Chloride (Nss 1000ml) 1,000 mls @ 125 mls/hr IV .Q8H CHANTELL Stop: 12/08/22 16:29 Last Admin: 11/08/22 16:19 Dose: 125 mls/hr Documented By: CHRISTEN Discontinued Medications Ondansetron HCl (Ondansetron Inj 2 Mg/Ml 2 Ml Vial) 4 mg IV NOW STA Stop: 11/08/22 16:17 Last Admin: 11/08/22 16:24 Dose: 4 mg Documented By: CHRISTEN Imaging Data Radiologist's Impression: Abdomen/Pelvis CT 11/08/22 16:[address] WITHOUT CONTRAST CT DOSE: 1167.30 mGy.cm HISTORY: Acute upper abdominal pain upper abd pain TECHNIQUE: Multiaxial CT images of the abdomen and pelvis were performed without contrast. A dose lowering technique was utilized adhering to the principles of ALARA. COMPARISON STUDY: MRCP 07/11/2022 FINDINGS: Moderate cardiomegaly. Extensive coronary artery calcifications with prior median sternotomy and CABG. Mild bibasilar atelectasis versus scarring. Calcified left hilar lymph nodes. No free air. Calcified granulomata of the spleen. Mild nonspecific dilation of the pancreatic duct measures up to 5 mm. No obstructing pancreatic stone or lesion identified. There is a 3 mm stone within the cystic duct on image 135. Cholecystectomy. No choledocholithiasis or significant biliary ductal dilation identified. Unremarkable liver. Nonspecific bilateral perinephric stranding. Exophytic cyst of the mid inferior pole left kidney, 3.8 cm. No urolithiasis or hydronephrosis. Prostatomegaly. Urinary bladder wall thickening and trabeculation with partial distention and diverticula. Small fat filled left inguinal hernia. Atherosclerosis of the aorta. No lymphadenopathy. 5 cm duodenal diverticulum. Colonic diverticulosis. No CT evidence of acute appendicitis. Tiny fat filled umbilical hernia. Subcutaneous edema anterior abdominal wall, likely medicinal injection sites. No acute fracture. IMPRESSION: 1. Cholecystectomy with subcentimeter stone within the cystic duct. 2. No choledocholithiasis identified. 3. Mild pancreatic ductal dilation. No obstructing pancreatic ductal stone or lesion identified. 4. No bowel obstruction or bowel wall thickening. 5. Colonic diverticulosis. 6. Prostamegaly with chronic bladder outlet obstruction. ACT 112: Negative or not required by law. The above report was generated using voice recognition software. It may contain grammatical, syntax or spelling errors. Electronically signed by: Gavin Gonzalez M.D. 11/08/2022 5:04 PM Discharge Plan Visit Data Chief Complaint: Abdominal Pain Stated Complaint: ABD PAIN ED Provider: Parviz Strickland Discharge Problem: Abdominal pain, Elevated LFTs, Calculus of cystic duct Patient Disposition: Admitted As Inpatient Discharge Instructions Interventions: ED Discharge Assessment Last Done: 11/08/22 22:03 Forms Stand Alone Forms: [facility] [employer] Prescriptions Prescriptions: No Action carvedilol [Coreg] 3.125 mg tablet 3.125 mg PO BIDM Qty: 180 3RF albuterol sulfate [Ventolin HFA] 90 mcg/actuation HFA aerosol inhaler 2 puff INHALATION Q6H PRN (Reason: Shortness Of Breath Or Wheezing) Qty: 18 3RF atorvastatin 80 mg tablet 80 mg PO QDD Qty: 90 3RF Hold Instructions: HOLD WHILE TAKING DIFLUCAN (DME) blood-glucose meter [[employer] Ultra2 Meter] Misc See Dose Instructions .ROUTE .MEDSUPPLY Qty: 1 0RF Dose Instruction: As directed Rx Instructions: use twice daily As directed DX:E11.9 (DME) lancets [OneTouch UltraSoft 2 Lancet] 30 gauge misc See Rx Instructions .Route Qty: 200 3RF Rx Instructions: Test BID E11.9 potassium chloride 10 mEq tablet extended release 10 meq PO QAM Qty: 90 3RF isosorbide mononitrate 30 mg tablet extended release 24 hr 30 mg PO QAM Qty: 90 3RF glucagon 1 mg/0.2 mL auto-injector 1 mg subcut ONCE PRN (Reason: severe low sugar) Qty: 0.2 2RF pantoprazole 40 mg tablet,delayed release (DR/EC) 40 mg PO BID Qty: 180 3RF glimepiride 1 mg tablet See Rx Instructions PO BID Qty: 450 3RF Rx Instructions: TAKES 3 MG in am and 2 MG in pm Trelegy Ellipta 200-62.5-25 mcg blister with device 1 inh inhalation DAILY Qty: 60 11RF cetirizine 10 mg capsule 10 mg PO HS Qty: 90 3RF clopidogrel [Plavix] 75 mg tablet 75 mg PO QAM Qty: 90 3RF Hold Instructions: Resume on 07/16/22. fexofenadine 180 mg tablet 180 mg PO QAM Qty: 90 3RF Centrum Silver Men 300-600-300 mcg tablet 1 tab PO QAM Qty: 90 3RF Novolin N NPH U-100 Insulin 100 unit/mL suspension See Rx Instructions SUBCUT BID Qty: 50 3RF Rx Instructions: 14 in am and 30 in pm subcutaneously twice a day; aspirin 81 mg tablet,delayed release (DR/EC) 81 mg PO 3XWK Patient Comments: M/W/ Rx Instructions: tuesday,tuesday,tuesday lisinopril 10 mg tablet 10 mg PO QAM triamcinolone acetonide [Nasacort] 55 mcg Aerosol,[place] 1 spray INTRANASAL QAM furosemide 20 mg tablet 20 mg PO 3XWK Rx Instructions: 20 mg PO , , and sat in the morning; ipratropium bromide 42 mcg (0.06 %) spray,non-aerosol 1 spray INTRANASAL AMHS tamsulosin [Flomax] 0.4 mg capsule 0.4 mg PO HS Onglyza 5 mg tablet 5 mg PO QDD Referrals Referrals: Valentino Dunlap MD [Primary Care Provider] -
--- NOTE | 2022-11-08 21:12 | History & Physical Report ---
Date of Service November 08, 2022 Assessment & Plan (1) Calculus of cystic duct: (2) Type 2 diabetes mellitus treated with insulin: (3) Status post laparoscopic cholecystectomy: (4) Abdominal pain: (5) Elevated LFTs: (6) Asthma: (7) Allergic rhinitis: (8) BPH (benign prostatic hyperplasia): (9) Coronary artery disease: (10) GERD (gastroesophageal reflux disease): (11) Hypercholesterolemia: (12) Generalized anxiety disorder: (13) Benign essential hypertension: Plan 3 mm cystic duct stone/abnormal LFTs/status post laparoscopic cholecystectomy on 07-13-2022-- Admit to medical surgical floor N.p.o. Zosyn 4.5 g IV every 8 hours Zofran 4 mg IV every 6 hours as needed Pantoprazole 40 mg IV daily NSS plus KCl 20 mEq at 80 mils per hour Dilaudid 0.25 mg IV every 3 hours as needed moderate to severe pain Order MRCP Consult gastroenterology, case was discussed by the ED with on-call GI Diabetes mellitus- Hold outpatient medications Humulin N, Onglyza and glimepiride Place on Accu-Cheks with NovoLog SSI Hypertension- Hold aspirin, carvedilol, clopidogrel, lisinopril and isosorbide Hydralazine 10 mg IV every 4 hours as needed systolic blood pressure greater than 160 COPD- Continue usual inhalers, History of Present Illness Chief Complaint: The patient presents to the emergency department with complaint of abdominal pain over the past week which was initially more intermittent but has become more severe, and has been associated with some nausea but no vomiting Primary Care Provider: Valentino Dunlap MD The patient is a 77-year-old male with a past medical history including diabetes mellitus, CAD, COPD, hyperlipidemia, hypertension, allergy symptoms, GERD and BPH. He presents to the emergency department with symptoms as noted above. He had undergone a laparoscopic cholecystectomy on 07/13/2022, and had been doing well until the past week. CT scan of abdomen and pelvis in the emergency department shows a 3 mm stone in the cystic duct, and the pancreatic duct is increased in size to 5 mm. The prostate was also noted to be enlarged with chronic bladder outlet obstruction. Abnormal laboratories: Total bilirubin 1.4, AST 129, ALT 77, glucose 126. Allergies Allergy/AdvReac Type Severity Reaction Status Date / Time pollen extracts Allergy Intermediate ITCHY Verified 11/08/22 16:35 EYES, SNEEZING, CONGESTION cat dander Allergy Mild congestion Verified 11/08/22 16:35 dog dander Allergy Mild congestion Verified 11/08/22 16:35 Home Medications Medication Instructions Recorded Confirmed Type cetirizine 10 mg capsule 10 mg PO HS #90 caps 10/24/18 11/08/22 Rx clopidogrel 75 mg tablet (Plavix) 75 mg PO QAM #90 tabs 10/24/18 11/08/22 Rx fexofenadine 180 mg tablet 180 mg PO QAM #90 tabs 10/24/18 11/08/22 Rx fpybltmg-vt-mrpcl 300 mcg-K 60 1 tab PO QAM #90 tabs 10/24/18 11/08/22 Rx mcg-lycop 600 mcg-lutein 300 mcg tablet (Centrum Silver Men) aspirin 81 mg tablet,delayed 81 mg PO 3XWK 04/16/19 11/08/22 History release lisinopril 10 mg tablet 10 mg PO QAM 04/16/19 11/08/22 History furosemide 20 mg tablet 20 mg PO 3XWK 02/22/20 11/08/22 History ipratropium bromide 42 mcg (0.06 1 spray intranasal AMHS 02/22/20 11/08/22 H istory %) nasal spray triamcinolone acetonide 55 mcg 1 spray intranasal QAM 02/22/20 11/08/22 History nasal spray aerosol (Nasacort) glucagon 1 mg/0.2 mL subcutaneous 1 mg (0.2 mL) subcut ONCE PRN 02/28/20 11/08/22 Rx auto-injector severe low sugar #0.2 mL pantoprazole 40 mg tablet,delayed 40 mg PO BID #180 tabs 10/13/21 11/08/22 Rx release carvedilol 3.125 mg tablet (Coreg) 3.125 mg PO BIDM #180 tabs 12/07/21 11/08/22 Rx albuterol sulfate 90 mcg/actuation 2 puff inhalation Q6H PRN 01/26/22 11/08/22 Rx aerosol inhaler (Ventolin HFA) Shortness Of Breath Or Wheezing #18 grams fluticasone fur. 200 mcg-umeclid 1 inh inhalation DAILY #60 ea 02/22/22 11/08/22 Rx 62.5 mcg-vilant 25 mcg inhalat.powder (Trelegy Ellipta) glimepiride 1 mg tablet See Rx Instructions PO BID #450 02/22/22 11/08/22 Rx tabs atorvastatin 80 mg tablet 80 mg PO QDD #90 tabs 05/17/22 11/08/22 Rx tamsulosin 0.4 mg capsule (Flomax) 0.4 mg PO HS 07/11/22 11/08/22 History blood-glucose meter (OneTouch #1 ea 07/27/22 10/26/22 Rx Ultra2 Meter) lancets 30 gauge (OneTouch #200 ea 09/17/22 10/26/22 Rx UltraSoft 2 Lancet) potassium chloride 10 mEq 10 meq PO QAM #90 tabs 09/20/22 11/08/22 Rx tablet,extended release isosorbide mononitrate 30 mg 30 mg PO QAM #90 tabs 10/20/22 11/08/22 Rx tablet,extended release 24 hr insulin NPH isoph U-100 human 100 See Rx Instructions subcut BID #50 10/26/22 11/08/22 Rx unit/mL subcutaneous suspension mL (Novolin N NPH U-100 Insulin isophane) saxagliptin 5 mg tablet (Onglyza) 5 mg PO QDD 11/08/22 11/08/22 History Past Med/Surg History Medical History Asthma Bruising Chronic reflux esophagitis Cough Early satiety GERD (gastroesophageal reflux disease) Hearing deficit History of anxiety History of COVID-19 History of Mohs micrographic surgery for skin cancer History of skin cancer Hyperlipidemia Medicare annual wellness visit, subsequent Myocardial Infarction Type 2 diabetes mellitus treated with insulin 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 Surgical History H/O hand surgery History of cardiac cath History of cataract surgery History of colonoscopy History of hernia repair History of tooth extraction Hx laparoscopic cholecystectomy (07/13/22) Hx of CABG S/P trigger finger release Family History Mother Colorectal cancer Sister Diabetes Breast cancer Brother Diabetes Hx of CABG Son Legg-Perthes disease Father Colorectal cancer Other Myocardial infarction No family history of adverse response to anesthesia Denies family history of Ovarian cancer Prostate cancer Social History Smoking Status: Never smoker Second Hand Exposure: Yes (IN THE PAST); Do You Dip or Chew Tobacco: No; Hx Alcohol Use: No Hx Substance Use: No Preferred Language: Algerian Communication Ability: Effective Visual Impairment: Limited Hearing Ability: Normal Risk Engineer Required: No Beliefs That Will Affect Care: None marital status: Current Living Situation: Spouse current occupational status: retired Feels Safe at Home: Yes Childhood Exposure to Second-Hand Smoke: No Diet Comment: heart healthy caffeine: Yes Dental Care, Regularly: Yes Physical Activity Frequency: Daily Seatbelt Use: always Sunscreen Use: No (Does wear hat and long sleeves) Do you think of yourself as: straight/heterosexual Assistive Devices: Glasses Review of Systems Review of Systems: The patient denies chest pain, palpitations, shortness of breath, dyspnea on exertion, cough, lower extremity swelling, sore throat, fevers, chills, sweats, weight change, vomiting, blood in urine or stool, dysuria, urinary frequency or urgency, lightheadedness, dizziness, headache, memory loss, loss of consciousness, rash, abnormal bruising or bleeding, imbalance, focal or generalized weakness, numbness or tingling in arms or legs, generalized arthralgias or myalgias, back or neck pain, or night sweats. The review of systems is otherwise negative other than for that already noted above, and at least 10 systems have been reviewed. Physical Exam Physical Exam: The patient is awake, alert and oriented 3, well developed and well nourished, normocephalic and atraumatic, lying in bed and in no acute distress. HEENT--PERRL, EOMI, mucous membranes and oropharynx dry. Neck--supple. No JVD. No bruits. Thyroid normal, trachea midline, no adenopathy. Heart--normal S1 and S2. No murmurs, rubs or gallops. Lungs--clear bilaterally, no respiratory distress, no accessory muscle use. Abdomen--normal bowel sounds and soft. Nontender. Nondistended, no hernias or masses, no organomegaly. Extremities--no cyanosis or clubbing. No edema. Dermatologic--normal skin turgor, normal color, no abnormal lymph nodes, no rash. Neurologic--cranial nerves II through XII grossly intact. Rheumatologic--normal range of motion. Psychiatric--normal affect. Results & Data Results & Data Vital Signs (Past 12 Hours) Vital Signs Temp Pulse Pulse Resp BP BP Pulse Ox 11/08/22 20:35 69 11/08/22 18:58 59 L 18 154/82 H 96 11/08/22 16:39 67 11/08/22 16:18 60 19 170/82 H 95 11/08/22 13:07 36.2 C L 59 L 20 184/78 H 99 O2 Del Method 11/08/22 20:35 11/08/22 18:58 Room Air 11/08/22 16:39 11/08/22 16:18 Room Air 11/08/22 13:07 Room Air Laboratory Results Laboratory Results WBC 9.60 K/ul (4.8-10.8) 11/08/22 13:35 RBC 5.07 M/uL (4.70-6.10) 11/08/22 13:35 Hgb 16.1 g/dl (14.0-18.0) 11/08/22 13:35 Hct 46.2 % (42.0-52.0) 11/08/22 13:35 MCV 91.1 fL (80.0-100.0) 11/08/22 13:35 MCH 31.8 pg (25.0-34.0) 11/08/22 13:35 MCHC 34.8 g/dL (32.0-36.0) 11/08/22 13:35 RDW Std Deviation 40.4 fL (36.4-46.3) 11/08/22 13:35 RDW Coeff of Emir 12.3 % (11.5-14.5) 11/08/22 13:35 Plt Count 153 K/uL (130-400) 11/08/22 13:35 MPV 12.2 fL (9.4-12.4) 11/08/22 13:35 Immature Gran % (Auto) 0.2 % 11/08/22 13:35 Neut % (Auto) 55.4 % 11/08/22 13:35 Lymph % (Auto) 32.5 % 11/08/22 13:35 [place] % (Auto) 6.8 % 11/08/22 13:35 Eos % (Auto) 4.7 % 11/08/22 13:35 Baso % (Auto) 0.4 % 11/08/22 13:35 Neut # (Auto) 5.32 K/uL (1.40-6.50) 11/08/22 13:35 Lymph # (Auto) 3.12 K/uL (1.2-3.4) 11/08/22 13:35 [place] # (Auto) 0.65 K/uL (0.11-0.59) H 11/08/22 13:35 Eos # (Auto) 0.45 K/uL (0-0.50) 11/08/22 13:35 Baso # (Auto) 0.04 K/uL (0-0.2) 11/08/22 13:35 Immature Gran # (Auto) 0.02 K/uL (0.01-0.20) 11/08/22 13:35 Sodium 138 mmol/L (136-145) 11/08/22 13:35 Potassium 4.1 mmol/L (3.5-5.1) 11/08/22 13:35 Chloride 108 mmol/L (98-107) H 11/08/22 13:35 Carbon Dioxide 24 mmol/L (21-32) 11/08/22 13:35 Anion Gap 6 (3-11) 11/08/22 13:35 BUN 18 mg/dl (6-23) 11/08/22 13:35 Creatinine 1.05 mg/dl (0.6-1.4) 11/08/22 13:35 Est Cr Clr Drug Dosing Not Reportable 11/08/22 13:35 Est GFR ( Amer) 78.4 ml/min 11/08/22 13:35 Est GFR (Non-Af Amer) 67.7 ml/min 11/08/22 13:35 BUN/Creatinine Ratio 17.1 (10-20) 11/08/22 13:35 Glucose 126 mg/dl (70-99(Fasting)) H 11/08/22 13:35 Calcium 9.7 mg/dl (8.6-10.3) 11/08/22 13:35 Total Bilirubin 1.4 mg/dl (0.2-1.0) H 11/08/22 13:35 AST 129 U/L (13-39) H 11/08/22 13:35 ALT 77 U/L (7-52) H 11/08/22 13:35 Alkaline Phosphatase 87 U/L (34-104) 11/08/22 13:35 Total Protein 7.1 gm/dl (6.0-8.3) 11/08/22 13:35 Albumin 4.1 gm/dl (3.4-5.0) 11/08/22 13:35 Globulin 3.0 gm/dl (2.5-4.0) 11/08/22 13:35 Albumin/Globulin Ratio 1.4 (0.9-2) 11/08/22 13:35 Lipase 51 U/L (11-82) 11/08/22 13:35 Urine Color Dark Yellow 11/08/22 Unknown Urine Appearance Clear (Clear) 11/08/22 Unknown Urine pH 5.5 (4.5-7.5) 11/08/22 Unknown Ur Specific [place] 1.027 (1.000-1.030) 11/08/22 Unknown Urine Protein Negative (Negative) 11/08/22 Unknown Urine Glucose (UA) Negative (Negative) 11/08/22 Unknown Urine Ketones Trace (Negative) H 11/08/22 Unknown Urine Blood Negative (Negative) 11/08/22 Unknown Urine Nitrite Negative (Negative) 11/08/22 Unknown Urine Bilirubin Negative (Negative) 11/08/22 Unknown Urine Urobilinogen Negative (Negative) 11/08/22 Unknown Ur Leukocyte Esterase Negative (Negative) 11/08/22 Unknown SARS-CoV-2, RNA, NAAT NEGATIVE (NEGATIVE) 11/08/22 Unknown Impressions Abdomen/Pelvis CT 11/08/22 16:[address] WITHOUT CONTRAST CT DOSE: 1167.30 mGy.cm HISTORY: Acute upper abdominal pain upper abd pain TECHNIQUE: Multiaxial CT images of the abdomen and pelvis were performed without contrast. A dose lowering technique was utilized adhering to the principles of ALARA. COMPARISON STUDY: [facility] 07/11/2022 FINDINGS: Moderate cardiomegaly. Extensive coronary artery calcifications with prior median sternotomy and CABG. Mild bibasilar atelectasis versus scarring. Calcified left hilar lymph nodes. No free air. Calcified granulomata of the spleen. Mild nonspecific dilation of the pancreatic duct measures up to 5 mm. No obstructing pancreatic stone or lesion identified. There is a 3 mm stone within the cystic duct on image 135. Cholecystectomy. No choledocholithiasis or significant biliary ductal dilation identified. Unremarkable liver. Nonspecific bilateral perinephric stranding. Exophytic cyst of the mid inferior pole left kidney, 3.8 cm. No urolithiasis or hydronephrosis. Prostatomegaly. Urinary bladder wall thickening and trabeculation with partial distention and diverticula. Small fat filled left inguinal hernia. Atherosclerosis of the aorta. No lymphadenopathy. 5 cm duodenal diverticulum. Colonic diverticulosis. No CT evidence of acute appendicitis. Tiny fat filled umbilical hernia. Subcutaneous edema anterior abdominal wall, likely medicinal injection sites. No acute fracture. IMPRESSION: 1. Cholecystectomy with subcentimeter stone within the cystic duct. 2. No choledocholithiasis identified. 3. Mild pancreatic ductal dilation. No obstructing pancreatic ductal stone or lesion identified. 4. No bowel obstruction or bowel wall thickening. 5. Colonic diverticulosis. 6. Prostamegaly with chronic bladder outlet obstruction. ACT 112: Negative or not required by law. The above report was generated using voice recognition software. It may contain grammatical, syntax or spelling errors. Electronically signed by: Gavin Gonzalez M.D. 11/08/2022 5:04 PM Code Status & VTE Plan Code Status Full code VTE Prophylaxis Plan VTE Prophylaxis will be ordered: Yes PG Care Time/CCT Total # of Minutes Spent Total Time Spent with Patient: Total time spent is greater than 50% in coordination of care (as documented) at patient's floor/unit and/or counseling patient: Coding Level of Care Code 32777 INT INP/OBS CARE 3/75MIN Diagnoses Calculus of cystic duct K80.20 Type 2 diabetes mellitus treated with insulin E11.9; Z79.4 Status post laparoscopic cholecystectomy Z90.49 Abdominal pain R10.9 Elevated LFTs R79.89 Asthma J45.909 Allergic rhinitis J30.9 BPH (benign prostatic hyperplasia) N40.0 Coronary artery disease I25.10 GERD (gastroesophageal reflux disease) K21.9 Hypercholesterolemia E78.00 Generalized anxiety disorder F41.1 Benign essential hypertension I10
[2022-11-08] MEDS ORDERED: hydrALAZINE HCL 20 MG/ML VIAL IV PRN (21:27)
[2022-11-08] MEDS ORDERED: CARBOHYDRATES FOR HYPOGLYCEMIA PO PRN (22:38)
[2022-11-08] MEDS ORDERED: INSULIN ASPART PER UNIT CHARGE SC SCH (22:38)
[2022-11-08] MEDS ORDERED: GLUCAGON FOR INJ 1 MG VIAL SQ PRN (22:38)
[2022-11-08] MEDS ORDERED: ALBUTEROL HFA 8 GM INHALER INH PRN (22:38)
[2022-11-08] MEDS ORDERED: GLUCOSE 10 TAB/TUBE PO PRN (22:38)
[2022-11-08] MEDS ORDERED: GLUCOSE 40% GEL 15 GM TUBE PO PRN (22:38)
[2022-11-08] MEDS ORDERED: DEXTROSE 50% 50 ML SYRINGE IV PRN (22:38)
[2022-11-08] MEDS ORDERED: PIPERACILLIN/TAZOBACTAM 4.5 GM (over 30 mins) IV ONE (23:15)
[2022-11-08] MEDS: NSS + 20MEQ KCL 20 MEQ/1,000 ML BAG IV SCH (23:16)
--- NOTE | 2022-11-08 23:18 | Magnetic Resonance Report ---
Exam(s): MRI MRCP EXAM: MR Abdomen Without Intravenous Contrast, MRCP Protocol CLINICAL HISTORY: Reason for exam: 3mm cystic duct stone, 5mm pancreatic duct dilatio. TECHNIQUE: Multiplanar magnetic resonance images of the abdomen without intravenous contrast using MRCP protocol. COMPARISON: No relevant prior studies available. FINDINGS: Bile ducts: Unremarkable. No stones. No ductal dilation. No filling defect is seen within the biliary tree. Gallbladder: The patient is status post cholecystectomy. Liver: Unremarkable. Pancreas: Unremarkable. Normal caliber pancreatic duct without filling defect. Spleen: Unremarkable. No splenomegaly. Adrenals: Unremarkable. No mass. Kidneys and ureters: There is a simple appearing left renal cyst. No hydronephrosis. Stomach and bowel: Unremarkable. No obstruction. IMPRESSION: 1. No filling defect is seen within the biliary tree. 2. Normal caliber pancreatic duct without filling defect. Electronically signed by: Vishal Platt MD 11/08/22 23:17 PM
[2022-11-08] MEDS: IPRATROPIUM BROMIDE NASAL SPRAY 0.06% 15ML NAE SCH (23:21)
[2022-11-09] MEDS: PIPERACILLIN/TAZOBACTAM 4.5 GM in DEXTROSE 5% 100 ML IV SCH ×3 (03:30→19:25)
[2022-11-09] MEDS: INSULIN ASPART PER UNIT CHARGE SC SCH ×4 (05:50→21:10)
[2022-11-09 06:06] LABS: Basophils # (auto) 0.05 K/uL (0-0.2); Basophils % (auto) 0.8 %; Eosinophils # (auto) 0.48 K/uL (0-0.50); Eosinophils % (auto) 7.2 %; Hematocrit (blood only) 42.2 % (42.0-52.0); Hemoglobin 14.2 g/dl (14.0-18.0); Immature Granulocytes # (auto) 0.02 K/uL (0.01-0.20); Immature Granulocytes % (auto) 0.3 %; Lymphocytes # (auto) 2.27 K/uL (1.2-3.4); Lymphocytes % (auto) 34.1 %; Mean Corpuscular Hemoglobin 31.2 pg (25.0-34.0); Mean Corpuscular Hgb Conc 33.6 g/dL (32.0-36.0); Mean Corpuscular Volume 92.7 fL (80.0-100.0); Monocytes # (auto) 0.52 K/uL (0.11-0.59); Monocytes % (auto) 7.8 %; Neutrophils # (auto) 3.32 K/uL (1.40-6.50); Neutrophils % (auto) 49.8 %; Platelet Count 121 K/uL (130-400); RDW Coefficient of Variation 12.2 % (11.5-14.5); RDW Standard Deviation 41.6 fL (36.4-46.3); Red Blood Count 4.55 M/uL (4.70-6.10); White Blood Count 6.66 K/ul (4.8-10.8)
[2022-11-09 06:23] LABS: Albumin Globulin Ratio 1.3 (0.9-2); Albumin Level 3.2 gm/dl (3.4-5.0); BUN Creatinine Ratio 12.8 (10-20); Bilirubin,Total 1.6 mg/dl (0.2-1.0); Calcium 8.4 mg/dl (8.6-10.3); Creatinine Clr Calc Pharmacy 59.5 ml/min; Est GFR (Non-African American) 64.7 ml/min; Globulin 2.5 gm/dl (2.5-4.0); Magnesium 1.8 mg/dl (1.7-2.4); Total Protein 5.7 gm/dl (6.0-8.3)
[2022-11-09 07:15] LABS: Estimated Average Glucose 166 mg/dl; Hemoglobin A1C 7.4 % (4.5-5.6)
[2022-11-09] MEDS: IPRATROPIUM BROMIDE NASAL SPRAY 0.06% 15ML NAE SCH ×2 (08:12→20:18)
[2022-11-09] MEDS: UMECLIDINIUM/VILANTEROL 62.5/25MCG 7 PUFFS/INHALER INH SCH (08:13)
[2022-11-09] MEDS: FLUTICASONE FUROATE 200MCG 14 PUFFS/INHALER INH SCH (08:13)
--- NOTE | 2022-11-09 08:48 | Hospitalist Progress Note ---
Date of Service November 09, 2022 Assessment & Plan (1) Calculus of cystic duct: Plan: Hx lap denise 06/2022 Presented with abdominal pain, nausea, worsening over 1 week worst in the mornings Elevated TBili, AST, ALT; repeat tomorrow to trend 3 mm cystic duct stone noted on CT imaging MRCP fortunately without gallbladder pathology Low fat diet for rest of day today per GI Zosyn 4.5 g IV every 8 hours Zofran 4 mg IV every 6 hours as needed for nausea Pantoprazole 40 mg IV daily Dilaudid 0.25 mg IV every 3 hours as needed moderate to severe pain Gastroenterology consulted, case was discussed with GI today, if symptoms continue or LFTs trend up then plan for EUS/ERCP Tuesday (hold Plavix/asa until then) (2) Elevated LFTs: Plan: see above (3) Abdominal pain: Plan: see above (4) Type 2 diabetes mellitus treated with insulin: Plan: Hold outpatient medications Humulin N, Onglyza and glimepiride Place on Accu-Cheks with NovoLog SSI (5) Asthma: Plan: Continue usual inhalers (6) Coronary artery disease: Plan: Can resume statin, Coreg, lisinopril, isosorbide Still asa and Plavix held as will need to hold for upcoming EUS if done inpatient (7) GERD (gastroesophageal reflux disease): Plan: Cont PPI IV (8) Benign essential hypertension: Plan: Resume home medications Admission and Anticipated Discharge Date Admission Date: November 08, 2022 Subjective Some pain this AM requiring IV narcotic medication, with relief after that. Notes that recently he has had the pain the worst in the mornings with breakfast/coffee. Reports it is different from his GERD. Physical Exam Constitutional: WD/WN, vitals as above Respiratory: normal respiratory effort, lungs clear to auscultation Cardiovascular: RRR, no murmur, no edema Gastrointestinal (Abdomen): normal bowel sounds, abdomen soft, no guarding, minimally tender Skin: no rashes, warm and dry Psychiatric: A+Ox3, euthymic affect Results & Data Results & Data Vital Signs (Past 12 Hours) Vital Signs Temp Pulse Resp BP Pulse Ox O2 Del Method 11/09/22 07:58 36.6 C 57 L 17 156/68 H 97 Room Air 11/08/22 23:49 135/72 11/08/22 22:20 36.5 C 64 18 168/76 H 96 Room Air PG Care Time/CCT Total # of Minutes Spent Total Time Spent with Patient: Total time spent is greater than 50% in coordination of care (as documented) at patient's floor/unit and/or counseling patient: Coding Level of Care Code 26542 SUB INP/OBS CARE 3/50MIN Diagnoses Calculus of cystic duct K80.20 Elevated LFTs R79.89 Abdominal pain R10.9 Type 2 diabetes mellitus treated with insulin E11.9; Z79.4 Asthma J45.909 Coronary artery disease I25.10 GERD (gastroesophageal reflux disease) K21.9 Benign essential hypertension I10
[2022-11-09 10:21] LABS: INR 1.1 (0.9-1.1); Prothrombin Time 11.9 Seconds (9.0-12.0)
--- NOTE | 2022-11-09 10:34 | Gastrointestinal Consultation ---
Date of Consultation November 09, 2022 Assessment & Plan (1) Abdominal pain: (2) Elevated LFTs: (3) Status post laparoscopic cholecystectomy: Plan The cystic duct stone is not medically significant/should not be causing pain but could migrate into the CBD and cause pain. He is on Plavix (pt had reported also on warfarin but the primary hospitalist covering corrected, saying just on Plavix). Most recent Plavix yesterday morning. There is mild pancreas duct dilation but no direct evidence of CBD stones on CT or MRCP, so he may have passed a stone/sludge. Recommend going forward w advancing to low fat diet. If LFTs further increase or if eating causes pain then will consider IP EUS +/- ERCP in the next few days. Otherwise will plan for OP EUS/+/- ERCP in the next month (off Plavix for 5 days prior). Our office will call him to arrange. Supervising Physician Co-Signing Physician Notes Pt with s/p recent denise 1 month h/o epigastric pain, possibly triggered by meals. Continues this am. Non con abd CT shows remnant GB with stone, MRCP done later same day shows no CBD stone or PD dil. Persistent pain this am. Labs show mild increased transaminases, nl lipase, mild chronic intermittent b cr elevation. Recent abx use for dental infection, no use APAP /no new meds. Suspect passed stone. PO challenge, follows LFT's, fractionated bili, and lipase daily. Can consider EUS +/- ERCP if sx persistent. History of Present Illness Reason for Consultation: cystic duct dilation Requesting Physician: Dr. Robles Attending Physician: Mariajose Robles, History of Present Illness [facility] gastroenterology was asked by [facility] to provide consult for this patient because he has a biliary issue. Mr. Del Real is a 77 yr old male pt of Dr. Valentino Dunlap w a hx of DM-2, asthma/COPD, HLD, HTN, CAD/past OH, BPH and GERD. He presented to [facility] ED yesterday for intermittent upper abdomen pain. CT w a dilated pancreatic duct, post cholecystectomy w a stone in the cystic duct remnant. MRCP w/o stones. He reports that the pain is epigastric. It can occur after drinking coffee or soon to a few hours after eating a meal. It typically lasts an hour or so. He has not had yellow eyes/skin or fevers. He has a little pain currently and is tender in the epigastric area, but also is hungry and asks to eat. He is maintained on Plavix (most recent dose yesterday morning). Pt also thought he was on warfarin but primary hospitalist says he is not. Allergies Allergy/AdvReac Type Severity Reaction Status Date / Time pollen extracts Allergy Intermediate ITCHY Verified 11/08/22 16:35 EYES, SNEEZING, CONGESTION cat dander Allergy Mild congestion Verified 11/08/22 16:35 dog dander Allergy Mild congestion Verified 11/08/22 16:35 Home Medications Medication Instructions Recorded Confirmed Type cetirizine 10 mg capsule 10 mg PO HS #90 caps 10/24/18 11/08/22 Rx clopidogrel 75 mg tablet (Plavix) 75 mg PO QAM #90 tabs 10/24/18 11/08/22 Rx fexofenadine 180 mg tablet 180 mg PO QAM #90 tabs 10/24/18 11/08/22 Rx yovpteba-bt-jjpgh 300 mcg-K 60 1 tab PO QAM #90 tabs 10/24/18 11/08/22 Rx mcg-lycop 600 mcg-lutein 300 mcg tablet (Centrum Silver Men) aspirin 81 mg tablet,delayed 81 mg PO 3XWK 04/16/19 11/08/22 History release lisinopril 10 mg tablet 10 mg PO QAM 04/16/19 11/08/22 History furosemide 20 mg tablet 20 mg PO 3XWK 02/22/20 11/08/22 History ipratropium bromide 42 mcg (0.06 1 spray intranasal AMHS 02/22/20 11/08/22 History %) nasal spray triamcinolone acetonide 55 mcg 1 spray intranasal QAM 02/22/20 11/08/22 History nasal spray aerosol (Nasacort) glucagon 1 mg/0.2 mL subcutaneous 1 mg (0.2 mL) subcut ONCE PRN 02/28/20 11/08/22 Rx auto-injector severe low sugar #0.2 mL pantoprazole 40 mg tablet,delayed 40 mg PO BID #180 tabs 10/13/21 11/08/22 Rx release carvedilol 3.125 mg tablet (Coreg) 3.125 mg PO BIDM #180 tabs 12/07/21 11/08/22 Rx albuterol sulfate 90 mcg/actuation 2 puff inhalation Q6H PRN 01/26/22 11/08/22 Rx aerosol inhaler (Ventolin HFA) Shortness Of Breath Or Wheezing #18 grams fluticasone fur. 200 mcg-umeclid 1 inh inhalation DAILY #60 ea 02/22/22 11/08/22 Rx 62.5 mcg-vilant 25 mcg inhalat.powder (Trelegy Ellipta) glimepiride 1 mg tablet See Rx Instructions PO BID #450 02/22/22 11/08/22 Rx tabs atorvastatin 80 mg tablet 80 mg PO QDD #90 tabs 05/17/22 11/08/22 Rx tamsulosin 0.4 mg capsule (Flomax) 0.4 mg PO HS 07/11/22 11/08/22 History blood-glucose meter (OneTouch #1 ea 07/27/22 10/26/22 Rx Ultra2 Meter) lancets 30 gauge (OneTouch #200 ea 09/17/22 10/26/22 Rx UltraSoft 2 Lancet) potassium chloride 10 mEq 10 meq PO QAM #90 tabs 09/20/22 11/08/22 Rx tablet,extended release isosorbide mononitrate 30 mg 30 mg PO QAM #90 tabs 10/20/22 11/08/22 Rx tablet,extended release 24 hr insulin NPH isoph U-100 human 100 See Rx Instructions subcut BID #50 10/26/22 11/08/22 Rx unit/mL subcutaneous suspension mL (Novolin N NPH U-100 Insulin isophane) saxagliptin 5 mg tablet (Onglyza) 5 mg PO QDD 11/08/22 11/08/22 History Patient History Medical History Asthma Bruising Chronic reflux esophagitis Cough Early satiety GERD (gastroesophageal reflux disease) Hearing deficit History of anxiety History of COVID-19 History of Mohs micrographic surgery for skin cancer History of skin cancer Hyperlipidemia Medicare annual wellness visit, subsequent Myocardial Infarction Type 2 diabetes mellitus treated with insulin 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 Surgical History H/O hand surgery History of cardiac cath History of cataract surgery History of colonoscopy History of hernia repair History of tooth extraction Hx laparoscopic cholecystectomy (07/13/22) Hx of CABG S/P trigger finger release Family History Mother Colorectal cancer Sister Diabetes Breast cancer Brother Diabetes Hx of CABG Son Legg-Perthes disease Father Colorectal cancer Other Myocardial infarction No family history of adverse response to anesthesia Denies family history of Ovarian cancer Prostate cancer Social History Smoking Status: Never smoker Second Hand Exposure: Yes (IN THE PAST); Do You Dip or Chew Tobacco: No; Hx Alcohol Use: No Hx Substance Use: No Preferred Language: Moroccan Communication Ability: Effective Visual Impairment: Limited Hearing Ability: Normal Quarter Section Ironer Required: No Beliefs That Will Affect Care: None marital status: Current Living Situation: Spouse Current Living Situation Comment: Lives in 1 story home with current occupational status: retired Other Information That Helps Us Care for You: No Feels Safe at Home: Yes Safety Concerns: Feels Safe At This Time Childhood Exposure to Second-Hand Smoke: No Diet Comment: heart healthy caffeine: Yes Dental Care, Regularly: Yes Physical Activity Frequency: Daily Seatbelt Use: always Sunscreen Use: No (Does wear hat and long sleeves) Do you think of yourself as: straight/heterosexual Assistive Devices: Glasses Review of Systems Review of Systems: ROS: Gen: Denies weakness, fevers, weight loss Eyes: No eye redness, or pain, no recent vision changes Resp: Mild wheezing - No SOB, no cough and not worse than usual for him. Cardio: No palpitations/irregular beats, no chest pain GI: As per HPI, otherwise (-) : Denies pain on urination Skin: No jaundice, itching or new rashes Physical Exam Constitutional: WD/WN, vitals as above Eyes: PERRL, conjunctivae normal, anicteric sclerae ENMT: external ear and nose normal, oropharynx normal Neck: trachea midline, no thyromegaly Respiratory: normal respiratory effort; no respiratory distress and no cough Auscultation: + wheezes (scattered, mild); no crackles Cardiovascular: RRR, no murmur, no edema Gastrointestinal (Abdomen): Soft, non distended, + tender in the epigastric area. Musculoskeletal: no cyanosis or clubbing, extremities motor strength 5/5 Skin: no rashes, warm and dry Neurologic: PERRL, EOMI, accommodation nl, no face palsy, no dysarthria Psychiatric: A+Ox3, euthymic affect Lymphatic: no cervical or axillary lymphadenopathy Results & Data Vital Signs (Past 12 Hours) Vital Signs Temp Pulse Resp BP Pulse Ox O2 Del Method 11/09/22 07:58 36.6 C 57 L 17 156/68 H 97 Room Air 11/08/22 23:49 135/72 Laboratory Results WBC 6.6, Hb 14.2, Hct 42.2, Plts 121, Na 139, K 5.0, Cl 112, CO2 24, BUN 14, Cr 1.09. T Bili 1.4 yesterday -> 1.6 today AST 129-> 66, ALT 77->76, Alk Phos 61. Diagnostic Findings Non contrast CTAP 11/08/22: 1. Cholecystectomy with subcentimeter stone within the cystic duct. 2. No choledocholithiasis identified. 3. Mild pancreatic ductal dilation. No obstructing pancreatic ductal stone or lesion identified. 4. No bowel obstruction or bowel wall thickening. 5. Colonic diverticulosis. 6. Prostamegaly with chronic bladder outlet obstruction. MRCP 11/08/22: 1. No filling defect is seen within the biliary tree. 2. Normal caliber pancreatic duct without filling defect.
[2022-11-09] MEDS ORDERED: PANTOprazole 40 MG in SYRINGE 0 ML IV SCH (11:00)
[2022-11-09] MEDS: NSS + 20MEQ KCL 20 MEQ/1,000 ML BAG IV SCH (14:17)
[2022-11-09] MEDS: ACETAMINOPHEN 325 MG TAB PO PRN (19:20)
[2022-11-09] MEDS: PANTOprazole 40 MG in SYRINGE 0 ML IV SCH (20:18)
[2022-11-09] MEDS ORDERED: Nursing to Pharmacy Communication SCH (20:30)
[2022-11-09] MEDS: TAMSULOSIN HCL 0.4 MG CAP PO SCH (23:07)
[2022-11-10] MEDS: PIPERACILLIN/TAZOBACTAM 4.5 GM in DEXTROSE 5% 100 ML IV SCH (04:12)
[2022-11-10 07:38] LABS: Basophils # (auto) 0.05 K/uL (0-0.2); Basophils % (auto) 0.6 %; Eosinophils % (auto) 6.3 %; Hematocrit (blood only) 44.5 % (42.0-52.0); Hemoglobin 15.4 g/dl (14.0-18.0); Immature Granulocytes # (auto) 0.02 K/uL (0.01-0.20); Immature Granulocytes % (auto) 0.3 %; Lymphocytes # (auto) 2.03 K/uL (1.2-3.4); Lymphocytes % (auto) 25.5 %; Mean Corpuscular Hemoglobin 31.6 pg (25.0-34.0); Mean Corpuscular Hgb Conc 34.6 g/dL (32.0-36.0); Mean Corpuscular Volume 91.2 fL (80.0-100.0); Mean Platelet Volume 12.2 fL (9.4-12.4); Monocytes # (auto) 0.45 K/uL (0.11-0.59); Monocytes % (auto) 5.7 %; Neutrophils % (auto) 61.6 %; Platelet Count 124 K/uL (130-400); RDW Standard Deviation 40.2 fL (36.4-46.3); Red Blood Count 4.88 M/uL (4.70-6.10); White Blood Count 7.95 K/ul (4.8-10.8)
[2022-11-10 07:55] LABS: Albumin Globulin Ratio 1.3 (0.9-2); Albumin Level 3.5 gm/dl (3.4-5.0); BUN Creatinine Ratio 12.5 (10-20); Bilirubin Direct 0.3 mg/dl (0-0.2); Bilirubin,Total 1.5 mg/dl (0.2-1.0); Calcium 8.6 mg/dl (8.6-10.3); Creatinine Clr Calc Pharmacy 67.5 ml/min; Est GFR (African American) 87.4 ml/min; Est GFR (Non-African American) 75.4 ml/min; Globulin 2.7 gm/dl (2.5-4.0); Magnesium 1.8 mg/dl (1.7-2.4); Potassium 3.9 mmol/L (3.5-5.1); Total Protein 6.2 gm/dl (6.0-8.3)
[2022-11-10] MEDS: UMECLIDINIUM/VILANTEROL 62.5/25MCG 7 PUFFS/INHALER INH SCH (08:10)
[2022-11-10] MEDS: FLUTICASONE FUROATE 200MCG 14 PUFFS/INHALER INH SCH (08:10)
[2022-11-10] MEDS: PANTOprazole 40 MG in SYRINGE 0 ML IV SCH (08:10)
[2022-11-10] MEDS: IPRATROPIUM BROMIDE NASAL SPRAY 0.06% 15ML NAE SCH ×2 (08:11→21:13)
[2022-11-10] MEDS: carvediloL 3.125 MG TAB PO SCH ×2 (08:11→17:43)
[2022-11-10] MEDS: lisinopril 10 MG TAB PO SCH (08:12)
[2022-11-10] MEDS: ISOSORBIDE MONO EXTENDED REL 30 MG TABCR PO SCH (08:12)
[2022-11-10] MEDS: INSULIN ASPART PER UNIT CHARGE SC SCH ×4 (09:24→21:38)
[2022-11-10] MEDS: ACETAMINOPHEN 325 MG TAB PO PRN (10:34)
[2022-11-10] MEDS: HYDROmorphone INJ 0.5 MG/0.5 ML SYR IV PRN ×2 (13:19→21:13)
[2022-11-10] MEDS: ONDANSETRON INJ 2 MG/ML 2 ML VIAL IV PRN (15:41)
--- NOTE | 2022-11-10 16:40 | Hospitalist Progress Note ---
Date of Service November 10, 2022 Assessment & Plan (1) Calculus of cystic duct: Plan: Hx delilah denise 06/2022 Presented with abdominal pain, nausea, worsening over 1 week With Elevated TBili, AST, ALT, normal lipase but LFs slowly trending downward No melena, hgb normal 3 mm cystic duct stone noted on CT A/P, MRCP normal Likely from passed stone. No evidence of cholangitis-no fevers or leukocytosis--> can dc Dianen Continues to have nausea with meals and intermittent spasms of abd pain in epigastric region--> perhaps passing smaller stones and sludge? -continue low fat diet but if pain persists, plan for US and possible ERCP on Tuesday after off Plavix x 5 days -continue Zofran 4 mg IV every 6 hours as needed for nausea -convert Pantoprazole 40 mg to po bid -add IV dilaudid back onto regimen for pain -follow CBC, CMP in AM (2) Elevated LFTs: Plan: see above (3) Type 2 diabetes mellitus treated with insulin: Plan: Hold outpatient medications Humulin N, Onglyza and glimepiride Place on Accu-Cheks with NovoLog SSI-continue A1C 7.4%-well controlled (4) Asthma: Plan: Continue usual inhalers no acute issues (5) Coronary artery disease: Plan: no acute issues -continue statin, Coreg, lisinopril, isosorbide -holding asa and Plavix for upcoming EUS (6) GERD (gastroesophageal reflux disease): Plan: Cont PPI (7) Benign essential hypertension: Plan: BPs controlled -continue Coreg, lisinopril, isosorbide Plan DVT proph-SCDs, add Lovenox given prolonged stay Dispo-continued stay on med/surg Admission and Anticipated Discharge Date Admission Date: November 08, 2022 Subjective Continues to have nausea after each meal and had spasms of pain today in epigastric region, relieved with dilaudid. Had 2 brown BMs today. Denies CP, SOB Physical Exam Constitutional: WD/WN, vitals as above Neck: trachea midline, no thyromegaly Respiratory: normal respiratory effort, lungs clear to auscultation Cardiovascular: RRR, no murmur, no edema Chest (Breasts): Chest: normal inspection of chest Gastrointestinal (Abdomen): Inspection/Auscultation: abdomen normal to inspection and normal bowel sounds; abdomen not distended Percussion/Palpation: + abdomen tender (+TTP epigastric region w/o guarding or rebound) and abdomen soft Musculoskeletal: Extremities: extremities normal to inspection; no cyanosis and no clubbing Skin: no rashes, warm and dry Neurologic: moves all extremities and awake; no focal motor deficits Psychiatric: A+Ox3, euthymic affect Lymphatic: no lymphedema Results & Data Results & Data Vital Signs (Past 12 Hours) Vital Signs Temp Pulse Resp BP Pulse Ox O2 Del Method 11/10/22 14:36 36.5 C 63 15 140/66 96 Room Air 11/10/22 06:59 36.6 C 63 16 171/74 H 96 Room Air Laboratory Results CBC, CMP, lipase, magnesium reviewed PG Care Time/CCT Total # of Minutes Spent Total Time Spent with Patient: Total time spent is greater than 50% in coordination of care (as documented) at patient's floor/unit and/or counseling patient: Coding Level of Care Code 30175 SUB INP/OBS CARE 2/35MIN Diagnoses Calculus of cystic duct K80.20 Elevated LFTs R79.89 Type 2 diabetes mellitus treated with insulin E11.9; Z79.4 Asthma J45.909 Coronary artery disease I25.10 GERD (gastroesophageal reflux disease) K21.9 Benign essential hypertension I10
[2022-11-10] MEDS: ATORVASTATIN 40 MG TAB PO SCH (17:42)
[2022-11-10] MEDS ORDERED: ENOXAPARIN INJ 40 MG/0.4 ML SYR SQ SCH (18:00)
[2022-11-10] MEDS: TAMSULOSIN HCL 0.4 MG CAP PO SCH (21:13)
[2022-11-10] MEDS: PANTOprazole 40 MG TAB PO SCH (21:13)
[2022-11-11] MEDS: ONDANSETRON INJ 2 MG/ML 2 ML VIAL IV PRN ×4 (03:07→20:43)
[2022-11-11] MEDS: HYDROmorphone INJ 0.5 MG/0.5 ML SYR IV PRN ×4 (04:00→18:36)
[2022-11-11] MEDS: IPRATROPIUM BROMIDE NASAL SPRAY 0.06% 15ML NAE SCH ×2 (07:45→20:43)
[2022-11-11] MEDS: FLUTICASONE FUROATE 200MCG 14 PUFFS/INHALER INH SCH (07:46)
[2022-11-11] MEDS: PANTOprazole 40 MG TAB PO SCH ×2 (07:46→20:38)
[2022-11-11] MEDS: ISOSORBIDE MONO EXTENDED REL 30 MG TABCR PO SCH (07:46)
[2022-11-11] MEDS: UMECLIDINIUM/VILANTEROL 62.5/25MCG 7 PUFFS/INHALER INH SCH (07:46)
[2022-11-11] MEDS: lisinopril 10 MG TAB PO SCH (07:47)
[2022-11-11] MEDS: carvediloL 3.125 MG TAB PO SCH ×2 (07:47→17:14)
[2022-11-11 08:38] LABS: Basophils # (auto) 0.04 K/uL (0-0.2); Basophils % (auto) 0.5 %; Hemoglobin 15.6 g/dl (14.0-18.0); Immature Granulocytes # (auto) 0.02 K/uL (0.01-0.20); Immature Granulocytes % (auto) 0.2 %; Lymphocytes # (auto) 2.62 K/uL (1.2-3.4); Lymphocytes % (auto) 32.5 %; Mean Corpuscular Hemoglobin 31.4 pg (25.0-34.0); Mean Corpuscular Hgb Conc 34.7 g/dL (32.0-36.0); Mean Corpuscular Volume 90.5 fL (80.0-100.0); Monocytes # (auto) 0.48 K/uL (0.11-0.59); Neutrophils % (auto) 55.8 %; Platelet Count 141 K/uL (130-400); RDW Standard Deviation 39.6 fL (36.4-46.3); Red Blood Count 4.97 M/uL (4.70-6.10); White Blood Count 8.06 K/ul (4.8-10.8)
[2022-11-11] MEDS: INSULIN ASPART PER UNIT CHARGE SC SCH ×4 (08:39→20:52)
[2022-11-11 08:50] LABS: Albumin Globulin Ratio 1.2 (0.9-2); Albumin Level 3.6 gm/dl (3.4-5.0); BUN Creatinine Ratio 14.8 (10-20); Bilirubin,Total 1.5 mg/dl (0.2-1.0); Creatinine Clr Calc Pharmacy 73.7 ml/min; Est GFR (African American) 95.4 ml/min; Est GFR (Non-African American) 82.3 ml/min; Globulin 2.9 gm/dl (2.5-4.0); Total Protein 6.5 gm/dl (6.0-8.3)
--- NOTE | 2022-11-11 12:27 | Gastroenterology Progress Note ---
Date of Service November 11, 2022 Assessment & Plan (1) Abdominal pain: (2) Elevated LFTs: (3) Status post laparoscopic cholecystectomy: Plan The cystic duct stone may have migrated to the CBD. Clear liquids po today. NPO after midnight. Will go forward w EGD/EUS/+- ERCP if indicated tomorrow by Dr. Sue. Admission and Anticipated Discharge Date Admission Date: November 08, 2022 Supervising Physician Co-Signing Physician Notes Attg add: Pt continues to have episodic pain that is frequently present but worsens with PO. Imaging shows CBD stone, although no bhargavi dil and no change inLFT's to suggest obstruction, and it is possible that pt's pain is functional. Will proceed with EGD/EUS +/- ERCP tomorrow. Subjective GI was asked to re-evaluate as pt continues w after meal upper abdomen pain and nausea. Describes as "attacks of pain." Also w mild diffuse abdominal discomfort and distention. Review of Systems Review of Systems: ROS: Gen: Denies weakness, fevers, weight loss Eyes: No eye redness, or pain, no recent vision changes Resp: Mild wheezing - No SOB, no cough and not worse than usual for him. Cardio: No palpitations/irregular beats, no chest pain GI: As per HPI, otherwise (-) : Denies pain on urination Skin: No jaundice, itching or new rashes Physical Exam Constitutional: WD/WN, vitals as above Eyes: PERRL, conjunctivae normal, anicteric sclerae ENMT: external ear and nose normal, oropharynx normal Neck: trachea midline, no thyromegaly Respiratory: normal respiratory effort; no respiratory distress and no cough Auscultation: + wheezes (scattered, mild); no crackles Cardiovascular: RRR, no murmur, no edema Gastrointestinal (Abdomen): Inspection/Auscultation: + abdomen distended (mildly) Percussion/Palpation: + abdomen tender (mild w deep palpation of the epigastric area) and abdomen soft Musculoskeletal: no cyanosis or clubbing, extremities motor strength 5/5 Skin: no rashes, warm and dry Neurologic: PERRL, EOMI, accommodation nl, no face palsy, no dysarthria Psychiatric: A+Ox3, euthymic affect Lymphatic: no cervical or axillary lymphadenopathy Results & Data Vital Signs (Past 12 Hours) Vital Signs Temp Pulse Pulse Resp BP Pulse Ox O2 Del Method 11/11/22 07:34 36.3 C L 69 17 158/73 H 97 Room Air 11/11/22 06:34 78 137/70 11/11/22 04:00 165/70 H 11/11/22 03:12 60 180/82 H 11/11/22 01:46 73 129/61 Laboratory Results WBC 8, Hb 15, Hct 45, Plts 141, Na 138, K 4.0, Cl 108, CO2 21, BUN 13, Cr 0.8 Diagnostic Findings CTAP 11/08/22: 1. Cholecystectomy with subcentimeter stone within the cystic duct. 2. No choledocholithiasis identified. 3. Mild pancreatic ductal dilation. No obstructing pancreatic ductal stone or lesion identified. 4. No bowel obstruction or bowel wall thickening. 5. Colonic diverticulosis. 6. Prostamegaly with chronic bladder outlet obstruction. MRCP 11/08/22: 1. No filling defect is seen within the biliary tree. 2. Normal caliber pancreatic duct without filling defect.
--- NOTE | 2022-11-11 16:33 | Hospitalist Progress Note ---
Date of Service November 11, 2022 Assessment & Plan (1) Calculus of cystic duct: Plan: Hx lap denise 06/2022 Presented with abdominal pain, nausea, worsening over 1 week With Elevated TBili, AST, ALT, normal lipase but LFTs slowly trending downward however TBili remains elevated No melena, hgb normal 3 mm cystic duct stone noted on CT A/P, MRCP normal as per Radiology but GI thinks CBD stone present Likely from passed stone or persistent CBD stone not completely obstructing. No evidence of cholangitis-no fevers or leukocytosis--> dcd Janina Continues to have nausea with meals and intermittent spasms of abd pain in epigastric region--> perhaps passing smaller stones and sludge? -back down to clears diet today, NPO after midnight for EUS and possible ERCP on Tuesday after off Plavix x 5 days -continue Zofran 4 mg IV every 6 hours as needed for nausea -cont Pantoprazole 40 mg to po bid -continue IV dilaudid back onto regimen for pain -follow CBC, CMP in AM (2) Elevated LFTs: Plan: see above (3) Type 2 diabetes mellitus treated with insulin: Plan: Hold outpatient medications Humulin N, Onglyza and glimepiride Place on Accu-Cheks with NovoLog SSI-continue A1C 7.4%-well controlled (4) Asthma: Plan: Continue usual inhalers no acute issues (5) Coronary artery disease: Plan: no acute issues -continue statin, Coreg, lisinopril, isosorbide -holding asa and Plavix for upcoming EUS (6) GERD (gastroesophageal reflux disease): Plan: Cont PPI (7) Benign essential hypertension: Plan: BPs controlled -continue Coreg, lisinopril, isosorbide Plan DVT proph-SCDs, Lovenox but hold for procedure Dispo-continued stay on med/surg Admission and Anticipated Discharge Date Admission Date: November 08, 2022 Subjective Continues to have spasms of epigastric pain after eating and really hasn't eaten much today. Moved bowels just a small amount. Also having dry heaves and nausea all day. I discussed his care with GI today who will perform EUS and ERCP possibly tomorrow Physical Exam Constitutional: WD/WN, vitals as above Neck: trachea midline, no thyromegaly Respiratory: normal respiratory effort, lungs clear to auscultation Cardiovascular: RRR, no murmur, no edema Chest (Breasts): Chest: normal inspection of chest Gastrointestinal (Abdomen): Inspection/Auscultation: abdomen normal to inspection and normal bowel sounds; abdomen not distended Percussion/Palpation: + abdomen tender (+TTP epigastric region w/o guarding or rebound) and abdomen soft Musculoskeletal: Extremities: extremities normal to inspection; no cyanosis and no clubbing Skin: no rashes, warm and dry Neurologic: moves all extremities and awake; no focal motor deficits Psychiatric: A+Ox3, euthymic affect Lymphatic: no lymphedema Results & Data Results & Data Vital Signs (Past 12 Hours) Vital Signs Temp Pulse Pulse Resp BP Pulse Ox O2 Del Method 11/11/22 14:13 36.6 C 68 16 159/76 H 96 Room Air 11/11/22 07:34 36.3 C L 69 17 158/73 H 97 Room Air 11/11/22 06:34 78 137/70 Laboratory Results CBC, CMP reviewed PG Care Time/CCT Total # of Minutes Spent Total Time Spent with Patient: Total time spent is greater than 50% in coordination of care (as documented) at patient's floor/unit and/or counseling patient: Coding Level of Care Code 72697 SUB INP/OBS CARE 2/35MIN Diagnoses Calculus of cystic duct K80.20 Elevated LFTs R79.89 Type 2 diabetes mellitus treated with insulin E11.9; Z79.4 Asthma J45.909 Coronary artery disease I25.10 GERD (gastroesophageal reflux disease) K21.9 Benign essential hypertension I10
[2022-11-11] MEDS: ATORVASTATIN 40 MG TAB PO SCH (17:15)
[2022-11-11] MEDS: ACETAMINOPHEN 325 MG TAB PO PRN (17:15)
[2022-11-11] MEDS: TAMSULOSIN HCL 0.4 MG CAP PO SCH (20:39)
[2022-11-12] MEDS ORDERED: Nursing to Pharmacy Communication SCH ×2 (01:15→19:30)
[2022-11-12] MEDS: INSULIN ASPART PER UNIT CHARGE SC SCH ×4 (05:49→20:38)
--- NOTE | 2022-11-12 06:36 | Anesthesiology Consultation ---
Date of Service November 12, 2022 Assessment & Plan Chart Review Chart Review: Acceptable Risk for Surgery and Patient NOT seen in Pre Admission Testing History Surgery Operation Date: 11/12/22 07:00 Proposed Procedures p Endoscopic Retrograde Cholangiopancreatogram - Natalie Sue MD s Endoscopic Ultrasonography Upper - MD tomás Lee Esophagogastroduodenoscopy - Natalie Sue MD Height/Weight Height: 5 ft 11 in Weight: 75.3 kg Allergies Allergy/AdvReac Type Severity Reaction Status Date / Time pollen extracts Allergy Intermediate ITCHY Verified 11/08/22 16:35 EYES, SNEEZING, CONGESTION cat dander Allergy Mild congestion Verified 11/08/22 16:35 dog dander Allergy Mild congestion Verified 11/08/22 16:35 Medications Home Medications Medication Instructions Recorded Confirmed Last Taken cetirizine 10 mg capsule 10 mg PO HS #90 caps 10/24/18 11/08/22 11/07/22 clopidogrel 75 mg tablet (Plavix) 75 mg PO QAM #90 tabs 10/24/18 11/08/22 11/08/22 fexofenadine 180 mg tablet 180 mg PO QAM #90 tabs 10/24/18 11/08/22 11/08/22 bolyappa-po-pgbpu 300 mcg-K 60 1 tab PO QAM #90 tabs 10/24/18 11/08/22 11/08/22 mcg-lycop 600 mcg-lutein 300 mcg tablet (Centrum Silver Men) aspirin 81 mg tablet,delayed 81 mg PO 3XWK 04/16/19 11/08/22 11/08/22 release lisinopril 10 mg tablet 10 mg PO QAM 04/16/19 11/08/22 11/08/22 furosemide 20 mg tablet 20 mg PO 3XWK 02/22/20 11/08/22 11/06/22 ipratropium bromide 42 mcg (0.06 1 spray intranasal AMHS 02/22/20 11/08/22 11/08/22 08:00 %) nasal spray triamcinolone acetonide 55 mcg 1 spray intranasal QAM 02/22/20 11/08/22 11/08/22 nasal spray aerosol (Nasacort) glucagon 1 mg/0.2 mL subcutaneous 1 mg (0.2 mL) subcut ONCE PRN 02/28/20 11/08/22 Unknown auto-injector severe low sugar #0.2 mL pantoprazole 40 mg tablet,delayed 40 mg PO BID #180 tabs 10/13/21 11/08/22 11/08/22 08:00 release carvedilol 3.125 mg tablet (Coreg) 3.125 mg PO BIDM #180 tabs 12/07/21 11/08/22 11/08/22 08:00 albuterol sulfate 90 mcg/actuation 2 puff inhalation Q6H PRN 01/26/22 11/08/22 Unknown aerosol inhaler (Ventolin HFA) Shortness Of Breath Or Wheezing #18 grams fluticasone fur. 200 mcg-umeclid 1 inh inhalation DAILY #60 ea 02/22/22 11/08/22 11/08/22 62.5 mcg-vilant 25 mcg inhalat.powder (Trelegy Ellipta) glimepiride 1 mg tablet See Rx Instructions PO BID #450 02/22/22 11/08/22 11/08/22 08:00 tabs atorvastatin 80 mg tablet 80 mg PO QDD #90 tabs 05/17/22 11/08/22 11/08/22 tamsulosin 0.4 mg capsule (Flomax) 0.4 mg PO HS 07/11/22 11/08/22 11/07/22 blood-glucose meter (OneTouch #1 ea 07/27/22 10/26/22 Unknown Ultra2 Meter) lancets 30 gauge (OneTouch #200 ea 09/17/22 10/26/22 Unknown UltraSoft 2 Lancet) potassium chloride 10 mEq 10 meq PO QAM #90 tabs 09/20/22 11/08/22 11/08/22 tablet,extended release isosorbide mononitrate 30 mg 30 mg PO QAM #90 tabs 10/20/22 11/08/22 11/08/22 tablet,extended release 24 hr insulin NPH isoph U-100 human 100 See Rx Instructions subcut BID #50 10/26/22 11/08/22 11/08/22 08:00 unit/mL subcutaneous suspension mL (Novolin N NPH U-100 Insulin isophane) saxagliptin 5 mg tablet (Onglyza) 5 mg PO QDD 11/08/22 11/08/22 11/07/22 Active Medications Generic Name Dose Route Start Last Admin Trade Name Freq PRN Reason Stop Dose Admin Acetaminophen 650 mg 11/09/22 10:21 11/11/22 17:15 Acetaminophen 325 Mg Tab PO 12/09/22 10:20 650 mg Q4H PRN Administration pain or fever Atorvastatin Calcium 80 mg 11/10/22 16:30 11/11/22 17:15 Atorvastatin 40 Mg Tab PO 12/10/22 16:29 80 mg QDD CHANTELL Administration Carvedilol 3.125 mg 11/10/22 08:00 11/11/22 17:14 Carvedilol 3.125 Mg Tab PO 12/10/22 07:59 3.125 mg BIDM CHANTELL Administration Enoxaparin Sodium 40 mg 11/10/22 18:00 11/10/22 18:27 Enoxaparin Inj 40 Mg/0.4 Ml Syr SQ 12/10/22 17:59 40 mg Q24H CHANTELL Administration Fluticasone Furoate 1 puffs 11/09/22 09:00 11/11/22 07:46 Fluticasone Furoate 200mcg 14 Puffs/Inhaler INH 12/09/22 08:59 1 puffs DAILY CHANTELL Administration Hydromorphone HCl 0.5 mg 11/10/22 12:41 11/11/22 18:36 Hydromorphone Inj 0.5 Mg/0.5 Ml Syr IV 11/24/22 12:40 0.5 mg Q6H PRN Administration Severe Pain (Scale 7, 8, 9,10) Insulin Aspart 0 units 11/12/22 06:00 11/12/22 05:49 Insulin Aspart Per Unit Charge SC 12/12/22 05:59 Not Given Q6 CHANTELL Ipratropium [place] 1 sprays 11/08/22 22:38 11/11/22 20:43 Ipratropium [place] Nasal [place] 0.06% 15ml CORBY 12/08/22 22:37 1 sprays AMHS CHANTELL Administration Isosorbide Mononitrate 30 mg 11/10/22 09:00 11/11/22 07:46 Isosorbide [place] Extended Rel 30 Mg Tabcr PO 12/10/22 08:59 30 mg QAM CHANTELL Administration Lisinopril 10 mg 11/10/22 09:00 11/11/22 07:47 Lisinopril 10 Mg Tab PO 12/10/22 08:59 10 mg QAM CHANTELL Administration Ondansetron HCl 4 mg 11/08/22 22:38 11/11/22 20:43 Ondansetron Inj 2 Mg/Ml 2 Ml Vial IV 12/08/22 22:37 4 mg Q6H PRN Administration Nausea Pantoprazole Sodium 40 mg 11/10/22 21:00 11/11/22 20:38 Pantoprazole 40 Mg Tab PO 12/10/22 20:59 40 mg BID CHANTELL Administration Protocol Tamsulosin HCl 0.4 mg 11/09/22 21:00 11/11/22 20:39 Tamsulosin Hcl 0.4 Mg Cap PO 12/09/22 20:59 0.4 mg HS CHANTELL Administration Umeclidinium/Vilanterol 1 puffs 11/09/22 09:00 11/11/22 07:46 Umeclidinium/Vilanterol 62.5/25mcg 7 Puffs/Inhaler INH 12/09/22 08:59 1 puffs DAILY CHANTELL Administration Past Medical History Medical History Asthma LAST USED RESCUE INHALER>LAST MONTH Bruising Chronic reflux esophagitis Cough Early satiety GERD (gastroesophageal reflux disease) Hearing deficit History of anxiety History of COVID-19 02/28/20>TERRIBLE COUGH/FATIGUE *RESOLVED History of Mohs micrographic surgery for skin cancer RT/LEFT SIDE OF FACE/CHEEK AREA History of skin cancer Hyperlipidemia Medicare annual wellness visit, subsequent Myocardial Infarction 2018 Type 2 diabetes mellitus treated with insulin 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 Past Family History Family History Mother Colorectal cancer Sister Diabetes Breast cancer Brother Diabetes Hx of CABG Son Legg-Perthes disease Father Colorectal cancer Other Myocardial infarction No family history of adverse response to anesthesia Denies family history of Ovarian cancer Prostate cancer Past Surgical History Surgical History H/O hand surgery Left hand - Dr. 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 HUGHES S/P trigger finger release Social History Smoking Status: Never smoker Do You Dip or Chew Tobacco: No Hx Alcohol Use: No Hx Substance Use: No Physical Exam Vital Signs Last Vital Signs Temp 36.7 C 11/11/22 20:23 Pulse 67 11/11/22 20:23 Resp 16 11/11/22 20:23 BP 158/77 H 11/11/22 20:23 Pulse Ox 98 11/11/22 20:23 O2 Del Method Room Air 11/11/22 20:23 Testing Laboratory Results 11/11/22 08:08 11/11/22 08:08 PT 11.9 Seconds (9.0-12.0) 11/09/22 09:26 INR 1.1 (0.9-1.1) 11/09/22 09:26 Hemoglobin A1c 7.4 % (4.5-5.6) H 11/09/22 05:32 Urine Color Dark Yellow 11/08/22 Unknown Urine Appearance Clear (Clear) 11/08/22 Unknown Urine pH 5.5 (4.5-7.5) 11/08/22 Unknown Ur Specific [place] 1.027 (1.000-1.030) 11/08/22 Unknown Urine Protein Negative (Negative) 11/08/22 Unknown Urine Glucose (UA) Negative (Negative) 11/08/22 Unknown Urine Ketones Trace (Negative) H 11/08/22 Unknown Urine Nitrite Negative (Negative) 11/08/22 Unknown Ur Leukocyte Esterase Negative (Negative) 11/08/22 Unknown 11/12/22 11/11/22 05:45 20:21 POC Glucose 131 H 137 H
[2022-11-12 08:14] LABS: Basophils # (auto) 0.04 K/uL (0-0.2); Basophils % (auto) 0.5 %; Eosinophils # (auto) 0.53 K/uL (0-0.50); Eosinophils % (auto) 6.5 %; Hematocrit (blood only) 43.9 % (42.0-52.0); Hemoglobin 15.3 g/dl (14.0-18.0); Immature Granulocytes # (auto) 0.02 K/uL (0.01-0.20); Immature Granulocytes % (auto) 0.2 %; Lymphocytes # (auto) 2.08 K/uL (1.2-3.4); Lymphocytes % (auto) 25.4 %; Mean Corpuscular Hemoglobin 31.2 pg (25.0-34.0); Mean Corpuscular Hgb Conc 34.9 g/dL (32.0-36.0); Mean Corpuscular Volume 89.6 fL (80.0-100.0); Monocytes # (auto) 0.56 K/uL (0.11-0.59); Monocytes % (auto) 6.8 %; Neutrophils # (auto) 4.95 K/uL (1.40-6.50); Neutrophils % (auto) 60.6 %; Platelet Count 131 K/uL (130-400); RDW Standard Deviation 39.1 fL (36.4-46.3); White Blood Count 8.18 K/ul (4.8-10.8)
[2022-11-12 08:59] LABS: Albumin Globulin Ratio 1.4 (0.9-2); Albumin Level 3.7 gm/dl (3.4-5.0); BUN Creatinine Ratio 17.4 (10-20); Bilirubin,Total 1.8 mg/dl (0.2-1.0); Creatinine Clr Calc Pharmacy 75.4 ml/min; Est GFR (African American) 96.3 ml/min; Est GFR (Non-African American) 83.1 ml/min; Globulin 2.7 gm/dl (2.5-4.0); Magnesium 1.7 mg/dl (1.7-2.4); Potassium 3.8 mmol/L (3.5-5.1); Total Protein 6.4 gm/dl (6.0-8.3)
[2022-11-12] MEDS: carvediloL 3.125 MG TAB PO SCH ×2 (10:42→19:28)
[2022-11-12] MEDS: PANTOprazole 40 MG TAB PO SCH ×2 (10:43→20:05)
[2022-11-12] MEDS: ISOSORBIDE MONO EXTENDED REL 30 MG TABCR PO SCH (10:43)
[2022-11-12] MEDS: lisinopril 10 MG TAB PO SCH (10:43)
[2022-11-12] MEDS ORDERED: MAGNESIUM SULFATE / D5W 1 GM/100 ML BAG IV ONE (10:46)
[2022-11-12] MEDS: LACTATED RINGER'S 1,000 ML IV SCH ×2 (11:25→23:31)
[2022-11-12] MEDS: IPRATROPIUM BROMIDE NASAL SPRAY 0.06% 15ML NAE SCH ×2 (11:30→20:38)
[2022-11-12] MEDS: UMECLIDINIUM/VILANTEROL 62.5/25MCG 7 PUFFS/INHALER INH SCH (11:31)
[2022-11-12] MEDS: FLUTICASONE FUROATE 200MCG 14 PUFFS/INHALER INH SCH (11:31)
--- NOTE | 2022-11-12 16:02 | History & Physical Bridge Note ---
Date of Service November 12, 2022 History & Physical Bridge Note I have examined the patient, reviewed the History & Physical and in the interval since the performance of the History & Physical I have noted the following changes of clinical significance: no changes noted EUS/ERCP Patient was explained in detail regarding risks, benefits, limitations and alternatives of the above endoscopic procedure. Risks of intravenous sedation used for procedure were also explained. Risks include, but not limited to perfor ation, bleeding, infection, respiratory distress, cardiac arrest and . Patient is also aware about the possibility of missed lesion. Patient's questions were answered. The patient verbalized understanding the information and agreed to undergo the procedure.
[2022-11-12] MEDS ORDERED: ATROPINE SULFATE 0.1 MG/ML 10ML SYR IV PRN (16:28)
[2022-11-12] MEDS ORDERED: fentaNYL citrate PF 100 MCG/2 ML VIAL IV PRN (16:28)
[2022-11-12] MEDS ORDERED: ONDANSETRON INJ 2 MG/ML 2 ML VIAL IV PRN (16:28)
[2022-11-12] MEDS ORDERED: PROMETHAZINE HCL 6.25 MG in SODIUM CHLORIDE 0.9% 50 ML IV PRN (16:28)
[2022-11-12] MEDS ORDERED: ePHEDrine sulfate 50 MG/ML AMP IV PRN (16:28)
[2022-11-12] MEDS ORDERED: ONDANSETRON INJ 2 MG/ML 2 ML VIAL ONE (17:15)
[2022-11-12] MEDS ORDERED: PROPOFOL IV EMULSION 10 MG/ML 20 ML VIAL IV ONE ×2 (17:15→18:10)
[2022-11-12] MEDS ORDERED: GLYCOPYRROLATE 0.2 MG/ML VIAL ONE (17:15)
[2022-11-12] MEDS ORDERED: LIDOCAINE 2% 2 ML VIAL/AMP(20MG/ML) INFIL ONE (17:15)
[2022-11-12] MEDS ORDERED: fentaNYL citrate PF 100 MCG/2 ML VIAL ONE ×2 (17:16→17:58)
[2022-11-12] MEDS ORDERED: LABETALOL HCL IV 5 MG/ML 20ML IV ONE (17:46)
--- NOTE | 2022-11-12 18:15 | Operative Report ---
Post Operative Report Pre & Post Diagnosis Operation Date: 11/12/22 07:00 <No data on this case meets the specified criteria> I identified the patient and participated in the time-out.: Yes Procedure Operation Date: 11/12/22 07:00 <No data on this case meets the specified criteria> Surgeon Natalie Sue MD Automation Controls Expert None Estimated Blood Loss 0 Findings See Below (CBD stone removed) Specimens None Description of Procedure EUS/ERCP I attest to the content of the Intraoperative Record and any orders documented therein. Any exceptions are noted below.
[2022-11-12] MEDS ORDERED: INDOMETHACIN 50 MG SUPP PR ONE (18:17)
[2022-11-12] MEDS ORDERED: CIPROFLOXACIN / D5W 400 MG/200 ML BAG IV STA (18:30)
--- NOTE | 2022-11-12 18:34 | Fluoroscopy Report ---
[place] ERCP biliary ductal CLINICAL HISTORY: ERCP with stent placement. COMPARISON STUDY: None. FLUOROSCOPY TIME: 1 minute and 24 seconds FLUOROSCOPY IMAGES: 8 Ka,r: 32 mGy FINDINGS: The ampulla was cannulated and contrast was injected into the common bile duct. A balloon s weep was performed. The main pancreatic duct is also cannulated. A main pancreatic duct stent was cheryl adam and appears in good position. IMPRESSION: Fluoroscopic assistance as above. ACT 112: Negative or not required by law. Electronically signed by: Juan Nunes M.D. 11/12/2022 6:33 PM
--- NOTE | 2022-11-12 18:37 | GI REPORT ---
Patient Name: Sarita Del Real Procedure Date: 11/12/2022 5:35 PM Date of : 1945 Admit Type: Inpatient Age: 77 Gender: Male Attending MD: Natalie Sue MD, Procedure: Upper GI endoscopy Providers: Natalie Sue MD Referring MD: Luann Hernandez Md Indications: Abdominal pain Medicines: Propofol per Anesthesia Complications: No immediate complications. Estimated Blood Loss: Estimated blood loss: none. Procedure: Pre-Anesthesia Assessment: - Prior to the procedure, a History and Physical was performed, and patient medications, allergies and sensitivities were reviewed. The patient's tolerance of previous anesthesia was reviewed. - The risks and benefits of the procedure and the sedation options and risks were discussed with the patient. All questions were answered and informed consent was obtained. - Patient identification and proposed procedure were verified prior to the procedure by the physician and the nurse. The procedure was verified in the procedure room. - Pre-procedure physical examination revealed no contraindications to sedation. After obtaining informed consent, the endoscope was passed under direct vision. Throughout the procedure, the patient's blood pressure, pulse, and oxygen saturations were monitored continuously. The Endoscope was introduced through the mouth, and advanced to the second part of duodenum. The upper GI endoscopy was accomplished without difficulty. The patient tolerated the procedure well. Findings: The examined esophagus was normal. The entire examined stomach was normal. The duodenal bulb and second portion of the duodenum were normal. Impression: - Normal esophagus. - Normal stomach. - Normal duodenal bulb and second portion of the duodenum. Recommendation: - Perform an upper endoscopic ultrasound (UEUS) today. Natalie Sue MD 11/12/2022 6:36:54 PM This report has been signed electronically. Note Initiated On: 11/12/2022 5:35 PM Number of Addenda: 0 I attest to the content of the Intraoperative Record and orders documented therein, exceptions below {[id number]}
--- NOTE | 2022-11-12 18:40 | GI REPORT ---
Patient Name: Sarita Del Real Procedure Date: 11/12/2022 6:36 PM Date of : 1945 Admit Type: Inpatient Age: 77 Gender: Male Attending MD: Natalie Sue MD, Procedure: Upper EUS Providers: Natalie Sue MD Referring MD: Luann Hernandez Md Indications: Suspected choledocholithiasis, Abdominal pain Medicines: Propofol per Anesthesia Complications: No immediate complications. Estimated Blood Loss: Estimated blood loss: none. Procedure: Pre-Anesthesia Assessment: - Prior to the procedure, a History and Physical was performed, and patient medications, allergies and sensitivities were reviewed. The patient's tolerance of previous anesthesia was reviewed. - The risks and benefits of the procedure and the sedation options and risks were discussed with the patient. All questions were answered and informed consent was obtained. - Patient identification and proposed procedure were verified prior to the procedure by the physician and the nurse. The procedure was verified in the procedure room. - Pre-procedure physical examination revealed no contraindications to sedation. After obtaining informed consent, the endoscope was passed under direct vision. Throughout the procedure, the patient's blood pressure, pulse, and oxygen saturations were monitored continuously. The Endosonoscope was introduced through the mouth, and advanced to the second part of duodenum. The upper EUS was accomplished without difficulty. The patient tolerated the procedure well. Findings: ENDOSONOGRAPHIC FINDING: : There was no sign of significant endosonographic abnormality in the ampulla. No masses were identified. One stone was visualized endosonographically in the common bile duct. It was hyperechoic and characterized by shadowing. Evidence of a previous cholecystectomy was identified endosonographically. There was no sign of significant endosonographic abnormality in the visualized portion of the liver. Homogeneous parenchyma was identified. The pancreatic duct was prominent in the pancreatic head. The pancreatic duct measured up to 3 mm in diameter. No HOP mass seen. Impression: - One stone was visualized endosonographically in the common bile duct. - Evidence of a cholecystectomy. Recommendation: - Perform an ERCP today. Natalie Sue MD 11/12/2022 6:39:52 PM This report has been signed electronically. Note Initiated On: 11/12/2022 6:36 PM Number of Addenda: 0 I attest to the content of the Intraoperative Record and orders documented therein, exceptions below {[id number]}
--- NOTE | 2022-11-12 18:41 | Anesthesiology Progress Note ---
Date of Service November 12, 2022 Anesthesia Post Procedure Vital Signs Vital Signs: Temp Pulse Pulse Resp BP BP Pulse Ox 11/12/22 18:35 78 14 167/82 H 97 11/12/22 18:27 36.4 C L 82 14 166/79 H 98 11/12/22 15:35 36.5 C 65 18 194/93 H 97 11/12/22 15:09 36.4 C L 63 18 183/78 H 96 11/12/22 07:08 36.4 C L 69 18 168/76 H 97 11/11/22 20:23 36.7 C 67 16 158/77 H 98 O2 Del Method O2 Flow Rate 11/12/22 18:35 Room Air 11/12/22 18:27 Oxymask 4 11/12/22 15:35 Room Air 11/12/22 15:09 Room Air 11/12/22 07:08 Room Air 11/11/22 20:23 Room Air Pain Intensity Medial Abdomen: Pain Intensity: 8 Transfer of Care Handoff Completed per policy Notes Mental Status: alert / awake / arousable Patient Amnestic to Procedure: Yes Nausea / Vomiting: adequately controlled Pain: adequately controlled Airway Patency, RR, SpO2: stable & adequate BP & HR: stable & adequate Hydration State: stable & adequate Anesthetic Complications: no major complications apparent
--- NOTE | 2022-11-12 18:44 | GI REPORT ---
Patient Name: Sarita Del Real Procedure Date: 11/12/2022 5:49 PM Date of : 1945 Admit Type: Inpatient Age: 77 Gender: Male Attending MD: Natalie Sue MD, Procedure: ERCP Providers: Natalie Sue MD Referring MD: Luann Hernandez Md Indications: For therapy of bile duct stone(s) Medicines: Propofol per Anesthesia Complications: No immediate complications. Estimated Blood Loss: Estimated blood loss: none. Procedure: Pre-Anesthesia Assessment: - Prior to the procedure, a History and Physical was performed, and patient medications, allergies and sensitivities were reviewed. The patient's tolerance of previous anesthesia was reviewed. - The risks and benefits of the procedure and the sedation options and risks were discussed with the patient. All questions were answered and informed consent was obtained. - Patient identification and proposed procedure were verified prior to the procedure by the physician and the nurse. The procedure was verified in the procedure room. - Pre-procedure physical examination revealed no contraindications to sedation. After obtaining informed consent, the scope was passed under direct vision. Throughout the procedure, the patient's blood pressure, pulse, and oxygen saturations were monitored continuously. The Duodenoscope was introduced through the mouth, and advanced to the duodenum and used to inject contrast into the bile duct. The ERCP was accomplished without difficulty. The patient tolerated the procedure well. Findings: A landscape foreman film of the abdomen was obtained. Surgical clips, consistent with a previous cholecystectomy, were seen in the area of the right upper quadrant of the abdomen. The esophagus was successfully intubated under direct vision. The scope was advanced to a normal major papilla in the descending duodenum without detailed examination of the pharynx, larynx and associated structures, and upper GI tract. The upper GI tract was grossly normal. The ventral pancreatic duct was inadvertently cannulated. A 0.035 inch angled standard wire was passed into the biliary tree. The short-nosed traction sphincterotome was passed over the guidewire and the bile duct was then deeply cannulated. Contrast was injected. I personally interpreted the bile duct images. Ductal flow of contrast was adequate. Image quality was adequate. Contrast extended to the main bile duct. Opacification of the entire biliary tree except for the gallbladder was successful. The maximum diameter of the ducts was 8 mm. Biliary sphincterotomy was made with a monofilament traction (standard) sphincterotome using ERBE electrocautery. There was no post-sphincterotomy bleeding. The biliary tree was swept with a 12 mm balloon starting at the bifurcation. One stone was removed. No stones remained. One 5 Fr by 9 cm plastic pancreatic stent with a single external pigtail and no internal flaps was placed into the ventral pancreatic duct. Clear fluid flowed through the stent. The stent was in good position. Indomethacin 100 mg was given via suppository to decrease the risk of post-ERCP pancreatitis (PEP). Impression: - Choledocholithiasis was found. Complete removal was accomplished by biliary sphincterotomy and balloon extraction. - One plastic pancreatic stent was placed into the ventral pancreatic duct to decrease risk of post-ERCP pancreatitis. Recommendation: - Return patient to hospital [facility] for ongoing care. - Clear liquid diet today. - Resume Plavix (clopidogrel) at prior dose in 4 days. - Perform an abdominal x-ray in 3 weeks to assure spontaneous migration of the PD stent. Natalie Sue MD 11/12/2022 6:43:28 PM This report has been signed electronically. Note Initiated On: 11/12/2022 5:49 PM Number of Addenda: 0 I attest to the content of the Intraoperative Record and orders documented therein, exceptions below {[id number]}
[2022-11-12] MEDS: HYDROmorphone INJ 0.5 MG/0.5 ML SYR IV PRN ×2 (19:01→20:04)
--- NOTE | 2022-11-12 19:26 | Hospitalist Progress Note ---
Date of Service November 12, 2022 Assessment & Plan (1) Calculus of cystic duct: Plan: Hx lap denise 06/2022 Presented with abdominal pain, nausea, worsening over 1 week With Elevated TBili, AST, ALT, normal lipase but LFTs slowly trending downward however TBili remains elevated moreso today No melena, hgb normal 3 mm cystic duct stone noted on CT A/P, MRCP normal as per Radiology but GI thinks CBD stone present on their review Likely from passed stone or persistent CBD stone not completely obstructing. No evidence of cholangitis-no fevers or leukocytosis--> dcd Zosyn Continued to have nausea with meals and intermittent spasms of abd pain in epigastric region Now s/p ERCP with CBD stone removal and pancreatic duct plastic stent placed Continue to hold Plavix x 4 more days advance diet to clears needs KUB to see if PD stent has passed on its own in 3 weeks continue Zofran 4 mg IV every 6 hours as needed for nausea cont Pantoprazole 40 mg to po bid continue IV dilaudid for pain follow CBC, CMP in AM started IVFs today while NPO give 1 gram IV magnesium for low normal Mag level (2) Elevated LFTs: Plan: see above (3) Type 2 diabetes mellitus treated with insulin: Plan: Hold outpatient medications Humulin N, Onglyza and glimepiride Place on Accu-Cheks with NovoLog SSI-continue A1C 7.4%-well controlled (4) Asthma: Plan: Continue usual inhalers no acute issues (5) Coronary artery disease: Plan: no acute issues -continue statin, Coreg, lisinopril, isosorbide -holding asa and Plavix for recent ERCP withbiliary stent placement-continue to hold through 11/16/22 (6) GERD (gastroesophageal reflux disease): Plan: Cont PPI (7) Benign essential hypertension: Plan: BPs controlled -continue Coreg, lisinopril, isosorbide Plan DVT proph-SCDs, Lovenox but hold for procedure Dispo-continued stay on med/surg but hopefully discharge to home tomorrow if improving Admission and Anticipated Discharge Date Admission Date: November 08, 2022 Subjective Seen after return from EUS/ERCP ith sphincterotomy, CBD stone removal and PD stent placement. Feeling some abd pressure but denies nausea, no other complaints. Physical Exam Constitutional: WD/WN, vitals as above Neck: trachea midline, no thyromegaly Respiratory: normal respiratory effort, lungs clear to auscultation Cardiovascular: RRR, no murmur, no edema Chest (Breasts): Chest: normal inspection of chest Gastrointestinal (Abdomen): Inspection/Auscultation: abdomen normal to inspection and normal bowel sounds; abdomen not distended Percussion/Palpation: + abdomen tender (+TTP epigastric region w/o guarding or rebound) and abdomen soft Musculoskeletal: Extremities: extremities normal to inspection; no cyanosis and no clubbing Skin: no rashes, warm and dry Neurologic: moves all extremities and awake; no focal motor deficits Psychiatric: A+Ox3, euthymic affect Lymphatic: no lymphedema Results & Data Results & Data Vital Signs (Past 12 Hours) Vital Signs Temp Pulse Pulse Resp BP BP Pulse Ox 11/12/22 18:57 36.4 C L 72 16 184/80 H 98 11/12/22 18:45 36.5 C 71 16 165/89 H 96 11/12/22 18:35 78 14 167/82 H 97 11/12/22 18:27 36.4 C L 82 14 166/79 H 98 11/12/22 15:35 36.5 C 65 18 194/93 H 97 11/12/22 15:09 36.4 C L 63 18 183/78 H 96 O2 Del Method O2 Flow Rate 11/12/22 18:57 Room Air 11/12/22 18:45 Room Air 11/12/22 18:35 Room Air 11/12/22 18:27 Oxymask 4 11/12/22 15:35 Room Air 11/12/22 15:09 Room Air Laboratory Results CBC, CMP, magnesium reviewed PG Care Time/CCT Total # of Minutes Spent Total Time Spent with Patient: Total time spent is greater than 50% in coordination of care (as documented) at patient's floor/unit and/or counseling patient: Coding Level of Care Code 82473 SUB INP/OBS CARE 2/35MIN Diagnoses Calculus of cystic duct K80.20 Elevated LFTs R79.89 Type 2 diabetes mellitus treated with insulin E11.9; Z79.4 Asthma J45.909 Coronary artery disease I25.10 GERD (gastroesophageal reflux disease) K21.9 Benign essential hypertension I10
[2022-11-12] MEDS: ATORVASTATIN 40 MG TAB PO SCH (19:27)
[2022-11-12] MEDS ORDERED: HYDROmorphone INJ 0.5 MG/0.5 ML SYR IV STA (19:54)
[2022-11-12] MEDS: ACETAMINOPHEN 325 MG TAB PO PRN (20:03)
[2022-11-12] MEDS: TAMSULOSIN HCL 0.4 MG CAP PO SCH (20:05)
[2022-11-13] MEDS: PANTOprazole 40 MG TAB PO SCH (08:58)
[2022-11-13] MEDS: lisinopril 10 MG TAB PO SCH (08:58)
[2022-11-13] MEDS: IPRATROPIUM BROMIDE NASAL SPRAY 0.06% 15ML NAE SCH (08:58)
[2022-11-13] MEDS: ISOSORBIDE MONO EXTENDED REL 30 MG TABCR PO SCH (08:58)
[2022-11-13] MEDS: UMECLIDINIUM/VILANTEROL 62.5/25MCG 7 PUFFS/INHALER INH SCH (08:59)
[2022-11-13] MEDS: FLUTICASONE FUROATE 200MCG 14 PUFFS/INHALER INH SCH (08:59)
[2022-11-13] MEDS: carvediloL 3.125 MG TAB PO SCH (08:59)
[2022-11-13] MEDS: INSULIN ASPART PER UNIT CHARGE SC SCH ×2 (09:10→13:00)
[2022-11-13 10:42] LABS: Albumin Level 3.4 gm/dl (3.4-5.0); BUN Creatinine Ratio 24.4 (10-20); Bilirubin Direct 0.3 mg/dl (0-0.2); Bilirubin,Total 1.7 mg/dl (0.2-1.0); Calcium 8.6 mg/dl (8.6-10.3); Creatinine Clr Calc Pharmacy 83.1 ml/min; Est GFR (African American) 100.2 ml/min; Est GFR (Non-African American) 86.5 ml/min; Magnesium 1.7 mg/dl (1.7-2.4); Potassium 3.6 mmol/L (3.5-5.1); Total Protein 5.9 gm/dl (6.0-8.3)
[2022-11-13 10:44] LABS: Basophils # (auto) 0.02 K/uL (0-0.2); Basophils % (auto) 0.2 %; Eosinophils % (auto) 4.4 %; Hematocrit (blood only) 40.7 % (42.0-52.0); Hemoglobin 14.5 g/dl (14.0-18.0); Immature Granulocytes # (auto) 0.02 K/uL (0.01-0.20); Immature Granulocytes % (auto) 0.2 %; Lymphocytes # (auto) 1.54 K/uL (1.2-3.4); Lymphocytes % (auto) 16.8 %; Mean Corpuscular Hemoglobin 31.7 pg (25.0-34.0); Mean Corpuscular Hgb Conc 35.6 g/dL (32.0-36.0); Mean Corpuscular Volume 88.9 fL (80.0-100.0); Mean Platelet Volume 12.1 fL (9.4-12.4); Monocytes # (auto) 0.67 K/uL (0.11-0.59); Monocytes % (auto) 7.3 %; Neutrophils # (auto) 6.52 K/uL (1.40-6.50); Neutrophils % (auto) 71.1 %; Platelet Count 121 K/uL (130-400); RDW Coefficient of Variation 11.9 % (11.5-14.5); RDW Standard Deviation 38.5 fL (36.4-46.3); Red Blood Count 4.58 M/uL (4.70-6.10); White Blood Count 9.17 K/ul (4.8-10.8)
--- NOTE | 2022-11-13 13:55 | Discharge Summary ---
Discharge Summary Date of Service November 13, 2022 Notes For Next Care Provider Medication Changes From Visit Hold Plavix x 3 more times Admission HPI Per Admitting Provider The patient is a 77-year-old male with a past medical history including diabetes mellitus, CAD, COPD, hyperlipidemia, hypertension, allergy symptoms, GERD and BPH. He presents to the emergency department with symptoms as noted above. He had undergone a laparoscopic cholecystectomy on 07/13/2022, and had been doing well until the past week. CT scan of abdomen and pelvis in the emergency department shows a 3 mm stone in the cystic duct, and the pancreatic duct is increased in size to 5 mm. The prostate was also noted to be enlarged with chronic bladder outlet obstruction. Abnormal laboratories: Total bilirubin 1.4, AST 129, ALT 77, glucose 126. Principal Dx & Hospital Course #1 = Principal Diagnosis (1) Calculus of cystic duct: Hx lap denise 06/2022 Presented with abdominal pain, nausea, worsening over 1 week With Elevated TBili, AST, ALT, normal lipase but LFTs slowly trending downward however TBili remained elevated No melena, hgb normal 3 mm cystic duct stone noted on CT A/P, MRCP normal as per Radiology but GI thinks CBD stone present on their review Likely from passed stone or persistent CBD stone not completely obstructing. No evidence of cholangitis-no fevers or leukocytosis--> dcd Zosyn Continued to have nausea with meals and intermittent spasms of abd pain in epigastric region Now s/p ERCP with CBD stone removal and pancreatic duct plastic stent placed LFTs up slightly 1 day post procedure but likely just from procedure itself Now pain completely resolved and tolerating low fat diet Continue to hold Plavix x 3 more days needs KUB to see if PD stent has passed on its own in 3 weeks stable for dc to home repeat LFTs in 1 week with PCP (2) Elevated LFTs: see above (3) Type 2 diabetes mellitus treated with insulin: Held outpatient medications Humulin N, Onglyza and glimepiride but can restart on discharge A1C 7.4%-well controlled (4) Asthma: Continue usual inhalers no acute issues (5) Coronary artery disease: no acute issues -continue statin, Coreg, lisinopril, isosorbide -holding asa and Plavix for recent ERCP with biliary stent placement-continue to hold Plavix through 8/22/23 (6) GERD (gastroesophageal reflux disease): Cont PPI (7) Benign essential hypertension: BPs controlled -continue Coreg, lisinopril, isosorbide Plan DVT proph-SCDs Dispo-dc to home Discharge Exam Constitutional WD/WN, vitals as above Neck trachea midline, no thyromegaly Respiratory normal respiratory effort, lungs clear to auscultation Cardiovascular RRR, no murmur, no edema Chest (Breasts) Chest: normal inspection of chest Gastrointestinal (Abdomen) Inspection/Auscultation: abdomen normal to inspection and normal bowel sounds; abdomen not distended Percussion/Palpation: abdomen soft; abdomen nontender Musculoskeletal Extremities: extremities normal to inspection; no cyanosis and no clubbing Skin no rashes, warm and dry Neurologic moves all extremities and awake; no focal motor deficits Psychiatric A+Ox3, euthymic affect Lymphatic no lymphedema Updated Medication List Medication Instructions Recorded Confirmed Type cetirizine 10 mg capsule 10 mg PO HS #90 caps 10/24/18 11/08/22 Rx clopidogrel 75 mg tablet (Plavix) 75 mg PO QAM #90 tabs 10/24/18 11/08/22 Rx fexofenadine 180 mg tablet 180 mg PO QAM #90 tabs 10/24/18 11/08/22 Rx ieylbugq-ay-mzdfz 300 mcg-K 60 1 tab PO QAM #90 tabs 10/24/18 11/08/22 Rx mcg-lycop 600 mcg-lutein 300 mcg tablet (Centrum Silver Men) aspirin 81 mg tablet,delayed 81 mg PO 3XWK 04/16/19 11/08/22 History release lisinopril 10 mg tablet 10 mg PO QAM 04/16/19 11/08/22 History furosemide 20 mg tablet 20 mg PO 3XWK 02/22/20 11/08/22 History ipratropium bromide 42 mcg (0.06 1 spray intranasal AMHS 02/22/20 11/08/22 History %) nasal spray triamcinolone acetonide 55 mcg 1 spray intranasal QAM 02/22/20 11/08/22 History nasal spray aerosol (Nasacort) glucagon 1 mg/0.2 mL subcutaneous 1 mg (0.2 mL) subcut ONCE PRN 02/28/20 11/08/22 Rx auto-injector severe low sugar #0.2 mL pantoprazole 40 mg tablet,delayed 40 mg PO BID #180 tabs 10/13/21 11/08/22 Rx release carvedilol 3.125 mg tablet (Coreg) 3.125 mg PO BIDM #180 tabs 12/07/21 11/08/22 Rx albuterol sulfate 90 mcg/actuation 2 puff inhalation Q6H PRN 01/26/22 11/08/22 Rx aerosol inhaler (Ventolin HFA) Shortness Of Breath Or Wheezing #18 grams fluticasone fur. 200 mcg-umeclid 1 inh inhalation DAILY #60 ea 02/22/22 11/08/22 Rx 62.5 mcg-vilant 25 mcg inhalat.powder (Trelegy Ellipta) glimepiride 1 mg tablet See Rx Instructions PO BID #450 02/22/22 11/08/22 Rx tabs atorvastatin 80 mg tablet 80 mg PO QDD #90 tabs 05/17/22 11/08/22 Rx tamsulosin 0.4 mg capsule (Flomax) 0.4 mg PO HS 07/11/22 11/08/22 History blood-glucose meter (OneTouch #1 ea 07/27/22 10/26/22 Rx Ultra2 Meter) lancets 30 gauge (OneTouch #200 ea 09/17/22 10/26/22 Rx UltraSoft 2 Lancet) potassium chloride 10 mEq 10 meq PO QAM #90 tabs 09/20/22 11/08/22 Rx tablet,extended release isosorbide mononitrate 30 mg 30 mg PO QAM #90 tabs 10/20/22 11/08/22 Rx tablet,extended release 24 hr insulin NPH isoph U-100 human 100 See Rx Instructions subcut BID #50 10/26/22 11/08/22 Rx unit/mL subcutaneous suspension mL (Novolin N NPH U-100 Insulin isophane) saxagliptin 5 mg tablet (Onglyza) 5 mg PO QDD 11/08/22 11/08/22 History Hospital Stay Data Consultations 11/08/22 19:24 ED Decision to Admit Stat 11/09/22 08:40 Consult Gastroenterology Routine Procedures Performed Operation Date: 11/12/22 07:00 Actual Procedures p Endoscopic Retrograde Cholangiopancreato - Natalie Sue MD s Endoscopic Ultrasonography Upper - Natalie Sue MD s Esophagogastroduodenoscopy - Natalie Sue MD Diagnostic Imagining Performed 11/08/22 16:01 CT Abd and Pelvis [CT abd pelvis wo con] Stat 11/08/22 21:18 MR MRCP Urgent 11/12/22 FL ERCP biliary ductal Routine 11/12/22 10:36 US upper EUS PACS images Routine Pending Results Patient Have Any Pending Studies at Discharge: No Discharge Instructions Given to Patient (Per Discharging Provider) You were admitted with abdominal pain from bile stones stuck in your bile duct. These were removed and you had great improvement. Please have your PCP check your liver blood tests in 1 week to ensure they return to normal. You will need an xray of your abdomen in 3 weeks to ensure the stent placed in your pancreatic duct passes through. Total Time Total Time Spent Total Time Spent (In Minutes): 35 min Coding Level of Care Code 11909 INP/OBS DISCH >30 MIN Diagnoses Calculus of cystic duct K80.20 Elevated LFTs R79.89 Type 2 diabetes mellitus treated with insulin E11.9; Z79.4 Asthma J45.909 Coronary artery disease I25.10 GERD (gastroesophageal reflux disease) K21.9 Benign essential hypertension I10
== END 2022-11-13 15:27 | disposition home or self-care (01) | DRG 446 ==
LOC: ED 13:02 → 3N 21:05 → SUATTDRO 21:05 → 3N 22:03

== ENCOUNTER 2023-07-03 11:46 | Inpatient (IN) ==
--- OUTSIDE RECORDS SUMMARY | 2023-07-03 11:52 | External Medical Summary | Summary of Care ---
Author Name Unknown Organization [facility] Address [address] [place] [address] Phone [phone] Care Team Providers Care Pan Shover Name Role Phone Valentino Dunlap MD Primary Care Provider [phone] Reason for Visit * Reason Onset Date Comments Oxygen Assessment 06/28/2023 NPO Encounter Details Date Type Department Care Team (Late st Contact Info) Description 06/28/2023 Telephone Pulmonary Medicine, [facility] [address] [facility] [place] [address] Patrice Savage MD [address] [facility] [place] [id number] Oxygen Assessment (NPO) Allergies Active Allergy Reactions Criticality Noted Date Comments Cat Dander 06/22/2019 Dog Dander 06/22/2019 Dust 06/22/2019 Pollen 06/22/2019 documented as of this encounter (statuses as of 07/02/2023) Medications Medication Sig Dispensed Refills Start Date End Date Status ONETOUCH ULTRA BLUE STRP None Entered 0 01/14/2014 Active Insulin NPH (Human) (Isophane) 100 UNIT/ML Subcutaneous SuspensionIndication s:26 in the morning and 30 at bed time As directed 0 Activ e BD INSULIN SYR ULTRAFINE II 31G X 5/16" 0.5 ML MISC 0 01/30/2015 Active Triamcinolone Acetonide (NASACORT AQ) 55 MCG/ACT AERO 2 spray each nostril once or twice daily 1 Bottle 5 02/12/2015 Active Cetirizine HCl 10 MG Capsule Take 1 Capsule by mouth in the morning. At bedtime . 0 Active Polyethyl Glycol-Propyl Glycol 0.4-0.3 % Ophthalmic Solution Instill into eye as needed for Dry eyes. 0 Active Ipratropium Mongo 0.06 % nasal spray Administer 2 Sprays into each nostril in the morning and 2 Sprays before bedtime. 1 Bottle 11 03/14/2017 Active aspirin enteric coated 81 MG TBEC Take 2 Tabs by mouth daily. Three days per week 60 Tab 5 10/30/2017 Active Additional Information Patient taking differently: 81 mgOralMWF, (No instructions reported), Reported on 07/28/2022 atorvaSTATin (LIPITOR) 80 MG Tablet Take 1 Tab by mouth every afternoon. 30 Tab 5 10/30/2017 Active Fexofenadine HCl 180 MG Oral Tablet Take 1 Tablet by mouth in the morning. 0 Active traZODone (DESYREL) 50 MG TabletIndications:le g pains Take 1 Tablet by mouth at bedtime. 0 11/04/2017 Active carvedilol (COREG) 3.125 MG TabletIndications:Is chemic cardiomyopathy Take 1 Tab by mouth 2 times a day. 60 Tab 5 01/02/2018 Active potassium chloride ER 10 MEQ TBCRIndications:Isch emic cardiomyopathy One tab three days per week with furosemide 38 Tab 1 02/01/2018 Active Additional Information Patient taking differently: 10 mEq Oral Daily(AM), (No instructions reported), Reported on 07/28/2022 Multiple Vitamins-Minerals (CENTRUM SILVER 50+MEN) TABS Take by mouth. 0 Active ONGLYZA 5 MG Tablet Take 1 Tablet by mouth in the morning. 0 04/27/2019 Active Tamsulosin HCl 0.4 MG Oral Capsule (FLOMAX)Indications: Prostatism,Weak urinary stream TAKE 1 CAPSULE BY MOUTH ONCE DAILY AT BEDTIME 90 Cap 3 01/18/2020 Active ProAir HFA 108 (90 Base) MCG/ACT Inhalation Aerosol Solution Inhale 2 Puffs by mouth every 4 hours as needed for Cough, Shortness of Breath or Wheezing. 18 g 11 02/07/2020 Active OneTouch UltraSoft Lancets 0 10/02/2020 Active Glimepiride 1 MG Oral Tablet (Amaryl) Take 3 Tablets by mouth daily before breakfast. 3 mg every AM & 2 mg every evening 0 10/25/2020 Active Isosorbide Mononitrate ER 30 MG Oral Tablet Extended Release 24 Hour (Imdur)Indications:C hronic diastolic heart failure (HCC),HTN, goal below 140/80,S/P CABG x 4,Ischemic cardiomyopathy,LBBB (left bundle branch block) Take 1 tablet by mouth once daily 30 Tablet 5 07/20/2021 Active Pantoprazole Sodium 40 MG Oral Tablet Delayed Release (Protonix) Take 1 Tablet by mouth in the morning and 1 Tablet before bedtime. 0 Active Trelegy Ellipta 200-62.5-25 MCG/ACT Aerosol Powder Breath Activated (Fluticasone-Umeclid inium-Vilanterol) Inhale 1 Puff by mouth. 0 Active Clopidogrel Bisulfate 75 MG Oral Tablet (pLAVix)Indications: HTN, goal below 140/80 Take 1 tablet by mouth once daily 90 Tablet 3 09/13/2022 Active Lisinopril 10 MG Oral Tablet (Prinivil)Indication s:HTN, goal below 140/80,Chronic diastolic heart failure (HCC),S/P CABG x 4 Take 1 tablet by mouth once daily 90 Tablet 3 10/18/2022 Active Furosemide 20 MG Oral Tablet (Lasix)Indications:I schemic cardiomyopathy,HTN, goal below 140/80 TAKE 1 TABLET BY MOUTH ONCE DAILY ON /SAT ONLY 40 Tablet 3 01/31/2023 Active documented as of this encounter (statuses as of 07/02/2023) Active Problems Problem Noted Date Diagnosed Date Chronic diastolic heart failure 02/06/2021 Allergic eosinophilia 02/06/2021 Gastro-esophageal reflux disease without esophag itis 02/06/2021 Type 2 diabetes mellitus with diabetic polyneuro mikael 02/06/2021 Ischemic cardiomyopathy 11/07/2017 S/P CABG x 4 11/07/2017 LBBB (left bundle branch block) 11/07/2017 HTN, GOAL BELOW 140/80 11/15/2011 Overview: Per HTN Protocol #27. Allergic rhinitis 09/07/2011 Dyspnea and respiratory abnormality 09/07/2011 Overview: 04/2011 CT - atelectasis/scarring ICD-10 update of inactive term Dyslipidemia, goal LDL below 70 04/01/2011 Type 2 diabetes mellitus wit h hemoglobin A1c goal of less than 7.0% 04/01/2011 Overview: ICD-10 update of inactive term Asthma, mild persistent 04/01/2011 Actinic keratosis 02/26/2008 documented as of this encounter (statuses as of 07/02/2023) Resolved Problems Problem Noted Date Diagnosed Date Resolved Date CAD (coronary artery disease) 04/01/2011 09/21/2017 HTN, goal below 130/80 04/01/201111/17 Overview: Per HTN Protocol #27. documented as of this encounter (statuses as of 07/02/2023) Immunizations Name Administration Dates Next Due Pneumococcal Conjugate Vacc, 13 Valent (Prevnar) 02/10/2016 Pneumococcal Polysaccharide PPV23 (Pneumovax) 03/28/2009 Seasonal Influenza, PF, 6 M & above, IM , (FluLaval or Fluzone) 01/09/2017 Seasonal Influenza, Quadriva lent Hd, 65+ Yrs 12/11/2019 Seasonal Influenza, Quadriva lent, No Preserve, IM 12/10/2017,12/10/2014 Seasonal Influenza, Split, I IV3, With Preserve, Inj 02/10/2016,02/12/2014,11/23/2012 Zoster Vaccine Recombinant (Shingrix) 07/03/2019 ,03/22/2019 documented as of this encounter Social History Tobacco Use Types Packs/Day Years Used Date Smoking Tobacco: Never Smokeless Tobacco: Never Comments:no passive smoke ex posures Alcohol Use Standard Drinks/Week Comments No 0 (1 standard drink = 0.6 oz pur e alcohol) Sex and Gender Information Value Date Recorded Sex Assigned at Not on file Gender Identity Not on file Sexual Orientation Not on file Job Start Date Occupation Industry Not on file Not on file Not on file documented as of this encounter Functional Status Functional Status Response Date of Assess ment Are you deaf or do you have serious difficulty h earing? No-[place] 10/18/2017 Are you blind or do you have serious difficulty seeing, even when wearing glasses? No 10/18/2017 Do you have serious difficul ty walking or climbing stairs? (5 years old or older) No 10/18/2017 Do you have difficulty dress ing or bathing? (5 years old or older) No 10/18/2017 Because of a physical, menta l, or emotional condition, do you have difficulty doing errands alone such as visiting a doctor s office or shopping? (15 years old or older) No 10/19/19 18 Cognitive Status Response Date of Assessm ent Because of a physical, menta l, or emotional condition, do you have serious difficulty concentrating, remembering, or making decisions? (5 years old or older) No 10/18/2017 documented as of this encounter Miscellaneous Notes * Telephone Encounter - Patrice Savage MD - 07/02/2023 5:05 PM EDT Your recent oxygen level screening at night showed stable oxygen levels during sleep at night. No oxygen therapy is recommended for use at night. Please contact the office with any additional questions. Sincerely Dr. Savage * Telephone Encounter - Patricia Vilchis LPN - 06/28/2023 10:12 AM EDT Pt's NPO results have been scanned into the chart. Please review and advise documented in this encounter Plan of Treatment Upcoming Encounters Date Type Department Care Team (Late st Contact Info) Description 07/14/2023 11:30 AM EDT PulmDiagnostic Pulmonary Function Lab, [facility] [address] [address] [address], [address] [id number] 08/01/2023 1:30 PM EDT [facility] [address] [place] [address] Yosef Arias MD [address] [facility] [place] [address] 10/03/2023 2:00 PM EDT Office Visit Pulmonary Medicine, [facility] [address] [place] [address] Patrice Savage MD [address] [place] [address] 06/05/2024 8:15 AM EDT Office Visit Ophthalmology, [place] [address] [address] Roque Cabrera MD [address] [place] [address] Scheduled Procedures Name Priority Associated Diagnoses Date/Ti me COLONOSCOPY FLEXIBLE PROXIMA L DIAGNOSTIC Recall Personal history of colonic polyps Health Maintenance Due Date Last Done Comments Depression Screening 1956 Diabetic Foot Exam 1962 Hepatitis C Screening 1962 DTaP,Tdap,and Td Vaccines (1 - Tdap) 1963 HbA1c 06/02/2021 12/03/2020, 05/0 05/2020, 11/01/2019, Additional history exists Albumin/Creatinine Ratio 12/03/2021 021, 11/01/2019, 10/11/2018, Additional history exists COLONOSCOPY-EVERY 5 YRS AGES 18-100 01/25/2024 01/24/2019, 01/24/2019, 11/15/2013, Additional history exists Diabetic Eye Exam 05/26/2024 05/27/2023, , 01/19/2022, Additional history exists GFR 06/27/2024 06/28/2023, 090 10/2020, 07/28/2020, Additional history exists Zoster Vaccines Completed 07/03/2019, 02/26, 03/13/2010 Pneumococcal Vaccine: 65+ Years Completed 10/27/2022, 02/10/2016, 08/27/2009, Additional history exists Influenza Vaccine (FLU shot) Completed , 12/11/2019, 02/06/2019, Additional history exists COVID-19 Vaccine Completed 03/01/2023, , 10/13/2021, Additional history exists GARDASIL-HPV IMMUNIZATION SERIES Aged Out No longer eligible based on patient's age to complete this topic Hepatitis B Aged Out No longer eligi ble based on patient's age to complete this topic MENINGOCOCCAL (MENACTRA/MENVEO) Aged Out No longer eligible based on patient's age to complete this topic documented as of this encounter Medical Devices Implanted Type Area Color Repairer Device Identifier Shelf Expiration Date Model / Serial / Lot Lens 17.0 [id number] - [id number] - [id number] Implanted:Qty: 1 on 11/19/2016 by Roque Cabrera MD at OR [facility] Right: Eye TITO : SURGICAL 11/26/2019 [id number] / [id number] / [id number] [employer]uture [employer] 6 B&S19 M654g - [id number] Implanted:Qty: 1 on 10/26/2017 by Jesus Manriquez MD at OR [facility] JNJ : [employer] 07/25/2022 [id number] / / [id number] documented as of this encounter Advance Directives Latest Code Status on File Code Status Date Activated Date Inactivated Comments Full Code 10/26/2017 5:56 PM 10/30/2017 6:28 PM This or rojas reflects the patients wishes and were consensually agreed upon. Code Status History Code Status Date Activated Date Inactivated Comments Full Code 10/18/2017 2:15 PM 10/26/2017 5:56 PM This o rder reflects the patients wishes and were consensually agreed upon. Full Code 11/19/2016 6:21 AM 11/19/2016 2:41 PM This order reflects the patients wishes and were consensually agreed upon. Care Teams Pan Shover Relationship Specialty Start Date End Date Valentino Dunlap MD [address] [place] [address] PCP - General Family Medicine 02/02/22 documented as of this encounter
--- OUTSIDE RECORDS SUMMARY | 2023-07-03 11:52 | External Medical Summary | Summary of Care ---
Author Name Unknown Organization [facility] Address [address] [place] [address] Phone [phone] Care Team Providers Care E Commerce Solution Architect Name Role Phone Marsha Collado MD Primary Care Provider [phone] Reason for Visit * Reason Comments Follow Up Encounter Details Date Type Department Care Team (Late st Contact Info) Description 06/28/2023 10:00 AM EDT [facility] [address] [facility] [address] Zach Lance MD [address] [facility] [place] [address] LBBB (left bundle branch block)*; Near syncope Allergies Active Allergy Reactions Criticality Noted Date Comments Cat Dander 06/22/2019 Dog Dander 06/22/2019 Dust 06/22/2019 Pollen 06/22/2019 documented as of this encounter (statuses as of 06/29/2023) Medications Medication Sig Dispensed Refills Start Date End Date Status ONETOUCH ULTRA BLUE STRP None Entered 0 01/14/2014 Active Insulin NPH (Human) (Isophane) 100 UNIT/ML Subcutaneous SuspensionIndicatio ns:26 in the morning and 30 at bed time As directed 0 Active BD INSULIN SYR ULTRAFINE II 31G X [...] needed for Dry eyes. 0 Active Ipratropium Ward 0.06 % nasal spray Administer 2 Sprays [...] morning. 0 Active traZODone (DESYREL) 50 MG TabletIndications:l eg pains Take 1 Tablet by mouth at bedtime. 0 11/04/2017 Active carvedilol (COREG) 3.125 MG TabletIndications:I schemic cardiomyopathy Take 1 Tab by mouth 2 times a day. 60 Tab 5 01/02/2018 Active potassium chloride ER 10 MEQ TBCRIndications:Isc hemic cardiomyopathy One tab three days per week with furosemide 38 Tab 1 02/01/2018 Active Additional Information Patient taking differently: 10 mEq Oral Daily(AM), (No instructions reported), Reported on 07/28/2022 Multiple Vitamins-Minerals (CENTRUM SILVER 50+MEN) TABS Take by mouth. 0 Active ONGLYZA 5 MG Tablet Take 1 Tablet by mouth in the morning. 0 04/27/2019 Active Tamsulosin HCl 0.4 MG Oral Capsule (FLOMAX)Indications :Prostatism,Weak urinary stream TAKE 1 CAPSULE BY MOUTH [...] MG Oral Tablet Extended Release 24 Hour (Imdur)Indications: Chronic diastolic heart failure (HCC),HTN, goal below 140/80,S/P CABG x 4,Ischemic cardiomyopathy,LBBB (left bundle branch block) Take 1 tablet by mouth once daily 30 Tablet 5 07/20/2021 Active Pantoprazole Sodium 40 MG Oral Tablet Delayed Release (Protonix) Take 1 Tablet by mouth in the morning and 1 Tablet before bedtime. 0 Active Trelegy Ellipta 200-62.5-25 MCG/ACT Aerosol Powder Breath Activated (Fluticasone-Umecli dinium-Vilanterol) Inhale 1 Puff by mouth. 0 Active Clopidogrel Bisulfate 75 MG Oral Tablet (pLAVix)Indications :HTN, goal below 140/80 Take 1 tablet by mouth once daily 90 Tablet 3 09/13/2022 Active Lisinopril 10 MG Oral Tablet (Prinivil)Indicatio ns:HTN, goal below 140/80,Chronic diastolic heart failure (HCC),S/P CABG x 4 Take 1 tablet by mouth once daily 90 Tablet 3 10/18/2022 Active Furosemide 20 MG Oral Tablet (Lasix)Indications: Ischemic cardiomyopathy,HTN, goal below 140/80 TAKE 1 TABLET BY MOUTH ONCE DAILY ON /TUE ONLY 40 Tablet 3 01/31/2023 Active Ciprofloxacin HCl 0.3 % Ophthalmic Solution Instill 1 Drop into both eyes in the morning and 1 Drop at noon and 1 Drop in the evening and 1 Drop before bedtime. 5 mL 1 01/25/2023 4 Discontinu ed(Medicat ion List Clean Up) documented as of this encounter (statuses as of 06/29/2023) Active Problems Problem Noted Date Diagnosed Date [...] as of this encounter (statuses as of 06/29/2023) Resolved Problems Problem Noted Date Diagnosed Date Resolved Date CAD (coronary artery disease) 04/01/2011 09/21/2017 HTN, goal below 130/80 04/01/201111/17 Overview: Per HTN Protocol #27. documented as of this encounter (statuses as of 06/29/2023) Immunizations Name Administration Dates Next Due Pneumococcal [...] Date Smoking Tobacco: Never Smokeless Tobacco: Never Tobacco Cessation:Counseling Given: No Comments:no passive smoke exposures Alcohol Use Standard Drinks/Week Comments No 0 (1 standard drink = 0.6 oz pur e alcohol) Sex and Gender Information Value Date Recorded Sex Assigned at Not on file Gender Identity Not on file Sexual Orientation Not on file Job Start Date Occupation Industry Not on file Not on file Not on file documented as of this encounter Last Filed Vital Signs Vital Sign Reading Time Taken Comments Blood Pressure 136/68 06/28/2023 9:48 AM EDT Pulse 70 06/28/2023 9:48 AM EDT Temperature - - Respiratory Rate 18 06/28/2023 9:48 AM EDT Oxygen Saturation - - Inhaled Oxygen Concentration - - Weight 75.5 kg (166 lb 8 oz) 06/28/2023 9:48 AM EDT Height - - Body Mass Index 23.22 06/23/2023 8:47 AM EDT documented in this encounter Functional Status Functional Status Response Date of Assess ment Are you deaf or do you have serious difficulty h earing? No-[facility] [place] 10/18/2017 Are you blind or do you [...] No 10/18/2017 documented as of this encounter Progress Notes * Zach Lance MD - 06/28/2023 10:00 AM EDT June 28, 2023 Cardiology Follow Up Referring Provider: PCP: MARSHA COLLADO [address] [place] [address] [phone] Chief Complaint: Acute change, presyncope SUBJECTIVE: Sarita Del Real is a 78 year old year old male with cardiac issues 1. Chronic left bundle branch block. 2. Multiple cardiac risk factors diabetes, hypertension, hyperlipidemia. 3. Presentation with non ST-segment elevation myocardial infarction on 10/18/2017 with subsequent cardiac catheterization demonstrating multivessel coronary disease. 4. Status post successful coronary bypass grafting on 10/26/2017, receiving VELEZ graft to the LAD, a saphenous vein graft to diagonal 2, saphenous vein graft to the obtuse marginal 1, saphenous vein graft to the posterior descending artery. 5. Ischemic cardiomyopathy, ejection fraction 40 % 6. Persistent asthma with possible interstitial lung disease Patient presents today on request. Patient has been aware of several episodes in the past 2 months of transient severe diaphoresis andshortness of breath. Longest episode 3 to 4 minutes in duration. No chest pains no sense of tachy palpitations become lightheaded but no complete syncope. Has been aware of increasing dyspnea on exertion. No fevers chills or unexplained infections. No bleeding difficulties. Did check sugars with episodes and usually in the mid 140s. Has had low blood sugars which are symptomatic but different symptoms not consistent with current complaints Chest x-ray and BNP done last week without evidence of heart failure EKG chronic left bundle-branch block A Complete Review of Systems is as stated above or negative. Patient Active Problem List Diagnosis Code Actinic keratosis L57.0 Dyslipidemia, goal LDL below 70 E78.5 Type 2 diabetes mellitus with hemoglobin A1c goal of less than 7.0% ([facility]) E11.9 Asthma, mild persistent J45.30 Allergic rhinitis J30.9 Dyspnea and respiratory abnormality R06.00, R06.89 HTN, GOAL BELOW 140/80 I10 Ischemic cardiomyopathy I25.5 S/P CABG x 4 Z95.1 LBBB (left bundle branch block) I44.7 Chronic diastolic heart failure (HCC) I50.32 Allergic eosinophilia D72.10 Gastro-esophageal reflux disease without esophagitis K21.9 Type 2 diabetes mellitus with diabetic polyneuropathy ([facility]) E11.42 Review of patient's allergies indicates: Allergen Reactions Cat Dander Dog Dander Dust Pollen Current Outpatient Medications Medication Sig Dispense Refill ONETOUCH ULTRA BLUE STRP None Entered Insulin NPH (Human) (Isophane) 100 UNIT/ML Subcutaneous Suspension As directed BD INSULIN SYR ULTRAFINE II 31G X 5/16" 0.5 ML MISC Triamcinolone Acetonide (NASACORT AQ) 55 MCG/ACT AERO 2 spray each nostril once or twice daily 1 Bottle 5 Cetirizine HCl 10 MG Capsule Take 1 Capsule by mouth in the morning. At bedtime . Polyethyl Glycol-Propyl Glycol 0.4-0.3 % Ophthalmic Solution Instill into eye as needed for Dry eyes. Ipratropium Ward 0.06 % nasal spray Administer 2 Sprays into each nostril in the morning and 2 Sprays before bedtime. 1 Bottle 11 aspirin enteric coated 81 MG TBEC Take 2 Tabs by mouth daily. Three days per week (Patient taking differently: Take 1 Tablet by mouth once a day on Tuesday, Tuesday, and Tuesday only.) 60 Tab 5 atorvaSTATin (LIPITOR) 80 MG Tablet Take 1 Tab by mouth every afternoon. 30 Tab 5 Fexofenadine HCl 180 MG Oral Tablet Take 1 Tablet by mouth in the morning. traZODone (DESYREL) 50 MG Tablet Take 1 Tablet by mouth at bedtime. carvedilol (COREG) 3.125 MG Tablet Take 1 Tab by mouth 2 times a day. 60 Tab 5 potassium chloride ER 10 MEQ TBCR One tab three days per week with furosemide (Patient taking differently: Take 1 Tablet by mouth in the morning.) 38 Tab 1 Multiple Vitamins-Minerals (CENTRUM SILVER 50+MEN) TABS Take by mouth. ONGLYZA 5 MG Tablet Take 1 Tablet by mouth in the morning. Tamsulosin HCl 0.4 MG Oral Capsule (FLOMAX) TAKE 1 CAPSULE BY MOUTH ONCE DAILY AT BEDTIME 90 Cap 3 ProAir HFA 108 (90 Base) MCG/ACT Inhalation Aerosol Solution Inhale 2 Puffs by mouth every 4 hours as needed for Cough, Shortness of Breath or Wheezing. 18 g 11 OneTouch UltraSoft Lancets Glimepiride 1 MG Oral Tablet (Amaryl) Take 3 Tablets by mouth daily before breakfast. 3 mg every AM& 2 mg every evening Isosorbide Mononitrate ER 30 MG Oral Tablet Extended Release 24 Hour (Imdur) Take 1 tablet by mouthonce daily 30 Tablet 5 Pantoprazole Sodium 40 MG Oral Tablet Delayed Release (Protonix) Take 1 Tablet by mouth in the morning and 1 Tablet before bedtime. Trelegy Ellipta 200-62.5-25 MCG/ACT Aerosol Powder Breath Activated (Ansffvkceti-Npmbkokyigyk-Zunpsxhlms) Inhale 1 Puff by mouth. Clopidogrel Bisulfate 75 MG Oral Tablet (pLAVix) Take 1 tablet by mouth once daily 90 Tablet 3 Lisinopril 10 MG Oral Tablet (Prinivil) Take 1 tablet by mouth once daily 90 Tablet 3 Furosemide 20 MG Oral Tablet (Lasix) TAKE 1 TABLET BY MOUTH ONCE DAILY ON TUE//TUE ONLY 40 Tablet 3 No current facility-administered medications for this visit. OBJECTIVE/PHYSICAL EXAMINATION: BP 136/68 (BP Site: Left Arm, BP Position: Sitting, BP Cuff Size: Regular) | Pulse 70 | Resp 18 | Wt 75.5 kg (166 lb 8 oz) | BMI 23.22 kg/m | BSA 1.94 m General: Age-appropriate male in no acute distress Head: normocephalic, no masses, lesions, tenderness or abnormalities Eyes: conjunctiva are pink and non-injected, sclera clear Throat: clear Nares: without discharge Neck: supple, no adenopathy, no bruits, normal jugular venous pulse, no hepatojugular reflux, no carotid bruits Chest: normal shape and normal respiratory effort incision is well-healed Lungs: clear to auscultation and percussion with slightly decreased breath sounds Cardiac Exam: - regular rate & rhythm, no murmurs gallops or rubs - normal S-1, normal S-2 Pulses: 2(+) throughout Abdomen: Soft, nontender, minimal distention no hepatosplenomegaly, no abdominal bruit, no femoral bruit Musculoskeletal: no gait disturbance, no joint inflammation, no deforming arthritis Extremities: no edema, no cyanosis, pulses intact 2+/4 Neuro: grossly normal exam Data: Echocardiogram May 11, 2021 Compared to last available study, there has been no interval change. Normal LV chamber size. The wall thickness is mildly increased in segments with normal wall motion. Moderately reduced LV systolic function. Calculated LV ejection Fraction = 41% (three dimensional volumes). The inferior and inferoseptal humphries were hypokinetic with all other wall segments nichole normally. The septal motion is abnormal consistent with left bundle branch block. The mitral valve leaflets thickness is mildly increased. Mitral stenosis is absent. Mild mitral regurgitation is present. EKG June 28, 2023 Sinus rhythm 66 beats per minute Left bundle-branch block QRS duration 150 milliseconds Laboratory studies February 24, 2023 Total cholesterol 100, LDL 42, HDL 46 Sodium 141, potassium 3.9, chloride 110, bicarb 25, BUN 11, creatinine 0.95, ASSESSMENT: 78 year old year old male Status post coronary bypass grafting September of 2017 history of compensated Class 1 2 function capacity, stable ischemic cardiomyopathy with improved overall systolic function and compensated class 2 congestive heart failure, chronic left bundle-branch block. Patient presents now noting several episodes of near syncope with associated acute shortness of breath and diaphoresis. Patient not aware of heart rate during episodes Some decline in overall exercise capacity recently PLAN: Episodic near syncope: New symptomatic complaints of uncertain etiology. Discussed possibilities indetail with the patient including arrhythmias or progression in anginal symptoms. Echocardiogram ordered for August will be expedited today. Will review images Lab work today. Will order event monitor Will need further ischemic workup either stress testing versus directly referral for cardiac catheterization depending on laboratory testing and echocardiogram Discussed with patient would refer to [facility] for cardiac catheterizationgiven complex anatomy Future considerations include BiV pacer defibrillator depending on LV systolic function, arrhythmiapresence DISPOSITION: Return 1 months strongly encouraged patient report any change in symptoms or complaints Zach Lance MD [facility], [address] [address] Addendum June 29, 2023 Reviewed results of studies. Laboratory studies unrevealing. Echocardiogram reveals slight decline in overall systolic function but without segmental abnormality. Marked left bundle-branch block Given concerning symptoms for progressive angina will refer for diagnostic coronary angiography. Patient and agreeable documented in this encounter Procedure Notes * Zach Lance MD - 06/28/2023 10:02 AM EDTAssociated Order(s): EKG REASON FOR STUDY: LBBB; near syncope;LBBB; near syncope CONCLUSIONS: Normal sinus rhythm Left bundle branch block Abnormal ECG When compared with ECG of 25-Feb-2023 10:55, T wave inversion less evident in Lateral leads Ventricular Rate: 66 Atrial Rate: 66 WA Interval: 174 QRS Duration: 150 QT/QTc: 424/444 ms P-R-T [place]: 37 : 68 : 260 degrees documented in this encounter Nursing Notes * Karen Gibbons RN - 06/28/2023 9:50 AM EDT Examination Room: 14 Name: Sarita Del Real Date of : (1945). Reason for Visit: Follow up Interim Hospitalization(s): No Problems/Concerns: Here for evaluation based increase/ongoing occurrences of pre-syncopal symptoms.Worse symptom lasting 3-4 minutes followed by weakness/shortness of breath. Chest Pain/SOB: Denies chest pain/discomfort. [facility] Discussed: Yes [facility] is a way you can talk to your provider online through e-mail. Would you like to sign up? I can activate it for you? DECLINES Patient was instructed to not get up on the exam table until directed and assisted by their provider; patient is to remain seated in the chair/ wheelchair/ exam table for fall prevention and safety reasons. Patient is aware to have assistance to step down off exam table with personnel. Patient voiced full comprehension of instructions. documented in this encounter Plan of Treatment Upcoming Encounters Date Type Department Care Team (Late st Contact Info) Description 07/14/2023 11:30 AM EDT PulmDiagnostic Pulmonary Function Lab, [facility] [address] [address] [place], [address] [facility] [place] [address] 08/01/2023 1:30 PM EDT Office Visit All[facility] [address] [facility] [address] Yosef Arias MD [address] [facility] [address] 10/03/2023 2:00 PM EDT Office Visit Pulmonary Medicine, [facility] [address] [place] [address] Patrice Savage MD [address] [place] [address] 06/05/2024 8:15 AM EDT Office Visit Ophthalmology, [place] [address] [place] [address] Roque Cabrera MD [address] [facility] [place] [address] Scheduled Orders Name Type Priority Associated Diagnoses Orde r Schedule EXTERNAL EKG 2 TO 7 DAYS Holter Routine LBBB (left bundle branch block) Near syncope Expected: 06/28/2023 (Approximate), Expires: 06/27/2024 Scheduled Procedures Name Priority Associated Diagnoses Date/Ti me COLONOSCOPY FLEXIBLE PROXIMA L DIAGNOSTIC Recall Personal history of colonic polyps Health Maintenance Due Date Last Done Comments Depression Screening 1957 Diabetic Foot Exam 1962 Hepatitis C Screening 1962 DTaP,Tdap,and Td Vaccines (1 - Tdap) 1963 HbA1c 06/02/2021 12/03/2020, 050 05/2020, 11/01/2019, Additional history exists Albumin/Creatinine Ratio [...] this encounter Medical Devices Implanted Type Area Sod Stripper Device Identifier Shelf Expiration Date Model / Serial / Lot Lens 17.0 [id number] - [id number] - [id number] Implanted:Qty: 1 on 11/19/2016 by Roque Cabrera MD at OR [facility] Right: Eye TITO : SURGICAL 11/26/2019 [id number] / [id number] / [id number] Suture Steel 6 B&S19 [id number] - [id number] Implanted:Qty: 1 on 10/26/2017 by Jesus Manriquez MD at OR [facility] JNJ : [employer] 07/25/2022 [id number] / / [id number] documented as of this encounter Procedures Procedure Name Priority Date/Time Associated Diagnosis Comments TSH WITH FREE T4 IF INDICATED Routine 06/28/2023 10:39 AM EDT LBBB (left bundle branch block) Near syncope WA ECG ROUTINE ECG W/LEAST 12 LDS W/I&R Routine 06/28/2023 10:02 AM EDT LBBB (left bundle branch block) Near syncope documented in this encounter Results * TSH WITH FREE T4 IF INDICATED (06/28/2023 10:39 AM EDT) Pathologist [facility] TSH 1.03 0.27 - 4.20 uIU/mL 06/28/2023 8:23 PM EDT LABORATORY [facility] Blood Venous blood specimen / Unknown Venipuncture / Unknown 06/28/2023 10:39 AM EDT 06/28/2023 10:39 AM EDT Zach Lance MD LAB BLOOD ORDERABLES LABORATORY [facility] [address] [place] [address] * ERYTHROCYTE SEDIMENTATION RATE (ESR) (06/28/2023 10:39 AM EDT) Pathologist [facility] ESR 6 <20 mm/hour 06/28/2023 7:05 PM EDT LABORATORY [facility] Blood Venous blood specimen / Unknown Venipuncture / Unknown 06/28/2023 10:39 AM EDT 06/28/2023 10:39 AM EDT Zach Lance MD LAB BLOOD ORDERABLES LABORATORY [facility] [address] [place] [address] * PT INR (06/28/2023 10:39 AM EDT) Prothrombin Time 13.4 11.6 - 15.2 seconds 06/28/2023 11:13 AM EDT [facility] INR 1.0 0.8 - 1.2 06/28/2023 11:13 AM EDT [facility] Blood Venous blood specimen / Unknown Venipuncture / Unknown 06/28/2023 10:39 AM EDT 06/28/2023 10:39 AM EDT Narrative [facility] - 06/28/2023 11:13 AM EDT Warfarin Therapy INR: 2.0-3.0 conventional anticoagulation INR: 2.5-3.5 high intensity anticoagulation Zach Lance MD LAB BLOOD ORDERABLES LAB[facility] [address] [place] [address] * (ABNORMAL) BASIC METABOLIC PANEL (06/28/2023 10:39 AM EDT) BUN 11 6 - 20 mg/dL 06/28/2023 12:29 PM EDT [facility] Creatinine 1.0 0.6 - 1.2 mg/dL 06/28/2023 12:29 PM EDT [facility] Estimated Glomerular Filtration Rate 74 >=60 mL/min 06/28/2023 12:29 PM EDT [facility] Comment:eGFR is calculated b ased on the CKD-EPI 2020 equation Sodium 141 135 - 146 mmol/L 06/28/2023 12:29 PM EDT [facility] Potassium 4.6 3.5 - 5.1 mmol/L 06/28/2023 12:29 PM EDT LAB[facility]ORY [facility]10 Chloride 106 98 - 107 mmol/L 06/28/2023 12:29 PM EDT LAB[facility]ORY [facility]10 CO2 26 22 - 32 mmol/L 06/28/2023 12:29 PM EDT LAB[facility]ORY [facility]10 Anion Gap 9 7 - 15 mmol/L 06/28/2023 12:29 PM EDT [facility]ORY [facility] 57[facility]10 Glucose 119 70 - 120 mg/dL 06/28/2023 12:29 PM EDT [facility] Calcium 10.3(H) 8.4 - 10.2 mg/dL 06/28/2023 12:29 PM EDT [facility]ORY [facility] 57[facility]10 Blood Venous blood specimen / Unknown Venipuncture / Unknown 06/28/2023 10:39 AM EDT 06/28/2023 10:39 AM EDT Zach Lance MD LAB BLOOD ORDERABLES Performing Organization Address [facility] Co de Phone Number [facility] [place] [id number] * EKG (06/28/2023 10:02 AM EDT) 06/28/2023 10:0 2 AM EDT Narrative Procedure Note Zach Lance MD - 06/28/2023 10:02 AM EDT REASON FOR STUDY: LBBB; near syncope;LBBB; near syncope CONCLUSIONS: Normal sinus rhythm Left bundle branch block Abnormal ECG When compared with ECG of 25-Feb-2023 10:55, T wave inversion less evident in Lateral leads Ventricular Rate: 66 Atrial Rate: 66 WA Interval: 174 QRS Duration: 150 QT/QTc: 424/444 ms P-R-T [place]: 37 : 68 : 260 degrees Zach Lance MD EKG Performing Organization Address City/[facility] Co de Phone Number [facility] documented in this encounter Visit Diagnoses Diagnosis LBBB (left bundle branch block)- Primary Other left bundle branch block Near syncope Syncope and collapse documented in this encounter Advance Directives Latest Code Status [...] and were consensually agreed upon. Care Teams E Commerce Solution Architect Relationship Specialty Start Date End Date Marsha Collado MD [address] [facility] [place] [address] PCP - General Family Medicine 02/02/22 documented as of this encounter
[2023-07-03 12:26] LABS: Basophils # (auto) 0.04 K/uL (0.00-0.20); Basophils % (auto) 0.5 %; Eosinophils # (auto) 0.39 K/uL (0.00-0.50); Eosinophils % (auto) 4.5 %; Hemoglobin 16.2 g/dl (14.0-18.0); Immature Granulocytes # (auto) 0.02 K/uL (0.01-0.20); Immature Granulocytes % (auto) 0.2 %; Lymphocytes # (auto) 3.04 K/uL (1.20-3.40); Mean Corpuscular Hemoglobin 31.1 pg (25.0-34.0); Mean Corpuscular Hgb Conc 33.8 g/dL (32.0-36.0); Mean Corpuscular Volume 92.1 fL (80.0-100.0); Mean Platelet Volume 12.2 fL (9.4-12.4); Monocytes # (auto) 0.54 K/uL (0.11-0.59); Monocytes % (auto) 6.2 %; Neutrophils # (auto) 4.65 K/uL (1.40-6.50); Neutrophils % (auto) 53.6 %; Platelet Count 154 K/uL (130-400); RDW Coefficient of Variation 12.5 % (11.5-14.5); RDW Standard Deviation 42.4 fL (36.4-46.3); Red Blood Count 5.21 M/uL (4.70-6.10); White Blood Count 8.68 K/ul (4.8-10.8)
--- NOTE | 2023-07-03 12:36 | Emergency Department Note ---
Impression & Plan Episode of generalized weakness, Near syncope, Epigastric discomfort ED Provider Note Name: ARIEL THOMAS Age: 78 Sex: Male Arrives Via: Walk-In Informant: Patient and ED Provider: Ronnie Hernnadez MD Chief Complaint: Near syncope Impression: As per impressions above Medical Decision Makin-year-old gentleman with complex past medical history including previous UT arrives for evaluation of worsening episodes of near syncope. 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 Unfortunate this morning he had relatively significant episode of near syncope, diaphoresis and but he relates this is anginal equivalent of upper epigastric discomfort. On arrival though he is much improved and stable. He looks well and is in no distress. Your syncope workup was initiated. Which included EKG that was unremarkable, laboratory workup which was unremarkable as well as a CT of the head and chest x-ray look which have no acute concerning findings. No evidence of acute infectious etiology. Patient's bilirubin is just mildly elevated but this is baseline for the patient. He has a soft nontender abdomen. There is no hallmarks of dissection or acute intra-abdominal pathology. He does not look better but given these recurrent symptoms and the episode today I think hospitalization for cardiac rule out is warranted. Hospitalist consulted for further management. Triage/Nursing Notes reviewed by Me Differential:Vasovagal event, dehydration, infection, hypoglycemia, electrolyte abnormalities, cardiac sources, intracerebral event, pulmonary embolism, seizure, toxicologic, neurologic, as well as other pathologies. Vital Signs: reviewed and remarkable for mild hypertension Interventions: Normal saline 500 mL IV bolus Labs:ED labs Reviewed by me and remarkable for mild elevation of bilirubin within range for patient. Otherwise unremarkable. Imaging:CT of the head without contrast as per my informal interpretation reveals no intracranial hemorrhage or mass effect. 1 view chest x-ray as per my interpretation reveals no infiltrate, effusion, enlarged cardiac border. EKG:As per my interpretation. Indication near syncope. Normal sinus rhythm at 65 bpm and a left bundle branch block and QTc of 457. There is no ectopy nor ischemia. Modestly poor baseline initially. No significant change from November 08, 2022 EKG Cardiac/Tele Monitoring: Cardiac Monitoring: An Order was placed for continuous cardiac monitoring. The monitor shows a rate of 60 with a normal sinus rhythm. Consults:Discussed with Dr. Mckeon of the [facility] hospitalist service who will evaluate for further management and monitoring. Plan: Disposition:Hospitalization. Condition: Good History of Present Illness: 78-year-old gentleman arrives for evaluation of near syncopal episode. Patient states he had sudden onset lightheadedness and felt like he was about to pass out. Associated with diaphoresis, fatigue, upper abdominal discomfort, posterior headache and nausea. Lasted for 20 to 30 minutes before lately resolving. Still has some mild headache. Notes this was very similar to his previous heart attack. He has been having episodes of dizziness and lightheadedness fairly frequently for the last few months and has been following with pulmonology and cardiology for this. It got to the point where they are actually planning on setting up an outpatient catheterization at [facility] given previous heart attack. Patient denies any actual syncope, palpitations, chest pain, difficulty breathing, falls, trauma, injuries, urinary burning, leg swelling, calf pain or other concerning signs or symptoms. States he has not eaten anything today. This did occur while he was at [employer]. Past Medical History:See Below Home Medications:See Below Allergies: Pollen, cat, dog Vitals:Blood Pressure: 159/83, Pulse 57, RR 20, T 36.0 C, O2 98% on RA Physical Exam: GENERAL: Patient is anxious and frail appearing and in minimal distress. RESPIRATORY: No dyspnea. Clear to auscultation and equal bilaterally. CARDIOVASCULAR: Regular rate and rhythm.No murmur appreciated. GASTROINTESTINAL: Abdomen soft, non-tender, no peritonitis. EXTREMITIES: Normal motion all extremities, no cyanosis, no edema. NEUROLOGIC: Alert and oriented. No focal neurologic deficits appreciated SKIN: No rash, no jaundice, no diaphoresis. 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 Medicare annual wellness visit, subsequent Hearing deficit History of Mohs micrographic surgery for skin cancer History of skin cancer History of anxiety Myocardial Infarction History of COVID-19 Chronic reflux esophagitis Asthma GERD (gastroesophageal reflux disease) Hyperlipidemia Surgical History Hx laparoscopic cholecystectomy (07/13/22) S/P trigger finger release History of tooth extraction History of cardiac cath H/O hand surgery History of cataract surgery History of colonoscopy History of hernia repair Hx of CABG Family History Mother Colorectal cancer Sister Diabetes Breast cancer Brother Diabetes Hx of CABG Son Legg-Perthes disease Father Colorectal cancer Other Myocardial infarction No family history of adverse response to anesthesia Denies family history of Ovarian cancer Prostate cancer Social History Smoking Status: Never smoker Second Hand Exposure: Yes (IN THE PAST); Do You Dip or Chew Tobacco: No; Hx Alcohol Use: No Hx Substance Use: No Preferred Language: Azeri Communication Ability: Effective Visual Impairment: Limited Hearing Ability: Normal Eligibility Clerk Required: No Beliefs That Will Affect Care: None marital status: Current Living Situation: Spouse Current Living Situation Comment: Lives in 1 story home with current occupational status: retired Other Information That Helps Us Care for You: No Feels Safe at Home: Yes Safety Concerns: Feels Safe At This Time Childhood Exposure to Second-Hand Smoke: No Diet Comment: heart healthy caffeine: Yes Dental Care, Regularly: Yes Physical Activity Frequency: Daily Seatbelt Use: always Sunscreen Use: No (Does wear hat and long sleeves) Do you think of yourself as: straight/heterosexual Assistive Devices: Glasses and Hearing Aid - Bilateral Allergies Allergies Allergy/AdvReac Type Severity Reaction Status Date / Time pollen extracts Allergy Intermediate ITCHY Verified 07/03/23 14:54 EYES, SNEEZING, CONGESTION cat dander Allergy Mild congestion Verified 07/03/23 14:54 dog dander Allergy Mild congestion Verified 07/03/23 14:54 Home Meds Home Medications Medication Instructions Recorded Confirmed aspirin 81 mg tablet,delayed 81 mg PO 3XWK 04/16/19 07/03/23 release lisinopril 10 mg tablet 10 mg PO QAM 04/16/19 07/03/23 furosemide 20 mg tablet 20 mg PO 3XWK 02/22/20 07/03/23 ipratropium bromide 42 mcg (0.06 1 spray intranasal AMHS 02/22/20 07/03/23 %) nasal spray triamcinolone acetonide 55 mcg 1 spray intranasal QAM 02/22/20 07/03/23 nasal spray aerosol (Nasacort) insulin NPH isoph U-100 human 100 See Rx Instructions subcut BID 06/29/23 07/03/23 unit/mL subcutaneous suspension (Novolin N NPH U-100 Insulin isophane) Previous Rx's Medication Instructions Recorded cetirizine 10 mg capsule 10 mg PO HS #90 caps 10/24/18 clopidogrel 75 mg tablet (Plavix) 75 mg PO QAM #90 tabs 10/24/18 fexofenadine 180 mg tablet 180 mg PO QAM #90 tabs 10/24/18 hfodrmyo-ry-rnnus 300 mcg-K 60 1 tab PO QAM #90 tabs 10/24/18 mcg-lycop 600 mcg-lutein 300 mcg tablet (Centrum Silver Men) glucagon 1 mg/0.2 mL subcutaneous 1 mg (0.2 mL) subcut ONCE PRN 02/28/20 auto-injector severe low sugar #0.2 mL albuterol sulfate 90 mcg/actuation 2 puff inhalation Q6H PRN 01/26/22 aerosol inhaler (Ventolin HFA) Shortness Of Breath Or Wheezing #18 grams lancets 30 gauge (NanostimTouch #200 ea 09/17/22 UltraSoft 2 Lancet) potassium chloride 10 mEq 10 meq PO QAM #90 tabs 09/20/22 tablet,extended release isosorbide mononitrate 30 mg 30 mg PO QAM #90 tabs 10/20/22 tablet,extended release 24 hr blood sugar diagnostic (NanostimTouch #150 ea 11/23/22 Ultra Test strips) carvedilol 3.125 mg tablet (Coreg) 3.125 mg PO BIDM #180 tabs 12/13/22 saxagliptin 5 mg tablet (Onglyza) 5 mg PO QDD #90 tabs 12/20/22 pantoprazole 40 mg tablet,delayed 40 mg PO BID #180 tabs 12/21/22 release tamsulosin 0.4 mg capsule (Flomax) 0.4 mg PO DAILY #90 caps 12/21/22 lancets 30 gauge (NanostimTouch Clean [place] #200 ea 02/07/23 Plus Lancet) lancing device with lancets kit #1 ea 02/07/23 (OneTouch Delica Plus Lancing Device kit) fluticasone fur. 200 mcg-umeclid 1 inh inhalation DAILY #60 ea 03/01/23 62.5 mcg-vilant 25 mcg inhalat.powder (Trelegy Ellipta) lancets (Accu-Chek Softclix #200 ea 03/01/23 Lancets) glimepiride 1 mg tablet See Rx Instructions PO BID #450 04/04/23 tabs atorvastatin 80 mg tablet 80 mg PO QDD #90 tabs 05/30/23 Results & Data (ED) Vital Signs Vital Signs - 24 hr 07/03/23 11:48 07/03/23 12:17 07/03/23 12:20 Temperature 36.0 C L Temperature Source Temporal Artery Scan Pulse Rate 64 57 L 57 L Pulse Rate [Finger] Pulse Rate from SpO2 Sensor 55 L Pulse Rhythm Regular Pulse Strength Normal Respiratory Rate 20 17 Respiratory Effort / Characteristics Non-Labored Spontaneous Respiratory Depth Normal Respiratory Pattern Regular Blood Pressure 159/83 H Blood Pressure [Right Arm] Blood Pressure Mean 108 Blood Pressure Mean [Right Arm] Blood Pressure Position Sitting Pulse Oximetry 98 97 Oxygen Delivery Method Room Air Sepsis Recent Fever Within 48 Hours No Sepsis New/Unexplained Change in Mental Status No Sepsis Action Taken by Nursing No Action Required 07/03/23 12:20 07/03/23 12:30 07/03/23 12:30 Temperature Temperature Source Pulse Rate 62 Pulse Rate [Finger] 65 Pulse Rate from SpO2 Sensor 61 Pulse Rhythm Pulse Strength Respiratory Rate 17 18 Respiratory Effort / Characteristics Respiratory Depth Respiratory Pattern Blood Pressure Blood Pressure [Right Arm] 163/92 H Blood Pressure Mean Blood Pressure Mean [Right Arm] 115 Blood Pressure Position Pulse Oximetry 99 98 98 Oxygen Delivery Method Room Air Sepsis Recent Fever Within 48 Hours Sepsis New/Unexplained Change in Mental Status Sepsis Action Taken by Nursing 07/03/23 12:30 07/03/23 12:30 07/03/23 12:40 Temperature Temperature Source Pulse Rate 64 55 L Pulse Rate [Finger] Pulse Rate from SpO2 Sensor 63 56 L Pulse Rhythm Pulse Strength Respiratory Rate 22 Respiratory Effort / Characteristics Respiratory Depth Respiratory Pattern Blood Pressure 163/92 H Blood Pressure [Right Arm] Blood Pressure Mean 105 Blood Pressure Mean [Right Arm] Blood Pressure Position Pulse Oximetry 98 99 Oxygen Delivery Method Sepsis Recent Fever Within 48 Hours Sepsis New/Unexplained Change in Mental Status Sepsis Action Taken by Nursing 07/03/23 12:50 07/03/23 13:00 07/03/23 13:00 Temperature Temperature Source Pulse Rate 59 L 54 L Pulse Rate [Finger] Pulse Rate from SpO2 Sensor 59 L 54 L Pulse Rhythm Pulse Strength Respiratory Rate 18 17 Respiratory Effort / Characteristics Respiratory Depth Respiratory Pattern Blood Pressure 145/74 H Blood Pressure [Right Arm] Blood Pressure Mean 116 Blood Pressure Mean [Right Arm] Blood Pressure Position Pulse Oximetry 98 97 Oxygen Delivery Method Sepsis Recent Fever Within 48 Hours Sepsis New/Unexplained Change in Mental Status Sepsis Action Taken by Nursing 07/03/23 13:15 07/03/23 13:20 07/03/23 13:22 Temperature Temperature Source Pulse Rate 64 60 Pulse Rate [Finger] 61 Pulse Rate from SpO2 Sensor 59 L Pulse Rhythm Pulse Strength Respiratory Rate 12 23 16 Respiratory Effort / Characteristics Respiratory Depth Respiratory Pattern Blood Pressure Blood Pressure [Right Arm] 145/77 H Blood Pressure Mean Blood Pressure Mean [Right Arm] 99 Blood Pressure Position Pulse Oximetry 97 98 Oxygen Delivery Method Room Air Sepsis Recent Fever Within 48 Hours Sepsis New/Unexplained Change in Mental Status Sepsis Action Taken by Nursing 07/03/23 13:30 07/03/23 13:30 07/03/23 13:40 Temperature Temperature Source Pulse Rate 60 63 Pulse Rate [Finger] Pulse Rate from SpO2 Sensor 61 64 Pulse Rhythm Pulse Strength Respiratory Rate 20 21 Respiratory Effort / Characteristics Respiratory Depth Respiratory Pattern Blood Pressure 156/100 H Blood Pressure [Right Arm] Blood Pressure Mean 117 Blood Pressure Mean [Right Arm] Blood Pressure Position Pulse Oximetry 95 98 Oxygen Delivery Method Sepsis Recent Fever Within 48 Hours Sepsis New/Unexplained Change in Mental Status Sepsis Action Taken by Nursing 07/03/23 13:50 07/03/23 14:00 07/03/23 14:00 Temperature Temperature Source Pulse Rate 60 64 Pulse Rate [Finger] Pulse Rate from SpO2 Sensor 60 56 L Pulse Rhythm Pulse Strength Respiratory Rate 23 19 Respiratory Effort / Characteristics Respiratory Depth Respiratory Pattern Blood Pressure 168/77 H Blood Pressure [Right Arm] Blood Pressure Mean 129 Blood Pressure Mean [Right Arm] Blood Pressure Position Pulse Oximetry 98 96 Oxygen Delivery Method Sepsis Recent Fever Within 48 Hours Sepsis New/Unexplained Change in Mental Status Sepsis Action Taken by Nursing 07/03/23 14:10 07/03/23 14:20 07/03/23 14:30 Temperature Temperature Source Pulse Rate 67 62 Pulse Rate [Finger] Pulse Rate from SpO2 Sensor 68 63 Pulse Rhythm Pulse Strength Respiratory Rate 16 23 Respiratory Effort / Characteristics Respiratory Depth Respiratory Pattern Blood Pressure 171/94 H Blood Pressure [Right Arm] Blood Pressure Mean 146 Blood Pressure Mean [Right Arm] Blood Pressure Position Pulse Oximetry 97 97 Oxygen Delivery Method Sepsis Recent Fever Within 48 Hours Sepsis New/Unexplained Change in Mental Status Sepsis Action Taken by Nursing 07/03/23 14:30 07/03/23 14:40 07/03/23 14:50 Temperature Temperature Source Pulse Rate 64 67 62 Pulse Rate [Finger] Pulse Rate from SpO2 Sensor 72 65 62 Pulse Rhythm Pulse Strength Respiratory Rate 19 20 21 Respiratory Effort / Characteristics Respiratory Depth Respiratory Pattern Blood Pressure Blood Pressure [Right Arm] Blood Pressure Mean Blood Pressure Mean [Right Arm] Blood Pressure Position Pulse Oximetry 95 97 95 Oxygen Delivery Method Sepsis Recent Fever Within 48 Hours Sepsis New/Unexplained Change in Mental Status Sepsis Action Taken by Nursing 07/03/23 15:00 07/03/23 15:00 07/03/23 15:10 Temperature Temperature Source Pulse Rate 61 63 Pulse Rate [Finger] Pulse Rate from SpO2 Sensor 61 63 Pulse Rhythm Pulse Strength Respiratory Rate 20 18 Respiratory Effort / Characteristics Respiratory Depth Respiratory Pattern Blood Pressure 147/77 H Blood Pressure [Right Arm] Blood Pressure Mean 122 Blood Pressure Mean [Right Arm] Blood Pressure Position Pulse Oximetry 93 95 Oxygen Delivery Method Sepsis Recent Fever Within 48 Hours Sepsis New/Unexplained Change in Mental Status Sepsis Action Taken by Nursing 07/03/23 15:20 07/03/23 15:30 07/03/23 15:30 Temperature Temperature Source Pulse Rate 63 62 Pulse Rate [Finger] Pulse Rate from SpO2 Sensor 63 62 Pulse Rhythm Pulse Strength Respiratory Rate 16 22 Respiratory Effort / Characteristics Respiratory Depth Respiratory Pattern Blood Pressure 169/85 H Blood Pressure [Right Arm] Blood Pressure Mean 123 Blood Pressure Mean [Right Arm] Blood Pressure Position Pulse Oximetry 96 95 Oxygen Delivery Method Sepsis Recent Fever Within 48 Hours Sepsis New/Unexplained Change in Mental Status Sepsis Action Taken by Nursing 07/03/23 15:40 07/03/23 15:50 Temperature Temperature Source Pulse Rate 64 66 Pulse Rate [Finger] Pulse Rate from SpO2 Sensor 66 Pulse Rhythm Pulse Strength Respiratory Rate 22 16 Respiratory Effort / Characteristics Respiratory Depth Respiratory Pattern Blood Pressure Blood Pressure [Right Arm] Blood Pressure Mean Blood Pressure Mean [Right Arm] Blood Pressure Position Pulse Oximetry 96 Oxygen Delivery Method Sepsis Recent Fever Within 48 Hours Sepsis New/Unexplained Change in Mental Status Sepsis Action Taken by Nursing Laboratory Data 07/04/23 05:44 07/04/23 05:44 Lab Results 07/03/23 07/03/23 07/03/23 Range/Units 12:05 15:08 15:31 WBC 8.68 (4.8-10.8) K/ul RBC 5.21 (4.70-6.10) M/uL Hgb 16.2 (14.0-18.0) g/dl Hct 48.0 (42.0-52.0) % MCV 92.1 (80.0-100.0) fL MCH 31.1 (25.0-34.0) pg MCHC 33.8 (32.0-36.0) g/dL RDW Std Deviation 42.4 (36.4-46.3) fL RDW Coeff of Emir 12.5 (11.5-14.5) % Plt Count 154 (130-400) K/uL MPV 12.2 (9.4-12.4) fL Immature Gran % (Auto) 0.2 % Neut % (Auto) 53.6 % Lymph % (Auto) 35.0 % [place] % (Auto) 6.2 % Eos % (Auto) 4.5 % Baso % (Auto) 0.5 % Neut # (Auto) 4.65 (1.40-6.50) K/uL Lymph # (Auto) 3.04 (1.20-3.40) K/uL [place] # (Auto) 0.54 (0.11-0.59) K/uL Eos # (Auto) 0.39 (0.00-0.50) K/uL Baso # (Auto) 0.04 (0.00-0.20) K/uL Immature Gran # (Auto) 0.02 (0.01-0.20) K/uL PT 11.4 (9.0-12.0) Seconds INR 1.0 (0.9-1.1) APTT 23 (21-31) Seconds PTT Ratio 0.8 Sodium 139 (136-145) mmol/L Potassium 4.5 (3.5-5.1) mmol/L Chloride 107 (98-107) mmol/L Carbon Dioxide 26 (21-32) mmol/L Anion Gap 6 (3-11) BUN 13 (6-23) mg/dl Creatinine 0.94 (0.6-1.4) mg/dl Est Cr Clr Drug Dosing Not Reportable Est GFR ( Amer) 89.0 ml/min Est GFR (Non-Af Amer) 76.8 ml/min BUN/Creatinine Ratio 13.8 (10-20) Glucose 153 H (70-99(Fasting)) mg/dl POC Glucose 69 L* (70-99) mg/dl Calcium 9.8 (8.6-10.3) mg/dl Magnesium 1.9 (1.7-2.4) mg/dl Total Bilirubin 1.4 H (0.2-1.0) mg/dl AST 26 (13-39) U/L ALT 27 (7-52) U/L Alkaline Phosphatase 70 (34-104) U/L Troponin I High Sens 7.2 8.3 (0-20) pg/ml Total Protein 7.1 (6.0-8.3) gm/dl Albumin 4.2 (3.4-5.0) gm/dl Globulin 2.9 (2.5-4.0) gm/dl Albumin/Globulin Ratio 1.4 (0.9-2) Administered Medications Acetaminophen (Acetaminophen 325 Mg Tab) 650 mg PO Q4H PRN PRN Reason: Pain or Fever Stop: 08/02/23 22:28 Last Admin: 07/03/23 22:33 Dose: 650 mg Documented By: ANGELA Aspirin (Aspirin 81 Mg Ectab) 81 mg PO MoWeFr@0900 [facility] Stop: 08/03/23 08:59 Last Admin: 07/04/23 08:58 Dose: 81 mg Documented By: Atorvastatin Calcium (Atorvastatin 40 Mg Tab) 80 mg PO QDD [facility] Stop: 08/02/23 19:54 Last Admin: 07/03/23 21:05 Dose: 80 mg Documented By: ANGELA Carvedilol (Carvedilol 3.125 Mg Tab) 3.125 mg PO BIDM [facility] Stop: 08/02/23 19:54 Last Admin: 07/04/23 08:58 Dose: 3.125 mg Documented By: Admin: 07/03/23 21:03 Dose: 3.125 mg Documented By: ANGELA Cetirizine HCl (Cetirizine Hcl 10 Mg Tablet) 10 mg PO [facility] Stop: 08/02/23 20:59 Last Admin: 07/03/23 21:04 Dose: 10 mg Documented By: ANGELA Clopidogrel Bisulfate (Clopidogrel Bisulfate 75 Mg Tab) 75 mg PO [facility] Stop: 08/03/23 08:59 Last Admin: 07/04/23 08:58 Dose: 75 mg Documented By: Fexofenadine HCl (Fexofenadine Hcl 180 Mg Tab) 180 mg PO [facility] Stop: 08/03/23 08:59 Last Admin: 07/04/23 08:58 Dose: 180 mg Documented By: MS Fluticasone Furoate (Fluticasone Furoate 200mcg 14 Puffs/Inhaler) 1 puffs INH DAILY [facility] Stop: 08/03/23 08:59 Last Admin: 07/04/23 08:59 Dose: 1 puffs Documented By: Fluticasone Propionate (Fluticasone Propionate Na Spr 16 Gm Btl) 2 sprays NA DAILY [facility]; Protocol Stop: 08/03/23 08:59 Last Admin: 07/04/23 08:59 Dose: 2 sprays Documented By: Insulin Aspart (Insulin Aspart Per Unit Charge) 0 units [facility] Stop: 08/02/23 20:59 Last Admin: 07/04/23 06:08 Dose: Not Given Documented By: Admin: 07/03/23 20:53 Dose: Not Given Documented By: ANGELA Insulin Human NPH (Insulin Human Nph) 12 units SQ DAILY@1700 [facility] Stop: 08/02/23 20:14 Last Admin: 07/03/23 21:01 Dose: 12 units Documented By: ANGELA Co-signed By: DEBBI Ipratropium Dorothy (Ipratropium Dorothy Nasal [place] 0.06% 15ml) 1 sprays [facility] Stop: 08/02/23 20:59 Last Admin: 07/04/23 09:00 Dose: 1 sprays Documented By: Admin: 07/03/23 21:03 Dose: 1 sprays Documented By: ANGELA Isosorbide Mononitrate (Isosorbide [place] Extended Rel 30 Mg Tabcr) 30 mg PO [facility] Stop: 08/03/23 08:59 Last Admin: 07/04/23 08:58 Dose: 30 mg Documented By: Lisinopril (Lisinopril 10 Mg Tab) 10 mg PO QAM [facility] Stop: 08/03/23 08:59 Last Admin: 07/04/23 08:58 Dose: 10 mg Documented By: MS Multivitamins (Multivitamin Tab) 1 tab PO QAM [facility] Stop: 08/03/23 08:59 Last Admin: 07/04/23 08:58 Dose: 1 tab Documented By: MS Pantoprazole Sodium (Pantoprazole 40 Mg Tab) 40 mg PO BID [facility] Stop: 08/02/23 20:59 Last Admin: 07/04/23 08:58 Dose: 40 mg Documented By: Admin: 07/03/23 21:05 Dose: 40 mg Documented By: ANGELA Potassium Chloride (Potassium Chloride 10 Meq Tabcr) 10 meq PO QAM [facility] Stop: 08/03/23 08:59 Last Admin: 07/04/23 08:58 Dose: 10 meq Documented By: Tamsulosin HCl (Tamsulosin Hcl 0.4 Mg Cap) 0.4 mg PO DAILY [facility] Stop: 08/03/23 08:59 Last Admin: 07/04/23 08:58 Dose: 0.4 mg Documented By: MS Umeclidinium/Vilanterol (Umeclidinium/Vilanterol 62.5/25mcg 7 Puffs/Inhaler) 1 puffs INH DAILY [facility] Stop: 08/03/23 08:59 Last Admin: 07/04/23 08:59 Dose: 1 puffs Documented By: MS Discontinued Medications Glimepiride (Glimepiride 2 Mg Tab) 3 mg PO DAILY@0800 [facility] Stop: 08/03/23 07:59 Last Admin: 07/04/23 08:25 Dose: Not Given Documented By: MS Sodium Chloride (Nss) 500 mls @ 999 mls/hr IV .Q31M ONE Stop: 07/03/23 13:02 Last Infusion: 07/03/23 13:51 Dose: Infused Documented By: Admin: 07/03/23 13:21 Dose: 999 mls/hr Documented By: NATE Discharge Plan Visit Data Chief Complaint: Weakness Stated Complaint: WEAKNESS ED Provider: Ronnie Hernandez Discharge Problem: Episode of generalized weakness, Near syncope, Epigastric discomfort Patient Disposition: Admitted As Inpatient Discharge Instructions Interventions: ED Discharge Assessment Last Done: 07/03/23 17:50
[2023-07-03 12:48] LABS: Alanine Aminotransferase 27 U/L (7-52); Albumin Globulin Ratio 1.4 (0.9-2); Albumin Level 4.2 gm/dl (3.4-5.0); Alkaline Phosphatase 70 U/L (34-104); Anion Gap 6 (3-11); Aspartate Aminotransferase 26 U/L (13-39); BUN Creatinine Ratio 13.8 (10-20); Bilirubin,Total 1.4 mg/dl (0.2-1.0); Blood Urea Nitrogen 13 mg/dl (6-23); Calcium 9.8 mg/dl (8.6-10.3); Carbon Dioxide 26 mmol/L (21-32); Chloride 107 mmol/L (98-107); Est GFR (Non-African American) 76.8 ml/min; Globulin 2.9 gm/dl (2.5-4.0); Glucose 153 mg/dl (70-99(Fasting)); Potassium 4.5 mmol/L (3.5-5.1); Sodium 139 mmol/L (136-145); Total Protein 7.1 gm/dl (6.0-8.3)
[2023-07-03 12:54] LABS: Partial Thromboplastin Ratio 0.8; Partial Thromboplastin Time 23 Seconds (21-31); Prothrombin Time 11.4 Seconds (9.0-12.0); Troponin I High Sensitivity 7.2 pg/ml (0-20)
--- NOTE | 2023-07-03 13:20 | CT Scan Report ---
CT head/brain wo con CLINICAL HISTORY: Near syncope headache Technique: Contiguous axial CT images of the head were acquired from the base of the skull to the justino pratibha without intravenous contrast administration. Images were viewed in brain, subdural and [facility]. Automated dose lowering techniques and/or adjustment according to patient size were utilized for this exam. Comparison: Comparison is made to CT head 04/16/2019 Findings: The ventricles, basal cisterns, and cerebral sulci are normal. There is no acute intracranial hemorrh age or evidence of acute territorial infarction. Neither mass effect, shift of the midline structures , nor abnormal extra-axial fluid collections are shown. Imaged portions of the paranasal sinuses and mastoid air cells are clear. The orbits appear normal. There are no acute fractures of the calvaria or scalp swelling. Impression: No acute intracranial hemorrhage, no evidence of acute territorial infarction or other acute intracra nial disease process. ACT 112: Negative or not required by law. Electronically signed by: Vitaliy Calero M.D. 07/03/2023 1:18 PM
[2023-07-03] MEDS: SODIUM CHLORIDE 0.9% 500 ML IV ONE (13:21)
--- NOTE | 2023-07-03 14:46 | XRay Report ---
XR chest 1V portable CLINICAL HISTORY: Chest pain, nonspecific TECHNIQUE: Single frontal radiograph of the chest was obtained. Comparison: Comparison is made to chest radiograph 07/11/2022 FINDINGS: Median sternotomy wires are unchanged. Cardiomegaly is noted. The lungs are clear. No evidence of ple ural effusion or pneumothorax. IMPRESSION: No acute chest disease. ACT 112: Negative or not required by law. Electronically signed by: Vitaliy Calero M.D. 07/03/2023 2:45 PM
--- NOTE | 2023-07-03 15:23 | History & Physical Report ---
Date of Service July 03, 2023 Assessment & Plan (1) Pre-syncope: Plan: Ongoing intermittent symptoms with plan for [place] cardiac [place] [facility] [place] troponins Monitor on telemetry Consult cardiology (2) Abdominal pain: Plan: Epigastric pain during episode, now resolved, reports similar to his prior NE Trend troponins as above (3) Type 2 diabetes mellitus treated with insulin: Plan: HbA1C 7.0 June 21 Reduce his outpatient insulin NPH in half due to reduced inpatient glucose intake to 13 + 12 Continue glimepiride and saxagliptin (4) Benign essential hypertension: Plan: Continue carvedilol, furosemide, ISMN, lisinopril (5) Asthma: Plan: Continue Trelegy Ellipta of hospital formulary equivalent (6) Coronary artery disease: Plan: Continue ASA, clopidogrel, carvedilol, lisinopril, atorvastatin (7) Fatigue: Plan: Unclear etiology on admission Plan to rule out cardiac cause initially (8) BPH (benign prostatic hyperplasia): Plan: Continue tamsulosin Plan VTE Prophylaxis - deferred pending clinical course as may need IV heparin Diet - heart healthy, T2DM Disposition - observation status to PCU Admission and Anticipated Discharge Date Admission Date: July 03, 2023 History of Present Illness Chief Complaint: Presyncope Primary Care Provider: Valentino Dunlap MD Sarita Del Real is a 78 year old male with coronary artery disease s/p coronary artery bypass who presents to the ER with a presyncopal episode, abdominal pain, diaphoresis. He has had multiple similar episodes over the past few months with presyncope, associated shortness of breath and diaphoresis on exertion. These episodes have been happening with increased frequency and severity with 4 similar episodes in the last 3 weeks. This episode was the same but at rest and with epigastric pain (severity 4-5/10, no radiation) occurring at 11:30 AM today. Initial symptom of feeling hot from head to toe. He reports feeling his energy level was low between episodes and he gets tired very quickly. The symptoms are being worked up as an outpatient and his plastic surgery nurse is planning on doing a cardiac catheterization - planning at [facility] due to complex anatomy. However he has never had an episode at rest before. Allergies Allergy/AdvReac Type Severity Reaction Status Date / Time pollen extracts Allergy Intermediate ITCHY Verified 07/03/23 14:54 EYES, SNEEZING, CONGESTION cat dander Allergy Mild congestion Verified 07/03/23 14:54 dog dander Allergy Mild congestion Verified 07/03/23 14:54 Home Medications Medication Instructions Recorded Confirmed Type cetirizine 10 mg capsule 10 mg PO HS #90 caps 10/24/18 07/03/23 Rx clopidogrel 75 mg tablet (Plavix) 75 mg PO QAM #90 tabs 10/24/18 07/03/23 Rx fexofenadine 180 mg tablet 180 mg PO QAM #90 tabs 10/24/18 07/03/23 Rx mqndffkw-sp-azexo 300 mcg-K 60 1 tab PO QAM #90 tabs 10/24/18 07/03/23 Rx mcg-lycop 600 mcg-lutein 300 mcg tablet (Centrum Silver Men) aspirin 81 mg tablet,delayed 81 mg PO 3XWK 04/16/19 07/03/23 History release lisinopril 10 mg tablet 10 mg PO QAM 04/16/19 07/03/23 History furosemide 20 mg tablet 20 mg PO 3XWK 02/22/20 07/03/23 History ipratropium bromide 42 mcg (0.06 1 spray intranasal AMHS 02/22/20 07/03/23 History %) nasal spray triamcinolone acetonide 55 mcg 1 spray intranasal QAM 02/22/20 07/03/23 History nasal spray aerosol (Nasacort) glucagon 1 mg/0.2 mL subcutaneous 1 mg (0.2 mL) subcut ONCE PRN 02/28/20 07/03/23 Rx auto-injector severe low sugar #0.2 mL albuterol sulfate 90 mcg/actuation 2 puff inhalation Q6H PRN 01/26/22 07/03/23 Rx aerosol inhaler (Ventolin HFA) Shortness Of Breath Or Wheezing #18 grams lancets 30 gauge (OneTouch #200 ea 09/17/22 06/29/23 Rx UltraSoft 2 Lancet) potassium chloride 10 mEq 10 meq PO QAM #90 tabs 09/20/22 07/03/23 Rx tablet,extended release isosorbide mononitrate 30 mg 30 mg PO QAM #90 tabs 10/20/22 07/03/23 Rx tablet,extended release 24 hr blood sugar diagnostic (Regalos Y AmigosTouch #150 ea 11/23/22 06/29/23 Rx Ultra Test strips) carvedilol 3.125 mg tablet (Coreg) 3.125 mg PO BIDM #180 tabs 12/13/22 07/03/23 Rx saxagliptin 5 mg tablet (Onglyza) 5 mg PO QDD #90 tabs 12/20/22 07/03/23 Rx pantoprazole 40 mg tablet,delayed 40 mg PO BID #180 tabs 12/21/22 07/03/23 Rx release tamsulosin 0.4 mg capsule (Flomax) 0.4 mg PO DAILY #90 caps 12/21/22 07/03/23 Rx lancets 30 gauge (OneTouch Delica #200 ea 02/07/23 06/29/23 Rx Plus Lancet) lancing device with lancets kit #1 ea 02/07/23 06/29/23 Rx (OneTouch Delica Plus Lancing Device kit) fluticasone fur. 200 mcg-umeclid 1 inh inhalation DAILY #60 ea 03/01/23 07/03/23 Rx 62.5 mcg-vilant 25 mcg inhalat.powder (Trelegy Ellipta) lancets (Accu-Chek Softclix #200 ea 03/01/23 06/29/23 Rx Lancets) glimepiride 1 mg tablet See Rx Instructions PO BID #450 04/04/23 07/03/23 Rx tabs atorvastatin 80 mg tablet 80 mg PO QDD #90 tabs 05/30/23 07/03/23 Rx insulin NPH isoph U-100 human 100 See Rx Instructions subcut BID 06/29/23 07/03/23 History unit/mL subcutaneous suspension (Novolin N NPH U-100 Insulin isophane) Past Med/Surg History Medical History Lower urinary tract symptoms Loose stools Common bile duct (CBD) obstruction Common bile duct stone Calculus of cystic duct Type 2 diabetes mellitus treated with insulin Cough Early satiety Bruising 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 Medicare annual wellness visit, subsequent Hearing deficit History of Mohs micrographic surgery for skin cancer History of skin cancer History of anxiety Myocardial Infarction History of COVID-19 Chronic reflux esophagitis Asthma GERD (gastroesophageal reflux disease) Hyperlipidemia Surgical History Hx laparoscopic cholecystectomy (07/13/22) S/P trigger finger release History of tooth extraction History of cardiac cath H/O hand surgery History of cataract surgery History of colonoscopy History of hernia repair Hx of CABG Family History Mother Colorectal cancer Sister Diabetes Breast cancer Brother Diabetes Hx of CABG Son Legg-Perthes disease Father Colorectal cancer Other Myocardial infarction No family history of adverse response to anesthesia Denies family history of Ovarian cancer Prostate cancer Social History Smoking Status: Never smoker Second Hand Exposure: Yes (IN THE PAST); Do You Dip or Chew Tobacco: No; Hx Alcohol Use: No Hx Substance Use: No Preferred Language: Upper Sorbian Communication Ability: Effective Visual Impairment: Limited Hearing Ability: Normal Arranging Funeral Director Required: No Beliefs That Will Affect Care: None marital status: Current Living Situation: Spouse Current Living Situation Comment: Lives in 1 story home with current occupational status: retired Other Information That Helps Us Care for You: No Feels Safe at Home: Yes Safety Concerns: Feels Safe At This Time Childhood Exposure to Second-Hand Smoke: No Diet Comment: heart healthy caffeine: Yes Dental Care, Regularly: Yes Physical Activity Frequency: Daily Seatbelt Use: always Sunscreen Use: No (Does wear hat and long sleeves) Do you think of yourself as: straight/heterosexual Assistive Devices: Glasses and Hearing Aid - Bilateral Review of Systems Review of Systems: All systems reviewed & are unremarkable except as noted in HPI & below Physical Exam Constitutional: WD/WN, vitals as above Eyes: PERRL, conjunctivae normal, anicteric sclerae Respiratory: normal respiratory effort, lungs clear to auscultation Cardiovascular: RRR, no murmur, no edema Gastrointestinal (Abdomen): normal bowel sounds, soft, nontender, no he patosplenomegaly Musculoskeletal: no cyanosis or clubbing, extremities motor strength 5/5 Skin: no rashes, warm and dry Neurologic: moves all extremities and awake; not confused Psychiatric: A+Ox3, euthymic affect Results & Data Results & Data Vital Signs (Past 12 Hours) Vital Signs Temp Pulse Pulse Resp BP BP Pulse Ox 07/03/23 15:00 147/77 H 07/03/23 15:00 61 20 93 07/03/23 14:50 62 21 95 07/03/23 14:40 67 20 97 07/03/23 14:30 64 19 95 07/03/23 14:30 171/94 H 07/03/23 14:20 62 23 97 07/03/23 14:10 67 16 97 07/03/23 14:00 64 19 96 07/03/23 14:00 168/77 H 07/03/23 13:50 60 23 98 07/03/23 13:40 63 21 98 07/03/23 13:30 60 20 95 07/03/23 13:30 156/100 H 07/03/23 13:22 61 16 145/77 H 98 07/03/23 13:20 60 23 97 07/03/23 13:15 64 12 07/03/23 13:00 54 L 17 97 07/03/23 13:00 145/74 H 07/03/23 12:50 59 L 18 98 07/03/23 12:40 55 L 99 07/03/23 12:30 64 22 98 07/03/23 12:30 163/92 H 07/03/23 12:30 98 07/03/23 12:30 65 18 163/92 H 98 07/03/23 12:20 62 17 99 07/03/23 12:20 57 L 07/03/23 12:17 57 L 17 97 07/03/23 11:48 36.0 C L 64 20 159/83 H 98 O2 Del Method 07/03/23 15:00 07/03/23 15:00 07/03/23 14:50 07/03/23 14:40 07/03/23 14:30 07/03/23 14:30 07/03/23 14:20 07/03/23 14:10 07/03/23 14:00 07/03/23 14:00 07/03/23 13:50 07/03/23 13:40 07/03/23 13:30 07/03/23 13:30 07/03/23 13:22 Room Air 07/03/23 13:20 07/03/23 13:15 07/03/23 13:00 07/03/23 13:00 07/03/23 12:50 07/03/23 12:40 07/03/23 12:30 07/03/23 12:30 07/03/23 12:30 Room Air 07/03/23 12:30 07/03/23 12:20 07/03/23 12:20 07/03/23 12:17 07/03/23 11:48 Room Air Laboratory Results Abnormal lab results 07/03/23 07/03/23 07/03/23 Range/Units 12:05 15:31 16:07 Glucose 153 H (70-99(Fasting)) mg/dl POC Glucose 69 L* 134 H (70-99) mg/dl Total Bilirubin 1.4 H (0.2-1.0) mg/dl Diagnostic Findings CT head/brain wo con CLINICAL HISTORY: Near syncope headache Technique: Contiguous axial CT images of the head were acquired from the base of the skull to the vertex without intravenous contrast administration. Images were viewed in brain, subdural and bone windows. Automated dose lowering techniques and/or adjustment according to patient size were utilized for this exam. Comparison: Comparison is made to CT head 04/16/2019 Findings: The ventricles, basal cisterns, and cerebral sulci are normal. There is no acute intracranial hemorrhage or evidence of acute territorial infarction. Neither ma ss effect, shift of the midline structures, nor abnormal extra-axial fluid collections are shown. Imaged portions of the paranasal sinuses and mastoid air cells are clear. The orbits appear normal. There are no acute fractures of the calvaria or scalp swelling. Impression: No acute intracranial hemorrhage, no evidence of acute territorial infarction or other acute intracranial disease process. XR chest 1V portable CLINICAL HISTORY: Chest pain, nonspecific TECHNIQUE: Single frontal radiograph of the chest was obtained. Comparison: Comparison is made to chest radiograph 07/11/2022 FINDINGS: Median sternotomy wires are unchanged. Cardiomegaly is noted. The lungs are clear. No evidence of pleural effusion or pneumothorax. IMPRESSION: No acute chest disease. Medications Administered ER Medications Given: Normal saline 500ml bolus ECG Rate (beats per minute): 65 Rhythm: normal sinus Findings: + LBBB Comparison ECG Date: from (November 08, 2022) Change: no significant change Code Status & VTE Plan Code Status Full VTE Prophylaxis Plan VTE Prophylaxis will be ordered: No PG Care Time/CCT Total # of Minutes Spent Total Time Spent with Patient: Total time spent is greater than 50% in coordination of care (as documented) at patient's floor/unit and/or counseling patient: Coding Level of Care Code 64491 INT INP/OBS CARE MIN Diagnoses Pre-syncope R55 Abdominal pain R10.9 Type 2 diabetes mellitus treated with insulin E11.9; Z79.4 Benign essential hypertension I10 Asthma J45.909 Coronary artery disease I25.10 Fatigue R53.83 BPH (benign prostatic hyperplasia) N40.0
[2023-07-03 15:57] LABS: Troponin I High Sensitivity 8.3 pg/ml (0-20)
[2023-07-03] MEDS ORDERED: GLUCOSE 40% GEL 15 GM TUBE PO PRN (19:53)
[2023-07-03] MEDS ORDERED: GLUCOSE 10 TAB/TUBE PO PRN (19:53)
[2023-07-03] MEDS ORDERED: GLUCAGON FOR INJ 1 MG VIAL SQ PRN (19:53)
[2023-07-03] MEDS ORDERED: DEXTROSE 50% 50 ML SYRINGE IV PRN (19:53)
[2023-07-03] MEDS: INSULIN ASPART PER UNIT CHARGE SC SCH (20:53)
[2023-07-03] MEDS: INSULIN HUMAN NPH SQ SCH (21:01)
[2023-07-03] MEDS: carvediloL 3.125 MG TAB PO SCH (21:03)
[2023-07-03] MEDS: IPRATROPIUM BROMIDE NASAL SPRAY 0.06% 15ML NAE SCH (21:03)
[2023-07-03] MEDS: CETIRIZINE HCL 10 MG TABLET PO SCH (21:04)
[2023-07-03] MEDS: ATORVASTATIN 40 MG TAB PO SCH (21:05)
[2023-07-03] MEDS: PANTOprazole 40 MG TAB PO SCH (21:05)
[2023-07-03 21:12] LABS: Magnesium 1.9 mg/dl (1.7-2.4)
[2023-07-03] MEDS: ACETAMINOPHEN 325 MG TAB PO PRN (22:33)
--- NOTE | 2023-07-04 06:09 | Electrocardiogram Report ---
Test Reason : Blood Pressure : / mmHG Vent. Rate : 065 BPM Atrial Rate : 065 BPM P-R Int : 174 ms QRS Dur : 140 ms QT Int : 440 ms P-R-T Axes : 004 031 231 degrees QTc Int : 457 ms Normal sinus rhythm Left bundle branch block Abnormal ECG When compared with ECG of 08-NOV-2022 13:33, No significant change was found Confirmed by Young Liz ([id number]) on 07/04/2023 6:09:38 AM Referred By: Confirmed By:Young Liz
[2023-07-04 06:11] LABS: Basophils # (auto) 0.05 K/uL (0.00-0.20); Basophils % (auto) 0.8 %; Eosinophils % (auto) 7.6 %; Hematocrit (blood only) 42.5 % (42.0-52.0); Hemoglobin 14.8 g/dl (14.0-18.0); Immature Granulocytes # (auto) 0.02 K/uL (0.01-0.20); Immature Granulocytes % (auto) 0.3 %; Lymphocytes % (auto) 41.1 %; Mean Corpuscular Hemoglobin 31.8 pg (25.0-34.0); Mean Corpuscular Hgb Conc 34.8 g/dL (32.0-36.0); Mean Corpuscular Volume 91.4 fL (80.0-100.0); Mean Platelet Volume 12.2 fL (9.4-12.4); Monocytes # (auto) 0.58 K/uL (0.11-0.59); Monocytes % (auto) 8.8 %; Neutrophils # (auto) 2.72 K/uL (1.40-6.50); Neutrophils % (auto) 41.4 %; Platelet Count 129 K/uL (130-400); RDW Coefficient of Variation 12.6 % (11.5-14.5); RDW Standard Deviation 42.1 fL (36.4-46.3); Red Blood Count 4.65 M/uL (4.70-6.10); White Blood Count 6.57 K/ul (4.8-10.8)
[2023-07-04 06:34] LABS: BUN Creatinine Ratio 14.7 (10-20); Creatinine Clr Calc Pharmacy 61.3 ml/min; Est GFR (African American) 80.6 ml/min; Est GFR (Non-African American) 69.6 ml/min; Potassium 4.3 mmol/L (3.5-5.1)
--- NOTE | 2023-07-04 07:17 | Hospitalist Progress Note ---
Date of Service July 04, 2023 Assessment & Plan (1) Pre-syncope: (2) Type 2 diabetes mellitus treated with insulin: (3) GERD (gastroesophageal reflux disease): (4) Benign essential hypertension: (5) BPH (benign prostatic hyperplasia): (6) Asthma: (7) Heart failure with mildly reduced ejection fraction (HFmrEF): (8) Coronary artery disease: (9) Abdominal pain: Plan Pre-syncope: Plan: Ongoing intermittent symptoms Trend troponins Monitor on telemetry Consult cardiology (2) Type 2 diabetes mellitus treated with insulin: Plan: HbA1C 7.0 June 21 Reduce his outpatient insulin NPH in half due to reduced inpatient glucose intake to 13 + 12 Continue glimepiride and saxagliptin (3) Benign essential hypertension: Plan: Continue carvedilol, furosemide, ISMN, lisinopril (4) Asthma: Plan: Continue Trelegy Ellipta of hospital formulary equivalent (5) Hypomagnesemia: (6) GERD (gastroesophageal reflux disease): (7) Coronary artery disease: (8) Abdominal pain: (9) Fatigue: (10) BPH (benign prostatic hyperplasia): Admission and Anticipated Discharge Date Admission Date: July 03, 2023 Subjective Pt is a [] yo [] with a past medical history of [] who presents to the hospital on [] for []. Review of Systems Review of Systems: Constitutional: denies fever, chills, [] HEENT: denies congestion, sore throat Cardio: denies chest pain, palpitations Resp: denies shortness of breath, cough GI: denies abdominal pain, nausea, vomiting, constipation, diarrhea : denies pain with urination, change in urinary frequency Neuro: denies new numbness, tingling, weakness Physical Exam Physical Exam: General:Alert and oriented, no acute distress, [] HEENT: Normocephalic, moist oral mucosa, Cardio: Regular rate and rhythm, no murmur, Resp:Lungs clear to auscultation b/l, no wheezes or rhonchi, GI: Soft and nontender, nondistended, bowel sounds active Skin: Warm, pink, dry, Psych: Mood-affect congruence. Results & Data Results & Data Vital Signs (Past 12 Hours) Vital Signs Temp Pulse Resp BP Pulse Ox O2 Del Method 07/04/23 03:03 36.6 C 67 18 134/63 95 Room Air 07/03/23 22:53 36.6 C 70 18 149/71 H 96 Room Air 07/03/23 19:46 36.6 C 67 18 173/77 H 97 Room Air
[2023-07-04] MEDS: GLIMEPIRIDE 2 MG TAB PO SCH (08:25)
[2023-07-04] MEDS: ISOSORBIDE MONO EXTENDED REL 30 MG TABCR PO SCH (08:58)
[2023-07-04] MEDS: ASPIRIN 81 MG ECTAB PO SCH (08:58)
[2023-07-04] MEDS: lisinopril 10 MG TAB PO SCH (08:58)
[2023-07-04] MEDS: MULTIVITAMIN TAB PO SCH (08:58)
[2023-07-04] MEDS: CLOPIDOGREL BISULFATE 75 MG TAB PO SCH (08:58)
[2023-07-04] MEDS: POTASSIUM CHLORIDE 10 MEQ TABCR PO SCH (08:58)
[2023-07-04] MEDS: FEXOFENADINE HCL 180 MG TAB PO SCH (08:58)
[2023-07-04] MEDS: TAMSULOSIN HCL 0.4 MG CAP PO SCH (08:58)
[2023-07-04] MEDS: UMECLIDINIUM/VILANTEROL 62.5/25MCG 7 PUFFS/INHALER INH SCH (08:59)
[2023-07-04] MEDS: FLUTICASONE PROPIONATE NA SPR 16 GM BTL SCH (08:59)
[2023-07-04] MEDS: FLUTICASONE FUROATE 200MCG 14 PUFFS/INHALER INH SCH (08:59)
[2023-07-04] MEDS ORDERED: NON-FORMULARY MEDICATION (Fluticasone-Umeclidin-Vilanter [Trelegy Ellipta] 200-62.5-25 mcg INH SCH (09:00)
[2023-07-04] MEDS: INSULIN HUMAN NPH SQ SCH (09:20)
--- NOTE | 2023-07-04 12:05 | Cardiology Consultation ---
Date of Consultation July 04, 2023 Assessment & Plan (1) Near syncope: (2) Heart failure with mildly reduced ejection fraction (HFmrEF): (3) Left bundle branch block: (4) ASCVD (arteriosclerotic cardiovascular disease): (5) Status post aorto-coronary artery bypass graft: (6) Ischemic cardiomyopathy: Plan Complex 78-year-old male admitted following recurrent near syncopal episode as detailed below. - Event occurred while wearing a ZIO monitor, and triggered - EKG with chronic left bundle branch block. - High-sensitivity troponin negative x 4. - Recent outpatient resting echocardiography with moderate reduction in LV systolic function, EF 40%, unchanged compared to prior. - Continuous telemetry monitoring benign thus far - Chest x-ray with no acute chest disease - Head CT with no acute intracranial findings History most suggestive of recurrent vasovagal episodes Recommendations: 1. Arrangements are being made to overnight the patient's ZIO monitor to [employer] so that the information can be downloaded and the results reviewed 2. Continue telemetry monitoring without interruption. 3. Check orthostatic vital signs 4. Possible need for pacemaker implantation noted. 5. Same medications for now 6. OK to feed - catheterization not anticipated this admission/[facility]. 7. Abdominal pain as per Hospitalist Supervising Physician Co-Signing Physician Notes I have reviewed the advance practitioner's documentation, and I agree with, and take responsibility for the plan of care. 78-year-old male presented to the emergency department due to near syncope. Multiple episodes recorded over the past few months. Upon arrival to the ER he experienced epigastric discomfort which lasted approximately 1 to 2 hours. Discomfort spontaneously resolved. Typically active around his home, able to climb 12 stairs without exertional chest pain or unusual shortness of breath. Notes mild dyspnea at the top of the stairs which does not limit activity. No orthopnea, PND, or lower extremity edema. Telemetry reveals sinus rhythm and sinus bradycardia since admission. Cardiac enzymes are negative. Offers no other concerns/complaints. PE: VSS. Gen: NAD, AAO x3. Heart: Regular rhythm. Normal S1S2. no murmur. Pulm: Clear B/L. No rales, rhonchi, or wheeze. Extremities: No edema. A/P: 78-year-old male admitted with near syncope. History most suggestive of vasovagal etiology. Currently wearing ZIO monitor. 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 Continue telemetry monitoring during hospitalization. Check orthostatic vital signs. Discussed possible indications for pacemaker implantation with need for long-term beta-myrtle therapy and underlying conduction disease. No evidence of acute coronary syndrome on admission. Cardiac catheterization not anticipated during current hospitalization. Continue current cardiovascular medications. History of Present Illness Reason for Consultation: Presyncope, feels like prior IA, plan to cath Requesting Physician: Dr. Federico Mckeon Attending Physician: Dr. Luann Hernandez History of Present Illness Mr. Sarita Del Real is a very pleasant 78-year-old male who was at [employer] on Tuesday, singing in the anabaptist when he experienced a near syncopal episode. He describes awakening in the morning feeling well. Blood sugar was 113 mg/deciliter. He notes attending Bible class then taking a 15-minute break prior to starting the religious service. Patient notes standing in the anabaptist singing for a few minutes when he began to feel hot then broke out into a sweat. He began to feel weak and had to lean onto the pew. He felt somewhat short of breath. He notes that the men around him almost had to carry him out of the druze. Patient notes experiencing an episode like this approximately 1 year ago that he attributed to possibly low blood sugar. Over the last 3 months he has had 5 or 6 of these episodes the longest of which lasted approximately 5 minutes. He has checked his blood sugar shortly after the episode and has not observed hypoglycemia. No true syncope. Patient is currently wearing a ZIO monitor which was placed on June 28, [address] Lance. Events described above are unlike those associated with the prior IA. No chest pain. No palpitations. He has been aware of increased exertional dyspnea. No fevers or chills. No rash. Notes chronic sinus congestion in the mornings that seems to clear by mid morning. Past Medical and Surgical History: Presentation in September 2017 with epigastric discomfort, elevated troponin, NSTEMI. 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 Status post October 26, 2017 CABG, receiving a VELEZ to the LAD, SVG to D2, SVG to OM1, and SVG to PDA. Ischemic cardiomyopathy, EF 40% Chronic left bundle branch block Systolic and diastolic congestive heart failure Hypertension Dyslipidemia Type 2 diabetes mellitus Asthma, possible interstitial lung disease Gastroesophageal reflux disease Depression Diverticulosis Cataract extraction Hernia repair Family History: Positive for ischemic heart disease in older brother who had bypass surgery. Younger brother suddenly at age 52. 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 He is a nonsmoker and nondrinker. Allergies Allergy/AdvReac Type Severity Reaction Status Date / Time pollen extracts Allergy Intermediate ITCHY Verified 07/03/23 14:54 EYES, SNEEZING, CONGESTION cat dander Allergy Mild congestion Verified 07/03/23 14:54 dog dander Allergy Mild congestion Verified 07/03/23 14:54 Home Medications Medication Instructions Recorded Confirmed Type cetirizine 10 mg capsule 10 mg PO HS #90 caps 10/24/18 07/03/23 Rx clopidogrel 75 mg tablet (Plavix) 75 mg PO QAM #90 tabs 10/24/18 07/03/23 Rx fexofenadine 180 mg tablet 180 mg PO QAM #90 tabs 10/24/18 07/03/23 Rx snjhsyzd-nh-ybday 300 mcg-K 60 1 tab PO QAM #90 tabs 10/24/18 07/03/23 Rx mcg-lycop 600 mcg-lutein 300 mcg tablet (Centrum Silver Men) aspirin 81 mg tablet,delayed 81 mg PO 3XWK 04/16/19 07/03/23 History release lisinopril 10 mg tablet 10 mg PO QAM 04/16/19 07/03/23 History furosemide 20 mg tablet 20 mg PO 3XWK 02/22/20 07/03/23 History ipratropium bromide 42 mcg (0.06 1 spray intranasal AMHS 02/22/20 07/03/23 History %) nasal spray triamcinolone acetonide 55 mcg 1 spray intranasal QAM 02/22/20 07/03/23 History nasal spray aerosol (Nasacort) glucagon 1 mg/0.2 mL subcutaneous 1 mg (0.2 mL) subcut ONCE PRN 02/28/20 07/03/23 Rx auto-injector severe low sugar #0.2 mL albuterol sulfate 90 mcg/actuation 2 puff inhalation Q6H PRN 01/26/22 07/03/23 Rx aerosol inhaler (Ventolin HFA) Shortness Of Breath Or Wheezing #18 grams lancets 30 gauge (OneTouch #200 ea 09/17/22 06/29/23 Rx UltraSoft 2 Lancet) potassium chloride 10 mEq 10 meq PO QAM #90 tabs 09/20/22 07/03/23 Rx tablet,extended release isosorbide mononitrate 30 mg 30 mg PO QAM #90 tabs 10/20/22 07/03/23 Rx tablet,extended release 24 hr blood sugar diagnostic (OneTouch #150 ea 11/23/22 06/29/23 Rx Ultra Test strips) carvedilol 3.125 mg tablet (Coreg) 3.125 mg PO BIDM #180 tabs 12/13/22 07/03/23 Rx saxagliptin 5 mg tablet (Onglyza) 5 mg PO QDD #90 tabs 12/20/22 07/03/23 Rx pantoprazole 40 mg tablet,delayed 40 mg PO BID #180 tabs 12/21/22 07/03/23 Rx release tamsulosin 0.4 mg capsule (Flomax) 0.4 mg PO DAILY #90 caps 12/21/22 07/03/23 Rx lancets 30 gauge (OneTouch Delica #200 ea 02/07/23 06/29/23 Rx Plus Lancet) lancing device with lancets kit #1 ea 02/07/23 06/29/23 Rx (OneTouch Delica Plus Lancing Device kit) fluticasone fur. 200 mcg-umeclid 1 inh inhalation DAILY #60 ea 03/01/23 07/03/23 Rx 62.5 mcg-vilant 25 mcg inhalat.powder (Trelegy Ellipta) lancets (Accu-Chek Softclix #200 ea 03/01/23 06/29/23 Rx Lancets) glimepiride 1 mg tablet See Rx Instructions PO BID #450 04/04/23 07/03/23 Rx tabs atorvastatin 80 mg tablet 80 mg PO QDD #90 tabs 05/30/23 07/03/23 Rx insulin NPH isoph U-100 human 100 See Rx Instructions subcut BID 06/29/23 07/03/23 History unit/mL subcutaneous suspension (Novolin N NPH U-100 Insulin isophane) Patient History Medical History Lower urinary tract symptoms Loose stools Common bile duct (CBD) obstruction Common bile duct stone Calculus of cystic duct Type 2 diabetes mellitus treated with insulin Cough Early satiety Bruising 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 Medicare annual wellness visit, subsequent Hearing deficit History of Mohs micrographic surgery for skin cancer RT/LEFT SIDE OF FACE/CHEEK AREA History of skin cancer History of anxiety Myocardial Infarction 2018 History of COVID-19 02/28/20>TERRIBLE COUGH/FATIGUE *RESOLVED Chronic reflux esophagitis Asthma LAST USED RESCUE INHALER>LAST MONTH GERD (gastroesophageal reflux disease) Hyperlipidemia Surgical History Hx laparoscopic cholecystectomy (07/13/22) Laparoscopic Cholecystectomy(Not Applicable) - [place] DO S/P trigger finger release History of tooth extraction History of cardiac cath NO STENTS H/O hand surgery Left hand - Dr. Haney 06/25/2020 History of cataract surgery RT/LEFT History of colonoscopy History of hernia repair ABDOMINAL HERNIA REPAIR Hx of CABG 4 VESSELS>2018 AT [facility] *FOLLOWED BY DR. LANCE Family History Mother Colorectal cancer Sister Diabetes Breast cancer Brother Diabetes Hx of CABG Son Legg-Perthes disease Father Colorectal cancer Other Myocardial infarction No family history of adverse response to anesthesia Denies family history of Ovarian cancer Prostate cancer Social History Smoking Status: Never smoker Second Hand Exposure: Yes (IN THE PAST); Do You Dip or Chew Tobacco: No; Hx Alcohol Use: No Hx Substance Use: No Preferred Language: Sinhala Communication Ability: Effective Visual Impairment: Limited Hearing Ability: Normal Director Of Casework Services Required: No Beliefs That Will Affect Care: None marital status: Current Living Situation: Spouse Current Living Situation Comment: Lives in 1 story home with current occupational status: retired Other Information That Helps Us Care for You: No Feels Safe at Home: Yes Safety Concerns: Feels Safe At This Time Childhood Exposure to Second-Hand Smoke: No Diet Comment: heart healthy caffeine: Yes Dental Care, Regularly: Yes Physical Activity Frequency: Daily Seatbelt Use: always Sunscreen Use: No (Does wear hat and long sleeves) Do you think of yourself as: straight/heterosexual Assistive Devices: Glasses and Hearing Aid - Bilateral Review of Systems Review of Systems: Complete Review of Systems: Constitutional: No fevers, chills, or night sweats. HEENT: Headache yesterday. Hard of hearing. Status post cataract extraction. No amaurosis fugax. Pulmonary: Asthma Cardiac: See above. GI/Abd: No dysphagia. No melana or hematochezia. Status postcholecystectomy, chronically loose stools No kidney problems. No liver problems. No history of pancreatic issues. Vascular: No history of AAA. No claudication. Hematologic: No coagulation disorder, anemia, or abnormal bleeding. Musculoskeletal: Arthritis. Leg pain. Skin: No rash. Neurologic: No history of TIA/CVA, or seizure disorder. Male : BPH with LUTS. On Flomax Endocrine: Type 2 diabetes. No thyroid trouble. Complete Review of Systems is as stated above, negative, or noncontributory Physical Exam Physical Exam: General: A&Ox3. NAD. Hard of hearing. HENT: Normocephalic. Atraumatic. Eyes: PER. Conjunctiva pink, sclera clear. Neck: No carotid bruits. No JVD. No HJR. Heart: RRR. Soft systolic murmur. No diastolic murmur. No rub. No gallop. Lungs: Clear to auscultation. Abdomen: +BS. Soft. Nontender. No masses or organomegaly. Extremities: No clubbing, cyanosis, or edema. Limited neurological examination is without focal deficits. Pulses: radial=2/4, posterior tibial=2/4. Results & Data Vital Signs (Past 12 Hours) Vital Signs Temp Pulse Pulse Resp BP Pulse Ox O2 Del Method 07/04/23 11:11 36.4 C L 69 18 142/78 H 96 Room Air 07/04/23 07:43 36.5 C 58 L 18 142/64 H 94 Room Air 07/04/23 07:12 60 07/04/23 03:03 36.6 C 67 18 134/63 95 Room Air Laboratory Results Cardiac Enzymes 07/03/23 07/03/23 07/03/23 Range/Units 12:05 15:08 22:39 AST 26 (13-39) U/L Troponin I High Sens 7.2 8.3 12.4 D (0-20) pg/ml 07/04/23 Range/Units 05:44 AST (13-39) U/L Troponin I High Sens 10.9 (0-20) pg/ml Coagulation 07/03/23 Range/Units 12:05 PT 11.4 (9.0-12.0) Seconds APTT 23 (21-31) Seconds CBC 07/03/23 07/04/23 Range/Units 12:05 05:44 WBC 8.68 6.57 (4.8-10.8) K/ul RBC 5.21 4.65 L (4.70-6.10) M/uL Hgb 16.2 14.8 (14.0-18.0) g/dl Hct 48.0 42.5 (42.0-52.0) % Plt Count 154 129 L (130-400) K/uL Neut # (Auto) 4.65 2.72 (1.40-6.50) K/uL Lymph # (Auto) 3.04 2.70 (1.20-3.40) K/uL Barron # (Auto) 0.54 0.58 (0.11-0.59) K/uL Eos # (Auto) 0.39 0.50 (0.00-0.50) K/uL Baso # (Auto) 0.04 0.05 (0.00-0.20) K/uL Comprehensive Metabolic Panel 07/03/23 07/04/23 Range/Units 12:05 05:44 Sodium 139 142 (136-145) mmol/L Potassium 4.5 4.3 (3.5-5.1) mmol/L Chloride 107 112 H (98-107) mmol/L Carbon Dioxide 26 28 (21-32) mmol/L BUN 13 15 (6-23) mg/dl Creatinine 0.94 1.02 (0.6-1.4) mg/dl Glucose 153 H 125 H (70-99(Fasting)) mg/dl Calcium 9.8 9.0 (8.6-10.3) mg/dl AST 26 (13-39) U/L ALT 27 (7-52) U/L Alkaline Phosphatase 70 (34-104) U/L Total Protein 7.1 (6.0-8.3) gm/dl Albumin 4.2 (3.4-5.0) gm/dl Intake and Output 07/03/23 07/04/23 07/04/23 22:59 06:59 14:59 Other: # Unmeasured Voids 1 2 Weight 76.6 kg 73.8 kg Weight Measurement Method Built in Bedscale Standing Scale Diagnostic Findings EKG on presentation revealed normal sinus rhythm at 65 bpm with a chronic left bundle branch block. High-sensitivity troponin negative x 4 - 7.2 -> 8.3 -> 12.4 -> 10.9 Continuous telemetry monitoring reveals sinus bradycardia/sinus rhythm with heart rates predominantly in the 50s to 70s, chronic left bundle branch block Resting echocardiography performed on June 28, 2023 revealed moderate reduction in LV systolic function, EF 40%. Moderate concentric LVH observed. Severe hypokinesis of the inferoseptal and inferior humphries with otherwise borderline hypokinesis of other wall segments noted. Overall results not significantly changed when compared to the prior study of May 11, 2021.
--- NOTE | 2023-07-04 14:26 | Hospitalist Progress Note ---
Date of Service July 04, 2023 Assessment & Plan (1) Pre-syncope: Plan: Ongoing intermittent symptoms with plan for outpatient cardiac cath @ [facility] in case this was an anginal equivalent as it was associated with diaphoresis He had associated epigastric pain with the episode on the day of admission Trended troponins and negative x 4 Monitor on telemetry-no arrhythmias thus far. He was wearing a Zio patch which was brought in from home today and will be sent out overnight so information can be uploaded and reviewed by cardiology Blood pressures are actually mildly hypertensive CT head negative Chest x-ray negative Consult cardiology appreciated Checked orthostatic vital signs-negative Seems like vasovagal syncope but unclear cause and seems unusual to have on a recurrent basis Will await cardiology recommendation to see if needs pacemaker and/or cardiac catheterization (2) Abdominal pain: Plan: Epigastric pain during episode, now resolved, reports similar to his prior [place] but also had choledocholithiasis in 10/2022 and TBili mildly elevated here Troponin neg x 4, seems less likely to be angina as this episode on 07/02 lasted 45 min and trops neg Check RUQ US follow LFTs (3) Type 2 diabetes mellitus treated with insulin: Plan: HbA1C 7.0 June 21 Reduce his outpatient insulin NPH in half due to reduced inpatient glucose intake 26 + 24 to 13 + 12 Discontinue glimepiride-he does not need to be on this in addition to insulin hold saxagliptin while inpatient (4) Benign essential hypertension: Plan: Continue carvedilol, ISMN, lisinopril Hold furosemide (5) Asthma: Plan: Continue Trelegy Ellipta of hospital formulary equivalent (6) Coronary artery disease: Plan: With a history of CABG Continue ASA, clopidogrel, carvedilol, lisinopril, atorvastatin (7) BPH (benign prostatic hyperplasia): Plan: Continue tamsulosin No acute issues Plan VTE Prophylaxis -add Lovenox SQ Disposition -continued stay in PCU Admission and Anticipated Discharge Date Admission Date: July 03, 2023 Subjective Patient has not had any further episodes since admission of lightheadedness. No further abdominal pain but he did have severe epigastric pain with the episode that led to admission. He did not have any epigastric pain with any of the previous episodes in the last month or so. I discussed his care with cardiology Telemetry with normal sinus rhythm, PVCs, IVCD, rates 60s to 70s Physical Exam Constitutional: WD/WN, vitals as above Respiratory: normal respiratory effort, lungs clear to auscultation Cardiovascular: RRR, no murmur, no edema Gastrointestinal (Abdomen): normal bowel sounds, soft, nontender, no hepatosplenomegaly Psychiatric: A+Ox3, euthymic affect Results & Data Results & Data Vital Signs (Past 12 Hours) Vital Signs Temp Pulse Pulse Resp BP Pulse Ox O2 Del Method 07/04/23 11:11 36.4 C L 69 18 142/78 H 96 Room Air 07/04/23 07:43 36.5 C 58 L 18 142/64 H 94 Room Air 07/04/23 07:12 60 07/04/23 03:03 36.6 C 67 18 134/63 95 Room Air Laboratory Results CBC, BMP, LFTs, troponin reviewed PG Care Time/CCT Total # of Minutes Spent Total Time Spent with Patient: Total time spent is greater than 50% in coordination of care (as documented) at patient's floor/unit and/or counseling patient: Coding Level of Care Code 25198 SUB INP/OBS CARE 3/50MIN Diagnoses Pre-syncope R55 Abdominal pain R10.9 Type 2 diabetes mellitus treated with insulin E11.9; Z79.4 Benign essential hypertension I10 Asthma J45.909 Coronary artery disease I25.10 BPH (benign prostatic hyperplasia) N40.0
--- NOTE | 2023-07-04 16:13 | Ultrasound Report ---
US liver CLINICAL HISTORY: r/o choledocholithiasis,recurrent epigastric pain TECHNIQUE: Multiple real-time sonographic images of the right upper quadrant were obtained. Comparison: Comparison is made to prior quadrant ultrasound 07/11/2022 FINDINGS: The liver is diffusely homogenous with normal contour and echogenicity. No focal mass lesions are see n. No intrahepatic ductal dilatation is seen. Patient is status post cholecystectomy. The common duct measures 0.5 cm in diameter at the level of the hepatic artery. The visualized portions of the pancreas appear normal. The right kidney shows normal echogenicity, cortical thickness and renal contour. The right kidney sh ows no evidence of hydronephrosis or mass. No ascites or free fluid is seen in Ruff's pouch. IMPRESSION: Common bile duct is not enlarged, measuring 5 mm in diameter, unchanged from prior exam. ACT 112: Negative or not required by law. Electronically signed by: Vitaliy Calero M.D. 07/04/2023 4:11 PM
[2023-07-04] MEDS ORDERED: SAXAGLIPTIN 5 MG PO SCH (16:30)
[2023-07-04] MEDS ORDERED: GLIMEPIRIDE 2 MG TAB PO SCH (17:00)
[2023-07-04] MEDS: ENOXAPARIN INJ 40 MG/0.4 ML SYR SQ SCH (18:43)
[2023-07-04] MEDS: CARBOHYDRATES FOR HYPOGLYCEMIA PO PRN (20:31)
[2023-07-05 06:53] LABS: Basophils # (auto) 0.05 K/uL (0.00-0.20); Basophils % (auto) 0.7 %; Eosinophils # (auto) 0.51 K/uL (0.00-0.50); Eosinophils % (auto) 6.9 %; Hematocrit (blood only) 43.8 % (42.0-52.0); Hemoglobin 14.8 g/dl (14.0-18.0); Immature Granulocytes # (auto) 0.01 K/uL (0.01-0.20); Immature Granulocytes % (auto) 0.1 %; Lymphocytes # (auto) 2.94 K/uL (1.20-3.40); Lymphocytes % (auto) 39.8 %; Mean Corpuscular Hemoglobin 31.2 pg (25.0-34.0); Mean Corpuscular Hgb Conc 33.8 g/dL (32.0-36.0); Mean Corpuscular Volume 92.2 fL (80.0-100.0); Mean Platelet Volume 11.9 fL (9.4-12.4); Monocytes # (auto) 0.51 K/uL (0.11-0.59); Monocytes % (auto) 6.9 %; Neutrophils # (auto) 3.37 K/uL (1.40-6.50); Neutrophils % (auto) 45.6 %; Platelet Count 128 K/uL (130-400); RDW Coefficient of Variation 12.6 % (11.5-14.5); RDW Standard Deviation 42.7 fL (36.4-46.3); Red Blood Count 4.75 M/uL (4.70-6.10); White Blood Count 7.39 K/ul (4.8-10.8)
[2023-07-05 07:07] LABS: Albumin Globulin Ratio 1.3 (0.9-2); Albumin Level 3.4 gm/dl (3.4-5.0); Bilirubin,Total 0.9 mg/dl (0.2-1.0); Calcium 8.6 mg/dl (8.6-10.3); Creatinine Clr Calc Pharmacy 62.3 ml/min; Est GFR (African American) 82.6 ml/min; Est GFR (Non-African American) 71.3 ml/min; Globulin 2.6 gm/dl (2.5-4.0); Magnesium 1.8 mg/dl (1.7-2.4); Potassium 4.2 mmol/L (3.5-5.1)
--- NOTE | 2023-07-05 09:21 | Cardiology Progress Note ---
Date of Service July 05, 2023 Assessment & Plan (1) Near syncope: (2) Left bundle branch block: (3) ASCVD (arteriosclerotic cardiovascular disease): (4) Status post aorto-coronary artery bypass graft: (5) Ischemic cardiomyopathy: (6) HFrEF (heart failure with reduced ejection fraction): Plan Complex 78-year-old male admitted following a near syncopal episode - History most suggestive of a recurrent vasovagal event - Event occurred on 07/02 while wearing a ZIO monitor which was sent via overnight air to [facility] in [place], [place] with scheduled delivery at 10:30 AM today - High-sensitivity troponin negative x 4 - No evidence of acute coronary syndrome - Telemetry monitoring benign - Recent outpatient TTE with stable moderate reduction in LV systolic function, EF 40%, unchanged compared to prior. Recommendations: 1. Await Zio monitor findings. Hopefully these results become available this afternoon. 2. Same medications for now. Patient requires long-term beta-myrtle and has underlying conduction system disease, LBBB, EF 40%. 3. Possible future pacemaker implantation including transient arm restrictions discussed 4. ? need for ischemic evaluation. Outpatient Lexiscan vs cardiac catheterization at [facility] discussed. I favor outpatient Lexiscan nuclear stress testing. Catheterization risks explained. I spent a total of 50 minutes on the date of service in preparation, delivery, and documentation of the care provided to this patient excluding any time spent in the performance of separately billed services. This visit was a split-shared visit with the substantive portion of the medical decision making performed by the supervising director loan/billing provider. Admission and Anticipated Discharge Date Admission Date: July 03, 2023 Supervising Physician Co-Signing Physician Notes I have reviewed the advance practitioner's documentation, and I agree with, and take responsibility for the plan of care. 78-year-old male presented to the emergency department due to near syncope. No symptomatic bradycardia recorded on telemetry since admission. Denies recurrent lightheadedness or abdominal discomfort. Offers no concerns/complaints currently. PE: VSS. Gen: NAD, AAO x3. Heart: Regular rhythm. Normal S1S2. no murmur. Pulm: Clear B/L. No rales, rhonchi, or wheeze. Extremities: No edema. A/P: 78-year-old male admitted with near syncope. History most suggestive of vasovagal etiology. Await results of ZIO monitor worn during episode. May have results as early as this afternoon. Continue telemetry monitoring during hospitalization. Discussed possible indications for pacemaker implantation with need for long-term beta-myrtle therapy and underlying conduction disease. No evidence of acute coronary syndrome on admission. Cardiac catheterization not anticipated during current hospitalization. Continue current cardiovascular medications. Outpatient Lexiscan nuclear stress test. I spent a total of 20 minutes on the date of service in preparation, delivery, and documentation of the care provided to this patient, excluding any time spent in the performance of separately billed services. Subjective Patient seen and examined. Chart, medications, telemetry reviewed. Feeling well. No events noted overnight. Patient denies lightheadedness/dizziness, near-syncope, chest pain, palpitations, orthopnea, PND, or peripheral edema. 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 Telemetry: Sinus throughout, heart rates in the 60s to 80s. No significant bradycardia. No significant tachyarrhythmias. ZIO monitor tracking indicates scheduled delivery to [facility] in [place], [place] at 10:30 AM today. Review of Systems Review of Systems: Complete review of systems is otherwise as stated above, negative, or noncontributory Physical Exam Physical Exam: General: A&Ox3. NAD. Hard of hearing. HENT: Normocephalic. Atraumatic. Eyes: PER. Conjunctiva pink, sclera clear. Neck: No carotid bruits. No JVD. No HJR. Heart: RRR. Soft systolic murmur. No diastolic murmur. No rub. No gallop. Lungs: Clear to auscultation. Abdomen: +BS. Soft. Nontender. No masses or organomegaly. Extremities: No clubbing, cyanosis, or edema. Limited neurological examination is without focal deficits. Pulses: Posterior tibial=2/4. Results & Data Vital Signs (Past 12 Hours) Vital Signs Temp Pulse Pulse Resp BP Pulse Ox O2 Del Method 07/05/23 08:12 146/72 H 07/05/23 07:40 62 07/05/23 02:48 36.8 C 75 18 133/67 94 Room Air 07/04/23 23:57 36.7 C 69 16 132/56 L 93 Room Air Laboratory Results Cardiac Enzymes 07/05/23 Range/Units 06:05 AST 25 (13-39) U/L CBC 07/05/23 Range/Units 06:05 WBC 7.39 (4.8-10.8) K/ul RBC 4.75 (4.70-6.10) M/uL Hgb 14.8 (14.0-18.0) g/dl Hct 43.8 (42.0-52.0) % Plt Count 128 L (130-400) K/uL Neut # (Auto) 3.37 (1.40-6.50) K/uL Lymph # (Auto) 2.94 (1.20-3.40) K/uL [place] # (Auto) 0.51 (0.11-0.59) K/uL Eos # (Auto) 0.51 H (0.00-0.50) K/uL Baso # (Auto) 0.05 (0.00-0.20) K/uL Comprehensive Metabolic Panel 07/05/23 Range/Units 06:05 Sodium 140 (136-145) mmol/L Potassium 4.2 (3.5-5.1) mmol/L Chloride 111 H (98-107) mmol/L Carbon Dioxide 24 (21-32) mmol/L BUN 17 (6-23) mg/dl Creatinine 1.00 (0.6-1.4) mg/dl Glucose 166 H (70-99(Fasting)) mg/dl Calcium 8.6 (8.6-10.3) mg/dl AST 25 (13-39) U/L ALT 23 (7-52) U/L Alkaline Phosphatase 55 (34-104) U/L Total Protein 6.0 (6.0-8.3) gm/dl Albumin 3.4 (3.4-5.0) gm/dl Intake and Output 07/04/23 07/05/23 07/05/23 22:59 06:59 14:59 Intake Total 670 / 990 200 / 990 Balance 670 / 990 200 / 990 Intake: Oral 670 / 990 200 / 990 Other: # Unmeasured Voids 1 1 Weight 73.5 kg Weight Measurement Method Standing Scale
[2023-07-05] MEDS: MAGNESIUM SULFATE / D5W 1 GM/100 ML BAG IV ONE (09:35)
[2023-07-05] MEDS: INSULIN HUMAN NPH SQ SCH (16:58)
--- NOTE | 2023-07-05 19:58 | Hospitalist Progress Note ---
Date of Service July 05, 2023 Assessment & Plan (1) Pre-syncope: Plan: Ongoing intermittent symptoms with plan for outpatient cardiac cath @ [facility] [place] in case this was an anginal equivalent as it was associated with diaphoresis He had associated epigastric pain with the episode on the day of admission Trended troponins and negative x 4 Monitor on telemetry-no arrhythmias thus far. He was wearing a Zio patch which was brought in from home and sent out overnight so information can be uploaded and reviewed by cardiology-still awaiting results Blood pressures are actually mildly hypertensive and orthostatic vital signs are negative CT head negative Chest x-ray negative Consult cardiology appreciated Could be vasovagal syncope but unclear cause and seems unusual to have on a recurrent basis- if not arrhythmia, then could be recurrent GI source? Will await cardiology recommendation to see if needs pacemaker and/or cardiac catheterization, but for now cardiology plans on doing outpatient nuclear stress test for ischemic evaluation Consider GI consultation (2) Abdominal pain: Plan: Epigastric pain during one of the episodes, now resolved, reports similar to his prior CA but also had choledocholithiasis in 10/2022 and TBili mildly elevated here Troponin neg x 4, seems less likely to be angina as this episode on 07/02 lasted 45 min and trops neg Checked RUQ US which is normal follow LFTs-total bilirubin is now back to normal He does tend to have some flushed feeling With eating at times but no further abdominal pain Consider GI consultation (3) Type 2 diabetes mellitus treated with insulin: Plan: HbA1C 7.0 June 21 With some hypoglycemia, further reduced his NPH Discontinue glimepiride-he does not need to be on this in addition to insulin hold saxagliptin while inpatient (4) Benign essential hypertension: Plan: Continue carvedilol, ISMN, lisinopril Holding furosemide (5) Asthma: Plan: Continue Trelegy Ellipta of hospital formulary equivalent (6) Coronary artery disease: Plan: With a history of CABG Continue ASA, clopidogrel, carvedilol, lisinopril, atorvastatin (7) BPH (benign prostatic hyperplasia): Plan: Continue tamsulosin No acute issues Plan VTE Prophylaxis - Lovenox SQ Disposition -continued stay in PCU, awaiting Zio patch results Discussed care with cardiology on 07/04 Admission and Anticipated Discharge Date Admission Date: July 03, 2023 Subjective Patient has not had any more episodes of lightheadedness although later in the day the nurse reported that the patient felt flushed and "winded" with eating lunch and dinner with no ectopy on the monitor. He denies any chest pains or abdominal pains. Telemetry with normal sinus rhythm and rates in the 60s to 80s Physical Exam Constitutional: WD/WN, vitals as above Respiratory: normal respiratory effort, lungs clear to auscultation Cardiovascular: RRR, no murmur, no edema Gastrointestinal (Abdomen): normal bowel sounds, soft, nontender, no hepatosplenomegaly Psychiatric: A+Ox3, euthymic affect Results & Data Results & Data Vital Signs (Past 12 Hours) Vital Signs Temp Pulse Pulse Resp BP Pulse Ox O2 Del Method 07/05/23 15:25 36.6 C 62 20 140/66 95 Room Air 07/05/23 15:02 63 07/05/23 11:20 36.3 C L 68 18 144/71 H 95 Room Air 07/05/23 08:12 146/72 H Laboratory Results CBC, CMP, magnesium reviewed PG Care Time/CCT Total # of Minutes Spent Total Time Spent with Patient: Total time spent is greater than 50% in coordination of care (as documented) at patient's floor/unit and/or counseling patient: Coding Level of Care Code 46451 SUB INP/OBS CARE 2/35MIN Diagnoses Pre-syncope R55 Abdominal pain R10.9 Type 2 diabetes mellitus treated with insulin E11.9; Z79.4 Benign essential hypertension I10 Asthma J45.909 Coronary artery disease I25.10 BPH (benign prostatic hyperplasia) N40.0
[2023-07-06 06:31] LABS: Basophils # (auto) 0.05 K/uL (0.00-0.20); Basophils % (auto) 0.7 %; Eosinophils # (auto) 0.42 K/uL (0.00-0.50); Eosinophils % (auto) 5.9 %; Hemoglobin 14.9 g/dl (14.0-18.0); Immature Granulocytes # (auto) 0.03 K/uL (0.01-0.20); Immature Granulocytes % (auto) 0.4 %; Lymphocytes # (auto) 2.69 K/uL (1.20-3.40); Lymphocytes % (auto) 37.8 %; Mean Corpuscular Hemoglobin 31.3 pg (25.0-34.0); Mean Corpuscular Hgb Conc 33.9 g/dL (32.0-36.0); Mean Corpuscular Volume 92.4 fL (80.0-100.0); Mean Platelet Volume 12.3 fL (9.4-12.4); Monocytes # (auto) 0.52 K/uL (0.11-0.59); Monocytes % (auto) 7.3 %; Neutrophils # (auto) 3.41 K/uL (1.40-6.50); Neutrophils % (auto) 47.9 %; Platelet Count 132 K/uL (130-400); RDW Coefficient of Variation 12.6 % (11.5-14.5); RDW Standard Deviation 42.4 fL (36.4-46.3); Red Blood Count 4.76 M/uL (4.70-6.10); White Blood Count 7.12 K/ul (4.8-10.8)
[2023-07-06 06:46] LABS: Albumin Globulin Ratio 1.4 (0.9-2); Albumin Level 3.5 gm/dl (3.4-5.0); BUN Creatinine Ratio 17.7 (10-20); Bilirubin,Total 1.3 mg/dl (0.2-1.0); Calcium 8.9 mg/dl (8.6-10.3); Est GFR (African American) 86.8 ml/min; Est GFR (Non-African American) 74.9 ml/min; Globulin 2.5 gm/dl (2.5-4.0); Magnesium 1.9 mg/dl (1.7-2.4); Potassium 4.1 mmol/L (3.5-5.1)
[2023-07-06] MEDS: OPTIRAY 320 100ml IV ONE (08:58)
--- NOTE | 2023-07-06 09:44 | CT Scan Report ---
CT OF THE ABDOMEN AND PELVIS WITH CONTRAST CLINICAL HISTORY: epigastric pain, h/o pancreatic stent COMPARISON STUDY: CT of the abdomen and pelvis and MRCP November 08, 2022. Ultrasound July 04, 2023. TECHNIQUE: Following IV administration of 94 mL of Optiray, axial images of the abdomen and pelvis we re obtained from the lung bases to the proximal femurs. Due to technical difficulties, the study was performed noncontrast. Images were reviewed in the axial, sagittal, and coronal planes. IV contrast w as administered without complication. Automated exposure control was utilized for the study. A dose lowering technique was utilized adhering to the principles of ALARA. CT DOSE: 1126.55 mGy.cm FINDINGS: Lung bases are unremarkable. No pneumatosis, free air or portal venous gas is present. Ther e is no biliary ductal dilatation status post cholecystectomy. Mild pancreatic ductal dilatation, emerita suring 5 mm is unchanged since CT of November 08, 2022. No peripancreatic infiltration is present. The spleen, adrenal glands and right kidney are unremarkable. Water attenuation left renal lesion favors a cyst. There is no hydronephrosis. Colonic diverticulosis without evidence for acute diverticulitis. There is no evidence for a bowel obstruction. The appendix is normal. Multiple small bladder diverti cula are again noted. There is no lymphadenopathy. No fluid collections are present. IMPRESSION: 1. No acute process within the abdomen or pelvis. No change since CT of November 08, 2022. 2. No biliary ductal dilatation status post cholecystectomy. 3. Stable mild dilatation of the pancreatic duct. 4. Due to technical difficulties with the IV, this study was performed as a noncontrast study. ACT 112: Negative or not required by law. Electronically signed by: Farhat Vidal M.D. 07/06/2023 9:42 AM
--- NOTE | 2023-07-06 10:23 | Cardiology Progress Note ---
Date of Service July 06, 2023 Assessment & Plan (1) Near syncope: (2) Left bundle branch block: (3) ASCVD (arteriosclerotic cardiovascular disease): (4) Status post aorto-coronary artery bypass graft: (5) Ischemic cardiomyopathy: (6) HFrEF (heart failure with reduced ejection fraction): Plan Complex 78-year-old male admitted following a near syncopal episode. History most suggestive of a vasovagal event - Event occurred at [facility] on 07/02 while wearing a ZIO monitor (results pending) - High-sensitivity troponin negative x 4 - No evidence of acute coronary syndrome - Telemetry monitoring benign - Recent outpatient TTE with stable moderate reduction in LV systolic function, EF 40%, unchanged compared to prior. Recommendations: 1. Awaiting Zio monitor findings. 2. Same medications for now. Patient requires long-term beta-myrtle and has underlying conduction system disease, LBBB, EF 40%. 3. Possible future pacemaker implantation discussed 4. Outpatient Lexiscan nuclear stress testing. I spent a total of 30 minutes on the date of service in preparation, delivery, and documentation of the care provided to this patient excluding any time spent in the performance of separately billed services. This visit was a split-shared visit with the substantive portion of the medical decision making performed by the supervising trap setter/billing provider. Admission and Anticipated Discharge Date Admission Date: July 05, 2023 Supervising Physician Co-Signing Physician Notes I have reviewed the advance practitioner's documentation, and I agree with, and take responsibility for the plan of care. 78-year-old male presented to the emergency department due to near syncope. No symptomatic bradycardia recorded on telemetry since admission. Denies recurrent lightheadedness or abdominal discomfort. Notes feeling "hot" yesterday after lunch and dinner. No events on telemetry. Normal to borderline hypertensive blood pressure since admission. PE: VSS. Gen: NAD, AAO x3. Heart: Regular rhythm. Normal S1S2. no murmur. Pulm: Clear B/L. No rales, rhonchi, or wheeze. Extremities: No edema. A/P: 78-year-old male admitted with near syncope. History most suggestive of vasovagal etiology. Await results of ZIO monitor. Conservative management of vasovagal syncope discussed at length. Continue telemetry monitoring during hospitalization. No evidence of acute coronary syndrome on admission. Atypical, intermittent abdominal discomfort noted without exertional symptoms. Outpatient Lexiscan nuclear stress test. I spent a total of 20 minutes on the date of service in preparation, delivery, and documentation of the care provided to this patient, excluding any time spent in the performance of separately billed services. Subjective Patient seen and examined. Chart, medications, telemetry reviewed. [place]tt a little flushed yesterday while eating. Otherwise feels well. No chest pain, tachypalpitations, unusual shortness of breath, dizziness, or near syncope. Telemetry: Sinus n the 60's and 70's. No significant arrhythmias. Review of Systems Review of Systems: Complete review of systems is otherwise as stated above, negative, or noncont ributory Physical Exam Physical Exam: General: A&Ox3. NAD. Hard of hearing. HENT: Normocephalic. Atraumatic. Eyes: PER. Conjunctiva pink, sclera clear. Neck: No carotid bruits. No JVD. No HJR. Heart: RRR. Soft systolic murmur. No diastolic murmur. No rub. No gallop. Lungs: Clear to auscultation. Abdomen: +BS. Soft. Nontender. No masses or organomegaly. Extremities: No clubbing, cyanosis, or edema. Limited neurological examination is without focal deficits. Pulses: Posterior tibial=2/4. Results & Data Vital Signs (Past 12 Hours) Vital Signs Temp Pulse Resp BP Pulse Ox O2 Del Method 07/06/23 07:29 36.4 C L 66 19 145/75 H 96 Room Air 07/06/23 03:07 36.6 C 73 30 H 131/70 95 Room Air 07/05/23 23:35 36.7 C 80 16 129/65 93 Room Air Laboratory Results Cardiac Enzymes 07/06/23 Range/Units 05:59 AST 19 (13-39) U/L CBC 07/06/23 Range/Units 05:59 WBC 7.12 (4.8-10.8) K/ul RBC 4.76 (4.70-6.10) M/uL Hgb 14.9 (14.0-18.0) g/dl Hct 44.0 (42.0-52.0) % Plt Count 132 (130-400) K/uL Neut # (Auto) 3.41 (1.40-6.50) K/uL Lymph # (Auto) 2.69 (1.20-3.40) K/uL [place] # (Auto) 0.52 (0.11-0.59) K/uL Eos # (Auto) 0.42 (0.00-0.50) K/uL Baso # (Auto) 0.05 (0.00-0.20) K/uL Comprehensive Metabolic Panel 07/06/23 Range/Units 05:59 Sodium 139 (136-145) mmol/L Potassium 4.1 (3.5-5.1) mmol/L Chloride 111 H (98-107) mmol/L Carbon Dioxide 23 (21-32) mmol/L BUN 17 (6-23) mg/dl Creatinine 0.96 (0.6-1.4) mg/dl Glucose 179 H (70-99(Fasting)) mg/dl Calcium 8.9 (8.6-10.3) mg/dl AST 19 (13-39) U/L ALT 22 (7-52) U/L Alkaline Phosphatase 52 (34-104) U/L Total Protein 6.0 (6.0-8.3) gm/dl Albumin 3.5 (3.4-5.0) gm/dl Intake and Output 07/05/23 07/06/23 07/06/23 22:59 06:59 14:59 Intake Total 120 / 800 100 / 800 Balance 120 / 800 100 / 800 Intake: Oral 120 / 700 100 / 700 Other: Weight 74.8 kg Weight Measurement Method Built in [facility]
--- NOTE | 2023-07-06 12:32 | Gastrointestinal Consultation ---
Date of Consultation July 06, 2023 Assessment & Plan (1) Epigastric discomfort: Plan Patient with history of near syncopal episodes associated with epigastric pain. He had unremarkable EGD late last year. He did have ERCP 10/2022 with [facility] with stone removed and stent placed. imaging here has been unremarkable. Discussed case with Dr. Arnold who also saw and examined the patient. - continue with protonix 40mg PO BID. - would recommend he follow up with his regular GI office at [facility] upon discharge. - do not suspect that his syncopal episodes are related to a GI issue at this time. Supervising Physician Co-Signing Physician Notes Agree with GREYSON Barraza as above Interviewed and examined patient and agree with above noted findings Abd: Soft, NT, ND, +BS Continue current therapy and supportive care History of Present Illness Reason for Consultation: elevated t bili, ? CBD stone Requesting Physician: Luann Hernandez MD Attending Physician: Luann Hernandez MD History of Present Illness Patient is a 78 year old male with coronary artery disease s/p coronary artery bypass who presents to the ER with a presyncopal episode, abdominal pain, diaphoresis. He has had multiple similar episodes over the past few months with presyncope, associated shortness of breath and diaphoresis on exertion. when he has these episodes he will get some epigastric pain but otherwise he feels well from a GI standpoint. currently GI ros negative. cardiology is also working up patient. He underwent an EGD and ERCP in 10/2022 with [facility] where he had choledocholithiasis and had a stent placed. Since admission here, he had total bili of 1.3. He had US 07/03 that was unremarkable. he had CT scan done this morning that was unremarkable. Allergies Allergy/AdvReac Type Severity Reaction Status Date / Time pollen extracts Allergy Intermediate ITCHY Verified 07/03/23 14:54 EYES, SNEEZING, CONGESTION cat dander Allergy Mild congestion Verified 07/03/23 14:54 dog dander Allergy Mild congestion Verified 07/03/23 14:54 Home Medications Medication Instructions Recorded Confirmed Type cetirizine 10 mg capsule 10 mg PO HS #90 caps 10/24/18 07/03/23 Rx clopidogrel 75 mg tablet (Plavix) 75 mg PO QAM #90 tabs 10/24/18 07/03/23 Rx fexofenadine 180 mg tablet 180 mg PO QAM #90 tabs 10/24/18 07/03/23 Rx [id number] 300 mcg-K 60 1 tab PO QAM #90 tabs 10/24/18 07/03/23 Rx mcg-lycop 600 mcg-lutein 300 mcg tablet (Centrum Silver Men) aspirin 81 mg tablet,delayed 81 mg PO 3XWK 04/16/19 07/03/23 History release lisinopril 10 mg tablet 10 mg PO QAM 04/16/19 07/03/23 History furosemide 20 mg tablet 20 mg PO 3XWK 02/22/20 07/03/23 History ipratropium bromide 42 mcg (0.06 1 spray intranasal AMHS 02/22/20 07/03/23 History %) nasal spray triamcinolone acetonide 55 mcg 1 spray intranasal QAM 02/22/20 07/03/23 History nasal spray aerosol (Nasacort) glucagon 1 mg/0.2 mL subcutaneous 1 mg (0.2 mL) subcut ONCE PRN 02/28/20 07/03/23 Rx auto-injector severe low sugar #0.2 mL albuterol sulfate 90 mcg/actuation 2 puff inhalation Q6H PRN 01/26/22 07/03/23 Rx aerosol inhaler (Ventolin HFA) Shortness Of Breath Or Wheezing #18 grams lancets 30 gauge (OneTouch #200 ea 09/17/22 06/29/23 Rx UltraSoft 2 Lancet) potassium chloride 10 mEq 10 meq PO QAM #90 tabs 09/20/22 07/03/23 Rx tablet,extended release isosorbide mononitrate 30 mg 30 mg PO QAM #90 tabs 10/20/22 07/03/23 Rx tablet,extended release 24 hr blood sugar diagnostic (OneTouch #150 ea 11/23/22 06/29/23 Rx Ultra Test strips) carvedilol 3.125 mg tablet (Coreg) 3.125 mg PO BIDM #180 tabs 12/13/22 07/03/23 Rx saxagliptin 5 mg tablet (Onglyza) 5 mg PO QDD #90 tabs 12/20/22 07/03/23 Rx pantoprazole 40 mg tablet,delayed 40 mg PO BID #180 tabs 12/21/22 07/03/23 Rx release tamsulosin 0.4 mg capsule (Flomax) 0.4 mg PO DAILY #90 caps 12/21/22 07/03/23 Rx lancets 30 gauge (OneTouch Delica #200 ea 02/07/23 06/29/23 Rx Plus Lancet) lancing device with lancets kit #1 ea 02/07/23 06/29/23 Rx (OneTouch Delica Plus Lancing Device kit) fluticasone fur. 200 mcg-umeclid 1 inh inhalation DAILY #60 ea 03/01/23 07/03/23 Rx 62.5 mcg-vilant 25 mcg inhalat.powder (Trelegy Ellipta) lancets (Accu-Chek Softclix #200 ea 03/01/23 06/29/23 Rx Lancets) glimepiride 1 mg tablet See Rx Instructions PO BID #450 04/04/23 07/03/23 Rx tabs atorvastatin 80 mg tablet 80 mg PO QDD #90 tabs 05/30/23 07/03/23 Rx insulin NPH isoph U-100 human 100 See Rx Instructions subcut BID 06/29/23 07/03/23 History unit/mL subcutaneous suspension (Novolin N NPH U-100 Insulin isophane) Patient History Medical History Lower urinary tract symptoms Loose stools Common bile duct (CBD) obstruction Common bile duct stone Calculus of cystic duct Type 2 diabetes mellitus treated with insulin Cough Early satiety Bruising 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 Medicare annual wellness visit, subsequent Hearing deficit History of Mohs micrographic surgery for skin cancer RT/LEFT SIDE OF FACE/CHEEK AREA History of skin cancer History of anxiety Myocardial Infarction 2018 History of COVID-19 02/28/20>TERRIBLE COUGH/FATIGUE *RESOLVED Chronic reflux esophagitis Asthma LAST USED RESCUE INHALER>LAST MONTH GERD (gastroesophageal reflux disease) Hyperlipidemia Surgical History Hx laparoscopic cholecystectomy (07/13/22) Laparoscopic Cholecystectomy(Not Applicable) - [place], S/P trigger finger release History of tooth extraction History of cardiac cath NO STENTS H/O hand surgery Left hand - Dr. Haney 06/25/2020 History of cataract surgery RT/LEFT History of colonoscopy History of hernia repair ABDOMINAL HERNIA REPAIR Hx of CABG 4 VESSELS>2018 AT [facility] *FOLLOWED BY DR. 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: No Beliefs That Will Affect Care: None marital status: Current Living Situation: Spouse Current Living Situation Comment: Lives in 1 story home with current occupational status: retired Other Information That Helps Us Care for You: No Feels Safe at Home: Yes Safety Concerns: Feels Safe At This Time Childhood Exposure to Second-Hand Smoke: No Diet Comment: heart healthy caffeine: Yes Dental Care, Regularly: Yes Physical Activity Frequency: Daily Seatbelt Use: always Sunscreen Use: No (Does wear hat and long sleeves) Do you think of yourself as: straight/heterosexual Assistive Devices: Glasses Review of Systems Review of Systems: All systems reviewed & are unremarkable except as noted in HPI & below Physical Exam Constitutional: WD/WN, vitals as above Respiratory: normal respiratory effort, lungs clear to auscultation Cardiovascular: RRR, no murmur, no edema Gastrointestinal (Abdomen): normal bowel sounds, soft, nontender, no hepatosplenomegaly Skin: no rashes, warm and dry Psychiatric: Orientation: alert and oriented x 3 Affect: euthymic affect Results & Data Vital Signs (Past 12 Hours) Vital Signs Temp Pulse Pulse Resp BP Pulse Ox O2 Del Method 07/06/23 11:20 97.7 F 70 18 144/86 H 96 Room Air 07/06/23 07:29 97.5 F L 66 19 145/75 H 96 Room Air 07/06/23 07:24 66 07/06/23 03:07 97.9 F 73 30 H 131/70 95 Room Air Coding Level of Care Code 65463 INT INP/OBS CARE MIN Diagnoses Epigastric discomfort R10.13
--- NOTE | 2023-07-06 15:13 | Communication Note ---
Date of Service: July 06, 2023 Preliminary ZIO monitor report available. Patient triggered event on July 03, 2023 at 11:30:16 AM revealed sinus rhythm at 64 bpm. SVT and ventricular tac hycardia (11 beats in duration) observed during the monitoring period without associated symptoms. ZIO report reviewed and discussed with patient and as well as primary wheel polisher Dr. Lance. Ok for discharge from cardiac standpoint Arrangements are being made for diagnostic cardiac catheterization at [facility] followed by Electrophysiology consultation, consideration for bee witt defibrillator implantation. Alden Tamez PA-C
--- NOTE | 2023-07-06 16:50 | Discharge Summary ---
Discharge Summary Date of Service July 06, 2023 Notes For Next Care Provider Needs outpatient GI follow up Follow up with Cardiology for cardiac catheterization Medication Changes From Visit Decreased NPH to 15 units twice a day Discontinued glimepiride Admission HPI Per Admitting Provider Sarita Del Real is a 78 year old male with coronary artery disease s/p coronary artery bypass who presents to the ER with a presyncopal episode, abdominal pain, diaphoresis. He has had multiple similar episodes over the past few months with presyncope, associated shortness of breath and diaphoresis on exertion. These episodes have been happening with increased frequency and severity with 4 similar episodes in the last 3 weeks. This episode was the same but at rest and with epigastric pain (severity 4-5/10, no radiation) occurring at 11:30 AM today. Initial symptom of feeling hot from head to toe. He reports feeling his energy level was low between episodes and he gets tired very quickly. The symptoms are being worked up as an outpatient and his baggage smasher is planning on doing a cardiac catheterization - planning at [facility] due to complex anatomy. However he has never had an episode at rest before. Principal Dx & Hospital Course #1 = Principal Diagnosis (1) Pre-syncope: Ongoing intermittent symptoms of lightheadedness with associated diaphoresis that would come on sometimes with exertion, sometimes a rest, and sometimes after eating. This time was severe, lasted 45 min, and associated with epigastric pain. Cardiology had [place] [facility] [place] this was an anginal equivalent Trended troponins and negative x 4 Monitored on telemetry-no arrhythmias. He was wearing a Zio patch which was brought in from home and showed no arrhythmia at time of the event on day of admission, but did show some NSVT that was asymptomatic Blood pressures are actually mildly hypertensive and orthostatic vital signs are negative CT head negative Chest x-ray negative Consult cardiology appreciated Could be vasovagal syncope but unclear cause and seems unusual to have on a recurrent basis- if not arrhythmia, then could be recurrent GI source? Cardiology recommends discharge to home with outpt cardiac cath and EP follow up with possible pacer insertion CT A/P normal but with TBili mildly elevated off and on after having some symptoms here post-prandially--> recommend outpt f/u with GI as this is how he presented similarly with choledocholithiasis in 10/2022 (despite normal imaging studies at that time as well) Appreciate GI consult here (2) Abdominal pain: Epigastric pain during one of the episodes, now resolved, reports similar to his prior IA but also had choledocholithiasis in 10/2022 and TBili mildly elevated here Troponin neg x 4, seems less likely to be angina as this episode on 07/02 lasted 45 min and trops neg Checked RUQ US which is normal follow LFTs-total bilirubin returned to normal, then went back up slightly again to 1.3 after having epigastric symptoms and flushing with eating CT A/P as above-some dilation of pancreatic duct but stable from previous, no CBD stones f/u GI as outpt to see if needs repeat ERCP/EUS previous pancreatic duct stent is now fallen out (3) Type 2 diabetes mellitus treated with insulin: HbA1C 7.0 June 21 With some hypoglycemia, further reduced his NPH and should remain on lower dose at home Discontinue glimepiride-he does not need to be on this in addition to insulin hold saxagliptin while inpatient but reusme as outpt (4) Benign essential hypertension: Continue carvedilol, ISMN, lisinopril Holding furosemide here but can resume on discharge (5) Asthma: Continue Trelegy Ellipta of hospital formulary equivalent no acute issues (6) Coronary artery disease: With a history of CABG Continue ASA, clopidogrel, carvedilol, lisinopril, atorvastatin (7) BPH (benign prostatic hyperplasia): Continue tamsulosin No acute issues Plan VTE Prophylaxis - Lovenox SQ Disposition -dc to home. Discussed care with cardiology on 07/04 and again on 07/05 Discussed care with pt's on 07/05 Discharge Exam Constitutional WD/WN, vitals as above Respiratory normal respiratory effort, lungs clear to auscultation Cardiovascular RRR, no murmur, no edema Gastrointestinal (Abdomen) normal bowel sounds, soft, nontender, no hepatosplenomegaly Psychiatric A+Ox3, euthymic affect Updated Medication List Medication Instructions Recorded Confirmed Type cetirizine 10 mg capsule 10 mg PO HS #90 caps 10/24/18 07/03/23 Rx clopidogrel 75 mg tablet (Plavix) 75 mg PO QAM #90 tabs 10/24/18 07/03/23 Rx fexofenadine 180 mg tablet 180 mg PO QAM #90 tabs 10/24/18 07/03/23 Rx fjwuwsys-bm-rttoq 300 mcg-K 60 1 tab PO QAM #90 tabs 10/24/18 07/03/23 Rx mcg-lycop 600 mcg-lutein 300 mcg tablet (Centrum Silver Men) aspirin 81 mg tablet,delayed 81 mg PO 3XWK 04/16/19 07/03/23 History release lisinopril 10 mg tablet 10 mg PO QAM 04/16/19 07/03/23 History furosemide 20 mg tablet 20 mg PO 3XWK 02/22/20 07/03/23 History ipratropium bromide 42 mcg (0.06 1 spray intranasal AMHS 02/22/20 07/03/23 History %) nasal spray triamcinolone acetonide 55 mcg 1 spray intranasal QAM 02/22/20 07/03/23 History nasal spray aerosol (Nasacort) glucagon 1 mg/0.2 mL subcutaneous 1 mg (0.2 mL) subcut ONCE PRN 02/28/20 07/03/23 Rx auto-injector severe low sugar #0.2 mL albuterol sulfate 90 mcg/actuation 2 puff inhalation Q6H PRN 01/26/22 07/03/23 Rx aerosol inhaler (Ventolin HFA) Shortness Of Breath Or Wheezing #18 grams lancets 30 gauge (OneTouch #200 ea 09/17/22 06/29/23 Rx UltraSoft 2 Lancet) potassium chloride 10 mEq 10 meq PO QAM #90 tabs 09/20/22 07/03/23 Rx tablet,extended release isosorbide mononitrate 30 mg 30 mg PO QAM #90 tabs 10/20/22 07/03/23 Rx tablet,extended release 24 hr blood sugar diagnostic (OneTouch #150 ea 11/23/22 06/29/23 Rx Ultra Test strips) carvedilol 3.125 mg tablet (Coreg) 3.125 mg PO BIDM #180 tabs 12/13/22 07/03/23 Rx saxagliptin 5 mg tablet (Onglyza) 5 mg PO QDD #90 tabs 12/20/22 07/03/23 Rx pantoprazole 40 mg tablet,delayed 40 mg PO BID #180 tabs 12/21/22 07/03/23 Rx release tamsulosin 0.4 mg capsule (Flomax) 0.4 mg PO DAILY #90 caps 12/21/22 07/03/23 Rx lancets 30 gauge (OneTouch Delica #200 ea 02/07/23 06/29/23 Rx Plus Lancet) lancing device with lancets kit #1 ea 02/07/23 06/29/23 Rx (OneTouch Delica Plus Lancing Device kit) fluticasone fur. 200 mcg-umeclid 1 inh inhalation DAILY #60 ea 03/01/23 07/03/23 Rx 62.5 mcg-vilant 25 mcg inhalat.powder (Trelegy Ellipta) lancets (Accu-Chek Softclix #200 ea 03/01/23 06/29/23 Rx Lancets) atorvastatin 80 mg tablet 80 mg PO QDD #90 tabs 05/30/23 07/03/23 Rx insulin NPH isoph U-100 human 100 15 unit (0.15 mL) subcut BID #10 mL 07/06/23 07/03/23 Rx unit/mL subcutaneous suspension (Novolin N NPH U-100 Insulin isophane) Hospital Stay Data Consultations 07/03/23 14:25 ED Decision to Admit Stat 07/03/23 16:23 Consult Cardiology Routine 07/06/23 08:05 Consult Gastroenterology Routine Diagnostic Imagining Performed 07/03/23 12:32 CT head/brain wo con Stat 07/04/23 14:17 US liver Urgent 07/06/23 08:03 CT abd pelvis IV con only Urgent Pending Results Patient Have Any Pending Studies at Discharge: No Discharge Instructions Given to Patient (Per Discharging Provider) You were admitted with episodes of lightheadedness and sweating, and some abdominal discomfort. You had multiple tests that showed you did not have an abnormal heart rhythm and you did not have a heart attack. Your one liver blood test called "bilirubin" was slightly elevated on a few occasions and this can be a sign that you have perhaps some small stones passing in your bile duct again like you did in October 2022. Please follow up with Dr. Sue at [facility]-his office should be contacting you with an appointment date and time. This may be causing you to have these episodes. Try to eat a low fat diet to prevent this from happening. The Bobbin Cleaner still would like for you to have a cardiac catheterization and this will be arranged for you at [facility] in [place]. Your blood sugars here were quite low at times and your insulin dose was reduced to NPH 15 units twice a day. You do not need to take glimepiride on top of insulin so this can be stopped to avoid having low blood sugars. It was a pleasure taking care of you and I will keep you in my prayers! -Dr. Luann Hernandez Total Time Total Time Spent Total Time Spent (In Minutes): 45 min Coding Level of Care Code 81816 INP/OBS DISCH >30 MIN Diagnoses Pre-syncope R55 Abdominal pain R10.9 Type 2 diabetes mellitus treated with insulin E11.9; Z79.4 Benign essential hypertension I10 Asthma J45.909 Coronary artery disease I25.10 BPH (benign prostatic hyperplasia) N40.0
== END 2023-07-06 17:43 | disposition home or self-care (01) | DRG 312 ==
LOC: 2E 11:46 → ED 11:46 → SUATTDRO 15:58 → 2E 17:50
DX: E11.649 Type 2 diabetes mellitus with hypoglycemia without coma; Z91.048 Other nonmedicinal substance allergy status; I11.0 Hypertensive heart disease with heart failure; I25.10 Atherosclerotic heart disease of native coronary artery without angina pectoris; R55 Syncope and collapse; I50.42 Chronic combined systolic (congestive) and diastolic (congestive) heart failure; Z79.899 Other long term (current) drug therapy; N40.0 Benign prostatic hyperplasia without lower urinary tract symptoms; E11.42 Type 2 diabetes mellitus with diabetic polyneuropathy